=== PATIENT | female | born 1955 | race Hispanic/Latino ===

== ENCOUNTER 2018-03-03 13:31 | Observation (INO) | payer BC, OTHER, SELFPAY ==
--- NOTE | 2018-03-03 14:38 | RAD REPORT ---
EXAM DESCRIPTION: CT - Ct Stroke Brain Wo Cont - 03/03/2018 2:24 pm CLINICAL HISTORY: Right-sided facial droop, right-sided pain and tingling extending into the neck, s troke protocol study CLINICAL HISTORY: None. TECHNIQUE: Axial 5 millimeter thick images of the head were obtained without IV contrast. All CT scans are performed using dose optimization technique as appropriate and may include automated exposure control or mA/KV adjustment according to patient size. FINDINGS: No intracranial hemorrhage, mass, or cerebral edema. No acute infarction identifiable. No extra-axial fluid collections. Florian matter-white matter differentiation is preserved. Visualized portions of the mastoid air cells, paranasal sinuses, and orbits are unremarkable. Findings telephoned to the referring physician 1434 hours IMPRESSION: No CT evidence of acute intracranial process.
--- NOTE | 2018-03-03 14:49 | RAD REPORT ---
EXAM DESCRIPTION: RAD - Chest Single View - 03/03/2018 2:36 pm CLINICAL HISTORY: Right-sided neck and shoulder pain and tingling, stroke protocol examination COMPARISON: None. TECHNIQUE: AP portable chest image was obtained 1424 hours . FINDINGS: Lungs are clear. Heart size is magnified by portable technique, shallow inspiration and jorgito dy habitus. Patient may have a mild baseline cardiomegaly. Upper lobe vasculature within normal limit s. Failure or volume overload are not suspected. No measurable pleural effusion and no pneumothorax. No gross bony abnormality seen. No acute aortic findings suspected. IMPRESSION: No acute cardiopulmonary process. Patient probably has a mild or borderline cardiomegaly. No failure or volume overload.
[2018-03-03] MEDS ORDERED: ASPIRIN 81 MG CHEWABLE TABLET ONE (15:01)
[2018-03-03 15:18] LABS: Absolute Lymphocytes (CBC) 1.9 K/uL (0.7-4.9); Absolute Monocytes 0.5 K/uL (0.1-1.3); Absolute Neutrophil 3.2 K/uL (1.8-8.0); Basophils % 0.4 % (0-1.3); Eosinophils % 1.4 % (0-4.4); Hematocrit 38.9 % (36.0-45.0); Lymphocytes % 32.9 % (15.3-44.8); MCH 33.2 pg (27.0-35.0); MCV 96.8 fL (80-100); MPV 10.2 fL (7.6-11.3); Monocytes % 9.3 % (3.3-12.3); RBC Red Blood Cell Count 4.01 M/uL (3.86-4.86)
[2018-03-03 15:20] LABS: Protime INR 1.14
[2018-03-03 15:36] LABS: Albumin 3.4 g/dL (3.4-5.0); Bilirubin Direct 0.3 mg/dL (0-0.2); Magnesium 1.9 mg/dL (1.8-2.4); Protein, Total 7.5 g/dL (6.4-8.2)
[2018-03-03 15:43] LABS: Potassium 2.9 mmol/L (3.5-5.1)
[2018-03-03 15:43] LABS: Urine Blood NEGATIVE (NEG); Urine Glucose NEGATIVE (NEG); Urine Protein NEGATIVE (NEG); Urine Specific Gravity 1.015 (1.005-1.030)
[2018-03-03 15:45] LABS: Urine Bacteria >50 /HPF (<20); Urine Culture Reflex Order REFLEXED; Urine RBC <5 /HPF (NONE SEEN)
[2018-03-03] MEDS ORDERED: POTASSIUM 25 MEQ EFFERV TAB ONE (16:13)
--- NOTE | 2018-03-03 16:27 | EKG ---
Test Date: 2018-03-03 Test Time: 14:44:38 Hide Selector: CHANTAL MEASUREMENT RESULTS: Intervals: Rate: 67 NC: 160 QRSD: 100 QT: 428 QTc: 452 [place]: P: -4 NC: 160 QRS: -5 T: 5 INTERPRETIVE STATEMENTS: Normal sinus rhythm Moderate voltage criteria for LVH, may be normal variant Borderline ECG No previous ECG available for comparison Electronically Signed On 03-03-18 16:26:59 CDT by Larry Rutherford
--- NOTE | 2018-03-03 16:29 | ER ---
Nurse's Notes [facility] Name: Jojo Alaniz Age: 62 yrs Sex: Female : 1955 Arrival Date: 03/03/2018 Time: 13:32 Bed 25 Private MD: Diagnosis: Right Facial Droop;Right upper Extremity weakness;Hypokalemia Presentation: 03/03 13:33 Presenting complaint: Patient states: woke up at 7 am with right facial droop and iw unable to move right side of face, also has pain and tingling to right side of neck and right shoulder, down right arm, did not feel good today, felt like her BP was high. Transition of care: patient was not received from another setting of care. 13:33 Method Of Arrival: Ambulatory iw 13:39 Risk Assessment: Do you want to hurt yourself or someone else? Patient reports no iw desire to harm self or others. Initial Sepsis Screen: Does the patient meet any 2 criteria? No. Patient's initial sepsis screen is negative. Does the patient have a suspected source of infection? No. Patient's initial sepsis screen is negative. Care prior to arrival: None. 13:39 Acuity: JES 3 iw 18:29 No acute neurological deficit is noted. Pre-hospital glucose is not applicable to this tl3 patient. Onset of symptoms was March 03, 2018 at 07:00. Triage Assessment: 18:29 The onset of the patients symptoms was March 03, 2018 at 07:00. tl3 Stroke Activation: Symptom onset > 6 hours Physician: Stroke Attending; Name: ; Notified At: ; Arrived At: Physician: Chief Stroke Resident; Name: ; Notified At: ; Arrived At: Physician: Stroke Resident; Name: ; Notified At: ; Arrived At: Physician: ED Attending; Name: ; Notified At: ; Arrived At: Physician: ED Resident; Name: ; Notified At: ; Arrived At: Historical: - Allergies: 13:39 NKA; iw - PSHx: 13:39 right shoulder; iw - Immunization history:: Adult Immunizations up to date. - Ebola Screening: : Patient negative for fever greater than or equal to 101.5 degrees Fahrenheit, and additional compatible Ebola Virus Disease symptoms Patient denies exposure to infectious person Patient denies travel to an Ebola-affected area in the 21 days before illness onset No symptoms or risks identified at this time. - Social history:: Smoking status: unknown. - Family history:: not pertinent. - Hospitalizations: : No recent hospitalization is reported. Screenin:58 Abuse screen: Denies threats or abuse. Nutritional screening: No deficits noted. tl3 Tuberculosis screening: No symptoms or risk factors identified. Fall Risk None identified. Assessment: 13:58 General: Appears in no apparent distress. comfortable, well groomed, well developed, tl3 well nourished, Behavior is calm, cooperative, appropriate for age. Pain: Complains of pain in neck bilaterally Pain currently is 9 out of 10 on a pain scale. Neuro: Level of Consciousness is awake, alert, obeys commands, Oriented to person, place, time, situation, Appropriate for age [employer] are equal bilaterally Moves all extremities. Speech is normal, Facial droop on right, Pupils are PERRLA, Intact. Neuro: Reports waking up at 3am with bilateral neck pain, then when she woke up at 7am she had facial drooping on the right side, speech is clear, able to move all extremities, follows directions without difficulty. Cardiovascular: Capillary refill < 3 seconds in bilateral fingers Patient's skin is warm and dry. Rhythm is regular. Respiratory: Airway is patent Respiratory effort is even, unlabored, Respiratory pattern is regular, symmetrical, Breath sounds are clear bilaterally. GI: No signs and/or symptoms were reported involving the gastrointestinal system. : No signs and/or symptoms were reported regarding the genitourinary system. EENT: No signs and/or symptoms were reported regarding the EENT system. Derm: No signs and/or symptoms reported regarding the dermatologic system. Musculoskeletal: No signs and/or symptoms reported regarding the musculoskeletal system. 14:51 Reassessment: Patient appears in no apparent distress at this time. No changes from tl3 previously documented assessment. Patient and/or family updated on plan of care and expected duration. Pain level reassessed. Patient is alert, oriented x 3, equal unlabored respirations, skin warm/dry/pink. pt returned from CT, ambulated to restroom for urine collection. 15:00 The patient has not been NPO before screening. The patient is currently on the tl3 following diet: regular, last at eggs for breakfast The patient is alert, and able to follow commands. The patient does not exhibit slurred or garbled speech. The patient is not exhibiting difficulty speaking. The patient is exhibiting difficulty understanding words. The patient is able to swallow own secretions with no drooling or need for suction. Patient tolerated one teaspoon of water. No drooling, immediate coughing, gurgling, or clearing of the throat was noted. The patient tolerated 90mL of water. No drooling, immediate coughing, gurgling, or clearing of the throat was noted. The patient passed the bedside swallow screening. Oral medications may be given as ordered. Contact Physician for further diet orders. Provider notified of bedside swallow screening results: Robert Soliman MD. T-PA (Activase) Screening: Contraindications: Patient reports onset of signs and symptoms of stroke greater than 6 hours ago: Yes. 16:17 Reassessment: Patient appears in no apparent distress at this time. No changes from tl3 previously documented assessment. Patient and/or family updated on plan of care and expected duration. Pain level reassessed. Patient is alert, oriented x 3, equal unlabored respirations, skin warm/dry/pink. at bedside, no needs at this time. 18:15 Reassessment: Patient appears in no apparent distress at this time. No changes from tl3 previously documented assessment. Patient and/or family updated on plan of care and expected duration. Pain level reassessed. Patient is alert, oriented x 3, equal unlabored respirations, skin warm/dry/pink. Vital Signs: 13:37 BP 148 / 85; Pulse 76; Resp 16; Temp 98.6; Pulse Ox 98% on R/A; Weight 83.91 kg; Height iw 5 ft. 1 in. (154.94 cm); 13:58 BP 139 / 127; Pulse 71; Resp 18; Pulse Ox 99% on R/A; tl3 14:49 BP 141 / 111 (auto/lg); Pulse 72; Resp 18 S; Pulse Ox 98% on R/A; vd2 16:07 BP 137 / 69 RA Sitting (auto/lg); Pulse 66; Resp 18 S; Pulse Ox 98% on R/A; vd2 18:31 BP 135 / 78; Pulse 70; Resp 18; Pulse Ox 98% on R/A; tl3 13:37 Body Mass Index 34.96 (83.91 kg, 154.94 cm) iw NIH Stroke Scale Scores: 15:00 NIHSS Score: 1 tl3 ED Course: 13:32 Patient arrived in ED. rg4 13:39 Triage completed. iw 13:44 Brittney Nevarez, RN is Primary Nurse. tl3 13:52 Robert Soliman MD is Attending Physician. wa 13:58 Patient has correct armband on for positive identification. Bed in low position. Call tl3 light in reach. Side rails up X 1. Adult w/ patient. Pulse ox on. NIBP on. 13:58 No provider procedures requiring assistance completed. tl3 14:23 CT completed. Patient tolerated procedure well. Patient moved to CT via wheelchair. sj Patient moved back from CT. 14:24 CT Stroke Brain w/o Contrast In Process Unspecified. EDMS 14:35 X-ray completed. Patient tolerated procedure well. mh1 14:37 Stroke CXR 1 View In Process Unspecified. EDMS 14:52 EKG done, by document management technician. reviewed by Robert Soliman MD. sm3 15:02 Inserted saline lock: 20 gauge in left antecubital area, using aseptic technique. Blood mg2 collected. by director medical science Madhavi. 16:28 Johnny Barakat DO is Hospitalizing Provider. wa 16:46 Admitting physician to see patient. tl3 18:13 First set of blood cultures drawn by me, Second set of blood cultures drawn by me. tl3 18:28 Patient admitted, IV remains in place. tl3 18:30 Arm band placed on. tl3 Administered Medications: 15:02 Drug: Aspirin Chewable Tablet 324 mg Route: PO; mg2 15:30 Follow up: Response: No adverse reaction tl3 16:13 Drug: Potassium Effervescent Tablet 50 mEq Route: PO; tl3 16:13 Follow up: Response: No adverse reaction tl3 Point of Care Testing: Blood Glucose: 14:49 Blood Glucose: 87 mg/dL; vd2 Ranges: Outcome: 16:28 Decision to Hospitalize by Provider. wa 18:28 Admitted to Med/surg accompanied by tech, via wheelchair, room 202, with chart. tl3 18:28 Condition: stable 18:28 Instructed on the need for admit, Demonstrated understanding of instructions. 18:35 Patient left the ED. tl3 NIH Stroke Scale - NIH Stroke Score Date: 03/03/2018 Time: 15:00 Total Score = 1 1a. Level of Consciousness (LOC) - 0(Alert) 1b. Level of Consciousness (LOC) (Year \T\ Age) - 0(Both) 1c. LOC Commands (Open \T\ Closes Eyes/Cotton Ball Machine Tender) - 0(Both) 2. Best Gaze (Lateral Gaze Paresis) - 0(Normal) 3. Visual Field Loss - 0(No visual loss) 4. Facial Palsy - 1(Minor Paralysis) 5a. Left Arm: Motor (10-second hold) - 0(No drift) 5b. Right Arm: Motor (10-second hold) - 0(No drift) 6a. Left Leg: Motor (5-second hold - always test supine) - 0(No drift) 6b. Right Leg: Motor (5-second hold - always test supine) - 0(No drift) 7. Limb Ataxia (finger/nose \T\ heel/correa - test with eyes open) - 0(Absent) 8. Sensory Loss (pinprick arms/legs/face) - 0(Normal) 9. Best Language: Aphasia (description/naming/reading) - 0(No aphasia) 10. Dysarthria (speech clarity - read or repeat words) - 0(Normal) 11. Extinction and Inattention (visual/tactile/auditory/spatial/personal) - 0(No abnormality) Initials: tl3 Signatures: Dispatcher [employer] Olivia Valdes mh1 Itzel Marrero Irene, RN RN Le Kimbrough 2 Claire Carranza rg4 Robert Soliman MD MD wa Lowrey, Tammy, RN RN tl3 Sonny Espinal RN RN [facility] [place] Tracy Link 3
--- NOTE | 2018-03-03 16:29 | EDPHYS ---
Physician Documentation [facility] Name: Jojo Alaniz Age: 62 yrs Sex: Female : 1955 Arrival Date: 03/03/2018 Time: 13:32 Bed 25 Private MD: ED Physician Robert Soliman HPI: 03/03 16:11 This 62 yrs old Female presents to ER via Ambulatory with complaints of Facial wa Droop, Numbness. 16:11 The patient presents to the emergency department with weakness of the right side of the wa face, that is moderate. Onset: The symptoms/episode began/occurred today, at 7 AM noted R facial droop. denies speech impediment. began with pain in back of the neck on both sides prior to facial droop at 7AM also states numbness and tingling down the R arm. states does not feel good and feels her BP is up. . Context: occurred at home, occurred while the patient was at rest. Associated signs and symptoms: Pertinent positives: paresthesias, weakness, R shoulder and upper extremity , Pertinent negatives: altered mental status, dizziness, headache, neck stiffness. Severity of symptoms: At their worst the symptoms were moderate in the emergency department the symptoms are unchanged. Patient's baseline: Neuro: alert and fully oriented, Motor: no deficits, Ambulation: walks without assistance, Speech: normal, The patient has a previous history of HTN. Current symptoms: unchanged. The patient has not experienced similar symptoms in the past. The patient has not recently seen a physician. Historical: - Allergies: 13:39 NKA; iw - PSHx: 13:39 right shoulder; iw - Immunization history:: Adult Immunizations up to date. - Ebola Screening: : Patient negative for fever greater than or equal to 101.5 degrees Fahrenheit, and additional compatible Ebola Virus Disease symptoms Patient denies exposure to infectious person Patient denies travel to an Ebola-affected area in the 21 days before illness onset No symptoms or risks identified at this time. - Social history:: Smoking status: unknown. - Family history:: not pertinent. - Hospitalizations: : No recent hospitalization is reported. ROS: 16:21 Constitutional: Negative for fever, chills, and weight loss, Eyes: Negative for injury, wa pain, redness, and discharge, ENT: Negative for injury, pain, and discharge, Neck: Negative for injury, pain, and swelling, Cardiovascular: Negative for chest pain, palpitations, and edema, Respiratory: Negative for shortness of breath, cough, wheezing, and pleuritic chest pain, Abdomen/GI: Negative for abdominal pain, nausea, vomiting, diarrhea, and constipation, Back: Negative for injury and pain, : Negative for injury, bleeding, discharge, and swelling, MS/Extremity: Negative for injury and deformity, Skin: Negative for injury, rash, and discoloration, Psych: Negative for depression, anxiety, suicide ideation, homicidal ideation, and hallucinations. 16:21 Neuro: Positive for numbness, tingling, weakness, of the right face. 16:21 All other systems are negative. Exam: 16:22 Constitutional: This is a well developed, well nourished patient who is awake, alert, wa and in no acute distress. Head/Face: Normocephalic, atraumatic. Eyes: Pupils equal round and reactive to light, extra-ocular motions intact. Lids and lashes normal. Conjunctiva and sclera are non-icteric and not injected. Cornea within normal limits. Periorbital areas with no swelling, redness, or edema. ENT: Nares patent. No nasal discharge, no septal abnormalities noted. Tympanic membranes are normal and external auditory canals are clear. Oropharynx with no redness, swelling, or masses, exudates, or evidence of obstruction, uvula midline. Mucous membranes moist. Neck: Trachea midline, no thyromegaly or masses palpated, and no cervical lymphadenopathy. Supple, full range of motion without nuchal rigidity, or vertebral point tenderness. No Meningismus. Chest/axilla: Normal chest wall appearance and motion. Nontender with no deformity. No lesions are appreciated. Cardiovascular: Regular rate and rhythm with a normal S1 and S2. No gallops, murmurs, or rubs. Normal PMI, no JVD. No pulse deficits. Respiratory: Lungs have equal breath sounds bilaterally, clear to auscultation and percussion. No rales, rhonchi or wheezes noted. No increased work of breathing, no retractions or nasal flaring. Abdomen/GI: Soft, non-tender, with normal bowel sounds. No distension or tympany. No guarding or rebound. No evidence of tenderness throughout. Back: No spinal tenderness. No costovertebral tenderness. Full range of motion. Skin: Warm, dry with normal turgor. Normal color with no rashes, no lesions, and no evidence of cellulitis. MS/ Extremity: Pulses equal, no cyanosis. Neurovascular intact. Full, normal range of motion. 16:22 Neuro: Orientation: is normal, Mentation: is normal, Memory: is normal, Cranial nerves: right facial droop. forehead inclusive? noted decreased strength in RUE. LE strength symmetrical. Vital Signs: 13:37 BP 148 / 85; Pulse 76; Resp 16; Temp 98.6; Pulse Ox 98% on R/A; Weight 83.91 kg; Height iw 5 ft. 1 in. (154.94 cm); 13:58 BP 139 / 127; Pulse 71; Resp 18; Pulse Ox 99% on R/A; tl3 14:49 BP 141 / 111 (auto/lg); Pulse 72; Resp 18 S; Pulse Ox 98% on R/A; vd2 16:07 BP 137 / 69 RA Sitting (auto/lg); Pulse 66; Resp 18 S; Pulse Ox 98% on R/A; vd2 18:31 BP 135 / 78; Pulse 70; Resp 18; Pulse Ox 98% on R/A; tl3 13:37 Body Mass Index 34.96 (83.91 kg, 154.94 cm) iw NIH Stroke Scale Scores: 15:00 NIHSS Score: 1 tl3 MDM: 13:52 Patient medically screened. al 16:23 Data reviewed: vital signs, nurses notes, lab test result(s), EKG, radiologic studies. al Test interpretation: by ED physician or midlevel provider: EKG: HR 67. nml sinus. possible LVH. labs noted for mild elevation in troponin. hypokalemia. CT brain no acute process. Response to treatment: There is no appreciated change of the patient's symptoms at this time. Physician consultation: Johnny Barakat DO was called at 16:27. Admission orders: after a detailed discussion of the patient's condition and case, the admit orders are written by me. ED course: possible Person's palsy as it appears forehead is involved in droop. however does not explain R UE weakness. also pt with risk of HTN, age, obesity. will work up to exclude stroke. 16:29 ED course: passed swallow study. see nursing note for stroke scale scores. low score. al 16:30 ED course: ASA given. potassium replaced po. al 03/03 14:13 Order name: Troponin (emerg Dept Use Only); Complete Time: 15:55 al 03/03 14:13 Order name: Magnesium; Complete Time: 15:55 al 03/03 14:13 Order name: Hepatic Function; Complete Time: 15:55 al 03/03 14:13 Order name: Basic Metabolic Panel; Complete Time: 15:55 al 03/03 14:13 Order name: CBC with Diff; Complete Time: 15:33 al 03/03 14:13 Order name: Protime (+inr); Complete Time: 15:33 al 03/03 14:13 Order name: Urine Microscopic Only; Complete Time: 15:55 al 03/03 14:13 Order name: CT Stroke Brain w/o Contrast; Complete Time: 15:33 al 03/03 14:13 Order name: Stroke CXR 1 View; Complete Time: 15:33 al 03/03 14:13 Order name: EKG; Complete Time: 14:14 al 03/03 15:41 Order name: Urine Dipstick--Ancillary (enter results); Complete Time: 15:55 mb4 03/03 15:47 Order name: Urine Culture EDMI 03/03 14:13 Order name: Accucheck; Complete Time: 15:01 al 03/03 14:13 Order name: Cardiac monitoring; Complete Time: 15: al 03/03 14:13 Order name: EKG - Nurse/Tech; Complete Time: 15:09 al 03/03 14:13 Order name: IV Saline Lock; Complete Time: 15: al 03/03 14:13 Order name: Labs collected and sent; Complete Time: 15:02 al 03/03 14:13 Order name: NPO; Complete Time: 15:02 al 03/03 14:13 Order name: O2 Per Protocol; Complete Time: 15: al 03/03 14:13 Order name: O2 Sat Monitoring; Complete Time: 15:02 al 03/03 14:13 Order name: Stroke Swallow Screen; Complete Time: 15:53 al 03/03 14:13 Order name: Urine Dipstick-Ancillary (obtain specimen); Complete Time: 15:09 al Administered Medications: 15:02 Drug: Aspirin Chewable Tablet 324 mg Route: PO; mg2 15:30 Follow up: Response: No adverse reaction tl3 16:13 Drug: Potassium Effervescent Tablet 50 mEq Route: PO; tl3 16:13 Follow up: Response: No adverse reaction tl3 Point of Care Testing: Blood Glucose: 14:49 Blood Glucose: 87 mg/dL; vd2 Ranges: Critical Glucose Levels:Adult <50 mg/dl or >400 mg/dl <40 mg/dl or >180 mg/dl Disposition: 03/03/18 16:28 Hospitalization ordered by Johnny Barakat for Observation. Preliminary diagnosis are Right Facial Droop, Right upper Extremity weakness, Hypokalemia. - Bed requested for Telemetry/MedSurg (observation). - Status is Observation. tl3 - Condition is Stable. - Problem is new. - Symptoms have improved. UTI on Admission? No NIH Stroke Scale - NIH Stroke Score Date: 03/03/2018 Time: 15:00 Total Score = 1 1a. Level of Consciousness (LOC) - 0(Alert) 1b. Level of Consciousness (LOC) (Year \T\ Age) - 0(Both) 1c. LOC Commands (Open \T\ Closes Eyes/Grooving Lathe Tender) - 0(Both) 2. Best Gaze (Lateral Gaze Paresis) - 0(Normal) 3. Visual Field Loss - 0(No visual loss) 4. Facial Palsy - 1(Minor Paralysis) 5a. Left Arm: Motor (10-second hold) - 0(No drift) 5b. Right Arm: Motor (10-second hold) - 0(No drift) 6a. Left Leg: Motor (5-second hold - always test supine) - 0(No drift) 6b. Right Leg: Motor (5-second hold - always test supine) - 0(No drift) 7. Limb Ataxia (finger/nose \T\ heel/correa - test with eyes open) - 0(Absent) 8. Sensory Loss (pinprick arms/legs/face) - 0(Normal) 9. Best Language: Aphasia (description/naming/reading) - 0(No aphasia) 10. Dysarthria (speech clarity - read or repeat words) - 0(Normal) 11. Extinction and Inattention (visual/tactile/auditory/spatial/personal) - 0(No abnormality) Initials: tl3 Signatures: Dispatcher [employer] Ama Reeves RN RN iw Robert Soliman MD MD wa Lowrey, Tammy, RN RN 3 Sonny Espinal, CARMELITA MAE [facility] [place] mb4 Corrections: (The following items were deleted from the chart) 16:29 16:28 Hospitalization Ordered by Johnny Barakat DO for Observation. Preliminary al diagnosis is Right Facial Droop; Right upper Extremity weakness. Bed requested for Telemetry/MedSurg (observation). Status is Observation. Condition is Stable. Problem is new. Symptoms have improved. UTI on Admission? No. al 18:06 16:29 03/03/2018 16:28 Hospitalization Ordered by Johnny Barakat DO for mb4 Observation. Preliminary diagnosis is Right Facial Droop; Right upper Extremity weakness; Hypokalemia. Bed requested for Telemetry/MedSurg (observation). Status is Observation. Condition is Stable. Problem is new. Symptoms have improved. UTI on Admission? No. al 18:34 18:06 03/03/2018 16:28 Hospitalization Ordered by Johnny Barakat DO for tl3 Observation. Preliminary diagnosis is Right Facial Droop; Right upper Extremity weakness; Hypokalemia. Bed requested for Telemetry/MedSurg (observation). Status is Observation. Condition is Stable. Problem is new. Symptoms have improved. UTI on Admission? No. mb4
[2018-03-03] MEDS ORDERED: TRAMADOL HCL 50 MG TAB PO PRN (17:06)
[2018-03-03] MEDS ORDERED: LORAZEPAM 0.5 MG TABLET PO PRN (17:06)
[2018-03-03] MEDS ORDERED: ONDANSETRON 4 MG/2 ML VIAL IV PRN (17:06)
[2018-03-03] MEDS ORDERED: ACETAMINOPHEN 500 MG TAB PO PRN (17:06)
--- NOTE | 2018-03-03 17:40 | P.HP ---
Certification for Inpatient Patient admitted to: Observation With expected LOS: <2 Midnights Patient will require the following post-hospital care: None Practitioner: I am a practitioner with admitting privileges, knowledge of patient current condition, hospital course, and medical plan of care. Services: Services provided to patient in accordance with Admission requirements found in Title 42 Section 412.3 of the Code of Federal Regulations Patient History Date of Service: 03/03/18 Primary Care Provider: None Reason for admission: Right upper extremity weakness, facial droop History of Present Illness: 62-year-old female present emergency room with multiple complaints including right upper extremity weakness, facial droop, dizziness and presyncope. Patient reports that she woke up this morning feeling very tired. She felt her right facial area as being weak. She also reported some pain to the back of the ear bilateral. She rated pain about 9/10. She went back to bed woke up around 7:00 a.m.. She reported further weakness in her right facial area. She also reported some mild weakness to the right upper extremity. Patient has a history of right shoulder surgery x2. Patient felt dizzy with increased fatigue. She reported some blurry vision but mainly near vision. She denied any shortness of breath. Mild chest pain, atypical noted. In the ER patient was evaluated. Initial lab shows sodium 142. Potassium 2.9, initial troponin 0.07. CT of the head unremarkable. Urinalysis showed possible bacteria. Chest x-ray showed cardiomegaly otherwise unremarkable. Due to the nature of her symptoms the patient was admitted for observation. When I saw the patient ER, she appeared dehydrated. Weakness to the extremities appeared normal. Facial droop was noted. Patient denied any history of major medical problems. She does not smoke or drink. Blood pressures were slightly elevated in the emergency room. She denies any nausea, vomiting, diarrhea. No urinary complaints noted. Home medications list reviewed: Yes - Past Medical/Surgical History -: Right shoulder pain, chronic -: Right shoulder surgery x2 Psychosocial/ Personal History: Patient is . She has no children. 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 - Family History Mother -: Cancer (Gallbladder cancer) Father -: Hypertension - Social History Smoking Status: Never smoker Alcohol use: No CD- Drugs: No Caffeine use: Yes Place of Residence: Home Review of Systems General: Weakness, As per HPI Eyes: As per HPI ENT: As per HPI Respiratory: Unremarkable Cardiovascular: Chest Pain, Light Headedness, As per HPI Gastrointestinal: Unremarkable Genitourinary: Unremarkable Musculoskeletal: Shoulder Pain, As per HPI Integumentary: Unremarkable Neurological: As per HPI Lymphatics: Unremarkable Physical Examination - Physical Exam General: Alert, In no apparent distress, Oriented x3, Cooperative HEENT: Atraumatic, Normocephalic, PERRLA, Other (Dry mucous membranes. Right facial droop noted.) Neck: Supple, No Thyromegaly Respiratory: Clear to auscultation bilaterally, Normal air movement Cardiovascular: Normal pulses, Regular rate/rhythm Gastrointestinal: Normal bowel sounds, Soft and benign, Non-distended, No tenderness, No masses, No rebound, No guarding Musculoskeletal: No erythema, No tenderness, No warmth Integumentary: No erythema, No warmth, No cyanosis, Tenderness/swelling (Good range of motion noted to the right shoulder. Some pain with rotation.) Neurological: Normal speech, Normal strength at 5/5 x4 extr, Normal tone, Normal affect, Other (Right facial droop) - Studies Laboratory Data (last 24 hrs) 03/03/18 15:00: PT 13.5 H, INR 1.14 03/03/18 15:00: WBC 5.8, Hgb 13.3, Hct 38.9, Plt Count 111 L 03/03/18 15:00: Sodium 142, Potassium 2.9 L*, BUN 9, Creatinine 0.70, Glucose 93 , Magnesium 1.9, Total Bilirubin 1.0, AST 37, ALT 25, Alkaline Phosphatase 176 H Assessment and Plan - Problems (Diagnosis) (1) Pre-syncope Current Visit: Yes Status: Acute Plan: Patient will be admitted. Will check echocardiogram, carotid Doppler and stroke protocol MRI. Troponin slightly elevated. Will consult cardiology to further assess. Will monitor cardiac enzymes. Patient appears slightly dehydrated. Will start IV fluids. Suspect right facial droop being Person's palsy. Neurology consulted to further assess. Suspect right upper extremity weakness related to chronic shoulder pain. Patient has had multiple procedures in the past. Patient with hypokalemia. Etiology unknown. Will replace and monitor. (2) Facial droop Current Visit: Yes Status: Acute Plan: Suspect Person's palsy. Will continue with above evaluation including MRI brain, echocardiogram and carotid Doppler. (3) Person's palsy Current Visit: Yes Status: Suspected Plan: Continue as above (4) Right arm weakness Current Visit: Yes Status: Chronic Plan: Suspect arm weakness as being chronic related to chronic shoulder pain and previous surgeries. Will evaluate for stroke. (5) Chronic shoulder pain Current Visit: Yes Status: Chronic Plan: Will provide medication as needed. Qualifiers: Laterality: right Qualified Code(s): M25.511 - Pain in right shoulder; G89.29 - Other chronic pain (6) Hypertension Current Visit: Yes Status: Acute Plan: Blood pressure elevated. Patient not taking any medication. Will start lisinopril Qualifiers: Hypertension type: essential hypertension Qualified Code(s): I10 - Essential (primary) hypertension (7) Hypokalemia Current Visit: Yes Status: Acute Plan: Etiology unknown. Will replace. Will monitor closely. (8) Fatigue Current Visit: Yes Status: Acute Plan: Will check tsh. Will monitor lab. Continue as above. Qualifiers: Fatigue type: unspecified Qualified Code(s): R53.83 - Other fatigue (9) UTI (urinary tract infection) Current Visit: Yes Status: Suspected Plan: Patient reports no symptoms of UTI. Will check urine culture. Will consider antibiotic therapy. Qualifiers: Urinary tract infection type: site unspecified Hematuria presence: without hematuria Qualified Code(s): N39.0 - Urinary tract infection, site not specified (10) Troponin level elevated Current Visit: Yes Status: Acute Plan: Slight elevation in troponin. Cardiac enzymes to be monitored closely. Will check echocardiogram. Cardiac consultation has been obtained. Discharge Plan: Home Plan to discharge in: 24 Hours - Advance Directives Does patient have a Living Will: No Does patient have a Durable POA for Healthcare: No - Code Status/Comfort Care Code Status Assessed: Yes (Patient full code) Time Spent Managing Pts Care (In Minutes): 55
[2018-03-03] MEDS ORDERED: CEFTRIAXONE 1 GM/NS 50 ML 1 GM/50 ML BAG IV SCH (18:00)
[2018-03-03] MEDS ORDERED: LORazepam 2 MG/ML VIAL IV ONE (19:33)
[2018-03-03] MEDS: NA CHLORIDE 0.9% 1,000 ML IV SCH (19:51)
[2018-03-03] MEDS: ENOXAPARIN 40 MG/0.4 ML SQ SCH (20:00)
[2018-03-03] MEDS ORDERED: CEFTRIAXONE/SWI 1gm 1 GM/10 ML SYR ONE (20:50)
--- NOTE | 2018-03-03 20:59 | RAD REPORT ---
EXAM DESCRIPTION: - CP - 03/03/2018 8:53 pm CLINICAL HISTORY: Syncope COMPARISON: None. TECHNIQUE: Real-time sonographic evaluation of both carotid systems was performed. Doppler interroga tion was performed with waveform tracing bilaterally. FINDINGS: Normal high resistance waveforms are noted in both external carotid arteries. The common c arotid arteries and internal carotid arteries show normal low resistance waveforms. No significant plaque formation is seen. Peak systolic and end diastolic velocity values and the ICA/ CCA ratios are in the non-hemodynamically significant range. Antegrade flow seen in both vertebral arteries. Velocity values and ratios were recorded and are retained in the patient's imaging records. Exam has significant limitation. Patient was moving throughout the examination and had limited abilit y to cooperate. IMPRESSION: Limited examination due to patient movement and limited ability to cooperate. No significant atherosclerotic change or luminal narrowing identified. Velocity values and ICA/ CCA ratios indicate no significant degree of stenosis.
[2018-03-03] MEDS ORDERED: ATORVASTATIN 40 MG TAB PO SCH (21:00)
[2018-03-04 00:01] LABS: CKMB Creatine Kinase MB < 1.0 ng/mL (0.3-3.6); Creatine Phosphokinase 88 U/L (26-192)
[2018-03-04] MEDS: KCL 20 MEQ/100 mL IVPB 20 MEQ/100 ML BAG IV SCH ×3 (00:53→05:56)
[2018-03-04 05:10] LABS: Absolute Lymphocytes (CBC) 1.5 K/uL (0.7-4.9); Absolute Monocytes 0.5 K/uL (0.1-1.3); Absolute Neutrophil 2.5 K/uL (1.8-8.0); Basophils % 0.3 % (0-1.3); Eosinophils % 1.9 % (0-4.4); Hematocrit 32.6 % (36.0-45.0); Lymphocytes % 33.6 % (15.3-44.8); MCH 34.3 pg (27.0-35.0); MCV 97.2 fL (80-100); MPV 9.8 fL (7.6-11.3); Monocytes % 9.9 % (3.3-12.3); RBC Red Blood Cell Count 3.36 M/uL (3.86-4.86)
[2018-03-04 05:32] LABS: BUN Blood Urea Nitrogen 9 mg/dL (7-18); Bicarbonate 27 mmol/L (21-32); Glucose Level 113 mg/dL (74-106); HDL Cholesterol 48 mg/dL (40-60); LDL Cholesterol, Calculated 80 (<130); Magnesium 1.8 mg/dL (1.8-2.4); Potassium 3.2 mmol/L (3.5-5.1); Sodium Level 145 mmol/L (136-145)
[2018-03-04 05:40] LABS: Blood Morphology Comment NOT SEEN (NOT SEEN); Platelet Estimate DECR; Urine White Blood Cell Casts OK
[2018-03-04] MEDS ORDERED: LORazepam 2 MG/ML VIAL IV ONE (07:16)
[2018-03-04] MEDS: NA CHLORIDE 0.9% 1,000 ML IV SCH (07:20)
[2018-03-04 08:06] LABS: CKMB Creatine Kinase MB 1.3 ng/mL (0.3-3.6)
[2018-03-04] MEDS ORDERED: ASPIRIN EC 81 MG TAB PO SCH (09:00)
[2018-03-04] MEDS: ENOXAPARIN 40 MG/0.4 ML SQ SCH (09:00)
[2018-03-04] MEDS ORDERED: LISINOPRIL 5 MG TAB PO SCH (09:00)
[2018-03-04] MEDS ORDERED: CEFTRIAXONE 1 GM/NS 50 ML 1 GM/50 ML BAG IV SCH (09:00)
--- NOTE | 2018-03-04 09:38 | RAD REPORT ---
EXAM DESCRIPTION: MRI - Brain Wo Cont - 03/04/2018 8:43 am CLINICAL HISTORY: Syncope/right facial droop COMPARISON: March 03, [address] TECHNIQUE: Axial, sagittal, and coronal magnetic resonance images of the brain were obtained. Contra st was not requested FINDINGS: No abnormal signal is present within the brain. Diffusion-weighted/ADC mapping does not reveal evidence of acute infarction. The ventricles are normal caliber. An extra-axial fluid collection is not present The sinuses and mastoids are clear. IMPRESSION: Unremarkable unenhanced brain MRI
--- NOTE | 2018-03-04 10:08 | RAD REPORT ---
EXAM DESCRIPTION: MRI - MRA Head Wo Cont - 03/04/2018 8:43 am CLINICAL HISTORY: Syncope COMPARISON: None. TECHNIQUE: Magnetic resonance angiogram of the head was performed. 3D MIP reconstruction was performed FINDINGS: The visualized anterior cerebral, middle cerebral, posterior cerebral, basilar and distal internal carotid arteries do not demonstrate a significant stenosis. An aneurysm is not seen IMPRESSION: Unremarkable MRA head
[2018-03-04] MEDS ORDERED: METHYLPREDNISOLONE 40 MG INJ IV ONE (11:08)
--- NOTE | 2018-03-04 11:14 | P.DS ---
Admission Date: 03/03/18 Discharge Date: 03/04/18 Primary Care Provider: None Disposition: ROUTINE DISCHARGE Discharge Condition: GOOD Reason for Admission: Right upper extremity weakness, facial droop Consultations: Cardiology-Dr. Tavera Procedures: MRI Brain: COMPARISON: March 03, [address] TECHNIQUE: Axial, sagittal, and coronal magnetic resonance images of the brain were obtained. Contrast was not requested FINDINGS: No abnormal signal is present within the brain. Diffusion-weighted/ADC mapping does not reveal evidence of acute infarction. The ventricles are normal caliber. An extra-axial fluid collection is not present The sinuses and mastoids are clear. IMPRESSION: Unremarkable unenhanced brain MRI MRA Brain: COMPARISON: None. TECHNIQUE: Magnetic resonance angiogram of the head was performed. 3D MIP reconstruction was performed FINDINGS: The visualized anterior cerebral, middle cerebral, posterior cerebral , basilar and distal internal carotid arteries do not demonstrate a significant stenosis. An aneurysm is not seen IMPRESSION: Unremarkable MRA head Carotid Doppler: No acute stenosis noted. ECHO: Performed. Results pending. - Problems (1) Pre-syncope Onset Date: 03/04/18 Current Visit: Yes Status: Acute (2) Facial droop Onset Date: 03/04/18 Current Visit: Yes Status: Acute (3) Person's palsy Onset Date: 03/04/18 Current Visit: Yes Status: Acute (4) Right arm weakness Onset Date: 03/04/18 Current Visit: Yes Status: Chronic (5) Chronic shoulder pain Onset Date: 03/04/18 Current Visit: Yes Status: Chronic Qualifiers: Laterality: right Qualified Code(s): M25.511 - Pain in right shoulder; G89.29 - Other chronic pain (6) Hypertension Onset Date: 03/04/18 Current Visit: Yes Status: Acute Qualifiers: Hypertension type: essential hypertension Qualified Code(s): I10 - Essential (primary) hypertension (7) Hypokalemia Onset Date: 03/04/18 Current Visit: Yes Status: Acute (8) Fatigue Onset Date: 03/04/18 Current Visit: Yes Status: Acute Qualifiers: Fatigue type: unspecified Qualified Code(s): R53.83 - Other fatigue (9) UTI (urinary tract infection) Onset Date: 03/04/18 Current Visit: Yes Status: Suspected Qualifiers: Urinary tract infection type: site unspecified Hematuria presence: without hematuria Qualified Code(s): N39.0 - Urinary tract infection, site not specified (10) Troponin level elevated Onset Date: 03/04/18 Current Visit: Yes Status: Acute Brief History of Present Illness: 62-year-old female present emergency room with multiple complaints including right upper extremity weakness, facial droop, dizziness and presyncope. Patient reports that she woke up this morning feeling very tired. She felt her right facial area as being weak. She also reported some pain to the back of the ear bilateral. She rated pain about 9/10. She went back to bed woke up around 7:00 a.m.. She reported further weakness in her right facial area. She also reported some mild weakness to the right upper extremity. Patient has a history of right shoulder surgery x2. Patient felt dizzy with increased fatigue. She reported some blurry vision but mainly near vision. She denied any shortness of breath. Mild chest pain, atypical noted. In the ER patient was evaluated. Initial lab shows sodium 142. Potassium 2.9, initial troponin 0.07. CT of the head unremarkable. Urinalysis showed possible bacteria. Chest x-ray showed cardiomegaly otherwise unremarkable. Due to the nature of her symptoms the patient was admitted for observation. When I saw the patient ER, she appeared dehydrated. Weakness to the extremities appeared normal. Facial droop was noted. Patient denied any history of major medical problems. She does not smoke or drink. Blood pressures were slightly elevated in the emergency room. She denies any nausea, vomiting, diarrhea. No urinary complaints noted. Hospital Course: Patient presented with right facial droop. Likely Person's palsy. Patient was admitted for further evaluation. MRI/MRA brain showed no acute stroke. No acute abnormality noted. Carotid Doppler unremarkable. Right facial droop likely Person's palsy. Patient given IV Solu-Medrol. At discharge she will continue with prednisone 20 mg 1 pill twice daily for 5 days then 1 pill once daily for 5 days. She will also be started on Acyclovir 400 mg one pill 5 times a day for 10 days. She may follow up with Neurology in one month to further address. There was some concern that the patient had a presyncopal episode. Patient reported only dizziness and right arm weakness and numbness. Patient with history of chronic shoulder pain with previous surgeries. Cardiology evaluated patient. Cardiac enzymes unremarkable. Echocardiogram done. No cardiac intervention was recommended. At discharge she will continue with aspirin 81 mg daily. Patient may follow up with orthopedics is an outpatient to further address her chronic shoulder pain. Patient has underlying hypertension. Patient started on blood pressure medication. At discharge she will continue with lisinopril 5 mg 1 pill daily. Recommendation is to maintain blood pressures less 150/80. Further adjustment can be done by her PCP. Patient was found to have a UTI. Urine culture pending at discharge. This can be followed up as an outpatient. At discharge she will continue with Bactrim DS 1 pill twice daily for 7 days. UTI prevention education will be provided. Patient with mild thrombocytopenia. Peripheral smear unremarkable. Recommendation to recheck lab-CBC in 1 week to monitor resolution. Patient had hypokalemia. This was replaced. Recommendation to recheck lab-BMP in 1 week to monitor resolution. Vital Signs/Physical Exam: Temp Pulse Resp BP Pulse Ox 97.9 F 72 18 135/70 97 03/04/18 08:00 03/04/18 08:00 03/04/18 08:00 03/04/18 08:00 03/04/18 08:00 General: Alert, In no apparent distress, Oriented x3, Cooperative HEENT: Atraumatic, Normocephalic, Mucous membr. moist/pink, Other (Right facial droop) Neck: Supple, No Thyromegaly Respiratory: Clear to auscultation bilaterally, Normal air movement Cardiovascular: Normal pulses, Regular rate/rhythm Gastrointestinal: Normal bowel sounds, Soft and benign, Non-distended, No tenderness, No masses, No rebound, No guarding Musculoskeletal: No erythema, No tenderness, No warmth Integumentary: No tenderness/swelling, No erythema, No warmth, No cyanosis Neurological: Normal speech, Normal strength at 5/5 x4 extr, Normal tone, Normal affect, Other (right facial droop) Lymphatics: No axilla or inguinal lymphadenopathy Laboratory Data at Discharge: WBC 4.6 K/uL (4.3-10.9) D 03/04/18 04:39 Hgb 11.5 g/dL (12.0-15.0) L 03/04/18 04:39 Hct 32.6 % (36.0-45.0) L D 03/04/18 04:39 Plt Count 85 K/uL (152-406) L D 03/04/18 04:39 PT 13.5 SECONDS (9.5-12.5) H 03/03/18 15:00 INR 1.14 03/03/18 15:00 Sodium 145 mmol/L (136-145) 03/04/18 04:39 Potassium 3.2 mmol/L (3.5-5.1) L 03/04/18 10:25 BUN 9 mg/dL (7-18) 03/04/18 04:39 Creatinine 0.60 mg/dL (0.55-1.3) 03/04/18 04:39 Glucose 113 mg/dL (74-106) H 03/04/18 04:39 Magnesium 1.8 mg/dL (1.8-2.4) 03/04/18 04:39 Total Bilirubin 1.0 mg/dL (0.2-1.0) 03/03/18 15:00 AST 37 U/L (15-37) 03/03/18 15:00 ALT 25 U/L (12-78) 03/03/18 15:00 Alkaline Phosphatase 176 U/L (45-117) H 03/03/18 15:00 Troponin I 0.07 ng/mL (0.0-0.045) H 03/04/18 07:17 Triglycerides 101 mg/dL (<150) 03/04/18 04:39 Cholesterol 148 mg/dL (<200) 03/04/18 04:39 HDL Cholesterol 48 mg/dL (40-60) 03/04/18 04:39 Cholesterol/HDL Ratio 3.08 03/04/18 04:39 Home Medications: Acyclovir 400 mg PO SEECOM #50 tablet 03/04/18 Aspirin [Aspirin EC 81 MG] 81 mg PO DAILY #30 tablet. 03/04/18 Lisinopril [Prinivil*] 5 mg PO DAILY #30 tab 03/04/18 Smz./Tmp. [Bactrim Ds 800 MG/160 MG*] 1 tab PO BID #14 tab 03/04/18 Tramadol HCl [Ultram] 50 mg PO Q8H PRN 03/04/18 New Medications: Acyclovir 400 mg PO SEECOM #50 tablet Aspirin [Aspirin EC 81 MG] 81 mg PO DAILY #30 tablet. Lisinopril [Prinivil*] 5 mg PO DAILY #30 tab Smz./Tmp. [Bactrim Ds 800 MG/160 MG*] 1 tab PO BID #14 tab Patient Discharge Instructions: 1. Patient will need a follow up with a PCP in 1 week to follow up this hospitalization. 2. Patient presented with right facial droop. This was related to Person's palsy. MRI/MRA brain showed no acute stroke. No acute abnormality noted. Carotid Doppler unremarkable. Right facial droop confirmed as Person's palsy by Neurology. At discharge she will continue with prednisone 20 mg 1 pill twice daily for 5 days then 1 pill once daily for 5 days. She will also be started on Acyclovir 400 mg one pill 5 times a day for 10 days. She may follow up with Neurology in one month to further address. 3. There was some concern that the patient had a presyncopal episode. Patient reported only dizziness and right arm weakness and numbness. Patient with history of chronic shoulder pain with previous surgeries. Cardiology evaluated patient. Cardiac enzymes unremarkable. Echocardiogram done. No cardiac intervention was recommended. At discharge she will continue with aspirin 81 mg daily. Patient may follow up with orthopedics as an outpatient to further address her chronic shoulder pain. 4. Patient has underlying hypertension. Patient started on blood pressure medication. At discharge she will continue with lisinopril 5 mg 1 pill daily. Recommendation is to maintain blood pressures less 150/80. Further adjustment can be done by her PCP. 5. Patient was found to have a UTI. Urine culture pending at discharge. This can be followed up as an outpatient. At discharge she will continue with Bactrim DS 1 pill twice daily for 7 days. UTI prevention education will be provided. 6. Patient with mild thrombocytopenia. Peripheral smear unremarkable. Recommendation to recheck lab-CBC in 1 week to monitor resolution. 7. Patient had hypokalemia. Patient given replacement. Recommendation to recheck lab-BMP in 1 week to monitor resolution. Diet: AHA Activity: Fall precautions Time spent managing pt's care (in minutes): 55
[2018-03-04] MEDS ORDERED: POTASSIUM CL 40 MEQ in NA CHLORIDE 0.9% 500 ML IV SCH (12:00)
[2018-03-04] MEDS ORDERED: POTASSIUM 25 MEQ EFFERV TAB PO ONE (12:20)
--- NOTE | 2018-03-04 12:29 | ECHO ---
HEIGHT: 5 ft 1 in WEIGHT: 184 lb 6 oz DATE OF STUDY: 03/04/[address]: Johnny Barakat DO 2-DIMENSIONAL: YES M.MODE: YES DOPPLER: YES COLOR FLOW: YES TDS: NO PORTABLE: NO DEFINITY: NO BUBBLE STUDY: NO DIAGNOSIS: PRESYNCOPE, HYPERTENSION CARDIAC HISTORY: CATHERIZATION: NO SURGERY: NO PROSTHETIC VALVE: NO PACEMAKER: NO MEASUREMENTS (cm) DIASTOLIC (NORMALS) SYSTOLIC (NORMALS) IVSd 0.9 (0.6-1.2) LA Diam 3.2 (1.9-4.0) LVEF 62% LVIDd 4.6 (3.5-5.7) LVIDs 3.1 (2.0-3.5) %FS 34% LVPWd 1.0 (0.6-1.2) Ao Diam 2.9 (2.0-3.7) 2 DIMENSIONAL ASSESSMENT: RIGHT ATRIUM: NORMAL LEFT ATRIUM: NORMAL RIGHT VENTRICLE: NORMAL LEFT VENTRICLE: NORMAL TRICUSPID VALVE: NORMAL MITRAL VALVE: NORMAL PULMONIC VALVE: NORMAL AORTIC VALVE: NORMAL PERICARDIAL EFFUSION: NONE AORTIC ROOT: NORMAL LEFT VENTRICULAR WALL MOTION: DOPPLER/COLOR FLOW: MILD MITRAL AND TRICUSPID REGURGITATION. NORMAL RIGHT VENTRICULAR SYSTOLIC PRESSURE. COMMENTS: NORMAL 2D ECHO. MILD MITRAL AND TRICUSPID REGURGITATION. TECHNOLOGIST: ROZINA REYES
[2018-03-04] MEDS ORDERED: ACYCLOVIR 400 MG TABLET PO SCH (14:00)
--- NOTE | 2018-03-04 18:53 | CON ---
History Of Present Illness: Ms. Alaniz is a 62-year-old patient, who comes back to our hospital with some head pain and per the chart right upper extremity weakness; however, the patient has especially left facial drooping and she did state there were some problems with sensation in her face as well. The time of onset of the symptoms is not clear, but the patient apparently woke up around 7 a.m. on the that is yesterday with these symptoms and pain radiated to the ears on both sides around 03/21. 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 At [facility], the head CT scan showed no acute ischemic or hemorrhagic change. A subsequent brain MRI with MRA ruled out the presence of acute ischemic or hemorrhagic stroke. Carotid artery ultrasound showed no evidence of hemodynamically significant stenosis. An echocardiogram showed ejection fraction of 60% and was normal study with mild mitral and tricuspid regurgitation seen. Blood Work: Essentially complete blood count with differential is unremarkable. Coagulation panel showed an INR of 1.14. Chemistries did show low potassium of 2.8, now improved to 3.2. Thyroid-stimulating hormone level was elevated to 5.02. Urinalysis showed greater than 50 bacteria with 5-10 epithelial cells, but negative nitrite and esterase. She does have hepatitis panel pending. The patient is now with some difficulty closing the left eye and some mild slurring of her speech. Past Medical History: The patient denies a history of medical problems, although she did have right shoulder surgery twice after dislocation. Family History: Cancer in mother and hypertension in father. Social History: No alcohol, tobacco, or IV drug use. Allergies: NO KNOWN DRUG ALLERGIES. Medications: She is now started on acyclovir 5 times daily. She has Lipitor 40 mg at bedtime. She received 1 g of Rocephin and is on Lovenox 40 mg sq daily for DVT prophylaxis, also Prinivil 5 mg daily. She was given Zofran and Ativan. Review of Systems: As indicated, she reports pain in her head, around the ears and some weakness. Unclear if it is just on the right side of the upper extremity, but appears to be in the left face. Otherwise, no recent fevers or chills. The right shoulder has been having [id number] pain. Otherwise, no other positives on a 10-point system review. Physical Examination: Vital Signs: Blood pressure 135/70, pulse 72, respiratory rate 16, temperature 97.9, oxygen saturation 98% on room air. Weight 194 pounds, height 5 feet 1 inch, BMI 34.8. General: Ms. Alaniz is resting comfortably in bed. She is in no acute distress. She has no expressive or receptive aphasias. HEENT: She is normocephalic and atraumatic. Sclerae is anicteric. Oropharynx is moist and pink. Neck: Supple. Chest: Clear. Heart: Regular. Extremities: Show no edema or cyanosis. Neurological: In terms of cranial nerves, she has full visual newman to confrontation. Her pupils were equally round and reactive to light and accommodation. Her extraocular movements are intact. Facial sensation intact V1, V2, V3 bilaterally to light touch and temperature. She does have a left nasolabial fold drooping with decreased closure of the left eye. There is decreased excursion of the left nasolabial fold on smiling, decreased elevation of the left upper face. Otherwise, she has intact tongue and palate movement. Shoulder shrug is 5/5. Motor examination in the upper and lower extremities, she has 5/5 strength proximally and distally. Sensory examination intact to light touch and temperature in the arms and legs proximally and distally. Coordination intact in the upper and lower extremities. Reflexes 1+ in upper and lower extremities bilaterally. Her gait, she has good stance and stride. Assessment: Ms. Alaniz is a 62-year-old patient with left Person palsy. She has no stroke by neurological examination and MRI of the brain. She does have an elevated TSH and may be thyroid gland dysfunction may be a contributing factor. She did have previous blood pressure that was elevated to around 181 and earlier blood pressure of 141/111. She is on lisinopril. She is also receiving antibiotics for urinary tract infection. Plan: 1. Continue acyclovir 10 days. 2. She may be discharged home and follow up with Dr. Shore's clinic 1 month later. 3. Continue with Lipitor 40 mg daily. 4. Aspirin 81 mg daily. 5. Thyroid function should be further evaluated. In addition, potassium replacement should be done as she has hypokalemia on admission. LB/MODL Voice ID: [id number] Report ID: [id number] MTDAnel
[2018-03-04] MEDS ORDERED: CEFTRIAXONE/SWI 1gm 1 GM/10 ML SYR IV SCH (21:00)
[2018-03-04] MEDS ORDERED: SMZ./TMP. 800/160 MG TABLET PO SCH (21:00)
[2018-03-07 03:27] LABS: HBsAG Nonreactive (Nonreactive); Hepatitis A IgM Antibody Nonreactive
== END 2018-03-04 18:30 | disposition home or self-care (01) ==
LOC: ER 13:31 → ERHOLD 16:34 → 2ND 18:32
PROVIDERS: ADMIT Family Medicine; ATTEND Family Medicine
DX: G51.0 Bell's palsy (principal); E87.6 Hypokalemia; N39.0 Urinary tract infection, site not specified; M25.511 Pain in right shoulder; D69.6 Thrombocytopenia, unspecified; I10 Essential (primary) hypertension
CPT/HCPCS: 36415; 70450; 70544; 70551; 71045; 80048; 80061; 80074; 80076; 81003; 81015; 82550; 82553; 82962; 83735; 84132; 84439; 84443; 84484; 85025; 85610; 87040; 87086; 87088; 87205; 93005; 93306; 93880; 97163; 99285; G0378; J0696; J1650; J2920; J7030

== ENCOUNTER 2019-09-11 13:58 | Emergency (ER) | payer OTHER, SELFPAY ==
--- OUTSIDE RECORDS SUMMARY | 2019-09-11 14:01 | XMS REPORT ---
:1955 [facility] [address] [place] [address] [address] [address] Care Team Providers Name Role Phone Unavailable Unavailable Unavailable Problems This patient has no known problems. Allergies, Adverse Reactions, Alerts This patient has no known allergies or adverse reactions. Medications This patient has no known medications. Results Test Description Test Time Test Comments Text Results Atomic Results Result Comments BREAST ULTRASOUND CORE 2019-07-27 14:15:04 - BREAST ULTRASOUND CORE BIOPSY BIOPSY LEFT LEFTULTRASOUND GUIDED BIOPSY LEFT BREAST WITH MARKING DEVICE INSERTED: 07/25/2019CLINICAL: Ultrasound biopsy, left breast 1:00/subareolar-unter. Comparison is made to exams dated 07/18/2019 ultrasound and 07/18/2019 mammogram - [facility]-. An ultrasound guided biopsy using real-time ultrasound was performed for the 3 cm mass located in the left breast central to the nipple in the retroareolar region. The skin was prepped in the usual manner. Local anesthetic was administered to the access site. A 14 gauge biopsy needle was placed adjacent to the abnormality under ultrasound guidance. Once the needle was documented to be in the correct location, multiple specimens were obtained using a BARD biopsy device. A clip was inserted into the biopsy cavity. The specimens were sent to the laboratory for pathological analysis. IMPRESSION: ULTRASOUND GUIDED BIOPSY MALIGNANT Ultrasound guided biopsy of the 3 cm mass in the left breast central to the nipple in the retroareolar region was successful with no apparent post procedure complications. PATHOLOGY INDICATES:Malignant invasive mammary carcinoma. Clarita Flores M.D. dm/:07/27/2019 14:15:04 Entry: - 07/27/2019 15:05:22copy to: Ms. Tadeo Marcos, [facility] [address], ATTN: Shwetha Rodríguez, ph: [phone], fax: [phone] Technologist: Aida Wilkins FW, [facility]- DIAG MAMM LEFT CAD 2019-07-25 13:14:19 - DIAG MAMM LEFT CAD DIGITAL DIGITALUNILATERAL LEFT DIGITAL DIAGNOSTIC MAMMOGRAM WITH CAD POST-PROCEDURE IMAGING FOR MARKER PLACEMENT: 07/25/2019CLINICAL: Post Clip Placement. Current mammographic images were evaluated by either a [employer] M-Vu or a [employer] Image[employer]eeshehcker CAD (computer aided detection system). Comparison is made to exam dated 07/18/2019 mammogram - [facility]-. The tissue of the left breast is predominantly fatty. There is a marker clip in the appropriate position in the left breast central to the nipple in the retroareolar region. This marker clip placement is at the biopsy site. IMPRESSION: POST PROCEDURE IMAGING FOR MARKER PLACEMENTThere was a successful marker clip placement in the left breast central to the nipple in the retroareolar region. Clarita Flores M.D. dm/:07/25/2019 13:14:19 copy to: Ms. Shwetha Rodríguez, [facility] [address], ATTN: Shwetha Rodríguez, ph: [phone], fax: [phone] Technologist: Morelia PERALTA, [facility]-Imaging Technologist: Suri PERALTA, [facility]-Mammogram BI-RADS: Post-procedure mammogram for marker placement BREAST ULTRASOUND 2019-07-18 16:44:27 - DIAG MAMM BILATERAL KENNY CAD BILATERAL DIGITALBILATERAL DIGITAL DIAGNOSTIC MAMMOGRAM 3D/2D WITH CAD: 07/18/2019CLINICAL: Palpable mass, left breast. Digital breast tomosynthesis was performed in addition to routine CC and MLO views. Current mammographic images were evaluated by either a [employer] M-Vu or a [employer]hehcker CAD (computer aided detection system). No prior exams were available for comparison. The tissue of both breasts is predominantly fatty. There is a focal asymmetric density in the left breast central to the nipple in the retroareolar region. No other significant masses, calcifications, or other findings are seen in either breast. INCOMPLETE: ADDITIONAL IMAGING EVALUATION NEEDEDBilateral ultrasound pending for additional evaluation. - BREAST ULTRASOUND BILATERALULTRASOUND OF BOTH BREASTS AND BOTH AXILLA: 07/18/2019No prior exams were available for comparison. Real-time ultrasound of both breasts and both axilla was performed. There is a 3 cm irregular mass in the left breast, central to the nipple, in the retroareolar region. Color flow imaging demonstrates that there is increased vascularity. No abnormalities were seen sonographically in the right breast or either axilla. IMPRESSION: HIGHLY SUGGESTIVE OF MALIGNANCY - FOLLOW-UP RECOMMENDEDThe 3 cm irregular mass in the left breast is highly suggestive of malignancy. An ultrasound guided biopsy is recommended. Clarita Flores M.D. dm/:07/18/2019 16:44:27 Entry: - 07/18/2019 16:51:42copy to: Ms. Tadeo Rodríguez, [facility] [address], ATTN: Shwetha Marcos, ph: [phone], fax: [phone] Technologist: Vanesa PREALTA, [facility]-FWletter sent: BIRADS 4/5 Biopsy Mammogram BI-RADS: 0 Incomplete: Additional Imaging Evaluation Needed Ultrasound BI-RADS: 5 Highly suggestive of malignancy DIAG MAMM BILATERAL KENNY 2019-07-18 16:44:27 - DIAG MAMM BILATERAL KENNY CAD CAD DIGITAL DIGITALBILATERAL DIGITAL DIAGNOSTIC MAMMOGRAM 3D/2D WITH CAD: 07/18/2019CLINICAL: Palpable mass, left breast. Digital breast tomosynthesis was performed in addition to routine CC and MLO views. Current mammographic images were evaluated by either a [employer] (formerly known as [employer]) M-Vu or a [employer] Image[employer]er CAD (computer aided detection system). No prior exams were available for comparison. The tissue of both breasts is predominantly fatty. There is a focal asymmetric density in the left breast central to the nipple in the retroareolar region. No other significant masses, calcifications, or other findings are seen in either breast. INCOMPLETE: ADDITIONAL IMAGING EVALUATION NEEDEDBilateral ultrasound pending for additional evaluation. - BREAST ULTRASOUND BILATERALULTRASOUND OF BOTH BREASTS AND BOTH AXILLA: 07/18/2019No prior exams were available for comparison. Real-time ultrasound of both breasts and both axilla was performed. There is a 3 cm irregular mass in the left breast, central to the nipple, in the retroareolar region. Color flow imaging demonstrates that there is increased vascularity. No abnormalities were seen sonographically in the right breast or either axilla. IMPRESSION: HIGHLY SUGGESTIVE OF MALIGNANCY - FOLLOW-UP RECOMMENDEDThe 3 cm irregular mass in the left breast is highly suggestive of malignancy. An ultrasound guided biopsy is recommended. Clarita Flores M.D. dm/:07/18/2019 16:44:27 Entry: - 07/18/2019 16:51:42copy to: Ms. Tadeo Marcos, [facility] [address], ATTN: Shwetha Rodríguez, ph: [phone], fax: [phone] Technologist: Vanesa PERALTA, [facility]-FWletter sent: BIRADS 4/5 Biopsy Mammogram BI-RADS: 0 Incomplete: Additional Imaging Evaluation Needed Ultrasound BI-RADS: 5 Highly suggestive of malignancy
[2019-09-11 16:50] LABS: Absolute Lymphocytes (CBC) 1.8 K/uL (0.7-4.9); Basophils % 0.5 % (0-1.3); Hematocrit 36.9 % (36.0-45.0); Lymphocytes % 39.1 % (15.3-44.8); MPV 10.2 fL (7.6-11.3); RBC Red Blood Cell Count 3.79 M/uL (3.86-4.86)
[2019-09-11 17:03] LABS: Protime INR 1.2
[2019-09-11 17:10] LABS: Albumin 3.1 g/dL (3.4-5.0); Bilirubin Direct 0.3 mg/dL (0-0.2); Magnesium 1.7 mg/dL (1.8-2.4); Potassium 3.2 mmol/L (3.5-5.1); Protein, Total 7.3 g/dL (6.4-8.2); Troponin (Emerg Dept Use Only) 0.03 ng/mL (0.0-0.045)
--- NOTE | 2019-09-11 17:23 | EDPHYS ---
Physician Documentation [facility] Name: Jojo Alaniz Age: 63 yrs Sex: Female : 1955 Arrival Date: 09/11/2019 Time: 14:02 Bed 19 Private MD: RAUDEL Physician Zach Bradley HPI: 09/10 16:04 This 63 yrs old Female presents to ER via Ambulatory with complaints of High jmm Blood Pressure. 16:04 The patient has elevated blood pressure and discovered this at a physician's office. jmm Onset: The symptoms/episode began/occurred today. Modifying factors: The symptoms are aggravated by activity, The symptoms are alleviated by. Associated signs and symptoms: Pertinent negatives: chest pain, dizziness, dyspnea, headache, lightheadedness, nausea, visual changes, vomiting, weakness. The patient has not experienced similar symptoms in the past. Historical: - Allergies: 14:42 NKA; ca1 - PSHx: 14:42 right shoulder; ca1 - Immunization history:: Adult Immunizations not up to date, Flu vaccine is not up to date. - Social history:: Smoking status: Patient denies any tobacco usage or history of. ROS: 16:04 Constitutional: Negative for fever, chills, and weight loss. jmm 16:04 Cardiovascular: Negative for chest pain, palpitations, and edema, Respiratory: Negative for shortness of breath, cough, wheezing, and pleuritic chest pain, Abdomen/GI: Negative for abdominal pain, nausea, vomiting, diarrhea, and constipation, Back: Negative for injury and pain, Neuro: Negative for headache, weakness, numbness, tingling, and seizure. 16:04 Eyes: Positive for tearing. 16:04 All other systems are negative. Exam: 16:04 Constitutional: This is a well developed, well nourished patient who is awake, alert, jmm and in no acute distress. Head/Face: atraumatic. Eyes: EOMI, no conjunctival erythema appreciated ENT: Moist Mucus Membranes Neck: Trachea midline, Supple Chest/axilla: Normal chest wall appearance and motion. Cardiovascular: Regular rate and rhythm. No edema appreciated Respiratory: Normal respirations, no respiratory distress appreciated Abdomen/GI: Non distended, soft Back: Normal ROM Skin: General appearance color normal MS/ Extremity: Moves all extremities, no obvious deformities appreciated, no edema noted to the lower extremities Neuro: Awake and alert, normal gait Psych: Behavior is normal, Mood is normal, Patient is cooperative and pleasant Vital Signs: 14:35 BP 132 / 64; Pulse 66; Resp 17 S; Temp 97.8(O); Pulse Ox 99% ; Weight 79.83 kg (R); ca1 Height 5 ft. 5 in. (165.10 cm) (R); 16:52 BP 138 / 66; Pulse 66; Resp 18; Pulse Ox 98% on R/A; mg2 17:57 BP 125 / 78; Pulse 65; Resp 18; Temp 98; Pulse Ox 100% on R/A; mg2 14:35 Body Mass Index 29.29 (79.83 kg, 165.10 cm) ca1 MDM: 15:57 Patient medically screened. unruly 17:21 Data reviewed: vital signs, nurses notes. Counseling: I had a detailed discussion with anum the patient and/or guardian regarding: the historical points, exam findings, and any diagnostic results supporting the discharge/admit diagnosis, lab results, the need for outpatient follow up, to return to the emergency department if symptoms worsen or persist or if there are any questions or concerns that arise at home. ED course: Patient is alert and non toxic in appearance in the ED. Patient is advised to follow up with pcp. Patient has no chest pain, shortness of breath, headache, no difficulty with urination. I do not suspect an acute process. . 09/10 16:04 Order name: Basic Metabolic Panel; Complete Time: 17:13 [facility] 09/10 16:04 Order name: CBC with Diff; Complete Time: 17:13 [facility] 09/10 16:04 Order name: LFT's; Complete Time: 17:13 [facility] 09/10 16:04 Order name: Magnesium; Complete Time: 17:13 [facility] 09/10 16:04 Order name: NT PRO-BNP; Complete Time: 17:13 [facility] 09/10 16:04 Order name: PT-INR; Complete Time: 17:13 [facility] 09/10 16:04 Order name: Troponin (emerg Dept Use Only); Complete Time: 17:13 [facility] 09/10 16:04 Order name: EKG - Nurse/Tech; Complete Time: 16:17 [facility] 09/10 16:04 Order name: IV Saline Lock; Complete Time: 16:42 anum 09/10 16:04 Order name: Labs collected and sent; Complete Time: 16:42 anum Administered Medications: No medications were administered Disposition: 09/11 07:24 Co-signature as Attending Physician, Zach Bradley MD I agree with the assessment and unruly plan of care. Disposition: 09/11/19 17:22 Discharged to Home. Impression: Elevated Blood Pressure. - Condition is Stable. - Discharge Instructions: Hypertension. - Medication Reconciliation Form, Thank You Letter, Antibiotic Education, Prescription Opioid Use form. - Follow up: Private Physician; When: 2 - 3 days; Reason: Recheck today's complaints, Continuance of care, Re-evaluation by your physician. Signatures: Dispatcher [employer] EDZach Jaimes MD MD cha Mickail, Joel, PA PA jmm Gardose, Michele, RN RN mg2 Fabiola Moreno RN RN ca1 Corrections: (The following items were deleted from the chart) 09/10 17:58 17:22 09/11/2019 17:22 Discharged to Home. Impression: Elevated Blood Pressure. mg2 Condition is Stable. Forms are Medication Reconciliation Form, Thank You Letter, Antibiotic Education, Prescription Opioid Use. Follow up: Private Physician; When: 2 - 3 days; Reason: Recheck today's complaints, Continuance of care, Re-evaluation by your physician. anum
--- NOTE | 2019-09-11 17:23 | ER ---
Nurse's Notes [facility] Name: Jojo Alaniz Age: 63 yrs Sex: Female : 1955 Arrival Date: 09/11/2019 Time: 14:02 Bed 19 Private MD: Diagnosis: Elevated Blood Pressure Presentation: 09/10 14:35 Chief complaint: Patient states: Her BP was high, she has a doctor's appointment next ca1 week and they told me to come to the ER. Teary eye on both eyes and L arm pain when squeezing something on L hand. Coronavirus screen: The patient has NOT traveled to [place] in the past 14 days. The patient has NOT had contact with known and/or suspected case of Coronavirus. Ebola Screen: Patient negative for fever greater than or equal to 101.5 degrees Fahrenheit, and additional compatible Ebola Virus Disease symptoms Patient denies exposure to infectious person. Patient denies travel to an Ebola-affected area in the 21 days before illness onset. No symptoms or risks identified at this time. Initial Sepsis Screen: Does the patient meet any 2 criteria? No. Patient's initial sepsis screen is negative. Does the patient have a suspected source of infection? No. Patient's initial sepsis screen is negative. Risk Assessment: Do you want to hurt yourself or someone else? Patient reports no desire to harm self or others. 14:35 Method Of Arrival: Ambulatory ca1 14:35 Acuity: JES 3 ca1 14:35 Onset of symptoms was September 11, 2019. ca1 Historical: - Allergies: 14:42 NKA; ca1 - PSHx: 14:42 right shoulder; ca1 - Immunization history:: Adult Immunizations not up to date, Flu vaccine is not up to date. - Social history:: Smoking status: Patient denies any tobacco usage or history of. Screenin:52 Abuse screen: Denies threats or abuse. Denies injuries from another. Nutritional mg2 screening: No deficits noted. Tuberculosis screening: No symptoms or risk factors identified. Fall Risk IV access (20 points). Assessment: 16:51 General: Appears in no apparent distress. comfortable, Behavior is calm, cooperative. mg2 Neuro: Level of Consciousness is awake, alert, obeys commands, Oriented to person, place, time, situation. Cardiovascular: Capillary refill < 3 seconds Patient's skin is warm and dry. Respiratory: Airway is patent Respiratory effort is even, unlabored, Respiratory pattern is regular, symmetrical. GI: No signs and/or symptoms were reported involving the gastrointestinal system. : No signs and/or symptoms were reported regarding the genitourinary system. EENT: No signs and/or symptoms were reported regarding the EENT system. Derm: Skin is intact, is healthy with good turgor, Skin is pink, warm \T\ dry. normal. Musculoskeletal: Circulation, motion, and sensation intact. Capillary refill < 3 seconds. 17:56 Reassessment: Patient appears in no apparent distress at this time. Patient is alert, mg2 oriented x 3, equal unlabored respirations, skin warm/dry/pink. Pain: Denies pain. Vital Signs: 14:35 BP 132 / 64; Pulse 66; Resp 17 S; Temp 97.8(O); Pulse Ox 99% ; Weight 79.83 kg (R); ca1 Height 5 ft. 5 in. (165.10 cm) (R); 16:52 BP 138 / 66; Pulse 66; Resp 18; Pulse Ox 98% on R/A; mg2 17:57 BP 125 / 78; Pulse 65; Resp 18; Temp 98; Pulse Ox 100% on R/A; mg2 14:35 Body Mass Index 29.29 (79.83 kg, 165.10 cm) ca1 ED Course: 14:02 Patient arrived in ED. mr 14:40 Triage completed. ca1 14:42 Arm band placed on right wrist. ca1 15:57 Jean Carlos Hercules [facility] 15:57 Zach Bradley MD is Attending Physician. [facility] 16:07 Sonny Espinal, CARMELITA is Primary Nurse. mg2 16:53 No provider procedures requiring assistance completed. Inserted saline lock: 22 gauge mg2 in left hand, using aseptic technique. Blood collected. 16:55 Patient has correct armband on for positive identification. Placed in gown. mg2 17:57 IV discontinued, intact, bleeding controlled, No redness/swelling at site. Pressure mg2 dressing applied. Administered Medications: No medications were administered Outcome: 17:22 Discharge ordered by . [facility] 17:57 Discharged to home ambulatory, with family. mg2 17:57 Condition: stable 17:57 Discharge instructions given to patient, family, Instructed on discharge instructions, follow up and referral plans. Demonstrated understanding of instructions, follow-up care. 17:58 Patient left the ED. mg2 Signatures: Jean Carlos Hercules PA PA jmm Rivera, Mary mr Sonny Espinal RN RN mg2 Fabiola Moreno RN RN ca1 Corrections: (The following items were deleted from the chart) 14:40 14:35 Chief complaint: Patient states: Her BP was high, she has a doctor's appointment ca1 next week and they told me to come to the ER. Teary eyed and L arm pain when squeezing something on L hand. ca1
[2019-09-11 19:44] VITALS: BP 125/78; TEMP 98; O2SAT 100
--- NOTE | 2019-09-13 08:27 | EKG ---
Test Date: 2019-09-11 Test Time: 16:16:23 Prototype Machinist: EMMANUELLE MEASUREMENT RESULTS: Intervals: Rate: 66 LA: QRSD: 112 QT: 446 QTc: 467 Warren: P: LA: QRS: 5 T: 22 INTERPRETIVE STATEMENTS: Sinus rhythm Moderate voltage criteria for LVH, may be normal variant Nonspecific ST abnormality Abnormal ECG Compared to ECG 03/03/2018 14:44:38 sT (T wave) deviation now present Electronically Signed On 09-13-19 08:26:23 [employer]ACEHORSE TRAINER by Christiano Tavera
== END 2019-09-11 17:58 | disposition home or self-care (01) ==
LOC: ER 13:58
DX: I10 Essential (primary) hypertension (principal)
CPT/HCPCS: 36415; 80048; 80076; 83735; 83880; 84484; 85025; 85610; 93005; 99283

== ENCOUNTER 2019-09-27 06:15 | Day surgery (SDC) | payer OTHER ==
--- OUTSIDE RECORDS SUMMARY | 2019-09-26 10:41 | XMS REPORT ---
:1955 [facility] Address [address] [place] [address] Care Team Providers Name Role Phone Unavailable [...] DEVICE INSERTED: 07/25/2019CLINICAL: Ultrasound biopsy, left breast 1:00/subareolar-MHunter. Comparison is made to exams dated 07/18/2019 ultrasound and 07/18/2019 mammogram - [facility]-. An ultrasound guided biopsy using [...] carcinoma. Clarita Flores M.D. dm/:07/27/2019 14:15:04 Entry: lauren - 07/27/2019 15:05:22copy to: Ms. Shwetha Rodríguez, [facility] [address], ATTN: Shwetha Rodríguez, ph: [phone], fax: [phone] Technologist: Aida Wilkins FW, [facility]- DIAG MAMM LEFT CAD 2019-07-25 13:14:19 - DIAG MAMM LEFT CAD DIGITAL DIGITALUNILATERAL LEFT DIGITAL DIAGNOSTIC MAMMOGRAM WITH CAD POST-PROCEDURE IMAGING FOR MARKER PLACEMENT: 07/25/2019CLINICAL: Post Clip Placement. Current mammographic images were evaluated by either a NavagisP M-Vu or a ReachTax ImageBaihecker CAD (computer aided detection system). Comparison is made to exam dated 07/18/2019 mammogram - [facility]-. The tissue of the left [...] Clarita Flores M.D. dm/:07/25/2019 13:14:19 copy to: Ishaan Rodríguez, [facility] [address], ATTN: Shwetha Rodríguez, ph: [phone], fax: [phone] Technologist: Morelia PERALTA, [facility]-Imaging Technologist: Suri PERALTA, [facility]-Mammogram BI-RADS: Post-procedure mammogram for marker placement BREAST ULTRASOUND 2019-07-18 16:44:27 - DIAG MAMM BILATERAL KENNY CAD BILATERAL DIGITALBILATERAL DIGITAL DIAGNOSTIC MAMMOGRAM 3D/2D WITH CAD: 07/18/2019CLINICAL: Palpable mass, left breast. Digital breast tomosynthesis was performed in addition to routine CC and MLO views. Current mammographic images were evaluated by either a NavagisP M-Vu or a Re[employer] ImageBaihecker CAD (computer aided detection system). No prior [...] - 07/18/2019 16:51:42copy to: Ms. Tadeo Marcos, [facility] [address], ATTN: Shwetha Rodríguez, ph: [phone], fax: [phone] Technologist: Vanesa PERALTA, [facility]-FWletter sent: BIRADS 4/5 Biopsy Mammogram [...] mammographic images were evaluated by either a Mofang M-Vu or a Reach[employer] ImageChecker CAD (computer aided detection system). No [...] - 07/18/2019 16:51:42copy to: Ms. Tadeo Marcos, [facility] [address], ATTN: Shwetha Rodríguez, ph: [phone], fax: [phone] Technologist: Vanesa PERALTA, [facility]-FWletter sent: BIRADS 4/5 Biopsy Mammogram BI-RADS: 0 Incomplete: Additional Imaging Evaluation Needed Ultrasound BI-RADS: 5 Highly suggestive of malignancy
[2019-09-27] MEDS ORDERED: Ringers Lactate 1,000 ML IV ONE (06:40)
--- OUTSIDE RECORDS SUMMARY | 2019-09-27 07:04 | XMS REPORT ---
:1955 [facility] [address] [place] [id number] Care Team Providers Name Role Phone Unavailable [...] 07/18/2019 ultrasound and 07/18/2019 mammogram - [facility]-. An ultrasound guided biopsy using [...] Entry: lauren - 07/27/2019 15:05:22copy to: Ms. Tadeo Marcos, [facility] [address], ATTN: Shwetha Marcos, ph: [phone], fax: [phone] Technologist: Aida Wilkins FW, [facility]- DIAG MAMM LEFT CAD 2019-07-25 13:14:19 - DIAG MAMM LEFT CAD DIGITAL DIGITALUNILATERAL LEFT DIGITAL DIAGNOSTIC MAMMOGRAM WITH CAD POST-PROCEDURE IMAGING FOR MARKER PLACEMENT: 07/25/2019CLINICAL: Post Clip Placement. Current mammographic images were evaluated by either a Loc[employer]alt[employer] M-Vu or a Blackberry ImageTwisted Family Creationscker CAD (computer aided detection system). Comparison is made to exam dated 07/18/2019 mammogram - [facility]-. The tissue of the left [...] dm/:07/25/2019 13:14:19 copy to: Ms. Shwetha Rodríguez, [facility] [address], ATTN: Shwetha Rodríguez, ph: [phone], fax: [phone] Technologist: Morelia PERALTA, [facility]-Imaging Technologist: Suri PERALTA, [facility]-Mammogram BI-RADS: Post-procedure mammogram for marker placement BREAST ULTRASOUND 2019-07-18 16:44:27 - DIAG MAMM BILATERAL KENNY CAD BILATERAL DIGITALBILATERAL DIGITAL DIAGNOSTIC MAMMOGRAM 3D/2D WITH CAD: 07/18/2019CLINICAL: Palpable mass, left breast. Digital breast tomosynthesis was performed in addition to routine CC and MLO views. Current mammographic images were evaluated by either a Vital Health Data SolutionsP M-Vu or a Blackberry ImageChecker CAD (computer aided detection system). No [...] 16:44:27 Entry: - 07/18/2019 16:51:42copy to: Ms. Shwetha Rodríguez, [facility] [address], ATTN: Shwetha Marcos, ph: [phone], fax: [phone] Technologist: Vanesa PERALTA, [facility]-FWletter sent: BIRADS 4/5 Biopsy Mammogram [...] mammographic images were evaluated by either a [employer] M-Vu or a Blackberry ImageChecker CAD (computer aided detection system). No [...] - 07/18/2019 16:51:42copy to: Ms. Tadeo Marcos, [facility] [address], ATTN: Shwetha Rodríguez, ph: [phone], fax: [phone] Technologist: Vanesa PERALTA, [facility]-FWletter sent: BIRADS 4/5 Biopsy Mammogram BI-RADS: 0 Incomplete: Additional Imaging Evaluation Needed Ultrasound BI-RADS: 5 Highly suggestive of malignancy
[2019-09-27] MEDS ORDERED: MIDAZOLAM HCL 2 MG/2 ML INJ ONE (07:21)
[2019-09-27] MEDS ORDERED: FENTANYL CITR 100 MCG/2 ML ONE (07:21)
[2019-09-27] MEDS ORDERED: propofoL 200 MG/20 ML VIAL IV ONE (07:21)
[2019-09-27] MEDS ORDERED: NS 0.9% VIAL 20 ML ONE (07:22)
[2019-09-27] MEDS ORDERED: LIDOCAINE 2% MPF 5 ML VIAL ONE (07:22)
[2019-09-27] MEDS ORDERED: HEPARIN 5000 UNIT/ML 1 ML VIAL ONE (07:23)
[2019-09-27] MEDS ORDERED: CEFAZOLIN/SWI 1gm 1 GM/10 ML SYR ONE (07:46)
--- NOTE | 2019-09-27 08:40 | P.BOP ---
Preoperative diagnosis: breast cancer Postoperative diagnosis: same Primary procedure: 1. right subclavian Portacath placement Secondary procedure: 2. Interpretationn of fluoroscopy Estimated blood loss: <10cc Specimen: none Findings: as above Anesthesia: General Complications: None Transferred to: Recovery Room Condition: Good
[2019-09-27] MEDS ORDERED: ONDANSETRON 4 MG/2 ML VIAL ONE ×2 (08:47→09:18)
[2019-09-27] MEDS: HYDROMORPHONE HCL 1 MG/ML INJ ONE ×2 (09:15→09:20)
--- NOTE | 2019-09-27 09:24 | RAD REPORT ---
EXAM DESCRIPTION: RAD - Chest Single View - 09/27/2019 9:11 am CLINICAL HISTORY: POST PORT A CATH INSERTION Chest pain. COMPARISON: Chest Single View dated 03/03/2018 FINDINGS: Portable technique limits examination quality. Right-sided venous catheter its tip in the SVC. No pneumothorax. The heart is normal in size. The sadi gs are grossly clear. IMPRESSION: No postprocedure pneumothorax evident.
[2019-09-27] MEDS ORDERED: CODEINE 30MG/APAP 300MG TAB PO ONE (10:09)
[2019-09-27] MEDS ORDERED: CODEINE 30MG/APAP 300MG TAB ONE (10:12)
[2019-09-27 10:16] VITALS: TEMP 97
[2019-09-27 10:37] VITALS: BP 119/67; O2SAT 94
--- NOTE | 2019-09-27 13:15 | RAD REPORT ---
EXAM DESCRIPTION: RAD - Fluoroscopy <1 Hour - 09/27/2019 1:04 pm FINDINGS: Fluoro time was 1.0 minutes. There were 23 portable C-arm views submitted from fluoroscopic assisted placement of a Port-A-Cath. N o suspicious or unexpected finding.
--- NOTE | 2019-09-27 23:12 | DS ---
Date of Discharge: 09/27/2019 Diagnosis: Breast cancer. Procedure: Right subclavian Port-A-Cath placement with interpretation of fluoroscopy. Disposition: Home after the chest x-rays verified. Discharge Instructions: Follow up in my office in 1 week. Call for appointment [phone]. Keep area dry for 48 hours, then may shower. Keep Steri-Strip intact. Medications: See orders. MONI/MODL Voice ID: [id number] Report ID: [id number]
--- NOTE | 2019-09-27 23:12 | OP ---
Date of Procedure: 09/27/2019 Surgeon: Timmy Zheng MD Diagnosis: Breast cancer. Postoperative Diagnosis: Breast cancer. Procedure: 1.Placement of Port-A-Cath right subclavian vein. 2.Interpretation of fluoroscopy. Anesthesia: General plus local. Indications: This is the case of a 63-year-old patient, comes to us in need for chemotherapy, so Por t-A-Cath placement was requested by the oncologist. Benefits, alternatives, and risks of placing a P ort-A-Cath fully explained to the patient, which include but are not limited to infection, bleeding, damage to adjacent structures, anesthesia complication, pneumothorax, hemothorax, DVTs, breaking of t he catheter, OR even . She does understand this may not relieve any symptoms. She might need m ore than one surgical intervention. She understood, signed a consent. Description Of Procedure: Patient was brought to the operating room, placed in supine position. Ane sthesia was done without complication. A time-out was called. Right chest was prepped and draped in a sterile fashion. The patient was placed in Trendelenburg position. 18-gauge needle was placed in the right subclavian vein on the first attempt. A guidewire was passed through, needle was removed. Fluoroscopy was used to guide a guidewire into the superior vena cava. Small incision was made in the right upper chest and then a pocket was created to lodge the Port-A-Cath. We proceeded then to p lace through the guidewire introducer catheter under direct visualization under fluoroscopy. The hola dewire was removed. The catheter was placed. An introducer kit was peel off. The catheter position was corroborated with fluoroscopy. The catheter was tunneled underneath the skin to meet the new in cision in the right upper chest, cut to proper size, connected to the Port-A-Cath using the manufactu rer's specifications. Excellent backflow and inflow. Fluoroscopy was once again used to localize pl acement looks good and with excellent backflow and inflow. The Port-A-Cath was flushed with heparini zed solution. Subcutaneous tissue, closed with 3-0 chromic. Sponge count and instrument counts were correct. Patient tolerated the procedure well. Patient was sent to recovery in stable condition. HM/MODL Voice ID: [id number] Report ID: [id number]
== END 2019-09-27 10:50 | disposition home or self-care (01) ==
LOC: OR 06:15
PROVIDERS: ATTEND Surgery
PROC: 0JH60WZ Insertion of Totally Implantable Vascular Access Device into Chest Subcutaneous Tissue and Fascia, Open Approach (ICD-10-PCS; principal; 2019-09-27 07:30)
DX: C50.919 Malignant neoplasm of unspecified site of unspecified female breast (principal)
CPT/HCPCS: 36415; 84132; 71045; 76000; 36561; J2704; J1644 ×2; J2250; J3010; J1170; J0690; J7120; J2405 ×2; C1788

== ENCOUNTER 2019-10-30 13:03 | Emergency (ER) | payer OTHER ==
--- OUTSIDE RECORDS SUMMARY | 2019-10-30 13:06 | XMS REPORT ---
:1955 Author Organization [facility] t Address [address] [place] [address] Care Team Providers Name Role Phone Unavailable Unavailable Unavailable Problems This patient has no known problems. Allergies, Adverse Reactions, Alerts This patient has no known allergies or adverse reactions. Medications This patient has no known medications. Results Test Description Test Time Test Comments Text Results Atomic Results Result Comments BREAST ULTRASOUND CORE 2019-07-27 14:15:04 - BREAST UL TRASOUND CORE BIOPSY BIOPSY LEFT LEFTULTRASOUND GUIDED BIOPSY LEFT BREAST WITH MARKING DEVICE I NSERTED: 07/25/2019CLINICAL: Ultrasoun d biopsy, left breast 1:00/subareolar -MHunter. Comparison is made to exams dated 07/18/2019 ultrasound and 2019 mammogram - [facility]. An ultrasound g uided biopsy using real-time ultra sound was performed for the 3 cm mass located in the left breast central t o the nipple in the retroareolar r egion. The skin was prepped in the usual manner. Local anesthetic wa s administered to the access s ite. A 14 gauge biopsy needle was p laced adjacent to the abnormality under ultrasound guidance. Once t he needle was documented to be in the correct location, multiple specimens were obtained using a BARD biopsy device. A clip was inserted into the biopsy cavity. The specimens were sent to the laboratory for pathologi manjinder analysis. IMPRESSION: ULTRA SOUND GUIDED BIOPSY MALIGNANT Ultr asound guided biopsy of the 3 cm ma ss in the left breast central to the n ipple in the retroareolar region was successful with no apparent post procedure complications. PA THOLOGY INDICATES:Malignant invasive mammary carcinoma. Clarita Vargas dm/:07/27/2019 14:15:04 Entry: - 07/27/2019 15:05:22copy to: Ms. Shwetha Rodríguez, [facility] [address], ATTN: Shwetha Gambino s, ph: [phone], fax: [phone] Technolo gist: Aida Wilkins FW, [facility] LEFT CAD 2019-07-25 13:14:19 - DIAG MAMM LE FT CAD DIGITAL DIGITALUNILATERAL LEFT DIGIT AL DIAGNOSTIC MAMMOGRAM WITH CA D POST-PROCEDURE IMAGING FOR Yue RICHARDS PLACEMENT: 07/25/2019CLINICAL : Post Clip Placement. Current nini mographic images were evaluated by eit her a Affinity.is M-Vu or a Sunrise CAD (computer aided detectio n system). Comparison is made to exam dated 07/18/2019 mammogram - [facility]. The tiss ue of the left breast is predominantly fatty. There is a marker clip in th e appropriate position in the left breast central to the nipple in the retroareolar region. This m loretta clip placement is at the [facility] site. IMPRESSION: POST PROCEDURE IMAGING FOR MARKER PLACEMENTThere wa s a successful marker clip place ment in the left breast central to t he nipple in the retroareolar region. Clarita Flores M.D. dm/: 13:14:19 copy to: Ms. Constantine Rodríguez, [facility] [address], ATTN: Shwetha Rodríguez, ph: , fax: [phone] Technologist: Morelia Lloyd, [facility]-FWImagin g Technologist: Suri PERALTA, [facility]-Mammog marlene BI-RADS: Post-procedure mamm ogram for marker placement BREAST ULTRASOUND 2019-07-18 16:44:27 - DIAG MAMM ZAINAB ATERAL KENYN CAD BILATERAL DIGITALBILATERAL DIGITAL REINA GNOSTIC MAMMOGRAM 3D/2D WITH CAD: 07/18/2019CLINICAL: Palpable m ass, left breast. Digital breast kenny synthesis was performed in addition to routine CC and MLO views. Current mammographic images were reid luated by either a CREATIV™ Media GroupP M-Vu or a TopCat ResearchChecker CAD (computer a ided detection system). No prior exams were available for compariso n. The tissue of both breasts is predominantly fatty. There is a focal asymmetric density in the left breast central to the nipple in the retroareolar region. No oth er significant masses, calcific ations, or other findings are seen i n either breast. INCOMPLETE: ADDITIO NAL IMAGING EVALUATION NEEDEDBil ateral ultrasound pending for addit ional evaluation. - BREAST ULTRAS OUND BILATERALULTRASOUND OF BOTH BREASTS AND BOTH AXILLA: 07/18/2019No prior exams were available for com gwen. Real-time ultrasound of both breasts and both axilla was performe d. There is a 3 cm irregular mass in the left breast, central to the nippl e, in the retroareolar region. Color flow imaging demonstrates that th ere is increased vascularity. No abnormalities were seen sonographically in the right breast or either axilla. IMPRESSIO N: HIGHLY SUGGESTIVE OF MALIGNANCY - F OLLOW-UP RECOMMENDEDThe 3 cm irregula r mass in the left breast is highly lambert ggestive of malignancy. An ultrasoun d guided biopsy is recommended. Candis Cortes dm/:07/18/2019 1 6:44:27 Entry: - 07/18/2019 16:5 1:42copy to: Ms. Shwetha Rodríguez U [facility] [address], ATTN: Shwetha mann, ph: [phone], fax: [phone] Technolo gist: Vanesa PERALTA, [facility]-FWletter sent: KRISTIN Lawler 4/5 Biopsy Mammogram BI-RADS: 0 Incomplete: Additional Imagi ng Evaluation Needed Ultrasound BI-RADS: 5 Highly suggestive of malig saadia DIAG MAMM BILATERAL KENNY 2019-07-18 16:44:27 - DIAG M AMM BILATERAL KENNY CAD CAD DIGITAL DIGITALBILATERAL DIGITAL REINA GNOSTIC MAMMOGRAM 3D/2D WITH CAD: 07/18/2019CLINICAL: Palpable m ass, left breast. Digital breast kenny synthesis was performed in addition to routine CC and MLO views. Current mammographic images were reid luated by either a Affinity.is M-Vu or a [employer] ImageChecker CAD (computer a ided detection system). No prior exams were available for compariso n. The tissue of both breasts is predominantly fatty. There is a focal asymmetric density in the left breast central to the nipple in the retroareolar region. No oth er significant masses, calcific ations, or other findings are seen i n either breast. INCOMPLETE: ADDITIO NAL IMAGING EVALUATION NEEDEDBil ateral ultrasound pending for addit ional evaluation. - BREAST ULTRAS OUND BILATERALULTRASOUND OF BOTH BREASTS AND BOTH AXILLA: 07/18/2019No prior exams were available for brittany hidalgo. Real-time ultrasound of both breasts and both axilla was performe d. There is a 3 cm irregular mass in the left breast, central to the nippl e, in the retroareolar region. Color flow imaging demonstrates that th ere is increased vascularity. No abnormalities were seen sonographically in the right breast or either axilla. IMPRESSIO N: HIGHLY SUGGESTIVE OF MALIGNANCY - F OLLOW-UP RECOMMENDEDThe 3 cm irregula r mass in the left breast is highly lambert ggestive of malignancy. An ultrasoun d guided biopsy is recommended. Candis Cortes dm/:07/18/2019 1 6:44:27 Entry: - 07/18/2019 16:5 1:42copy to: Ms. Fitchalexis Rodríguez, [facility] [address], ATTN: Shwetha mann, ph: [phone], fax: [phone] Technolo gist: Vanesa PERALTA, [facility]-FWletter sent: KRISTIN Lawler / Biopsy Mammogram BI-RADS: 0 Incomplete: Additional Imagi ng Evaluation Needed Ultrasound BI-RADS: 5 Highly suggestive of anderson zee
[2019-10-30] MEDS ORDERED: PROMETHAZINE INJ 25 MG/ML AMP ONE (14:17)
[2019-10-30] MEDS ORDERED: NA CHLORIDE 0.9% 1,000 ML ONE (14:17)
[2019-10-30 14:41] LABS: Urine Blood NEGATIVE (NEG); Urine Glucose NEGATIVE (NEG); Urine Protein NEGATIVE (NEG)
--- NOTE | 2019-10-30 14:47 | RAD REPORT ---
EX[facility] DES[facility]28 [facility] CLINICAL HISTORY: Palpitations. Breast cancer COMPARISON: September 2019 FINDINGS: The lungs appear clear of acute infiltrate. The heart is normal size. Central venous line has its tip in the superior vena cava IMPRESSION: No acute abnormalities displayed
[2019-10-30 15:14] LABS: Potassium 4.2 mmol/L (3.5-5.1); Troponin (Emerg Dept Use Only) 0.03 ng/mL (0.0-0.045)
--- NOTE | 2019-10-30 16:22 | EKG ---
Test Date: 2019-10-30 Test Time: 14:27:39 Revenue Analyst: GARETH MEASUREMENT RESULTS: Intervals: Rate: 54 SD: 150 QRSD: 96 QT: 424 QTc: 402 [place]: P: 42 SD: 150 QRS: 9 T: 31 INTERPRETIVE STATEMENTS: Sinus bradycardia Otherwise normal ECG Compared to ECG 09/11/2019 16:16:23 Sinus rhythm no longer present Left ventricular hypertrophy no longer present ST (T wave) deviation no longer present Electronically Signed On 10-30-19 16:21:59 CDT by Larry Rutherford
[2019-10-30 17:01] LABS: Absolute Lymphocytes (CBC) 0.5 K/uL (0.7-4.9); Basophils % 0.3 % (0-1.3); Hematocrit 36.8 % (36.0-45.0); Lymphocytes % 1.3 % (15.3-44.8); MPV 11.2 fL (7.6-11.3); RBC Red Blood Cell Count 3.68 M/uL (3.86-4.86)
[2019-10-30 17:07] LABS: Anisocytosis 1+; Blood Morphology Comment NOTED (NOT SEEN); Platelet Estimate DECR; Poikilocytosis 1+; Urine White Blood Cell Casts OK
--- NOTE | 2019-10-30 17:19 | EDPHYS ---
Physician Documentation [facility] Name: Jojo Alaniz Age: 63 yrs Sex: Female : 1955 Arrival Date: 10/30/2019 Time: 13:12 Bed 19 Private MD: Gracie Phoenix ED Physician Ramon Smiley HPI: 10/29 14:10 This 63 yrs old Female presents to ER via Ambulatory with complaints of rn General Weakness, dehydration, Palpitations. 14:10 The patient presents with a history of heart racing. Onset: The symptoms/episode rn began/occurred 2 day(s) ago. Duration: The patient or guardian reports multiple episodes. Modifying factors: The symptoms are aggravated by nothing. The symptoms are alleviated by nothing. Severity of symptoms: At their worst the symptoms were mild. The patient has experienced similar episodes in the past. Reports has breast cancer, just got 2nd round of chemo 3 days ago, since then has been feeling nausea/vomiting/dehydrated/heart palpitations. Denies chest pain. No sob. No numbness/tingling/focal weakness. Taking oral nausea med at home that allows her to drink fluids but not really able to keep solids down. . Historical: - Allergies: 13:35 NKA; ph - PMHx: 13:35 Cancer, Breast; ph - PSHx: 13:35 right shoulder; ph - Immunization history:: Adult Immunizations unknown. - Social history:: Smoking status: Patient denies any tobacco usage or history of. - Family history:: not pertinent. - Hospitalizations: : No recent hospitalization is reported. ROS: 14:10 Constitutional: Negative for fever, chills, and weight loss, Eyes: Negative for injury, rn pain, redness, and discharge, Neck: Negative for injury, pain, and swelling, Cardiovascular: Negative for chest pain, palpitations, and edema, Respiratory: Negative for shortness of breath, cough, wheezing, and pleuritic chest pain, Abdomen/GI: Negative for abdominal pain/diarrhea/bleeding, + nausea/vomiting MS/Extremity: Negative for injury and deformity, Skin: Negative for injury, rash, and discoloration, Neuro: Negative for headache, numbness, tingling, and seizure, + generalized weakness Exam: 14:10 Constitutional: This is a well developed, well nourished patient who is awake, alert, rn appears fatigued Head/Face: Normocephalic, atraumatic. ENT: dry MM, no oral swelling or stridor Cardiovascular: Regular rate and rhythm. No pulse deficits. Respiratory: No increased work of breathing, no retractions or nasal flaring. Speaking full sentences. Abdomen/GI: soft, non-tender MS/ Extremity: Pulses equal, no cyanosis. Neurovascular intact. Full, normal range of motion. Equal circumference. Neuro: Awake and alert, GCS 15, oriented to person, place, time, and situation. Cranial nerves II-XII grossly intact. Motor strength 4/5 in all extremities. Sensory grossly intact. Cerebellar exam normal. Normal gait. 15:21 ECG was reviewed by the Attending Physician. rn Vital Signs: 13:32 BP 113 / 82; Pulse 63; Resp 18; Temp 98.2; Pulse Ox 100% on R/A; Weight 77.56 kg; ph Height 5 ft. 2 in. (157.48 cm); Pain 0/10; 14:58 BP 152 / 73; Pulse 57; Resp 16; Pulse Ox 99% on R/A; em 16:00 BP 164 / 54; Pulse 60; Resp 16; Pulse Ox 99% on R/A; em 17:00 BP 119 / 71; Pulse 61; Resp 18; Pulse Ox 99% on R/A; em 13:32 Body Mass Index 31.28 (77.56 kg, 157.48 cm) ph MDM: 14:02 Patient medically screened. rn 15:38 ED course: Pt with elevated WBC but asked and states a couple of days ago came back to cancer center and got shot "to protect her", I am assuming given elevated WBC was stimulating factor.. 17:16 Data reviewed: vital signs, nurses notes, lab test result(s), EKG, radiologic studies, rn plain films, and as a result, I will discharge patient. Counseling: I had a detailed discussion with the patient and/or guardian regarding: the historical points, exam findings, and any diagnostic results supporting the discharge/admit diagnosis, lab results, radiology results, the need for outpatient follow up, to return to the emergency department if symptoms worsen or persist or if there are any questions or concerns that arise at home. Response to treatment: the patient's symptoms have markedly improved after treatment, and as a result, I will discharge patient. Special discussion: I discussed with the patient/guardian in detail that at this point there is no indication for admission to the hospital. It is understood, however, that if the symptoms persist or worsen the patient needs to return immediately for re-evaluation. ED course: Pt states feels much better after fluids, instructed to f/u with her cancer doctor and given return precautions. No ischemia or arrhythmia on ECG, neg trop, neg cxr. . 10/29 14:08 Order name: CBC with Diff; Complete Time: 17:09 rn 10/29 14:08 Order name: Basic Metabolic Panel; Complete Time: 15:25 rn 10/29 14:08 Order name: Troponin (emerg Dept Use Only); Complete Time: 15:25 rn 10/29 14:08 Order name: XRAY Chest (1 view); Complete Time: 14:52 rn 10/29 14:28 Order name: Urine Dipstick--Ancillary (enter results); Complete Time: 14:52 bd 10/29 17:03 Order name: CBC Smear Scan; Complete Time: 17:09 EDMS 10/29 14:08 Order name: IV Start; Complete Time: 14:49 rn 10/29 14:08 Order name: EKG; Complete Time: 14:09 rn 10/29 14:08 Order name: EKG - Nurse/Tech; Complete Time: 14:30 rn 10/29 14:08 Order name: Urine Dipstick-Ancillary (obtain specimen); Complete Time: 14:30 rn EC:21 Rate is 54 beats/min. Rhythm is regular. QRS [place] is Normal. IA interval is normal. QRS rn interval is normal. QT interval is normal. No Q waves. T waves are Normal. No ST changes noted. Clinical impression: Sinus bradycardia. Interpreted by me. Reviewed by me. Administered Medications: 14:45 Drug: NS 0.9% 1000 ml Route: IV; Rate: 1000 ml; Site: left antecubital; em 16:16 Follow up: IV Status: Completed infusion; IV Intake: 1000ml em 14:45 Drug: Phenergan 12.5 mg Route: IVP; Site: left antecubital; em 15:30 Follow up: Response: No adverse reaction; Marked relief of symptoms; Nausea is decreasedem Disposition: 10/30/19 17:18 Discharged to Home. Impression: Dehydration, Nausea with vomiting, unspecified, Weakness. - Condition is Stable. - Discharge Instructions: Dehydration, Adult, Nausea and Vomiting, Adult, Weakness. - Prescriptions for promethazine 25 mg Oral Tablet - take 1 tablet by ORAL route every 6 hours As needed; 20 tablet. - Medication Reconciliation Form, Thank You Letter, Antibiotic Education, Prescription Opioid Use form. - Follow up: Gracie Phoenix; When: 2 - 3 days; Reason: Recheck today's complaints, Re-evaluation by your physician. - Problem is new. - Symptoms have improved. Signatures: Dispatcher [employer] EDTommy Pinto RN RN Ramon Dawkins MD MD rn Hall, Patricia, RN RN ph Corrections: (The following items were deleted from the chart) 17:34 17:18 10/30/2019 17:18 Discharged to Home. Impression: Dehydration; Nausea with em vomiting, unspecified; Weakness. Condition is Stable. Forms are Medication Reconciliation Form, Thank You Letter, Antibiotic Education, Prescription Opioid Use. Follow up: Gracie Phoenix; When: 2 - 3 days; Reason: Recheck today's complaints, Re-evaluation by your physician. Problem is new. Symptoms have improved. rn
--- NOTE | 2019-10-30 17:19 | ER ---
Nurse's Notes [facility] Name: Jojo Alaniz Age: 63 yrs Sex: Female : 1955 Arrival Date: 10/30/2019 Time: 13:12 Bed 19 Private MD: Gracie Phoenix Diagnosis: Dehydration;Nausea with vomiting, unspecified;Weakness Presentation: 10/29 13:32 Chief complaint: Patient states: Currently receiving chemo for breast cancer, last tx 4 ph days ago, c/o N/V r/t treatment, has PO Zofran but is not helping, sent by doctor for rehydration and cardiac work up. Coronavirus screen: Patient denies a cough. Patient denies shortness of breath or difficulty breathing. Patient denies measured and/or subjective temperature greater than 100.4F prior to today's visit. Patient denies travel on a cruise ship or to a country the [facility] currently lists as an affected area. Patient denies contact with known and/or suspected case of COVID-19. Ebola Screen: No symptoms or risks identified at this time. Initial Sepsis Screen: Does the patient meet any 2 criteria? No. Patient's initial sepsis screen is negative. Does the patient have a suspected source of infection? No. Patient's initial sepsis screen is negative. Risk Assessment: Do you want to hurt yourself or someone else? Patient reports no desire to harm self or others. Onset of symptoms was October 30, 2019. 13:32 Method Of Arrival: Ambulatory ph 13:32 Acuity: JES 3 ph Historical: - Allergies: 13:35 NKA; ph - PMHx: 13:35 Cancer, Breast; ph - PSHx: 13:35 right shoulder; ph - Immunization history:: Adult Immunizations unknown. - Social history:: Smoking status: Patient denies any tobacco usage or history of. - Family history:: not pertinent. - Hospitalizations: : No recent hospitalization is reported. Screenin:50 Abuse screen: Denies threats or abuse. Nutritional screening: No deficits noted. em Tuberculosis screening: No symptoms or risk factors identified. Fall Risk None identified. Assessment: 13:32 General: Appears in no apparent distress. uncomfortable, Behavior is calm, cooperative, em appropriate for age, Denies fever. Pain: Denies pain. Neuro: Level of Consciousness is awake, alert, obeys commands, Oriented to person, place, time, situation, Appropriate for age. Cardiovascular: Reports nausea, Denies chest pain, Capillary refill < 3 seconds Patient's skin is warm and dry. Respiratory: Airway is patent Respiratory effort is even, unlabored, Respiratory pattern is regular, symmetrical. GI: Abdomen is flat, Reports nausea, vomiting, Patient currently denies abdominal pain. Derm: Skin is intact, is healthy with good turgor, Skin is pink, warm \T\ dry. Musculoskeletal: Capillary refill < 3 seconds, Range of motion: intact in all extremities. 14:40 Reassessment: Patient appears in no apparent distress at this time. Patient and/or em family updated on plan of care and expected duration. Pain level reassessed. Patient is alert, oriented x 3, equal unlabored respirations, skin warm/dry/pink. 15:40 Reassessment: Patient appears in no apparent distress at this time. Patient and/or em family updated on plan of care and expected duration. Pain level reassessed. Patient is alert, oriented x 3, equal unlabored respirations, skin warm/dry/pink. Patient states feeling better. Patient states symptoms have improved. 16:50 Reassessment: Patient appears in no apparent distress at this time. Patient and/or em family updated on plan of care and expected duration. Pain level reassessed. Patient is alert, oriented x 3, equal unlabored respirations, skin warm/dry/pink. Patient states feeling better. Patient states symptoms have improved. Vital Signs: 13:32 BP 113 / 82; Pulse 63; Resp 18; Temp 98.2; Pulse Ox 100% on R/A; Weight 77.56 kg; ph Height 5 ft. 2 in. (157.48 cm); Pain 0/10; 14:58 BP 152 / 73; Pulse 57; Resp 16; Pulse Ox 99% on R/A; em 16:00 BP 164 / 54; Pulse 60; Resp 16; Pulse Ox 99% on R/A; em 17:00 BP 119 / 71; Pulse 61; Resp 18; Pulse Ox 99% on R/A; em 13:32 Body Mass Index 31.28 (77.56 kg, 157.48 cm) ph ED Course: 13:12 Patient arrived in ED. am2 13:15 Gracie Phoenix is Private Physician. am2 13:34 Triage completed. ph 13:35 Arm band placed on Patient placed in an exam room. ph 13:45 Patient has correct armband on for positive identification. Placed in gown. Bed in low em position. Call light in reach. Adult w/ patient. 14:02 Ramon Smiley MD is Attending Physician. rn 14:09 Tommy Collazo, RN is Primary Nurse. em 14:28 X-ray completed. Portable x-ray completed in exam room. Patient tolerated procedure mh1 well. 14:30 XRAY Chest (1 view) In Process Unspecified. EDMS 14:40 Initial lab(s) drawn, by me, sent to lab. Inserted saline lock: 22 gauge in left em antecubital area, using aseptic technique. Blood collected. 15:08 EKG done, by crm technical lead. reviewed by Ramon Smiley MD. tc 15:18 Notified ED physician of a critical lab result(s). WBC 37.7. hb 17:17 Gracie Phoenix is Referral Physician. rn 17:30 No provider procedures requiring assistance completed. IV discontinued, intact, em bleeding controlled, No redness/swelling at site. Pressure dressing applied. Administered Medications: 14:45 Drug: NS 0.9% 1000 ml Route: IV; Rate: 1000 ml; Site: left antecubital; em 16:16 Follow up: IV Status: Completed infusion; IV Intake: 1000ml em 14:45 Drug: Phenergan 12.5 mg Route: IVP; Site: left antecubital; em 15:30 Follow up: Response: No adverse reaction; Marked relief of symptoms; Nausea is decreasedem Intake: 16:16 IV: 1000ml; Total: 1000ml. em Outcome: 17:18 Discharge ordered by . rn 17:30 Discharged to home ambulatory. em 17:30 Condition: good 17:30 Discharge instructions given to patient, Instructed on discharge instructions, follow up and referral plans. medication usage, Demonstrated understanding of instructions, follow-up care, medications, Prescriptions given X 1. 17:34 Patient left the ED. em Signatures: Dispatcher [employer] EDMS Olivia Regalado [facility] Tommy Collazo, RN RN em Ramon Smiley MD MD rn Callis, Tiffany, sketch liner EKG [facility] Bowden, Kalina, Opal Hutson RN, ph, RN RN Debbie Whitley am2
[2019-10-30 17:41] VITALS: TEMP 98.2
[2019-10-30 17:42] VITALS: O2SAT 99
[2019-10-30 17:45] VITALS: BP 119/71
== END 2019-10-30 17:34 | disposition home or self-care (01) ==
LOC: ER 13:03
DX: E86.0 Dehydration (principal); R53.1 Weakness; Z85.3 Personal history of malignant neoplasm of breast
CPT/HCPCS: 93005; 85025; 80048; 36415; 81003; 84484; 71045; J2550; J7030; 96361; 96374; 99284

== ENCOUNTER 2019-11-29 11:59 | Emergency (ER) | payer OTHER ==
--- OUTSIDE RECORDS SUMMARY | 2019-11-29 12:48 | XMS REPORT ---
:1955 Author Organization [facility] t Address [address] [place] [address] Care Team Providers Name Role Phone Alejandra Batista Attending Clinician Koffi Uribe Attending Clinician Doctor Unassigned, Name Attending Clinician Unavailable Problems Condition Condition Condition Status Onset Resolution Last Treating Co mments Source Name Details Category Date Date Treatment Clinician Date Essential Essential Problem Active [facility] hypertensi hypertensi [facility] Malignant Malignant Diagnosis Active [facility] neoplasm [facility]oplasm [facility] - of left of left Memoria female female l breast, breast, Outpati unspecifie unspecifie en t d estrogen d estrogen Cl inics receptor receptor status, status, unspecifie unspecifie d site of d site of breast breast Maintenanc Maintenanc Diagnosis Active [facility] - chemothera chemothera Me moria py py l following following Outp ati disease disease ent Clinics Low HDL Low HDL Problem Active [facility] (under 40) (under 40) [facility] Elevated Elevated Diagnosis Active [facility] AST (SGOT) AST (SGOT) [facility] Thrombocyt Thrombocyt Problem Active [facility] openia openia [facility] Elevated Elevated Diagnosis Active [facility] alkaline alkaline [facility] - phosphatas phosphatas Me moria e level e level l Outpati ent Clinics Allergies, Adverse Reactions, Alerts This patient has no known allergies or adverse reactions. Medications Ordered Filled Start Stop Current Ordering Indication Dosage Frequency Signature Comments Components Source Medication Medication Date Date Medication? Clinician (SIG) Name Name Multivitami Multivitami Yes Bear not [facility] n Adults n Adults Penaloza [facility] [place] Procedures This patient has no known procedures. Encounters Start End Encounter Admission Attending Care Care Encounter Source Date/Time Date/Time Type Type Clinicians Facility Department ID 2019-11-23 2019-11-23 [facility] [id number] [facility] 08:30:00 08:30:00 [employer] [facility] 2019-11-10 2019-11-10 [facility] [id number] [facility] [address] 09:00:00 09:00:00 [facility] 2019-08-15 2019-08-15 Telephone ULISES [place] [id number] 00:00:00 00:00:00 Alejandra Esteves [facility] [id number] REGIONAL [id number] MATERNAL [id number] & CHILD 107 [facility] 2019-08-04 2019-08-04 Telephone ULISES Holm [id number] 00:00:00 00:00:00 Epifanio Rain [facility] [id number] [facility] [id number] MATERNAL [id number] & CHILD 107 [facility] 2019-07-28 2019-07-28 Orders Doctor YANIRA [id number] 00:00:00 00:00:00 Only Unassigned, STACIE [id number] [facility] [id number] 2019-07-28 2019-07-28 Telephone Saúl [facility] [id number] 00:00:00 00:00:00 Alejandra Esteves [employer] [employer] [id number] [facility] [id number] MATERNAL [id number] & CHILD 107 [facility] Results Test Description Test Time Test Comments Results Result [facility] e Comments BREAST ULTRASOUND 2019-07-27 - BREAST ULTRASOUND CORE CORE BIOPSY LEFT 14:15:04 BIOPSY LEFTULTRASOUND GUIDED BIOPSY LEFT BREAST WITH MARKING DEVICE INSERTED: 07/25/2019CLINICAL: Ultrasound biopsy, left breast 1:00/subareolar-MHunter. Comparison is made to exams dated 07/18/2019 ultrasound and 07/18/2019 mammogram - [facility]. An ultrasound guided biopsy using real-time ultrasound [...] location, multiple specimens were obtained using a [employer] biopsy device. A clip was inserted into [...] - 07/27/2019 15:05:22copy to: Ms. Tadeo Marcos, [facility] [address], ATTN: Shwetha Marcos, ph: [phone], fax: [phone] Technologist: Aida Wilkins , [facility] 2019-07-25 - DIAG MAMM LEFT CAD CAD DIGITAL 13:14:19 DIGITALUNILATERAL LEFT DIGITAL DIAGNOSTIC MAMMOGRAM WITH CAD POST-PROCEDURE IMAGING FOR MARKER PLACEMENT: 07/25/2019CLINICAL: Post Clip Placement. Current mammographic images were evaluated by either a [employer] M-Vu or a [employer] ImageChecker CAD (computer aided detection system). Comparison is made to exam dated [facility]/18/2019 [facility]. The tissue of the left breast is [...] dm/:07/25/2019 13:14:19 copy to: Ms. Shwetha Rodríguez, [facility] [address], ATTN: Shwetha Marcos, ph: [phone], fax: [phone] Technologist: Morelia Bradley FW, [facility]-FWImaging Technologist: Suri Lebron FW, [facility]-FWMammogram BI-RADS: Post-procedure mammogram for marker placement BREAST ULTRASOUND 2019-07-18 DIAG MAMM BILATERAL BILATERAL 16:44:27 KENNY CAD DIGITALBILATERAL DIGITAL DIAGNOSTIC MAMMOGRAM 3D/2D WITH CAD: 07/18/2019CLINICAL: Palpable mass, left breast. Digital breast tomosynthesis was performed in addition to routine CC and MLO views. Current mammographic images were evaluated by either a [employer] M-Vu or a [employer] ImageNeurotron Biotechnologyer CAD (computer aided detection system). No prior [...] - 07/18/2019 16:51:42copy to: Ms. Shwetha Rodríguez, [facility] [address], ATTN: Shwetha Rodríguez, ph: [phone], fax: [phone] Technologist: Mohamud Martins [facility]-FWletter sent: BIRADS 4/5 Biopsy Mammogram BI-RADS: 0 Incomplete: Additional Imaging Evaluation Needed Ultrasound BI-RADS: 5 Highly suggestive of malignancy DIAG MAMM 2019-07-18 - DIAG MAMM BILATERAL BILATERAL KENNY 16:44:27 KENNY CAD CAD DIGITAL DIGITALBILATERAL DIGITAL DIAGNOSTIC MAMMOGRAM 3D/2D WITH CAD: 07/18/2019CLINICAL: Palpable mass, left breast. Digital breast tomosynthesis was performed in addition to routine CC and MLO views. Current mammographic images were evaluated by either a [employer] M-Vu or a [employer] CAD (computer aided detection system). No prior [...] - 07/18/2019 16:51:42copy to: Ms. Shwetha Rodríguez, [facility] [address], ATTN: Shwetha Rodríguez, ph: [phone], fax: [phone] Technologist: Mohamud Martins Breast Imaging-FWletter sent: BIRADS 4/5 Biopsy Mammogram BI-RADS: 0 Incomplete: Additional Imaging Evaluation Needed Ultrasound BI-RADS: 5 Highly suggestive of malignancy
--- OUTSIDE RECORDS SUMMARY | 2019-11-29 12:49 | XMS REPORT ---
:1955 Author Organization [employer] Care Team Providers Name Role Phone Bear Penaloza Provider Role Unavailable Allergies, Adverse Reactions, Alerts Substance Reaction Event Type N.K.D.A. Info Not Available Non Drug Allergy Problems Problem Type Condition Code Onset Dates Condition Statu s Assessment Essential hypertension I10 Activ e Problem Malignant neoplasm of left female C50.912 Active breast, unspecified estrogen receptor status, unspecified site of breast Problem Essential hypertension I10 Activ e Assessment Maintenance chemotherapy following Z51.11 Active disease Assessment Encounter for screening for other Z11.59 Active viral diseases Assessment Encounter for wellness examination Z00.00 Active in adult Assessment Malignant neoplasm of left female C50.912 Active breast, unspecified estrogen receptor status, unspecified site of breast Medications Medication Code System Code Instructions Start End Date Status Dos age Date Multivitamin [facility] 25283-168 Active not defin ed Adults 38 Results No Known Results Summary Purpose [employer] Submission
--- OUTSIDE RECORDS SUMMARY | 2019-11-29 12:49 | XMS REPORT ---
:1955 Author Organization [employer] Care Team Providers Name Role Phone Bear Penaloza Provider Role Unavailable Allergies, Adverse Reactions, Alerts Substance Reaction Event Type N.K.D.A. Info Not Available Non Drug Allergy Problems Problem Type Condition Code Onset Dates Condition Statu s Assessment Low HDL (under 40) E78.6 Active Assessment Essential hypertension I10 Activ e Assessment Elevated AST (SGOT) R74.0 Active Assessment Thrombocytopenia D69.6 Active Assessment Elevated alkaline phosphatase level R74.8 Active Problem Low HDL (under 40) E78.6 Active Problem Malignant neoplasm of left female C50.912 Active breast, unspecified estrogen receptor status, unspecified site of breast Problem Thrombocytopenia D69.6 Active Assessment Malignant neoplasm of left female C50.912 Active breast, unspecified estrogen receptor status, unspecified site of breast Assessment Maintenance chemotherapy following Z51.11 Active disease Problem Essential hypertension I10 Activ e Medications Medication Code System Code Instructions Start End Date Status Dos age Date Multivitamin [facility] 35767-037 Active not defin ed Adults 38 Results No Known Results Summary Purpose [employer] Submission
[2019-11-29 13:20] LABS: BUN Blood Urea Nitrogen 4 mg/dL (7-18); Bicarbonate 21 mmol/L (21-32); Glucose Level 152 mg/dL (74-106); Sodium Level 138 mmol/L (136-145)
[2019-11-29 13:29] LABS: Potassium 2.7 mmol/L (3.5-5.1)
[2019-11-29 14:20] LABS: Absolute Lymphocytes (CBC) 0.3 K/uL (0.7-4.9); Basophils % 0.1 % (0-1.3); Lymphocytes % 8.8 % (15.3-44.8); MPV 9.5 fL (7.6-11.3)
[2019-11-29] MEDS ORDERED: POTASSIUM 25 MEQ EFFERV TAB ONE ×2 (14:34→15:30)
[2019-11-29 14:41] LABS: RBC Red Blood Cell Count 2.37 M/uL (3.86-4.86)
[2019-11-29 14:42] LABS: Hematocrit 24.1 % (36.0-45.0)
[2019-11-29 14:44] LABS: Blood Morphology Comment NOT SEEN (NOT SEEN); Hypochromasia 1+; Platelet Estimate DECR; Platelets, Giant PRESENT; Urine White Blood Cell Casts OK
--- NOTE | 2019-11-29 15:14 | ER ---
Nurse's Notes [facility] Name: Jojo Alaniz Age: 63 yrs Sex: Female : 1955 Arrival Date: 11/29/2019 Time: 12:01 Bed 6 Private MD: Diagnosis: Hypokalemia;Anemia, unspecified Presentation: 11/28 12:11 Chief complaint: Patient states: sent by PCP for hypokalemia, low hemoglobin, low iron sv level, dizziness started last week. Pt is Jehovah witness and does not want a blood transfusion. Pt is currently getting chemotherapy for breast cancer. Report SOB with exertion. Coronavirus screen: Proceed with normal triage. Patient denies a cough. Patient denies shortness of breath or difficulty breathing. Patient denies measured and/or subjective temperature greater than 100.4F prior to today's visit. Patient denies travel on a cruise ship or to a country the [facility] currently lists as an affected area. Patient denies contact with known and/or suspected case of COVID-19. Ebola Screen: No symptoms or risks identified at this time. Risk Assessment: Do you want to hurt yourself or someone else? Patient reports no desire to harm self or others. Onset of symptoms was November 2019. 12:11 Method Of Arrival: Ambulatory sv 12:11 Acuity: JES 3 sv 12:18 Initial Sepsis Screen: Does the patient meet any 2 criteria? HR > 90 bpm. No. Patient's sv initial sepsis screen is negative. Does the patient have a suspected source of infection? No. Patient's initial sepsis screen is negative. Triage Assessment: 12:11 General: Appears in no apparent distress. uncomfortable, Behavior is calm, cooperative, sv appropriate for age. Neuro: Level of Consciousness is awake, alert, obeys commands, Gait is steady. Neuro: Reports dizziness. Respiratory: Respiratory effort is even, unlabored. Historical: - Allergies: 12:17 NKA; sv - PMHx: 12:17 Cancer, Breast; sv - PSHx: 12:17 right shoulder; sv - Immunization history:: Flu vaccine status is unknown. - Social history:: Smoking status: Patient denies any tobacco usage or history of. Screenin:51 Abuse screen: Denies threats or abuse. Denies injuries from another. Nutritional ph screening: No deficits noted. Tuberculosis screening: No symptoms or risk factors identified. Fall Risk None identified. Assessment: 12:51 General: Appears in no apparent distress. comfortable, Behavior is calm, cooperative, ph appropriate for age, Denies fever. Pain: Denies pain. Neuro: Level of Consciousness is awake, alert, obeys commands, Oriented to person, place, time, situation, Reports dizziness, weakness. Cardiovascular: Reports fatigue, lightheadedness, shortness of breath, Capillary refill < 3 seconds in bilateral fingers Patient's skin is warm and dry. Respiratory: Reports shortness of breath on exertion Denies cough, pain with respiration. GI: No signs and/or symptoms were reported involving the gastrointestinal system. Derm: Skin is intact, Skin is pink, warm \T\ dry. Musculoskeletal: Circulation, motion, and sensation intact. Range of motion: intact in all extremities. 14:30 Reassessment: Patient appears in no apparent distress at this time. Patient and/or ph family updated on plan of care and expected duration. Pain level reassessed. Patient is alert, oriented x 3, equal unlabored respirations, skin warm/dry/pink. Pt resting comfortably, awaiting lab results. 15:55 Reassessment: Patient appears in no apparent distress at this time. Patient and/or ph family updated on plan of care and expected duration. Pain level reassessed. Patient is alert, oriented x 3, equal unlabored respirations, skin warm/dry/pink. Pt d/c home, provided w/ written prescription for mouthwash to help relieve oral pain, instructed to follow up w/ PCP and/or oncologist. Vital Signs: 12:18 BP 109 / 73; Pulse 96; Resp 16; Temp 97.8; Pulse Ox 100% ; Weight 76.66 kg; Height 5 sv ft. 5 in. (165.10 cm); 12:37 BP 105 / 63 RA Supine; Pulse 91; Resp 16; Pulse Ox 100% on R/A; dh3 12:39 BP 118 / 70 RA Sitting; Pulse 93; Resp 16; Pulse Ox 100% on R/A; dh3 12:41 BP 111 / 70 RA Standing; Pulse 96; Resp 18; Pulse Ox 100% on R/A; dh3 14:00 BP 114 / 72; Pulse 87; Resp 18; Pulse Ox 98% on R/A; ph 15:00 BP 106 / 70; Pulse 91; Resp 16; Pulse Ox 100% on R/A; ph 16:00 BP 113 / 68; Pulse 89; Resp 16; Temp 97.9; Pulse Ox 100% on R/A; ph 12:18 Body Mass Index 28.12 (76.66 kg, 165.10 cm) ED Course: 12:01 Patient arrived in ED. ag5 12:16 Triage completed. sv 12:17 Arm band placed on. sv 12:22 Lin[facility] Bliss [facility]-C [facility]. kb 12:22 Alexander Jiménez MD is Attending Physician. kb 12:23 Kalina Bowden, RN is Primary Nurse. ph 12:50 Initial lab(s) drawn, by me, sent to lab. Missed attempt(s): 24 gauge in right hand. ph Bleeding controlled, band aid applied, catheter tip intact. 12:51 Patient has correct armband on for positive identification. Bed in low position. Call ph light in reach. Side rails up X 1. Pulse ox on. NIBP on. Door closed. Noise minimized. Warm blanket given. 16:00 No provider procedures requiring assistance completed. Patient did not have IV access ph during this emergency room visit. Administered Medications: 14:30 Drug: Potassium Effervescent Tablet 50 mEq Route: PO; ph 15:54 Follow up: Response: No adverse reaction ph 15:31 Drug: Potassium Effervescent Tablet 50 mEq Route: PO; jl7 15:54 Follow up: Response: No adverse reaction ph Outcome: 15:13 Discharge ordered by MD. kb 16:01 Discharged to home ambulatory. ph 16:01 Condition: good 16:01 Discharge instructions given to patient, Instructed on discharge instructions, follow up and referral plans. medication usage, Demonstrated understanding of instructions, follow-up care, medications, Prescriptions given X 1. 16:01 Patient left the ED. ph Signatures: Linette Bliss FNP-C FNP-Naa Weathers RN RN Kalina Bowden RN RN ph Savita De La Garza RN RN jl7 Nahed Salazar 3 Yayo Dias ag5 Corrections: (The following items were deleted from the chart) 12:21 12:18 Pulse 96bpm; Resp 16bpm; Pulse Ox 100%; Temp 97.8F; 76.66 kg; Height 5 ft. 5 in.; sv BMI: 28.1; sv 12:51 12:50 Initial lab(s) drawn, by me, by EMS personnel. ph ph
--- NOTE | 2019-11-29 15:14 | EDPHYS ---
Physician Documentation [facility] Name: Jojo Alaniz Age: 63 yrs Sex: Female : 1955 Arrival Date: 11/29/2019 Time: 12:01 Bed 6 Private MD: ED Physician Alexander Jiménez HPI: 11/28 15:09 This 63 yrs old Female presents to ER via Ambulatory with complaints of kb General Weakness, Dizziness. 15:10 The patient presents with generalized weakness. Onset: The symptoms/episode kb began/occurred this morning. Context: occurred at home. Modifying factors: The symptoms are alleviated by nothing, the symptoms are aggravated by changing position. Associated signs and symptoms: The patient has no apparent associated signs or symptoms. Severity of symptoms: At their worst the symptoms were moderate in the emergency department the symptoms are unchanged. Patient's baseline: Neuro: alert and fully oriented, Motor: no deficits, Ambulation: walks without assistance, Speech: normal. The patient has not experienced similar symptoms in the past. The patient has been recently seen by a physician:. Pt reports she has been on chemo therapy for breast cancer and today the cancer center told her to come to the ER for low blood count and low potassium. . Historical: - Allergies: 12:17 NKA; sv - PMHx: 12:17 Cancer, Breast; sv - PSHx: 12:17 right shoulder; sv - Immunization history:: Flu vaccine status is unknown. - Social history:: Smoking status: Patient denies any tobacco usage or history of. ROS: 15:10 Constitutional: Negative for fever, chills, and weight loss, Cardiovascular: Negative kb for chest pain, palpitations, and edema, Respiratory: Negative for shortness of breath, cough, wheezing, and pleuritic chest pain, Abdomen/GI: Negative for abdominal pain, nausea, vomiting, diarrhea, and constipation, Back: Negative for injury and pain, MS/Extremity: Negative for injury and deformity, Skin: Negative for injury, rash, and discoloration. 15:10 Neuro: Positive for weakness, Negative for altered mental status, dizziness, gait disturbance, headache, hearing loss, loss of consciousness, numbness, seizure activity, speech changes, syncope, near syncope, tingling, tinnitus, tremor, visual changes. 15:14 ENT: Positive for pain/soreness to tongue. Pt reports her dr told her it was from the kb chemo. Exam: 15:10 Constitutional: This is a well developed, well nourished patient who is awake, alert, kb and in no acute distress. Head/Face: Normocephalic, atraumatic. ENT: Nares patent. No nasal discharge, no septal abnormalities noted. Tympanic membranes are normal and external auditory canals are clear. Oropharynx with no redness, swelling, or masses, exudates, or evidence of obstruction, uvula midline. Mucous membranes moist. Chest/axilla: Normal chest wall appearance and motion. Nontender with no deformity. No lesions are appreciated. Cardiovascular: Regular rate and rhythm with a normal S1 and S2. No gallops, murmurs, or rubs. Normal PMI, no JVD. No pulse deficits. Respiratory: Lungs have equal breath sounds bilaterally, clear to auscultation and percussion. No rales, rhonchi or wheezes noted. No increased work of breathing, no retractions or nasal flaring. Abdomen/GI: Soft, non-tender, with normal bowel sounds. No distension or tympany. No guarding or rebound. No evidence of tenderness throughout. Back: No spinal tenderness. No costovertebral tenderness. Full range of motion. Skin: Warm, dry with normal turgor. Normal color with no rashes, no lesions, and no evidence of cellulitis. MS/ Extremity: Pulses equal, no cyanosis. Neurovascular intact. Full, normal range of motion. Neuro: Awake and alert, GCS 15, oriented to person, place, time, and situation. Cranial nerves II-XII grossly intact. Motor strength 5/5 in all extremities. Sensory grossly intact. Cerebellar exam normal. Normal gait. Vital Signs: 12:18 BP 109 / 73; Pulse 96; Resp 16; Temp 97.8; Pulse Ox 100% ; Weight 76.66 kg; Height 5 sv ft. 5 in. (165.10 cm); 12:37 BP 105 / 63 RA Supine; Pulse 91; Resp 16; Pulse Ox 100% on R/A; dh3 12:39 BP 118 / 70 RA Sitting; Pulse 93; Resp 16; Pulse Ox 100% on R/A; dh3 12:41 BP 111 / 70 RA Standing; Pulse 96; Resp 18; Pulse Ox 100% on R/A; dh3 14:00 BP 114 / 72; Pulse 87; Resp 18; Pulse Ox 98% on R/A; ph 15:00 BP 106 / 70; Pulse 91; Resp 16; Pulse Ox 100% on R/A; ph 16:00 BP 113 / 68; Pulse 89; Resp 16; Temp 97.9; Pulse Ox 100% on R/A; ph 12:18 Body Mass Index 28.12 (76.66 kg, 165.10 cm) sv MDM: 12:22 Patient medically screened. kb 15:10 Data reviewed: vital signs, nurses notes. Data interpreted: Pulse oximetry: on room air kb is 100 %. Interpretation: normal. Counseling: I had a detailed discussion with the patient and/or guardian regarding: the historical points, exam findings, and any diagnostic results supporting the discharge/admit diagnosis, lab results, the need for outpatient follow up, a family practitioner, to return to the emergency department if symptoms worsen or persist or if there are any questions or concerns that arise at home. 11/28 12:36 Order name: CBC with Diff; Complete Time: 14:50 kb 11/28 12:36 Order name: Basic Metabolic Panel; Complete Time: 13:30 kb 11/28 12:22 Order name: Orthostatics; Complete Time: 12:45 kb 11/28 14:43 Order name: CBC Smear Scan; Complete Time: 14:50 EDMS Administered Medications: 14:30 Drug: Potassium Effervescent Tablet 50 mEq Route: PO; ph 15:54 Follow up: Response: No adverse reaction ph 15:31 Drug: Potassium Effervescent Tablet 50 mEq Route: PO; jl7 15:54 Follow up: Response: No adverse reaction ph Disposition: 11/29 09:17 Co-signature as Attending Physician, Alexander Jiménez MD I agree with the assessment and kdr plan of care. Disposition: 11/29/19 15:13 Discharged to Home. Impression: Hypokalemia, Anemia, unspecified. - Condition is Stable. - Discharge Instructions: Anemia, Nonspecific, Hypokalemia. - Medication Reconciliation Form, Thank You Letter, Antibiotic Education, Prescription Opioid Use form. - Follow up: Emergency Department; When: As needed; Reason: Worsening of condition. Follow up: Private Physician; When: 2 - 3 days; Reason: Recheck today's complaints, Continuance of care, Re-evaluation by your physician. Signatures: Dispatcher [employer] EDMS Juanjo Blissistin, DISPATCHER CHIE[employer]UR[employer]-C DISPATCHER CHIEF COAL SLURRY-Ckb Naa Alvarado, RN RN Alexander Boogie MD MD kdr Hall, Patricia RN RN Savita Frye RN RN jl7 Corrections: (The following items were deleted from the chart) 11/28 15:13 15:10 Constitutional: This is a well developed, well nourished patient who is awake, kb alert, and in no acute distress. Head/Face: Normocephalic, atraumatic. Chest/axilla: Normal chest wall appearance and motion. Nontender with no deformity. No lesions are appreciated. Cardiovascular: Regular rate and rhythm with a normal S1 and S2. No gallops, murmurs, or rubs. Normal PMI, no JVD. No pulse deficits. Respiratory: Lungs have equal breath sounds bilaterally, clear to auscultation and percussion. No rales, rhonchi or wheezes noted. No increased work of breathing, no retractions or nasal flaring. Abdomen/GI: Soft, non-tender, with normal bowel sounds. No distension or tympany. No guarding or rebound. No evidence of tenderness throughout. Back: No spinal tenderness. No costovertebral tenderness. Full range of motion. Skin: Warm, dry with normal turgor. Normal color with no rashes, no lesions, and no evidence of cellulitis. MS/ Extremity: Pulses equal, no cyanosis. Neurovascular intact. Full, normal range of motion. Neuro: Awake and alert, GCS 15, oriented to person, place, time, and situation. Cranial nerves II-XII grossly intact. Motor strength 5/5 in all extremities. Sensory grossly intact. Cerebellar exam normal. Normal gait. kb 15:14 15:10 Constitutional: This is a well developed, well nourished patient who is awake, kb alert, and in no acute distress. Head/Face: Normocephalic, atraumatic. ENT: Nares patent. No nasal discharge, no septal abnormalities noted. Tympanic membranes are normal and external auditory canals are clear. Oropharynx with no redness, swelling, or masses, exudates, or evidence of obstruction, uvula midline. Mucous membranes moist. Chest/axilla: Normal chest wall appearance and motion. Nontender with no deformity. No lesions are appreciated. Cardiovascular: Regular rate and rhythm with a normal S1 and S2. No gallops, murmurs, or rubs. Normal PMI, no JVD. No pulse deficits. Respiratory: Lungs have equal breath sounds bilaterally, clear to auscultation and percussion. No rales, rhonchi or wheezes noted. No increased work of breathing, no retractions or nasal flaring. Abdomen/GI: Soft, non-tender, with normal bowel sounds. No distension or tympany. No guarding or rebound. No evidence of tenderness throughout. Back: No spinal tenderness. No costovertebral tenderness. Full range of motion. Skin: Warm, dry with normal turgor. Normal color with no rashes, no lesions, and no evidence of cellulitis. MS/ Extremity: Pulses equal, no cyanosis. Neurovascular intact. Full, normal range of motion. Neuro: Awake and alert, GCS 15, oriented to person, place, time, and situation. Cranial nerves II-XII grossly intact. Motor strength 5/5 in all extremities. Sensory grossly intact. Cerebellar exam normal. Normal gait. kb 15:55 12:36 IV Saline Lock ordered. kb ph 16:01 15:13 11/29/2019 15:13 Discharged to Home. Impression: Hypokalemia; Anemia, ph unspecified. Condition is Stable. Forms are Medication Reconciliation Form, Thank You Letter, Antibiotic Education, Prescription Opioid Use. Follow up: Emergency Department; When: As needed; Reason: Worsening of condition. Follow up: Private Physician; When: 2 - 3 days; Reason: Recheck today's complaints, Continuance of care, Re-evaluation by your physician. kb
[2019-11-29 16:19] VITALS: O2SAT 100
[2019-11-29 16:20] VITALS: BP 113/68; TEMP 97.9
== END 2019-11-29 16:01 | disposition home or self-care (01) ==
LOC: ER 11:59
DX: C50.919 Malignant neoplasm of unspecified site of unspecified female breast (principal); D64.9 Anemia, unspecified; E87.6 Hypokalemia
CPT/HCPCS: 36415; 80048; 85025; 99284

== ENCOUNTER 2019-12-11 06:30 | Inpatient (IN) | payer OTHER ==
[2019-12-08 13:20] LABS: Absolute Lymphocytes (CBC) 0.5 K/uL (0.7-4.9); Basophils % 0.8 % (0-1.3); Hematocrit 23.9 % (36.0-45.0); Lymphocytes % 10.7 % (15.3-44.8); MPV 8.8 fL (7.6-11.3); RBC Red Blood Cell Count 2.27 M/uL (3.86-4.86)
[2019-12-08 13:35] LABS: BUN Blood Urea Nitrogen 5 mg/dL (7-18); Bicarbonate 26 mmol/L (21-32); Glucose Level 124 mg/dL (74-106); Potassium 3.2 mmol/L (3.5-5.1); Sodium Level 140 mmol/L (136-145)
[2019-12-08 15:24] LABS: Urine White Blood Cell Casts OK
[2019-12-08 15:25] LABS: Anisocytosis 1+; Blood Morphology Comment NOTED (NOT SEEN); Macrocytosis 1+; Platelet Estimate DECR
--- OUTSIDE RECORDS SUMMARY | 2019-12-11 06:27 | XMS REPORT ---
:1955 Author Organization [facility] t Address [address] [place] [address] Care Team Providers Name Role Phone Alejandra [...] [facility] Adults [facility] Procedures This patient has no known procedures. Encounters Start End Encounter Admission Attending Care Care Encounter Source Date/Time Date/Time Type Type Clinicians Facility Department ID 2019-11-23 2019-11-23 [facility] [id number] [address] 08:30:00 08:30:00 [employer] [facility] 2019-11-10 2019-11-10 [facility] [id number] [address] 09:00:00 09:00:00 [facility] 2019-08-15 2019-08-15 Telephone ULISES [place] [id number] 00:00:00 00:00:00 Alejandra Esteves [employer] [id number] REGIONAL [id number] MATERNAL [id number] & CHILD 107 [facility] 2019-08-04 2019-08-04 Telephone ULISES Holm [id number] 00:00:00 00:00:00 Epifanio Rain [employer] [id number] [facility] [id number] MATERNAL [id number] & CHILD 107 [facility] 2019-07-28 2019-07-28 Orders Doctor YANIRA [id number] 00:00:00 00:00:00 Only Unassigned, STACIE [id number] [place] [facility] [id number] 2019-07-28 2019-07-28 Telephone Saúl [facility] [id number] 00:00:00 00:00:00 Alejandra Esteves FOUN[employer] [id number] [facility] [id number] MATERNAL [id number] & CHILD 107 [facility] Results Test Description Test Time Test Comments Results Result [facility] e Comments BREAST ULTRASOUND 2019-07-27 - BREAST ULTRASOUND CORE CORE BIOPSY LEFT 14:15:04 BIOPSY LEFTULTRASOUND GUIDED BIOPSY LEFT BREAST WITH MARKING DEVICE INSERTED: 07/25/2019CLINICAL: Ultrasound biopsy, left breast 1:00/subareolar-MHunter. Comparison is made to exams dated 07/18/2019 ultrasound and 07/18/2019 mammogram - [facility]. An ultrasound guided biopsy using real-time [...] location, multiple specimens were obtained using a [employer] Precision biopsy device. A clip was inserted into [...] - 07/27/2019 15:05:22copy to: Ms. Tadeo Marcos, [facility] [address], ATTN: Shwetha Marcos, ph: [phone], fax: [phone] Technologist: Aida Wilkins , [facility] 2019-07-25 - DIAG MAMM LEFT CAD CAD DIGITAL 13:14:19 DIGITALUNILATERAL LEFT DIGITAL DIAGNOSTIC MAMMOGRAM WITH CAD POST-PROCEDURE IMAGING FOR MARKER PLACEMENT: 07/25/2019CLINICAL: Post Clip Placement. Current mammographic images were evaluated by either a [employer] M-Vu or a [employer] ImageChecker CAD (computer aided detection system). Comparison is made to exam dated 07/18/2019 [facility]ogram [facility]. The tissue of the left breast is [...] dm/:07/25/2019 13:14:19 copy to: Ms. Shwetha Rodríguez, [facility] [address], ATTN: Shwetha Marcos, ph: [phone], fax: [phone] Technologist: Morelia Bradley FW, [facility]-FWImaging Technologist: Suri Lebron FW, [facility]-FWMammogram BI-RADS: Post-procedure mammogram for marker placement BREAST ULTRASOUND 2019-07-18 DIAG MAMM BILATERAL BILATERAL 16:44:27 KENNY CAD DIGITALBILATERAL DIGITAL DIAGNOSTIC MAMMOGRAM 3D/2D WITH CAD: 07/18/2019CLINICAL: Palpable mass, left breast. Digital breast tomosynthesis was performed in addition to routine CC and MLO views. Current mammographic images were evaluated by either a [employer] M-Vu or a [employer] ImageDanfoss IXA Sensor Technologieser CAD (computer aided detection system). No prior [...] - 07/18/2019 16:51:42copy to: Ms. Shwetha Rodríguez, [facility] [address], ATTN: Shwetha Rodríguez, ph: [phone], fax: [phone] Technologist: Mohamud Martins [facility]-FWletter sent: BIRADS [...] mammographic images were evaluated by either a [employer] M-Vu or a [employer] CAD (computer aided detection system). No prior [...] - 07/18/2019 16:51:42copy to: Ms. Shwetha Rodríguez, [facility] [address], ATTN: Shwetha Rodríguez, ph: [phone], fax: [phone] Technologist: Mohamud Martins [facility]-FWletter sent: BIRADS 4/5 Biopsy Mammogram BI-RADS: 0 Incomplete: Additional Imaging Evaluation Needed Ultrasound BI-RADS: 5 Highly suggestive of malignancy
--- OUTSIDE RECORDS SUMMARY | 2019-12-11 06:28 | XMS REPORT ---
[...] End Date Status Dos age Date Multivitamin [facility] [address] Active not defin ed Adults 38 Results No Known Results Summary Purpose [employer] Submission
--- OUTSIDE RECORDS SUMMARY | 2019-12-11 06:28 | XMS REPORT ---
[...] End Date Status Dos age Date Multivitamin [facility] [address] Active not defin ed Adults 38 Results No Known Results Summary Purpose [employer] Submission
--- OUTSIDE RECORDS SUMMARY | 2019-12-11 06:35 | XMS REPORT ---
:1955 Author Organization [facility] t Address [address] [place] [address] Care Team Providers Name Role Phone Alejandra [...] [facility] Ad[facility] n Adults [facility] Procedures This patient has no known procedures. Encounters Start End Encounter Admission Attending Care Care Encounter Source Date/Time Date/Time Type Type Clinicians Facility Department ID 2019-11-23 2019-11-23 [facility] [id number] [facility] 08:30:00 08:30:00 [facility]ufenqi [facility] 2019-11-10 2019-11-10 [facility] [id number] [address] 09:00:00 09:00:00 Qufenqi [facility] 2019-08-15 2019-08-15 Telephone ULISES [place] [id number] 00:00:00 00:00:00 Alejandra Esteves MACHINE FEEDER [id number] REGIONAL [id number] MATERNAL [id number] & CHILD [address] [facility] 2019-08-04 2019-08-04 Telephone ULISES Holm [id number] 00:00:00 00:00:00 Epifanio Rain MACHINE FEEDER [id number] [facility] [id number] MATERNAL [id number] & CHILD [address] [facility] 2019-07-28 2019-07-28 Orders Doctor YANIRA [id number] 00:00:00 00:00:00 Only Unassigned, STACIE [id number] [employer] [facility] [id number] 2019-07-28 2019-07-28 Telephone Saúl [facility] [id number] 00:00:00 00:00:00 Alejandra Esteves MACHINE FEEDER [id number] [facility] [id number] MATERNAL [id number] & CHILD [address] [facility] Results Test Description Test Time Test Comments Results Result [facility] e Comments BREAST ULTRASOUND 2019-07-27 - BREAST ULTRASOUND CORE CORE BIOPSY LEFT 14:15:04 BIOPSY LEFTULTRASOUND GUIDED BIOPSY LEFT BREAST WITH MARKING DEVICE INSERTED: 07/25/2019CLINICAL: Ultrasound biopsy, left breast 1:00/subareolar-MHunter. Comparison is made to exams dated 07/18/2019 ultrasound and 07/18/2019 mammogram - [facility]. An ultrasound guided biopsy using real-time [...] location, multiple specimens were obtained using a PerfectSearch biopsy device. A clip was inserted into [...] - 07/27/2019 15:05:22copy to: Ms. Tadeo Marcos, [facility] [address], ATTN: Shwetha Marcos, ph: [phone], fax: [phone] Technologist: Aida Wilkins , [facility] MAMM LEFT 2019-07-25 - DIAG MAMM LEFT CAD CAD DIGITAL 13:14:19 DIGITALUNILATERAL LEFT DIGITAL DIAGNOSTIC MAMMOGRAM WITH CAD POST-PROCEDURE IMAGING FOR MARKER PLACEMENT: 07/25/2019CLINICAL: Post Clip Placement. Current mammographic images were evaluated by either a GrandCentral M-Vu or a Moondo ImageChecker CAD (computer aided detection system). Comparison is made to exam dated 07/18/2019 [facility]ogram - [facility]. The tissue of the left breast is [...] dm/:07/25/2019 13:14:19 copy to: Ms. Shwetha Rodríguez, [facility] [address], ATTN: Shwetha Marcos, ph: [phone], fax: [phone] Technologist: Morelia Bradley FW, [facility]-FWImaging Technologist: Suri Lebron FW, [facility]-FWMammogram BI-RADS: Post-procedure mammogram for marker placement BREAST ULTRASOUND 2019-07-18 DIAG MAMM BILATERAL BILATERAL 16:44:27 KENNY CAD DIGITALBILATERAL DIGITAL DIAGNOSTIC MAMMOGRAM 3D/2D WITH CAD: 07/18/2019CLINICAL: Palpable mass, left breast. Digital breast tomosynthesis was performed in addition to routine CC and MLO views. Current mammographic images were evaluated by either a GrandCentral M-Vu or a Moondo ImageThe Donut Huter CAD (computer aided detection system). No prior [...] - 07/18/2019 16:51:42copy to: Ms. Shwetha Rodríguez, [facility] [address], ATTN: Shwetha Rodríguez, ph: [phone], fax: [phone] Technologist: Mohamud [facility]-FWletter sent: BIRADS [...] mammographic images were evaluated by either a GrandCentral M-Vu or a ZAINA PHARMA CAD (computer aided detection system). No prior [...] - 07/18/2019 16:51:42copy to: Ms. Shwetha Rodríguez, [facility] [address], ATTN: Shwetha Rodríguez, ph: [phone], fax: [phone] Technologist: Mohamud [facility]-FWletter sent: BIRADS 4/5 Biopsy Mammogram BI-RADS: 0 Incomplete: Additional Imaging Evaluation Needed Ultrasound BI-RADS: 5 Highly suggestive of malignancy
--- OUTSIDE RECORDS SUMMARY | 2019-12-11 06:35 | XMS REPORT ---
[...] End Date Status Dos age Date Multivitamin [facility] [address] Active not defin ed Adults 38 Results No Known Results Summary Purpose eClinicalWorks Submission
--- OUTSIDE RECORDS SUMMARY | 2019-12-11 06:35 | XMS REPORT ---
[...] End Date Status Dos age Date Multivitamin [facility] [address] Active not defin ed Adults 38 Results No Known Results Summary Purpose [employer] System[employer]iftago Submission
[2019-12-11] MEDS ORDERED: Ringers Lactate 1,000 ML IV ONE ×2 (06:53→11:05)
[2019-12-11] MEDS ORDERED: CEFAZOLIN/SWI 1gm 1 GM/10 ML SYR ONE (06:54)
[2019-12-11] MEDS ORDERED: METHYLENE BLUE 0.5% 10 ML AMP ONE (09:37)
[2019-12-11] MEDS ORDERED: dexAMETHasone 10 MG/ML VIAL ONE (09:42)
[2019-12-11] MEDS ORDERED: ROCURONIUM 50 MG/5 ML VIAL IV ONE (09:43)
[2019-12-11] MEDS ORDERED: Phenylephrine HCl 10 MG/ML 1 ML VIAL ONE (10:24)
[2019-12-11] MEDS ORDERED: FENTANYL CITR 100 MCG/2 ML ONE (11:12)
[2019-12-11] MEDS ORDERED: GLYCOPYRROLATE 0.2 MG/ML SYR ONE (11:49)
[2019-12-11] MEDS ORDERED: KETOROLAC 30 MG/ML INJ ONE (12:15)
--- NOTE | 2019-12-11 12:19 | P.BOP ---
Preoperative diagnosis: Left breast cancer , s/p chemotherapy(lewis-adjuvant) Postoperative diagnosis: same Primary procedure: Left modified radical mastectomy Radiological Metallurgist: Darlyn Claros (Dorothy) Estimated blood loss: <100 cc Specimen: breast and axillary dissection Findings: see dictation Anesthesia: General Complications: None Drain(s): TALYA drain (x2) Transferred to: Recovery Room Condition: Good
[2019-12-11] MEDS ORDERED: HYDROCODONE/APAP 5/325 MG TAB PO PRN (12:58)
[2019-12-11] MEDS ORDERED: MORPHINE 2 MG/ML SYR IV PRN (12:58)
[2019-12-11] MEDS ORDERED: ONDANSETRON 4 MG/2 ML VIAL IV PRN (12:58)
[2019-12-11] MEDS: HYDROMORPHONE HCL 1 MG/ML INJ ONE ×2 (13:06→13:13)
[2019-12-11] MEDS ORDERED: ONDANSETRON 4 MG/2 ML VIAL ONE (13:12)
[2019-12-11] MEDS ORDERED: HYDROMORPHONE HCL 1 MG/ML INJ ONE (13:28)
[2019-12-11] MEDS: NA CHLORIDE 0.9% 1,000 ML IV SCH ×2 (14:19→23:57)
[2019-12-11 15:30] VITALS: BMI 27.8
[2019-12-11] MEDS: CEFOXITIN/SWI 1gm 1 GM/10 ML SYR IV SCH ×2 (17:17→23:58)
[2019-12-11] MEDS ORDERED: CEFOXITIN 1 GM in NA CHLORIDE 0.9% 100 ML IVPB SCH (18:00)
[2019-12-12] MEDS: CEFOXITIN/SWI 1gm 1 GM/10 ML SYR IV SCH (05:10)
[2019-12-12 06:35] LABS: Potassium 4.5 mmol/L (3.5-5.1)
[2019-12-12 07:56] LABS: Absolute Lymphocytes (CBC) 0.5 K/uL (0.7-4.9); Basophils % 0.5 % (0-1.3); Hematocrit 25.1 % (36.0-45.0); Lymphocytes % 4.5 % (15.3-44.8); MPV 9.3 fL (7.6-11.3); RBC Red Blood Cell Count 2.35 M/uL (3.86-4.86)
[2019-12-12] MEDS: NA CHLORIDE 0.9% 1,000 ML IV SCH (08:40)
[2019-12-12 09:15] VITALS: O2SAT 95
[2019-12-12 10:18] LABS: Anisocytosis 1+; Blood Morphology Comment NOTED (NOT SEEN); Macrocytosis 1+; Platelet Estimate DECR; Polychromasia 1+; Urine White Blood Cell Casts OK
[2019-12-12 10:30] VITALS: TEMP 96.9
[2019-12-12 14:19] VITALS: BP 99/54
--- NOTE | 2019-12-18 22:51 | OP ---
Date of Procedure: 12/11/2019 Surgeon: Timmy Zheng MD Construction Driller: Darlyn Meng. Preoperative Diagnosis: Left breast cancer status post neoadjuvant chemotherapy. Postoperative Diagnosis: Left breast cancer status post neoadjuvant chemotherapy. Procedure: Left modified radical mastectomy. Estimated Blood Loss: Less than 100 mL. Specimens: Breast and axillary dissection. Findings: Patient has a sentinel lymph node done this morning, but the material did not travel into the axillary region for us to detect the sentinel lymph node. So, we proceeded with axillary dissect ion making this a left modified radical mastectomy. Anesthesia: General plus local. Drains: TALYA drain x2. Indications For Procedure: This is the case of a female who comes to us with large breast cancer req uiring neoadjuvant treatment. Patient has started chemotherapy, decided she does not want it anymore , the oncologist called me and stated that although she awaits to proceed with the chemotherapy the p atient is not allowing to do so and then they asked me to just check the options of lumpectomy versus mastectomy. The patient proceeded with breast removed. Lumpectomy, she did not want that option. She wanted mastectomy. We offered her sentinel lymph node and proximal axillary dissection once agai n that depends on how that day the material traveling to the axillary region. She understands she ma y end up with a left modified radical mastectomy. So, the benefits, alternatives, and risks were ful ly explained, which include, but are not limited to infection, bleeding, damage to adjacent structure s, anesthesia complication, nonhealing wound, flap failure, NJ, and even . She also understands this may not relieve any symptoms. She may need more than one surgical intervention. She understoo d, signed a consent. Patient was brought to the operating room, after going this morning to a radiology suite, where she h ad localization and injection for sentinel lymph node. Patient was brought to the operating room, wa ited several hours. Patient was fully explained that if still we cannot detect the sentinel lymph no de, she has neoadjuvant chemotherapy this could deal with large breast mass, so in that case we expla ined to her that we might have to do the axillary dissection to be able to detect if there is any mal ignancy of those lymph nodes. The benefits, alternatives, and risks were fully explained once again to the patient which include, but not limited to infection, bleeding, damage to adjacent structures, anesthesia complication, lymphedema, axillary infection, chronic arm swelling, PE, nerve damage, NJ, and even . She understood and signed a consent. Description Of Procedure: Patient was brought to the operating room, placed in supine position, anes thesia was done without complication. Breast, neck, and axillary area were prepped and draped in the usual sterile fashion. Time-out was called. After that, we proceeded to use the gamma probe to loc marium the area of the sentinel lymph node. There is some thickening in that area, so we proceeded to make an incision in that region, but once we had incision there we could go deep inside the cecum, i t was not enough to give an accurate diagnosis of a sentinel lymph node and for that reason based on her history, based on the large mass I believe axillary dissection should be done. So we converted t his to a left modified radical mastectomy incision including the nipple areolar complex. Skin incisi on was made to encompass the nipple areolar complex including the previous scars. It was done in oblique fashion to end up in the area of the axillary area including the axillary incision do ne previously. The flaps were elevated into the vascular plane between the subcutaneous tissue and t he breast tissue, superiorly to the clavicle, medially to the sternum, inferiorly to the anterior rec tus sheath and to the latissimus dorsi laterally. The breast tissue was then removed with a fascia o f pectoralis muscle attached to it. This was done from medial to lateral fashion obtaining hemostasi s at the same time. At the area of the lateral border of the pectoralis major, the breast tissue was moved laterally and then dissection started in the axillary area with opening of the clavipectoral f ascia that was incised previously trying to look for a sentinel lymph node. Long thoracic and thorac odorsal nerve were identified and protected. Patient is not paralyzed. We proceeded to remove the t issue. After the pectorals major, the minors were carefully freed from surrounding fat. pectoralis major and then pectoralis minor were removed after the muscle was retracted medially with a Alanis retractor. The neurovascular bundle was identified at all time and preserved. Level 1 and 2 lymph nodes were removed. Axillary vein and artery were identified and protected at all times. Once again, thoracodorsal nerve and long thoracic nerve were protected too. The remainder of otf tissue was removed with the specimen. This specimen was sent to the pathologist after proper identi fication and marking for orientation. At this moment I proceeded to leave a TALYA drain on the axillary area and another one in the pectoralis area. Then the area was closed with a combination of 3-0 chr omic, 0 chromic, and then miah. Before that, we had profuse irrigation of the area and obtained m eticulous hemostasis. The flap looks intact, good color. Patient tolerated the procedure well. Spo nge count and instrument counts were correct. Patient does not have much help at home. She asked me in advance to stay overnight when she is waking up, also we noticed that she has low tolerance to pa in, so she is going to be kept overnight for observation and pain control. MONI/JESSICA Voice ID: [id number] Report ID: [id number]
== END 2019-12-12 13:28 | disposition home or self-care (01) | DRG 583 ==
LOC: OR 06:30 → 2ND 11:07
PROVIDERS: ADMIT Surgery; ATTEND Surgery
PROC: 0KXG0Z5 Transfer Left Trunk Muscle, Latissimus Dorsi Myocutaneous Flap, Open Approach (ICD-10-PCS; 2019-12-11)
PROC: 0X9500Z Drainage of Left Axilla with Drainage Device, Open Approach (ICD-10-PCS; 2019-12-11)
PROC: 0HTU0ZZ Resection of Left Breast, Open Approach (ICD-10-PCS; principal; 2019-12-11 09:15)
DX: C50.912 Malignant neoplasm of unspecified site of left female breast (principal); Z92.21 Personal history of antineoplastic chemotherapy
CPT/HCPCS: 36415; 80048; 85025; 88309; 97116; 97161; J0690; J1100; J1170; J2370; J2405; J3010; J7030; J7120

== ENCOUNTER 2020-01-30 10:21 | Inpatient (IN) | payer MEDICAID ==
[2020-01-30] MEDS ORDERED: NA CHLORIDE 0.9% 500 ML ONE ×2 (11:39→13:43)
[2020-01-30 12:07] LABS: Urine Blood NEGATIVE (NEG); Urine Glucose NEGATIVE (NEG); Urine Protein NEGATIVE (NEG)
[2020-01-30 12:08] LABS: Urine Amorphous Sediment 2+ /HPF (NONE SEEN); Urine Bacteria <20 /HPF (<20); Urine Culture Reflex Order NOT NEEDED; Urine RBC <5 /HPF (NONE SEEN)
[2020-01-30 12:15] LABS: Absolute Lymphocytes (CBC) 0.9 K/uL (0.7-4.9); Basophils % 0.2 % (0-1.3); Hematocrit 30.5 % (36.0-45.0); Lymphocytes % 17.2 % (15.3-44.8); MPV 8.3 fL (7.6-11.3); RBC Red Blood Cell Count 3.05 M/uL (3.86-4.86)
[2020-01-30 12:28] LABS: ALT/SGPT 32 U/L (12-78); AST/SGOT 57 U/L (15-37); Albumin 2.1 g/dL (3.4-5.0); Alkaline Phosphatase 113 U/L (45-117); BUN Blood Urea Nitrogen 6 mg/dL (7-18); Bicarbonate 26 mmol/L (21-32); Bilirubin Direct 1.1 mg/dL (0-0.2); Glucose Level 96 mg/dL (74-106); Lipase 46 U/L (73-393); NT PRO-BNP 377 pg/mL (<125); Protein, Total 5.8 g/dL (6.4-8.2); Sodium Level 144 mmol/L (136-145)
[2020-01-30 12:29] LABS: Potassium 2.4 mmol/L (3.5-5.1)
--- NOTE | 2020-01-30 12:30 | RAD REPORT ---
EXAM DESCRIPTION: CT - Head Brain Wo Cont - 01/30/2020 12:06 pm CLINICAL HISTORY: vomiting, weakness;Headache, history of breast cancer COMPARISON: Head Brain W/Wo Con dated 12/07/2019; Chest Single View dated 10/30/2019 TECHNIQUE: Axial 5 mm thick images of the head were obtained without IV contrast. All CT scans are performed using dose optimization technique as appropriate and may include automated exposure control or mA/KV adjustment according to patient size. FINDINGS: No intracranial hemorrhage, mass, edema or shift of mid-line structures. No acute cortical based infarction identifiable. No cortical edema or sulcal effacement. Patient has no significant at rophy or chronic ischemic change. There is a subtle area of decreased attenuation in the left-side of the ngozi. This is not clearly different from the earlier study. CT sensitivity in this region is mor e limited in this could be artifact. No abnormal extra-axial fluid collections. Ventricles are normal . Mastoid air cells are clear. A small air-fluid level in the left maxillary sinus. No acute bony findings. IMPRESSION: No hemorrhage, mass or acute intracranial finding confirmed. Subtle low-density in the left side of the ngozi is not clearly different from the November comparison. CT assessment in the posterior fossa is limited. Small air-fluid level in the left maxillary sinus could indicate minimal acute sinusitis. Overall intracranial findings are stable. Any ongoing concerns for a subtle metastatic lesion or subt le nonhemorrhagic infarction can be addressed with contrast-enhanced MR imaging.
--- NOTE | 2020-01-30 12:54 | RAD REPORT ---
EXAM DESCRIPTION: CT - Abdomen Pelvis W Contrast - 01/30/2020 12:07 pm CLINICAL HISTORY: vomiting;Abd pain, breast cancer COMPARISON: Bone Imaging Whole Body dated 01/05/2020; Lymphoscintigraphy dated 12/11/2019; Chest Abdome n Pelvis W Cont dated 09/21/2019 TECHNIQUE: Biphasic, helical CT imaging of the abdomen and pelvis was performed following 100 ml non -ionic IV contrast. No oral contrast administered. All CT scans are performed using dose optimization technique as appropriate and may include automated exposure control or mA/KV adjustment according to patient size. FINDINGS: Examination has motion degradation limitations in the upper abdomen. No suspicious finding in the lung parenchyma at each base. No pleural effusions. No cardiomegaly or pericardial effusion. Postsurgical and post therapy changes are present to the left breast. There is skin thickening and ed july. There is a large 12 centimeter diameter and 2 centimeter thick fluid collection in the fatty tis sues of the left chest. This extends into the left axilla where there are numerous surgical clips. Th is is most likely a large postsurgical/ post therapy seroma. No abnormal axillary lymphadenopathy. Ax illa is not fully assessed on this study. Liver assessment is limited due to the motion. No convincing evidence for liver lesion. No splenomega ly or focal splenic finding. No pancreatic abnormality. Gallbladder is normal size. No biliary dilata tion. Duct stones and gallbladder stones can be occult on CT imaging. Symmetric renal function is seen with no hydronephrosis or suspicious renal mass. No pyelonephritis o r acute parenchymal process. Urinary bladder is fully contracted. No adrenal abnormalities. No uterin e abnormality seen. A 2.7 centimeter left ovarian cyst is present. This is unchanged from the September study. No gastric dilatation. Wall assessment is limited due to the motion. Several prominent small bowel lo ops are present in the upper abdomen. Distal small bowel is normal in size. No acute colon finding id entified. Diverticulosis is minimal. Minimal amount of ascites present in the dependent portion of the pelvis. No free air or pneumatosis. The patient's infraumbilical ventral hernia is similar to the comparison. There is mild congestion o r edema of the herniated fat. Patient also has fluid retention or congestion throughout the subcutane ous fatty tissues of the abdomen and pelvis. No mass or bulky lymphadenopathy identified. No suspicious bony findings. IMPRESSION: No bowel obstruction, free air or other surgically emergent finding. Patient has several prominent bowel loops of the upper abdomen which could indicate a nonspecific sma ll bowel enteritis. Gastric assessment is limited due to motion. Fluid retention in the subcutaneous fatty tissues of the abdomen and pelvis. Minimal amount of ascite s present in the pelvis. Large postoperative or post therapy seroma in the subcutaneous fatty tissues of the left chest/ breas t region. Skin thickening is also present from therapy.
--- OUTSIDE RECORDS SUMMARY | 2020-01-30 12:54 | XMS REPORT ---
[...] End Date Status Dos age Date Multivitamin [facility] [address] Active not defin ed Adults 38 Results No Known Results Summary Purpose eClinicalWorks Submission
--- OUTSIDE RECORDS SUMMARY | 2020-01-30 12:54 | XMS REPORT | Continuity of Care Document ---
:1955 Author Organization [facility] t Address [address] [place] [address] Care Team Providers Name Role Phone Alejandra Batista Attending Clinician Koffi Uribe Attending Clinician Doctor Unassigned, Name Attending Clinician Unavailable Problems Condition Condition Condition Status Onset Resolution Last Treating Co mments Source Name Details Category Date Date Treatment Clinician Date Essential Essential Problem Active [facility] hypertensi hypertensi Maria L k[facility] - on [facility] Malignant Malignant Problem Active [facility] neoplasm neoplasm [facility] of left of left Memoria female female l breast, breast, Outpati unspecifie unspecifie en t d estrogen d estrogen Cl inics receptor receptor status, status, unspecifie unspecifie d site of d site of breast breast Low HDL Low HDL Problem Active [facility] (under 40) (under 40) Maria L kes - [facility] Thrombocyt Thrombocyt Problem Active [facility] openia openia [facility] S/P left S/P left Problem Active [facility] mastectomy [facility]astectomy Maria L k[facility] - [facility] Medicare Medicare Diagnosis Active [facility] annual annual [facility] - wellness wellness Memori a visit, visit, l subsequent subsequent Ou tpati ent Clinics Allergies, Adverse Reactions, Alerts This patient has no known allergies or adverse reactions. Medications Ordered Filled Start Stop Current Ordering Indication Dosage Frequency Signature Comments Components Source Medication Medication Date Date Medication? Clinician (SIG) Name Name Multivitami Multivitami Yes Bear not [facility] Adults n Adults Penaloza defined [facility] Outpati ent Clinics Procedures This patient has no known procedures. Encounters Start End Encounter Admission Attending Care Care Encounter Source Date/Time Date/Time Type Type Clinicians Facility Department ID 2020-01-10 2020-01-10 [facility] [id number] 10:00:00 10:00:00 [employer] [facility] Outpati ent Clinics 2020-01-10 2020-01-10 [facility] [id number] [facility] 10[facility]00:00 10:00:00 [employer] [facility] Out[facility] ent Clinics 2020-01-09 2020-01-09 [facility] [id number] [facility] 13[facility]21:00 13:21:00 [employer] [facility] Outpat[facility] ent Clinics 2019-12-29 2019-12-29 [facility] [id number] 14:26:00 14:26:00 [employer] [facility] Outpati ent Clinics 2019-12-20 2019-12-20 [facility] [id number] 10:45:00 10:45:00 t Roojoom [facility] Outpati ent Clinics 2019-12-18 2019-12-18 [facility] [id number] 17:06:00 17:06:00 [employer] [facility] Outpati ent Clinics 2019-11-23 2019-11-23 [facility] [id number] 08:30:00 08:30:00 [employer] [facility] Outpati ent Clinics 2019-11-10 2019-11-10 [facility] [id number] [facility] 09:00:00 09:00:00 [employer] [facility] Outpati ent Clinics 2019-08-15 2019-08-15 Telephone ULISES [place] [id number] 00:00:00 00:00:00 Alejandra N EXTENSION SERVICE ADVISOR [id number] REGIONAL [id number] MATERNAL [id number] & CHILD 107 [facility] 2019-08-04 2019-08-04 Telephone Mihai [facility] [id number] 00:00:00 00:00:00 Epifanio Rain EXTENSION SERVICE ADVISOR [id number] [facility] [id number] MATERNAL [id number] & CHILD 107 [facility] 2019-07-28 2019-07-28 Orders Doctor YANIRA [id number] 00:00:00 00:00:00 Only Unassigned, STACIE 350.1.13.10 [place] [facility] [id number] [id number] 2019-07-28 2019-07-28 Telephone Saúl [facility] [id number] 00:00:00 00:00:00 Alejandra Linn EXTENSION SERVICE ADVISOR [id number] [facility] [id number] MATERNAL [id number] & CHILD 107 [facility] Results Test Description Test Time Test Comments Results Result [facility] e Comments BREAST ULTRASOUND 2019-07-27 - BREAST ULTRASOUND CORE CORE BIOPSY LEFT 14:15:04 BIOPSY LEFTULTRASOUND GUIDED BIOPSY LEFT BREAST WITH MARKING DEVICE INSERTED: 07/25/2019CLINICAL: Ultrasound biopsy, left breast 1:00/subareolar-MHunter. Comparison is made to exams dated 07/18/2019 ultrasound and 07/18/2019 mammogram - [facility]. An ultrasound guided biopsy using real-time ultrasound [...] location, multiple specimens were obtained using a [employer] biopsy device. A clip was inserted into [...] - 07/27/2019 15:05:22copy to: Ms. Shwetha Rodríguez, [facility] [address], ATTN: Shwetha Rodríguez, ph: [phone], fax: [phone] Technologist: Aida Wilkins FW, [facility]- DIAG MAMM LEFT 2019-07-25 DIAG MAMM LEFT CAD CAD DIGITAL 13:14:19 DIGITALUNILATERAL LEFT DIGITAL DIAGNOSTIC MAMMOGRAM WITH CAD POST-PROCEDURE IMAGING FOR MARKER PLACEMENT: 07/25/2019CLINICAL: Post Clip Placement. Current mammographic images were evaluated by either a TransmitP M-Vu or a Pockiter CAD (computer aided detection system). Comparison is made to exam dated 07/18/2019 mammogram - [facility]-. The tissue of the left [...] dm/:07/25/2019 13:14:19 copy to: Ms. Shwetha Rodríguez, [facility] [address], ATTN: Shwetha Rodríguez, ph: [phone], fax: [phone] Technologist: Morelia PERALTA, [facility]Im[facility] Technologist: Suri PERALTA, [facility]Mammogram BI-RADS: Post-procedure mammogram for marker placement BREAST ULTRASOUND 2019-07-18 - DIAG MAMM BILATERAL BILATERAL 16:44:27 KENNY CAD DIGITALBILATERAL DIGITAL DIAGNOSTIC MAMMOGRAM 3D/2D WITH CAD: 07/18/2019CLINICAL: Palpable mass, left breast. Digital breast tomosynthesis was performed in addition to routine CC and MLO views. Current mammographic images were evaluated by either a TestFreaksCOMP M-Vu or a SixthEye ImageChecker CAD (computer aided detection system). No [...] - 07/18/2019 16:51:42copy to: Ms. Shwetha Rodríguez, [facility] [address], ATTN: Shwetha Rodríguez, ph: [phone], fax: [phone] Technologist: Vanesa PERALTA, [facility]-FWletter sent: BIRADS 4/5 Biopsy Mammogram [...] mammographic images were evaluated by either a FeedVisor M-Vu or a SixthEye ImageChecker CAD (computer aided detection system). No [...] - 07/18/2019 16:51:42copy to: Ms. Shwetha Rodríguez, [facility] [address], ATTN: Shwetha Marcos, ph: [phone], fax: [phone] Technologist: Vanesa PERALTA, [facility]-FWletter sent: BIRADS 4/5 Biopsy Mammogram BI-RADS: 0 Incomplete: Additional Imaging Evaluation Needed Ultrasound BI-RADS: 5 Highly suggestive of malignancy
--- OUTSIDE RECORDS SUMMARY | 2020-01-30 12:54 | XMS REPORT ---
:1955 Author Organization eClinicalWorks Care Team Providers Name Role Phone Bear Penaloza Provider Role Unavailable Allergies No Known Allergies Problems Problem Type Condition Code Onset Dates Condition Statu s Problem Thrombocytopenia D69.6 Active Problem Low HDL (under 40) E78.6 Active Problem S/P left mastectomy Z90.12 Active Problem Malignant neoplasm of left female C50.912 Active breast, unspecified estrogen receptor status, unspecified site of breast Problem Essential hypertension I10 Activ e Medications No Known Medications Results No Known Results Summary Purpose eClinicalWorks Submission
--- OUTSIDE RECORDS SUMMARY | 2020-01-30 12:54 | XMS REPORT ---
[...] End Date Status Dos age Date Multivitamin [facility] [address]43[address] Active not defin ed Adults 38 Results No Known Results Summary Purpose [employer] Submission
--- OUTSIDE RECORDS SUMMARY | 2020-01-30 12:55 | XMS REPORT ---
:1955 Author Organization eClinicalWorks Care Team Providers Name Role Phone Bear Penaloza Provider Role Unavailable Allergies, Adverse Reactions, Alerts Substance Reaction Event Type N.K.D.A. Info Not Available Non Drug Allergy Problems Problem Type Condition Code Onset Dates Condition Statu s Assessment Malignant neoplasm of left female C50.912 Active breast, unspecified estrogen receptor status, unspecified site of breast Assessment Bilateral swelling of feet M79.89 A ctive Assessment S/P left mastectomy Z90.12 Active Problem Thrombocytopenia D69.6 Active Problem Low HDL (under 40) E78.6 Active Problem S/P left mastectomy Z90.12 Active Assessment Localized swelling on hand R22.30 A ctive Problem Malignant neoplasm of left female C50.912 Active breast, unspecified estrogen receptor status, unspecified site of breast Problem Essential hypertension I10 Activ e Assessment Candidal intertrigo B37.2 Active Assessment Intertriginous dermatitis L30.4 Ac tive associated with moisture Assessment Low HDL (under 40) E78.6 Active Assessment Elevated AST (SGOT) R74.0 Active Assessment Thrombocytopenia D69.6 Active Assessment Essential hypertension I10 Activ e Assessment Elevated alkaline phosphatase level R74.8 Active Assessment Maintenance chemotherapy following Z51.11 Active disease Medications Medication Code Code Instructions Start End Status Dosage System Date Date Clotrimazole-Be [facility] 98196206863 1-0.05 % December 19December Active 1 application tamethasone Externally 2019 20, Twice a day 2019 Multivitamin [facility] 38892-[address]2004 Active not def ined Adults Results No Known Results Summary Purpose eClinicalWorks Submission
--- OUTSIDE RECORDS SUMMARY | 2020-01-30 12:55 | XMS REPORT ---
[...] Problem S/P left mastectomy Z90.12 Active Assessment Medicare annual wellness visit, Z00.00 Active subsequent Problem Malignant neoplasm of left female C50.912 Active breast, unspecified estrogen receptor status, unspecified site of breast Problem Essential hypertension I10 Activ e Medications Medication Code System Code Instructions Start End Date Status Dos age Date Multivitamin [facility] [address] Active not defin ed Adults 38 Results No Known Results Summary Purpose eClinicalWorks Submission
--- OUTSIDE RECORDS SUMMARY | 2020-01-30 12:55 | XMS REPORT ---
:1955 Author Organization eClinicalWorks Care Team Providers Name Role Phone Bear Penaloza Provider Role Unavailable Allergies, Adverse Reactions, Alerts Substance Reaction Event Type N.K.D.A. Info Not Available Non Drug Allergy Problems Problem Type Condition Code Onset Dates Condition Statu s Assessment Bilateral swelling of feet M79.89 A ctive Assessment Maintenance chemotherapy following Z51.11 Active disease Assessment Localized swelling on hand R22.30 A ctive Problem Thrombocytopenia D69.6 Active Problem Low HDL (under 40) E78.6 Active Problem S/P left mastectomy Z90.12 Active Assessment Malignant neoplasm of left female C50.912 Active breast, unspecified estrogen receptor status, unspecified site of breast Problem Malignant neoplasm of left female C50.912 [...] Elevated alkaline phosphatase level R74.8 Active Assessment S/P left mastectomy Z90.12 Active Medications Medication Code System Code Instructions Start End Date Status Dos age Date Multivitamin [facility] [place] [facility] [address] Active not defin ed Adults 38 Results No Known Results Summary Purpose eClinicalWorks Submission
[2020-01-30] MEDS ORDERED: KCL 20 MEQ/100 mL IVPB 20 MEQ/100 ML BAG IV ONE ×2 (13:43→13:44)
--- NOTE | 2020-01-30 15:41 | ER ---
Nurse's Notes [facility] Name: Jojo Alaniz Age: 64 yrs Sex: Female : 1955 Arrival Date: 01/30/2020 Time: 10:25 Bed 7 Private MD: Diagnosis: Hepatic encephalopathy;Hypokalemia;Altered mental status, unspecified;Dehydration Presentation: 01/29 11:05 Chief complaint: Chief complaint: Patient states: Pt has breast cancer. Last chemo was ca1 about a month ago. Loss of appetite, nausea, whole body swollen, hasn't slept, general body weakness x 2 days. Coronavirus screen: Patient denies a cough. Patient denies shortness of breath or difficulty breathing. Patient denies measured and/or subjective temperature greater than 100.4F prior to today's visit. Patient denies travel on a cruise ship or to a country the [facility] currently lists as an affected area. Patient denies contact with known and/or suspected case of COVID-19. Proceed with normal triage. Ebola Screen: Patient negative for fever greater than or equal to 101.5 degrees Fahrenheit, and additional compatible Ebola Virus Disease symptoms Patient denies exposure to infectious person. Patient denies travel to an Ebola-affected area in the 21 days before illness onset. No symptoms or risks identified at this time. Initial Sepsis Screen: Does the patient meet any 2 criteria? Yes Does the patient have a suspected source of infection? No. Patient's initial sepsis screen is negative. Risk Assessment: Do you want to hurt yourself or someone else? Patient reports no desire to harm self or others. Onset of symptoms was January 30, 2020. 11:05 Method Of Arrival: Wheelchair ca1 11:05 Acuity: JES 3 ca1 Historical: - Allergies: 11:13 NKA; ca1 - PMHx: 11:13 Cancer, Breast; ca1 - PSHx: 11:13 right shoulder; ca1 - Immunization history:: Adult Immunizations not up to date. - Social history:: Smoking status: Patient denies any tobacco usage or history of. - Family history:: not pertinent. - Hospitalizations: : No recent hospitalization is reported. Screenin:00 Abuse screen: Denies threats or abuse. Denies injuries from another. Nutritional jl7 screening: No deficits noted. Tuberculosis screening: No symptoms or risk factors identified. Fall Risk IV access (20 points). Gait- Weak (10 pts.). Mental Status- Oriented to own ability (0 pts). Total Meraz Fall Scale indicates Low Risk Score (25-44 pts). Fall prevention measures have been instituted. Side Rails Up X 2 Placed close to Nursing Station Frequent Obs/Assesments occuring As available Patient and Family Educated on Fall Prevention Program and strategies. Assessment: 11:30 General: Appears in no apparent distress. uncomfortable, Behavior is cooperative, jl7 appropriate for age, anxious. Pain: Complains of pain in ARANDA Pain currently is 10 out of 10 on a pain scale. Neuro: Level of Consciousness is awake, alert, obeys commands, Oriented to person, place, time, situation. Cardiovascular: Patient's skin is warm and dry. Respiratory: Airway is patent Respiratory effort is even, unlabored, Respiratory pattern is regular, symmetrical. GI: Abdomen is non-distended. : No signs and/or symptoms were reported regarding the genitourinary system. EENT: No signs and/or symptoms were reported regarding the EENT system. Derm: Skin is pink, warm \T\ dry. 12:30 Reassessment: Patient appears in no apparent distress at this time. No changes from jl7 previously documented assessment. Patient and/or family updated on plan of care and expected duration. Pain level reassessed. Patient is alert, oriented x 3, equal unlabored respirations, skin warm/dry/pink. 13:20 Reassessment: Dr. Smiley at bedside discussing results and POC. jl7 13:30 Reassessment: Patient appears in no apparent distress at this time. No changes from jl7 previously documented assessment. Patient and/or family updated on plan of care and expected duration. Pain level reassessed. Patient is alert, oriented x 3, equal unlabored respirations, skin warm/dry/pink. 14:30 Reassessment: Patient appears in no apparent distress at this time. Patient and/or jl7 family updated on plan of care and expected duration. Pain level reassessed. Patient is alert, oriented x 3, equal unlabored respirations, skin warm/dry/pink. Patient states feeling better. Patient states symptoms have improved. 15:30 Reassessment: Patient appears in no apparent distress at this time. No changes from jl7 previously documented assessment. Patient and/or family updated on plan of care and expected duration. Pain level reassessed. Patient is alert, oriented x 3, equal unlabored respirations, skin warm/dry/pink. 15:35 Reassessment: Dr. Smiley at bedside. jl7 15:55 Reassessment: Attempted to discharge pt, pt weak on standing and appeared confused and jl7 unable to grab pen to sign discharge papers. ERD notified. Got pt back in the bed and pt is A\T\Ox4. Pt will be discharged once US and new labs are completed. 18:20 Reassessment: Pt reported nausea, ERD notified, see MAR for orders. jl7 19:53 Reassessment: Report given to Dianna MAE on second floor. ea 20:07 Reassessment: Patient and/or family updated on plan of care and expected duration. Pain ea level reassessed. Pt drowsy, oriented to self. Respirations even and unlabored. Pt admitted to second floor, left ED via wheelchair per biological technical officer. Pt tolerating well. Vital Signs: 11:05 BP 138 / 98; Pulse 90; Resp 19 S; Temp 97(TE); Pulse Ox 100% on R/A; Weight 70.31 kg ca1 (R); Height 5 ft. 3 in. (160.02 cm) (R); 11:45 BP 116 / 89; Pulse 87; Resp 19; Pulse Ox 100% ; jl7 12:45 BP 124 / 63; Pulse 96; Resp 17 S; Pulse Ox 100% on R/A; jl7 14:05 BP 106 / 59; Pulse 79; Resp 19 S; Pulse Ox 100% on R/A; jl7 15:19 BP 127 / 68; Pulse 84; Resp 17; Pulse Ox 100% ; jl7 16:00 BP 91 / 82; Pulse 90; Resp 15; Pulse Ox 100% ; jl7 18:41 BP 125 / 68; Pulse 98; Resp 17; Pulse Ox 100% ; jl7 19:52 BP 125 / 67; Pulse 104; Resp 18; Temp 97.2; Pulse Ox 98% ; ea 11:05 Body Mass Index 27.46 (70.31 kg, 160.02 cm) ca1 ED Course: 10:25 Patient arrived in ED. fj1 11:12 Triage completed. ca1 11:13 Arm band placed on right wrist. ca1 11:16 Ramon Smiley MD is Attending Physician. rn 11:28 Savita De La Garza RN is Primary Nurse. jl7 11:30 Patient has correct armband on for positive identification. Placed in gown. Bed in low jl7 position. Call light in reach. Side rails up X2. bus driver/monitor on. Pulse ox on. NIBP on. Warm blanket given. 11:30 Initial lab(s) drawn, by me, sent to lab. Urine collected: straight cath specimen, jl7 clear. Straight cath inserted, using sterile technique, 14 Fr. Specimen obtained. Returned clear yellow urine. Patient tolerated well. Inserted saline lock: 22 gauge in right wrist, using aseptic technique. Blood collected. 12:06 CT Head Brain wo Cont In Process Unspecified. EDMS 12:08 CT Abd/Pelvis - IV Contrast Only In Process Unspecified. EDMS 17:24 US Abdomen Limited In Process Unspecified. EDMS 17:32 Uli Hong MD is Hospitalizing Provider. rn 18:41 No provider procedures requiring assistance completed. Patient admitted, IV remains in jl7 place. intact, No redness/swelling at site. 19:03 Inserted saline lock: 22 gauge in right forearm, using aseptic technique. Blood jl7 collected. Administered Medications: 11:57 Drug: NS 0.9% 500 ml Route: IV; Rate: bolus; Site: right wrist; jl7 13:00 Follow up: Response: No adverse reaction; IV Status: Completed infusion; IV Intake: jl7 500ml 13:30 Drug: Potassium Chloride 20 mEq Route: IV; Rate: calculated rate; Site: right jl7 antecubital; 14:30 Follow up: Response: No adverse reaction; IV Status: Completed infusion jl7 13:30 Drug: NS 0.9% 500 ml Route: IV; Rate: bolus; Site: right antecubital; jl7 14:30 Follow up: Response: No adverse reaction; IV Status: Completed infusion; IV Intake: jl7 500ml 18:20 Drug: Lactulose 30 grams Volume: 45 ml; Route: PO; jl7 18:41 Follow up: Response: No adverse reaction jl7 18:25 Drug: Zofran (Ondansetron) 4 mg Route: IVP; Site: right wrist; jl7 18:41 Follow up: Response: No adverse reaction; Nausea is decreased jl7 Intake: 13:00 IV: 500ml; Total: 500ml. jl7 14:30 IV: 500ml; Total: 1000ml. jl7 Outcome: 15:41 Discharge ordered by . rn 17:33 Decision to Hospitalize by Provider. rn 19:51 Condition: stable ea 19:51 Instructed on the need for admit, Demonstrated understanding of instructions, updated on need for admit Alan [id number] 19:52 Admitted to Med/surg accompanied by tech, room 208, with chart, Report called to ea Report called Dianna MAE 20:08 Patient left the ED. ea Signatures: Dispatcher [employer] EDMS Ramon Smiley MD MD rn Leal, Jahala RN CARMELITA jl7 Dianna Yo, RN Fabiola Donald ea RN RN [facility] Bk Hedrick fj1 Corrections: (The following items were deleted from the chart) 15:45 12:45 Potassium Chloride 20 mEq IV at calculated rate in right antecubital jl7 jl7 15:45 12:45 NS 0.9% 500 ml IV at bolus in right antecubital jl7 jl7 16:44 11:30 EENT: No signs and/or symptoms were reported regarding the EENT system. 7 jl7
--- NOTE | 2020-01-30 15:41 | EDPHYS ---
Physician Documentation [facility] Name: Jojo Alaniz Age: 64 yrs Sex: Female : 1955 Arrival Date: 01/30/2020 Time: 10:25 Bed 7 Private MD: ED Physician Ramon Smiley HPI: 01/29 11:36 This 64 yrs old Female presents to ER via Wheelchair with complaints of rn Nausea/Vomiting, General Weakness. 11:36 The patient presents to the emergency department with nausea, abdominal pain. Onset: rn The symptoms/episode began/occurred 2 day(s) ago. Possible causes: unknown. The symptoms are aggravated by nothing. The symptoms are alleviated by nothing. Severity of symptoms: At their worst the symptoms were moderate in the emergency department the symptoms are unchanged. The patient has not experienced similar symptoms in the past. Reports 2 days of generalized weakness and malaise, no fever, no cough/sob/chest pain, reports mild headache and abd pain, + nausea but none currently, no vomiting/diarrhea. + decreased appetite. Reports breast surgery for cancer months ago, and last chemo months ago. No known sick contacts. + chills. . Historical: - Allergies: 11:13 NKA; ca1 - PMHx: 11:13 Cancer, Breast; ca1 - PSHx: 11:13 right shoulder; ca1 - Immunization history:: Adult Immunizations not up to date. - Social history:: Smoking status: Patient denies any tobacco usage or history of. - Family history:: not pertinent. - Hospitalizations: : No recent hospitalization is reported. ROS: 11:39 Constitutional: Negative for fever, + chills Eyes: Negative for injury, pain, redness, rn and discharge, Neck: Negative for injury, pain, and swelling, Cardiovascular: Negative for chest pain, palpitations, and edema, Respiratory: Negative for shortness of breath, cough, wheezing, and pleuritic chest pain, Abdomen/GI: + abd pain and nausea, + decreased appetite, no vomiting/diarrhea/blood in stool MS/Extremity: Negative for injury and deformity, Skin: Negative for injury, rash, and discoloration, Neuro: Negative for numbness, tingling, and seizure. Exam: 11:39 Constitutional: This is a well developed, well nourished patient who is awake, alert, rn and in no acute distress. Head/Face: Normocephalic, atraumatic. ENT: dry MM Neck: Trachea midline, no masses palpated, and no cervical lymphadenopathy. Supple, full range of motion without nuchal rigidity, or vertebral point tenderness. No Meningismus. Chest/axilla: + left mastectomy wound, dry and intact, mild black discoloration and scarring, patient denies any tenderness and states has looked like that since surgery. Cardiovascular: Regular rate and rhythm. No pulse deficits. Respiratory: No increased work of breathing, no retractions or nasal flaring. Abdomen/GI: Soft, non-tender, no masses MS/ Extremity: Pulses equal, no cyanosis. Neurovascular intact. Neuro: Awake and alert, GCS 15, oriented to person, place, time, and situation. Cranial nerves II-XII grossly intact. Motor strength 4/5 in all extremities. Sensory grossly intact. Cerebellar exam normal. Requires assistance to get into bed. Vital Signs: 11:05 BP 138 / 98; Pulse 90; Resp 19 S; Temp 97(TE); Pulse Ox 100% on R/A; Weight 70.31 kg ca1 (R); Height 5 ft. 3 in. (160.02 cm) (R); 11:45 BP 116 / 89; Pulse 87; Resp 19; Pulse Ox 100% ; jl7 12:45 BP 124 / 63; Pulse 96; Resp 17 S; Pulse Ox 100% on R/A; jl7 14:05 BP 106 / 59; Pulse 79; Resp 19 S; Pulse Ox 100% on R/A; jl7 15:19 BP 127 / 68; Pulse 84; Resp 17; Pulse Ox 100% ; jl7 16:00 BP 91 / 82; Pulse 90; Resp 15; Pulse Ox 100% ; jl7 18:41 BP 125 / 68; Pulse 98; Resp 17; Pulse Ox 100% ; jl7 19:52 BP 125 / 67; Pulse 104; Resp 18; Temp 97.2; Pulse Ox 98% ; ea 11:05 Body Mass Index 27.46 (70.31 kg, 160.02 cm) ca1 MDM: 11:16 Patient medically screened. rn 15:37 Differential diagnosis: Nonspecific abd pain, gastritis, viral gastroenteritis, rn gastroenteritis. Data reviewed: vital signs, nurses notes, lab test result(s), radiologic studies, CT scan, and as a result, I will discharge patient. Counseling: I had a detailed discussion with the patient and/or guardian regarding: the historical points, exam findings, and any diagnostic results supporting the discharge/admit diagnosis, lab results, radiology results, the need for outpatient follow up, to return to the emergency department if symptoms worsen or persist or if there are any questions or concerns that arise at home. Special discussion: I discussed with the patient/guardian in detail that at this point there is no indication for admission to the hospital. It is understood, however, that if the symptoms persist or worsen the patient needs to return immediately for re-evaluation. 15:38 ED course: Pt improved, states feels better after fluids and potassium, spoke with her rn regarding possible viral infection, patient denies, she states not infection has had this before and attributes this to her low potassium and dehydration. Has not had chemo or procedure recently, no recent medication change. . 17:33 ED course: Pt seen chewing on her finger thinking was part of her sandwich. Elevated rn ammonia, neg CT abd except for ascites, and neg ultrasound. . 01/29 11:24 Order name: Basic Metabolic Panel; Complete Time: 12:37 rn 01/29 11:24 Order name: CBC with Diff; Complete Time: 12:37 rn 01/29 11:24 Order name: Hepatic Function; Complete Time: 12:37 rn 01/29 11:24 Order name: Lipase; Complete Time: 12:37 rn 01/29 11:24 Order name: BNP; Complete Time: 12:37 rn 01/29 11:24 Order name: Urine Microscopic Only; Complete Time: 12:37 rn 01/29 11:24 Order name: CT Head Brain wo Cont; Complete Time: 12:37 rn 01/29 11:24 Order name: CT Abd/Pelvis - IV Contrast Only; Complete Time: 12:56 rn 01/29 11:24 Order name: COVID-19 rn 01/29 11:55 Order name: Urine Dipstick--Ancillary (enter results) bd 01/29 11:56 Order name: Urine Dipstick-Ancillary; Complete Time: 12:37 EDTN 01/29 15:55 Order name: AMMONIA; Complete Time: 17:29 rn 01/29 17:30 Order name: PT-INR; Complete Time: 19:58 rn 01/29 17:58 Order name: CREATININE WHOLE BLOOD; Complete Time: 19:58 EDTN 01/29 11:24 Order name: IV Saline Lock; Complete Time: 12:02 rn 01/29 11:24 Order name: Labs collected and sent; Complete Time: 12:02 rn 01/29 11:24 Order name: EKG; Complete Time: 11:25 rn 01/29 11:24 Order name: EKG - Nurse/Tech; Complete Time: 13:31 rn 01/29 11:24 Order name: Urine Dipstick-Ancillary (obtain specimen); Complete Time: 12:02 rn 01/29 15:55 Order name: US Abdomen Limited; Complete Time: 19:58 rn Administered Medications: 11:57 Drug: NS 0.9% 500 ml Route: IV; Rate: bolus; Site: right wrist; jl7 13:00 Follow up: Response: No adverse reaction; IV Status: Completed infusion; IV Intake: jl7 500ml 13:30 Drug: Potassium Chloride 20 mEq Route: IV; Rate: calculated rate; Site: right jl7 antecubital; 14:30 Follow up: Response: No adverse reaction; IV Status: Completed infusion jl7 13:30 Drug: NS 0.9% 500 ml Route: IV; Rate: bolus; Site: right antecubital; jl7 14:30 Follow up: Response: No adverse reaction; IV Status: Completed infusion; IV Intake: jl7 500ml 18:20 Drug: Lactulose 30 grams Volume: 45 ml; Route: PO; jl7 18:41 Follow up: Response: No adverse reaction jl7 18:25 Drug: Zofran (Ondansetron) 4 mg Route: IVP; Site: right wrist; jl7 18:41 Follow up: Response: No adverse reaction; Nausea is decreased jl7 Disposition: 01/30/20 17:33 Hospitalization ordered by Uli Hong for Inpatient Admission. Preliminary diagnosis are Hepatic encephalopathy, Hypokalemia, Altered mental status, unspecified, Dehydration. - Bed requested for Telemetry/MedSurg (Inpatient). - Status is Inpatient Admission. ea - Condition is Stable. - Problem is new. - Symptoms are unchanged. Signatures: Dispatcher [employer] EDTN Patti Turcios RN RN dw Nieto, Roman, MD MD rn Osman Neal, PATTERN AND CHAIN MAKER-C [employer]TERN [employer]KER-Cla1 Savita De La Garza RN RN jl7 Dianna Yo RN CARMELITA ea AcFabiola ortiz, RN RN ca1 Corrections: (The following items were deleted from the chart) 11:44 11:39 Constitutional: This is a well developed, well nourished patient who is awake, rn alert, and in no acute distress. Head/Face: Normocephalic, atraumatic. ENT: dry MM Neck: Trachea midline, no masses palpated, and no cervical lymphadenopathy. Supple, full range of motion without nuchal rigidity, or vertebral point tenderness. No Meningismus. Chest/axilla: + left mastectomy wound, dry and intact, mild black discoloration and scarring, patient denies any tenderness and states has looked like that since surgery. Cardiovascular: Regular rate and rhythm. No pulse deficits. Respiratory: No increased work of breathing, no retractions or nasal flaring. Abdomen/GI: Soft, non-tender, no masses rn 17:32 15:41 01/30/2020 15:41 Discharged to Home. Impression: Weakness; Hypokalemia. Condition rn is Stable. Forms are Medication Reconciliation Form, Thank You Letter, Antibiotic Education, Prescription Opioid Use. Follow up: Private Physician; When: As needed; Reason: Recheck today's complaints, Re-evaluation by your physician. Problem is new. Symptoms have improved. rn 18:17 17:33 Hospitalization Ordered by Uli Hong MD for Inpatient Admission. Preliminary dw diagnosis is Hepatic encephalopathy; Hypokalemia; Altered mental status, unspecified; Dehydration. Bed requested for Telemetry/MedSurg (Inpatient). Status is Inpatient Admission. Condition is Stable. Problem is new. Symptoms are unchanged. rn 20:08 18:17 01/30/2020 17:33 Hospitalization Ordered by Uli Hong MD for Inpatient ea Admission. Preliminary diagnosis is Hepatic encephalopathy; Hypokalemia; Altered mental status, unspecified; Dehydration. Bed requested for Telemetry/MedSurg (Inpatient). Status is Inpatient Admission. Condition is Stable. Problem is new. Symptoms are unchanged. dw
--- NOTE | 2020-01-30 17:48 | RAD REPORT ---
EXAM DESCRIPTION: US - Abdomen Exam Limited - 01/30/2020 5:23 pm CLINICAL HISTORY: ABD PAIN COMPARISON: No comparisons FINDINGS: The gallbladder demonstrates no gallstones. No pericholecystic fluid or gallbladder wall t hickening. The common bile duct is normal measuring 4 mm. The liver demonstrates no findings of intrahepatic biliary dilatation. IMPRESSION: Unremarkable examination.
--- NOTE | 2020-01-30 18:04 | P.HP ---
Certification for Inpatient Patient admitted to: Inpatient With expected LOS: >2 Midnights Patient will require the following post-hospital care: None Practitioner: I am a practitioner with admitting privileges, knowledge of patient current condition, hospital course, and medical plan of care. Services: Services provided to patient in accordance with Admission requirements found in Title 42 Section 412.3 of the Code of Federal Regulations <Osman Neal - Last Filed: 01/30/20 17:57> Patient History Date of Service: 01/30/20 Primary Care Provider: Sukhi Penaloza History of Present Illness: 64-year-old woman with history of breast cancer presents the emergency department for generalized weakness. During her evaluation patient was found to have hypokalemia. During her stay in the emergency department patient was noted to be confused, tremulous. Patient states that she has been told that she has some liver problems and that she needs to have a more thorough workup but this has not taken place at this time. Patient is a very poor historian. No family available to interview. Patient denies any additional medical problems. Was in the room patient was trying to chew on her finger thinking that her sandwich. ED provider wishes to admit patient for further evaluation and management. - Past Medical/Surgical History Diabetic: No -: Right shoulder pain, chronic -: Breast cancer -: Right shoulder surgery x2 -: Left mastectomy Psychosocial/ Personal History: Patient is . She has no children. 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 - Family History Family History: Reviewed- Non-Contributory - Family History Mother -: Cancer Father -: Hypertension - Social History Smoking Status: Never smoker Alcohol use: No CD- Drugs: No Caffeine use: No Place of Residence: Home <Osman Neal - Last Filed: 01/30/20 17:57> Date of Service: 01/31/20 <Marcell Hong - Last Filed: 01/31/20 12:44> Allergies No Known Allergies Allergy (Verified 09/26/19 11:54) Home Medications: NK [No Home Meds] 12/08/19 Review of Systems is unable to be obtained <Osman Neal - Last Filed: 01/30/20 17:57> Physical Examination - Physical Exam General: Alert, In no apparent distress, Confused HEENT: Atraumatic, Normocephalic, PERRLA, Mucous membr. moist/pink Neck: Supple Respiratory: Clear to auscultation bilaterally, Normal air movement Cardiovascular: Normal pulses, Regular rate/rhythm, Normal S1 S2 Capillary refill: <2 Seconds Gastrointestinal: No tenderness, No rebound, No guarding, Distended, Ascites (Mild) Musculoskeletal: No contractures, No erythema, No tenderness Integumentary: No rashes, No breakdown, No significant lesion, No tenderness/swelling, No erythema, No warmth Neurological: Normal speech, Normal strength at 5/5 x4 extr, Normal tone, Sensation intact - Studies Laboratory Data (last 24 hrs) 01/30/20 11:50: WBC 5.1, Hgb 11.0 L, Hct 30.5 L, Plt Count 103 L 01/30/20 11:50: Sodium 144, Potassium 2.4 L*, BUN 6 L, Creatinine 0.66, Glucose 96, Total Bilirubin 3.0 H, AST 57 H, ALT 32, Alkaline Phosphatase 113, Lipase 46 L <Osman Neal - Last Filed: 01/30/20 17:57> - Studies Microbiology Data (last 24 hrs): 01/30/20 11:24 Nasopharnyx Coronavirus COVID-19 PCR - Final <Marcell Hong - Last Filed: 01/31/20 12:44> Assessment and Plan - Plan Assessment Altered mental status secondary to hepatic encephalopathy Hypokalemia Plan Altered mental status secondary to hepatic encephalopathy: Patient's ammonia level elevated in the emergency department, will begin with lactulose. Patient had CT abdomen and pelvis which was of poor quality due to motion degradation. Patient also had ultrasound of the gallbladder that this did not focus on the liver. On imaging studies there is no evidence of cirrhosis. Patient denies any alcohol use or history of hepatitis although she was on chemotherapy for breast cancer. Will obtain hepatitis panel, liver ultrasound. Will obtain blood cultures, pro calcitonin to rule out infection. Anticipate clinical improvement next 24-48 hr. DVT prophylaxis is Lovenox 40 mg subcutaneous once daily. Will likely need to discuss case with Dr. Gibbons. Hypokalemia: Electrolyte protocol in place. Patient will remain on telemetry during this hospitalization. Discharge Plan: Home Plan to discharge in: 48 Hours - Advance Directives Does patient have a Living Will: No Does patient have a Durable POA for Healthcare: No - Code Status/Comfort Care Code Status Assessed: Yes (Patient is full code) Time Spent Managing Pts Care (In Minutes): 55 <Osman Neal - Last Filed: 01/30/20 17:57> Physician Review Additional Text: The patient was seen and examined and findings were discussed Agree with the assessment and plan as documented by the MARISABEL Patient was seen on 01/30/2020 and is note is for the encounter on that day <Marcell Hong - Last Filed: 01/31/20 12:44>
[2020-01-30] MEDS ORDERED: LACTULOSE 20 GM/30 ML UCUP ONE (18:26)
[2020-01-30] MEDS ORDERED: ONDANSETRON 4 MG/2 ML VIAL ONE (18:35)
[2020-01-30 19:16] LABS: Protime INR 1.26
[2020-01-30] MEDS ORDERED: ONDANSETRON 4 MG/2 ML VIAL IV PRN (20:23)
[2020-01-30] MEDS: LACTULOSE 20 GM/30 ML UCUP PO SCH (21:00)
[2020-01-30 21:11] VITALS: BMI 29.5
[2020-01-30] MEDS: NA CHLORIDE 0.9% 1,000 ML IV SCH (21:21)
--- NOTE | 2020-01-30 21:58 | RAD REPORT ---
EXAM DESCRIPTION: RAD - Chest Single View - 01/30/2020 9:40 pm CLINICAL HISTORY: Rule out infection Chest pain. COMPARISON: Chest Single View dated 10/30/2019; Chest Single View dated 09/27/2019; Chest Single View dated 03/03/2018 FINDINGS: Portable technique limits examination quality. The lungs are grossly clear. The heart is normal in size. Right port catheter tip in the SVC.Mild chr onic elevation the right hemidiaphragm noted. Left axillary otf dissection clips. IMPRESSION: No acute intrathoracic process suspected.
[2020-01-30] MEDS: KCL 20 MEQ/100 mL IVPB 20 MEQ/100 ML BAG IV SCH (22:42)
[2020-01-31] MEDS: KCL 20 MEQ/100 mL IVPB 20 MEQ/100 ML BAG IV SCH ×2 (01:16→05:05)
[2020-01-31 08:24] LABS: Absolute Lymphocytes (CBC) 0.8 K/uL (0.7-4.9); Basophils % 0.2 % (0-1.3); Hematocrit 29.1 % (36.0-45.0); Lymphocytes % 27.1 % (15.3-44.8); RBC Red Blood Cell Count 2.91 M/uL (3.86-4.86)
[2020-01-31 08:36] LABS: Protime INR 1.27
--- NOTE | 2020-01-31 09:05 | RAD REPORT ---
EXAM DESCRIPTION: US - Liver Only - 01/31/2020 8:45 am CLINICAL HISTORY: Hepatic encephalopathy Abdominal pain COMPARISON: Liver Only dated 01/29/2020; Abdomen Pelvis W Contrast dated 01/30/2020 FINDINGS: Examination is extremely limited. The liver appears mildly heterogenous. No gross liver le chan or biliary dilatation detected.
[2020-01-31 09:13] LABS: ALT/SGPT 28 U/L (12-78); AST/SGOT 57 U/L (15-37); Albumin 1.9 g/dL (3.4-5.0); Alkaline Phosphatase 103 U/L (45-117); BUN Blood Urea Nitrogen 6 mg/dL (7-18); Bicarbonate 23 mmol/L (21-32); Bilirubin Total 2.1 mg/dL (0.2-1.0); Glucose Level 67 mg/dL (74-106); Magnesium 1.6 mg/dL (1.8-2.4); Protein, Total 5.3 g/dL (6.4-8.2); Sodium Level 145 mmol/L (136-145)
[2020-01-31 09:19] LABS: Potassium 2.8 mmol/L (3.5-5.1)
[2020-01-31] MEDS: NA CHLORIDE 0.9% 1,000 ML IV SCH ×2 (09:43→23:03)
[2020-01-31] MEDS: LACTULOSE 20 GM/30 ML UCUP PO SCH ×2 (09:48→21:05)
[2020-01-31] MEDS: ENOXAPARIN 40 MG/0.4 ML SQ SCH (09:48)
[2020-01-31 10:03] LABS: Blood Morphology Comment NOT SEEN (NOT SEEN); Platelet Estimate DECR
--- NOTE | 2020-01-31 11:00 | P.PN ---
Subjective Date of Service: 01/31/20 Primary Care Provider: Sukhi Penaloza Chief Complaint: AMS Subjective: No new changes, No C/O voiced Review of Systems 10-point ROS is otherwise unremarkable Physical Examination - Vital Signs Temperature: 97.0 F Blood Pressure: 135/61 Pulse: 82 Respirations: 18 Pulse Ox (%): 100 - Physical Exam General: Alert, In no apparent distress HEENT: Atraumatic, Normocephalic Neck: Supple, 2+ carotid pulse no bruit Respiratory: Clear to auscultation bilaterally, Normal air movement Cardiovascular: Regular rate/rhythm, Normal S1 S2 Capillary refill: <2 Seconds Gastrointestinal: Soft and benign, W/out hepatosplenomegaly Musculoskeletal: No clubbing, No swelling Integumentary: No rashes Neurological: Other (Alert , Awake ) Lymphatics: No axilla or inguinal lymphadenopathy Urinary: Other (No bladder distention) - Studies Laboratory Data (last 24 hrs) 01/30/20 11:50: WBC 5.1, Hgb 11.0 L, Hct 30.5 L, Plt Count 103 L 01/30/20 11:50: Sodium 144, Potassium 2.4 L*, BUN 6 L, Creatinine 0.66, Glucose 96, Total Bilirubin 3.0 H, AST 57 H, ALT 32, Alkaline Phosphatase 113, Lipase 46 L Microbiology Data (last 24 hrs): 01/30/20 11:24 Nasopharnyx Coronavirus COVID-19 PCR - Final Assessment & Plan - Problems (Diagnosis) (1) Hypertension Onset Date: 03/04/18 Current Visit: No Status: Acute Qualifiers: Hypertension type: essential hypertension Qualified Code(s): I10 - Essential (primary) hypertension (2) Hypokalemia Onset Date: 03/04/18 Current Visit: No Status: Acute Physician Review Additional Text: Acute encephalopathy to hepatic encephalopathy Hypokalemia Plan Altered mental status secondary to hepatic encephalopathy: Ammonia level elevated Continue with lactulose. CT abdomen and pelvis which was of poor quality due to motion degradation. Patient also had ultrasound of the gallbladder that this did not focus on the liver. On imaging studies there is no evidence of cirrhosis. Patient denies any alcohol use or history of hepatitis although she was on chemotherapy for breast cancer. hepatitis panel, liver ultrasound. Will obtain blood cultures, pro calcitonin to rule out infection. DVT prophylaxis is Lovenox 40 mg subcutaneous once daily. Hypokalemia: Electrolyte protocol in place. Patient will remain on telemetry during this hospitalization. History of breast cancer Left chest seroma Will get a CT of the chest Monitor closely Will start on antibiotics empirically CT suggestive of small bowel enteritis Start on antibiotics monitor closely Hyperammonemia ? Cause Ultrasound abdomen shows no cirrhosis LFTs monitored Agree with lactulose Will monitor ammonia level Discharge Plan: Home Plan to discharge in: 48 Hours Time Spent Managing Pts Care (In Minutes): 45
--- NOTE | 2020-01-31 12:34 | EKG ---
Test Date: 2020-01-30 Test Time: 12:29:01 Rn Imcu: AMANDA MEASUREMENT RESULTS: Intervals: Rate: 91 MT: 172 QRSD: 90 QT: 342 QTc: 420 [place]: P: 58 MT: 172 QRS: 9 T: 14 INTERPRETIVE STATEMENTS: Normal sinus rhythm Low voltage QRS Borderline ECG Compared to ECG 10/30/2019 14:27:39 Low QRS voltage now present Sinus bradycardia no longer present Electronically Signed On 01-31-20 12:31:40 CDT by Larry Rutherford
[2020-01-31] MEDS ORDERED: VANCOMYCIN/NS 1 gm 1 GM/250 ML BAG IVPB SCH (13:15)
--- NOTE | 2020-01-31 14:03 | RAD REPORT ---
EXAM DESCRIPTION: CT - Thorax Wo Con - 01/31/2020 1:48 pm CLINICAL HISTORY: Breast cancer COMPARISON: none TECHNIQUE: Computed axial tomography of the chest was obtained. Contrast was not requested. All CT scans are performed using dose optimization technique as appropriate and may include automated exposure control or mA/KV adjustment according to patient size. FINDINGS: The evaluation of mediastinum, belinda and vessels is limited secondary to lack of IV contras t administration. Postsurgical changes left chest A 10 x 2 centimeter fluid collection left chest wall. Left axillary lymph node dissection with . Left chest skin wall thickening. No mediastinal or hilar lymphadenopathy is seen. A pleural effusion is not present. No pericardial effusion Elevation right hemidiaphragm IMPRESSION: 10 x 2 centimeter fluid collection the left chest wall probably a postoperative hematoma
[2020-01-31] MEDS: VANCOMYCIN 1.25 GM in NA CHLORIDE 0.9% 250 ML IVPB SCH (14:58)
[2020-01-31] MEDS ORDERED: MAGNESIUM SULFATE 1 gm IVPB 1 GM/100 ML BAG IV ONE (15:00)
[2020-01-31] MEDS ORDERED: POTASSIUM 25 MEQ EFFERV TAB PO ONE ×2 (15:00→23:50)
[2020-01-31] MEDS: PIPER/TAZO/NS 3.375gm 3.375 GM/100 ML BAG IVPB SCH (17:25)
[2020-02-01] MEDS: PIPER/TAZO/NS 3.375gm 3.375 GM/100 ML BAG IVPB SCH ×2 (00:19→08:32)
[2020-02-01 01:09] VITALS: O2SAT 100
[2020-02-01] MEDS: VANCOMYCIN 1.25 GM in NA CHLORIDE 0.9% 250 ML IVPB SCH (02:25)
[2020-02-01] MEDS ORDERED: MAGNESIUM OXIDE 400 MG TAB PO ONE (07:27)
[2020-02-01] MEDS ORDERED: POTASSIUM CL SA 10 MEQ TAB PO ONE (07:27)
[2020-02-01] MEDS: LACTULOSE 20 GM/30 ML UCUP PO SCH (08:31)
[2020-02-01] MEDS: ENOXAPARIN 40 MG/0.4 ML SQ SCH (08:31)
[2020-02-01 08:56] VITALS: BP 102/52; TEMP 97.2
--- NOTE | 2020-02-01 12:04 | P.PN ---
Subjective Date of Service: 02/01/20 Primary Care Provider: Sukhi Penaloza Chief Complaint: AMS Subjective: No new changes Review of Systems 10-point ROS is otherwise unremarkable Physical Examination - Vital Signs Temperature: 97.2 F Blood Pressure: 102/52 Pulse: 76 Respirations: 18 Pulse Ox (%): 99 - Physical Exam General: Alert, In no apparent distress HEENT: Atraumatic, Normocephalic Neck: Supple, 2+ carotid pulse no bruit Respiratory: Clear to auscultation bilaterally, Normal air movement Cardiovascular: No edema, Regular rate/rhythm Capillary refill: <2 Seconds Gastrointestinal: Soft and benign, W/out hepatosplenomegaly Musculoskeletal: No clubbing Neurological: Normal speech, Normal strength at 5/5 x4 extr Lymphatics: No axilla or inguinal lymphadenopathy Assessment & Plan - Problems (Diagnosis) (1) Hypertension Onset Date: 03/04/18 Status: Acute Qualifiers: Hypertension type: essential hypertension Qualified Code(s): I10 - Essential (primary) hypertension (2) Hypokalemia Onset Date: 03/04/18 Status: Acute Physician Review Additional Text: Acute encephalopathy to hepatic encephalopathy Hypokalemia Plan Altered mental status secondary to hepatic encephalopathy: Ammonia level elevated Continue with lactulose. CT abdomen and pelvis which was of poor quality due to motion degradation. Patient also had ultrasound of the gallbladder that this did not focus on the liver. On imaging studies there is no evidence of cirrhosis. Patient denies any alcohol use or history of hepatitis although she was on chemotherapy for breast cancer. hepatitis panel, liver ultrasound. Will obtain blood cultures, pro calcitonin to rule out infection. DVT prophylaxis is Lovenox 40 mg subcutaneous once daily. Hypokalemia: Electrolyte protocol in place. Patient will remain on telemetry during this hospitalization. History of breast cancer Left chest seroma Will get a CT of the chest Monitor closely Will start on antibiotics empirically CT suggestive of small bowel enteritis Start on antibiotics monitor closely Hyperammonemia ? Cause Ultrasound abdomen shows no cirrhosis LFTs monitored Agree with lactulose Will monitor ammonia level Discharge Plan: Home Patient is more awake alert and ambulating with PT No new complaints noted patient wanted go home CT findings noted with possible seroma Discusses Dr. Zheng Recommended conservative management with follow up as an outpatient [facility] home today Time Spent Managing Pts Care (In Minutes): 45
[2020-02-01 12:29] LABS: Absolute Lymphocytes (CBC) 0.8 K/uL (0.7-4.9); Basophils % 1.2 % (0-1.3); Hematocrit 28.7 % (36.0-45.0); Lymphocytes % 29.4 % (15.3-44.8); MPV 7.9 fL (7.6-11.3); RBC Red Blood Cell Count 2.85 M/uL (3.86-4.86)
[2020-02-01 12:31] LABS: Protime INR 1.17
[2020-02-01 12:47] LABS: ALT/SGPT 31 U/L (12-78); AST/SGOT 65 U/L (15-37); Alkaline Phosphatase 113 U/L (45-117); BUN Blood Urea Nitrogen 4 mg/dL (7-18); Bicarbonate 24 mmol/L (21-32); Glucose Level 86 mg/dL (74-106); Magnesium 1.7 mg/dL (1.8-2.4); Potassium 3.2 mmol/L (3.5-5.1); Protein, Total 5.6 g/dL (6.4-8.2); Sodium Level 141 mmol/L (136-145)
--- NOTE | 2020-02-01 12:52 | P.DS ---
Admission Date: 01/30/20 Discharge Date: 02/01/20 Primary Care Provider: Sukhi Penaloza Disposition: ROUTINE DISCHARGE Discharge Condition: GOOD Reason for Admission: AMS - Problems (1) Hypertension Onset Date: 03/04/18 Status: Acute Qualifiers: Hypertension type: essential hypertension Qualified Code(s): I10 - Essential (primary) hypertension (2) Hypokalemia Onset Date: 03/04/18 Status: Acute Brief History of Present Illness: 64-year-old woman with history of breast cancer presents the emergency department for generalized weakness. During her evaluation patient was found to have hypokalemia. During her stay in the emergency department patient was noted to be confused, tremulous. Patient states that she has been told that she has some liver problems and that she needs to have a more thorough workup but this has not taken place at this time. Patient is a very poor historian. No family available to interview. Patient denies any additional medical problems. Was in the room patient was trying to chew on her finger thinking that her sandwich. ED provider wishes to admit patient for further evaluation and management. Hospital Course: Altered mental status secondary to hepatic encephalopathy: Ammonia level elevated Continue with lactulose. CT abdomen and pelvis which was of poor quality due to motion degradation. Patient also had ultrasound of the gallbladder that this did not focus on the liver. On imaging studies there is no evidence of cirrhosis. Patient denies any alcohol use or history of hepatitis although she was on chemotherapy for breast cancer. hepatitis panel, liver ultrasound. Will obtain blood cultures, pro calcitonin to rule out infection. DVT prophylaxis is Lovenox 40 mg subcutaneous once daily. Hypokalemia: Electrolyte protocol in place. Patient will remain on telemetry during this hospitalization. History of breast cancer Left chest seroma Will get a CT of the chest Monitor closely Will start on antibiotics empirically CT suggestive of small bowel enteritis Start on antibiotics monitor closely Hyperammonemia ? Cause Ultrasound abdomen shows no cirrhosis LFTs monitored Agree with lactulose Will monitor ammonia level Discharge Plan: Home Patient is more awake alert and ambulating with PT No new complaints noted patient wanted go home CT findings noted with possible seroma Discusses Dr. Zheng Recommended conservative management with follow up as an outpatient Hi home today Vital Signs/Physical Exam: Temp Pulse Resp BP Pulse Ox 97.2 F 76 18 102/52 L 99 02/01/20 12:04 02/01/20 12:04 02/01/20 12:04 02/01/20 12:04 02/01/20 12:04 General: Alert, In no apparent distress HEENT: Atraumatic, Normocephalic Neck: Supple Respiratory: Clear to auscultation bilaterally Cardiovascular: Regular rate/rhythm, Normal S1 S2 Capillary refill: <2 Seconds Gastrointestinal: Soft and benign, W/out hepatosplenomegaly Musculoskeletal: No clubbing, No swelling Integumentary: No rashes, No breakdown Neurological: Normal speech, Normal strength at 5/5 x4 extr Lymphatics: No axilla or inguinal lymphadenopathy Laboratory Data at Discharge: WBC 2.6 K/uL (4.3-10.9) L 02/01/20 12:14 Hgb 9.8 g/dL (12.0-15.0) L 02/01/20 12:14 Hct 28.7 % (36.0-45.0) L 02/01/20 12:14 Plt Count 90 K/uL (152-406) L 02/01/20 12:14 PT 13.8 SECONDS (9.5-12.5) H 02/01/20 12:14 INR 1.17 02/01/20 12:14 Sodium 141 mmol/L (136-145) 02/01/20 12:14 Potassium 3.2 mmol/L (3.5-5.1) L 02/01/20 12:14 BUN 4 mg/dL (7-18) L 02/01/20 12:14 Creatinine 0.64 mg/dL (0.55-1.3) 02/01/20 12:14 Glucose 86 mg/dL (74-106) 02/01/20 12:14 Magnesium 1.7 mg/dL (1.8-2.4) L 02/01/20 12:14 Total Bilirubin 2.0 mg/dL (0.2-1.0) H 02/01/20 12:14 AST 65 U/L (15-37) H 02/01/20 12:14 ALT 31 U/L (12-78) 02/01/20 12:14 Alkaline Phosphatase 113 U/L (45-117) 02/01/20 12:14 Lipase 46 U/L (73-393) L 01/30/20 11:50 Home Medications: Lactulose [Cephulac*] 20 ml PO BID 30 Days #60 ucup 02/01/20 Pantoprazole [Protonix Tab] 40 mg PO DAILY 30 Days #30 tab 02/01/20 Thiamine HCl 100 mg PO DAILY 30 Days #30 tablet 02/01/20 New Medications: Lactulose [Cephulac*] 20 ml PO BID 30 Days #60 ucup Pantoprazole [Protonix Tab] 40 mg PO DAILY 30 Days #30 tab Thiamine HCl 100 mg PO DAILY 30 Days #30 tablet Diet: Regular Time spent managing pt's care (in minutes): 42
[2020-02-04 21:20] LABS: HBsAG Nonreactive (Nonreactive)
== END 2020-02-01 14:15 | disposition home or self-care (01) | DRG 442 ==
LOC: ER 10:21 → ERHOLD 17:48 → 2ND 20:04 → 4TH 20:21 → 2ND 01-31 02:43
PROVIDERS: ADMIT Family Medicine; ATTEND Family Medicine
DX: K72.90 Hepatic failure, unspecified without coma (principal); E72.20 Disorder of urea cycle metabolism, unspecified; I10 Essential (primary) hypertension; K52.9 Noninfective gastroenteritis and colitis, unspecified; N64.89 Other specified disorders of breast; E87.6 Hypokalemia; Z90.12 Acquired absence of left breast and nipple; Z85.3 Personal history of malignant neoplasm of breast; Z11.59 Encounter for screening for other viral diseases
CPT/HCPCS: 36415; 51702; 70450; 71045; 71250; 74177; 76705; 77080; 80048; 80053; 80074; 80076; 81003; 81015; 82140; 82565; 83690; 83735; 83880; 84132; 84145; 84439; 84443; 85025; 85610; 87040; 93005; 96361; 96365; 96375; 99285; J1650; J2405; J2543; J3370; J3475; J3480; J7030; J7040; J7050; Q9967; U0002

== ENCOUNTER 2020-03-11 09:16 | Inpatient (IN) | payer MEDICAID ==
[2020-03-11 10:34] LABS: Absolute Lymphocytes (CBC) 3.1 K/uL (0.7-4.9); Basophils % 0.1 % (0-1.3); Hematocrit 28.4 % (36.0-45.0); Lymphocytes % 4.3 % (15.3-44.8); MPV 9.5 fL (7.6-11.3); RBC Red Blood Cell Count 2.88 M/uL (3.86-4.86)
[2020-03-11 10:37] LABS: Protime INR 1.37
--- OUTSIDE RECORDS SUMMARY | 2020-03-11 10:46 | XMS REPORT ---
:1955 Author Organization [employer] Care Team Providers Name Role Phone PenalozaBear Provider Role Unavailable Allergies No Known Allergies Problems Problem Type Condition Code Onset Dates Condition Statu s Assessment Thrombocytopenia D69.6 Active Problem Thrombocytopenia D69.6 Active Problem Low [...]
--- OUTSIDE RECORDS SUMMARY | 2020-03-11 10:46 | XMS REPORT ---
[...] End Status Dosage System Date Date Clotrimazole-Be [facility] 97076020820 1-0.05 % December 19December Active 1 application tamethasone Externally 2019 20, Twice a day 2019 Multivitamin [facility] [address] Active not def ined Adults Results No Known Results Summary Purpose [employer] Submission
--- OUTSIDE RECORDS SUMMARY | 2020-03-11 10:46 | XMS REPORT ---
[...] End Date Status Dos age Date Multivitamin [facility] 58289-997 Active not defin ed Adults 38 Results No Known Results Summary Purpose [employer] Submission
--- OUTSIDE RECORDS SUMMARY | 2020-03-11 10:46 | XMS REPORT | Continuity of Care Document ---
:1955 Author Organization [facility] t Address [address] [place] [address] Care Team Providers Name Role Phone Alejandra Batista Attending Clinician Koffi Uribe Attending Clinician Doctor Unassigned, Name Attending Clinician Unavailable Problems Condition Condition Condition Status Onset Resolution Last Treating Co mments Source Name Details Category Date Date Treatment Clinician Date Essential Essential Problem Active [facility] hypert[facility] hypertensi [facility] L [facility] - [facility] Malignant Malignant Problem Active [facility] [...] 40[facility] Thrombocyt Thrombocyt Problem Active [facility] S/P left S/P left Problem [facility]ctomy Maria L k[facility] Allergies, Adverse Reactions, Alerts This patient has no known allergies or adverse reactions. Medications Ordered Filled Start Stop Current Ordering Indication Dosage Frequency Signature Comments Components Source Medication Medication Date Date Medication? Clinician (SIG) Name Name Multivitami Multivitami Yes Bear not [facility] Adults n Adults Penaloza defined [facility] Procedures This patient has no known procedures. Encounters Start End Encounter Admission Attending Care Care Encounter Source Date/Time Date/Time Type Type Clinicians Facility Department ID 2020-02-14 2020-02-14 [facility] [id number] [facility] 13:51:00 13:51:00 [facility] l Medicine Outpati ent Clinics 2020-01-10 2020-01-10 [facility] [id number] [facility] 10:00:00 10:00:00 t zeeWAVES [facility] l Medicine Outpati ent Clinics 2020-01-10 2020-01-10 [facility] [id number] [facility] 10:00:00 10:00:00 [facility] Medicine Outpati ent Clinics 2020-01-09 2020-01-09 [facility] [id number] [facility] 13:21:00 13:21:00 [facility] Medicine Outpati ent Clinics 2019-12-29 2019-12-29 [facility] [id number] [address] 14:26:00 14:26:00 t zeeWAVES [facility] Medicine Outpati ent Clinics 2019-12-20 2019-12-20 [facility] [id number] [address] 10:45:00 10:45:00 [facility] Medicine Outpati ent Clinics 2019-12-18 2019-12-18 [facility] [id number] [address] 17:06:00 17:06:00 [facility] Medicine Outpati ent Clinics 2019-11-23 2019-11-23 [facility] [id number] [address] 08:30:00 08:30:00 [facility] Medicine Outpati ent Clinics 2019-11-10 2019-11-10 [facility] [id number] [address] 09:00:00 09:00:00 [facility] Medicine Outpati ent Clinics 2019-08-15 2019-08-15 Telephone ULISES [place] [id number] 00:00:00 00:00:00 Alejandra Esteves [facility] [id number] REGIONAL [id number] MATERNAL [id number] & CHILD 107 [facility] 2019-08-04 2019-08-[address] [facility] [id number] 00:00:00 00:00:00 Epifanio Rain [facility] [id number] [facility] [id number] MATERNAL [id number] & CHILD 107 [facility] 2019-07-28 2019-07-28 Orders Doctor YANIRA [id number] 00:00:00 00:00:00 Only Unassigned, STACIE [id number] [place] [facility] [id number] 2019-07-28 2019-07-28 [facility] [id number] 00:00:00 00:00:00 Alejandra Esteves [facility] [id number] [facility] [id number] MATERNAL [id number] & CHILD 107 [facility] Results Test Description Test Time Test Comments Results Result [facility] e Comments BREAST ULTRASOUND 2019-07-27 - [...] - 07/27/2019 15:05:22copy to: Ms. Shwetha Rodríguez, [facility] [address], ATTN: Shwetha Marcos, ph: [phone], fax: [phone] Technologist: Aida PERALTA, [facility]- DIAG MAMM LEFT 2019-07-25 DIAG MAMM LEFT CAD CAD DIGITAL 13:14:19 DIGITALUNILATERAL LEFT DIGITAL DIAGNOSTIC MAMMOGRAM WITH CAD POST-PROCEDURE IMAGING FOR MARKER PLACEMENT: 07/25/2019CLINICAL: Post Clip Placement. Current mammographic images were evaluated by either a [employer] M-Vu or a [employer] CAD (computer aided detection system). Comparison is made to exam dated 07/18/2019 mammogram - [facility]-. The tissue of the left [...] dm/:07/25/2019 13:14:19 copy to: Ms. Shwetha Rodríguez, [facility] [address], ATTN: Shwetha Rodríguez, ph: [phone], fax: [phone] Technologist: Morelia PERALTA, [facility]-Imaging Technologist: Suri PERALTA, [facility]-Mammogram BI-RADS: Post-procedure mammogram for marker placement BREAST ULTRASOUND 2019-07-18 - DIAG MAMM BILATERAL BILATERAL 16:44:27 KENNY CAD DIGITALBILATERAL DIGITAL DIAGNOSTIC MAMMOGRAM 3D/2D WITH CAD: 07/18/2019CLINICAL: Palpable mass, left breast. Digital breast tomosynthesis was performed in addition to routine CC and MLO views. Current mammographic images were evaluated by either a [employer] M-Vu or a [employer] ImageChecker CAD (computer aided detection system). No [...] - 07/18/2019 16:51:42copy to: Ms. Shwetha Rodríguez, [facility] [address], ATTN: Shwetha Rodríguez, ph: [phone], fax: [phone] Technologist: Vanesa PERALTA, [facility]-FWletter sent: BIRADS 4/5 Biopsy Mammogram [...] mammographic images were evaluated by either a edulioP M-Vu or a [employer] ImageChecker CAD (computer aided detection system). No [...] recommended. Clarita Flores M.D. dm/:07/18/2019 16:44:27 Entry: lauren - 07/18/2019 16:51:42copy to: Ishaan Shwetha Marcos, [facility] [address], ATTN: Shwetha Rodríguez, ph: [phone], fax: [phone] Technologist: Vanesa PERALTA, [facility]-FWletter sent: BIRADS 4/5 Biopsy Mammogram BI-RADS: 0 Incomplete: Additional Imaging Evaluation Needed Ultrasound BI-RADS: 5 Highly suggestive of malignancy
--- OUTSIDE RECORDS SUMMARY | 2020-03-11 10:46 | XMS REPORT ---
[...] Date Status Dos age Date Multivitamin [facility] [id number] Active not defin ed Adults 38 Results No Known Results Summary Purpose eClinicalWorks Submission
[2020-03-11 11:08] LABS: Albumin 2.4 g/dL (3.4-5.0); Bilirubin Direct 1.1 mg/dL (0-0.2); Bilirubin Total 2.5 mg/dL (0.2-1.0); Magnesium 1.6 mg/dL (1.8-2.4); Protein, Total 6.1 g/dL (6.4-8.2); Troponin (Emerg Dept Use Only) 0.22 ng/mL (0.0-0.045)
[2020-03-11 11:10] LABS: Potassium 2.8 mmol/L (3.5-5.1)
--- NOTE | 2020-03-11 11:23 | ER ---
Nurse's Notes [facility] Name: Jojo Alaniz Age: 64 yrs Sex: Female : 1955 Arrival Date: 03/11/2020 Time: 09:[address] Private MD: Diagnosis: Hypomagnesemia;Hypokalemia;Muscle weakness (generalized);Elevated Ammonia Presentation: 03/11 09:36 Chief complaint: Patient states: had chemo last week, diagnosed with breast cancer, has iw been very weak, no energy, not eating much, denies fever, sees Dr. Gibbons and Dr. Zheng. Coronavirus screen: At this time, the client does not indicate any symptoms associated with coronavirus-19. Ebola Screen: Patient negative for fever greater than or equal to 101.5 degrees Fahrenheit, and additional compatible Ebola Virus Disease symptoms Patient denies exposure to infectious person. Patient denies travel to an Ebola-affected area in the 21 days before illness onset. No symptoms or risks identified at this time. Initial Sepsis Screen: Does the patient meet any 2 criteria? No. Patient's initial sepsis screen is negative. Does the patient have a suspected source of infection? No. Patient's initial sepsis screen is negative. Risk Assessment: Do you want to hurt yourself or someone else? Patient reports no desire to harm self or others. Onset of symptoms was March 04, 2020. 09:36 Method Of Arrival: Wheelchair iw 09:36 Acuity: JES 3 iw Historical: - Allergies: 09:40 NKA; iw - PMHx: 09:40 Cancer, Breast; iw - PSHx: 09:40 right shoulder; iw 09:40 Mastectomy, Left; iw - Immunization history:: Adult Immunizations. - Social history:: Smoking status: . Screenin:16 Abuse screen: Denies threats or abuse. Nutritional screening: No deficits noted. tw2 Tuberculosis screening: No symptoms or risk factors identified. Fall Risk Secondary diagnosis (15 points) impaired mobility. Assessment: 09:50 General: Appears in no apparent distress. well groomed, Behavior is calm, cooperative, tw2 appropriate for age. Pain: Complains of pain in abdomen. Neuro: Level of Consciousness is awake, alert, obeys commands, Oriented to person, place, situation. Neuro: Reports weakness "because i am having chemo for the breast cancer". Cardiovascular: Heart tones S1 S2 Patient's skin is warm and dry. Respiratory: Airway is patent Respiratory effort is even, unlabored, Respiratory pattern is regular, symmetrical, Breath sounds are clear bilaterally. GI: Bowel sounds present X 4 quads. Abd is soft X 4 quads Reports lower abdominal pain, upper abdominal pain, intolerance of fluids, intolerance of food. : No signs and/or symptoms were reported regarding the genitourinary system. EENT: No signs and/or symptoms were reported regarding the EENT system. Derm: No signs and/or symptoms reported regarding the dermatologic system. Musculoskeletal: Range of motion: intact in all extremities. 10:50 Reassessment: No changes from previously documented assessment. Patient and/or family tw2 updated on plan of care and expected duration. Pain level reassessed. Patient is alert, oriented x 3, equal unlabored respirations, skin warm/dry/pink. 12:16 Reassessment: pt vomited small amount of orange tinted liquid approx 100 ml at this tw2 time, Dr. Barakat at bedside at this time., new emesis bag given to pt with wet paper towel. 13:15 Reassessment: Patient appears in no apparent distress at this time. No changes from tw2 previously documented assessment. Patient and/or family updated on plan of care and expected duration. Pain level reassessed. Patient is alert, oriented x 3, equal unlabored respirations, skin warm/dry/pink. 14:27 Reassessment: Patient appears in no apparent distress at this time. No changes from tw2 previously documented assessment. Patient and/or family updated on plan of care and expected duration. Pain level reassessed. Patient is alert, oriented x 3, equal unlabored respirations, skin warm/dry/pink. Vital Signs: 09:36 BP 106 / 49; Pulse 92; Resp 16; Temp 97.8; Pulse Ox 100% on R/A; Weight 65.77 kg; iw Height 5 ft. (152.40 cm); 11:00 BP 108 / 59; Pulse 84; Resp 17; Pulse Ox 100% on R/A; dh3 11:40 BP 94 / 79; Pulse 87; Resp 16; Pulse Ox 100% on R/A; dh3 12:05 BP 99 / 48; Pulse 84; Resp 16; Temp 97.8(A); Pulse Ox 100% on R/A; tw2 13:05 BP 100 / 77; Pulse 81; Resp 17; Pulse Ox 95% on R/A; tw2 14:10 BP 99 / 57; Pulse 83; Resp 17; Pulse Ox 100% on R/A; tw2 09:36 Body Mass Index 28.32 (65.77 kg, 152.40 cm) iw ED Course: 09:19 Patient arrived in ED. ag5 09:39 Triage completed. iw 09:41 Ida Hebert FNP-C is PHCP. snw 09:41 Ramon Smiley MD is Attending Physician. snw 09:43 Floridalma Loyola RN is Primary Nurse. tw2 09:50 Placed in gown. Bed in low position. ditch cleaner on. Pulse ox on. NIBP on. Warm tw2 blanket given. 10:00 Inserted saline lock: 22 gauge in right hand, using aseptic technique. Blood collected. tw2 11:19 Johnny Barakat DO is Hospitalizing Provider. snw 12:03 Arm band placed on. tw2 12:43 CT Head Brain wo Cont In Process Unspecified. EDMS 15:15 No provider procedures requiring assistance completed. Patient admitted, IV remains in tw2 place. Administered Medications: 11:50 Drug: Potassium Effervescent Tablet 50 mEq Route: PO; tw2 13:41 Follow up: Response: No adverse reaction tw2 11:52 Drug: Lactulose 30 grams Volume: 45 ml; Route: PO; tw2 13:41 Follow up: Response: No adverse reaction tw2 12:00 Drug: Potassium Chloride 20 mEq Route: IV; Rate: calculated rate; Site: right hand; tw2 14:30 Follow up: Response: No adverse reaction; IV Status: Completed infusion tw2 12:00 Drug: Magnesium Sulfate 1 grams Route: IVPB; Infused Over: 1 hrs; Site: right hand; tw2 13:00 Follow up: Response: No adverse reaction; IV Status: Completed infusion tw2 12:05 Drug: NS 0.9% 1000 ml Route: IV; Rate: 1 bolus; Site: right hand; tw2 13:41 Follow up: Response: No adverse reaction; IV Status: Completed infusion; IV Intake: tw2 1000ml 18:18 Not Given (Duplicate Order): NS 0.9% 500 ml IV at bolus once ca1 Intake: 13:41 IV: 1000ml; Total: 1000ml. tw2 Outcome: 11:22 Decision to Hospitalize by Provider. snw 15:15 Admitted to ER Hold. Please see [facility] for further documentation. tw2 15:15 Admitted to Report called to CARMELITA Zuniga 15:15 Condition: stable 15:15 Instructed on the need for admit. 20:02 Patient left the ED. Signatures: Dispatcher [employer] EDMS Ida Hebert, LAB SCIENTIST-C LAB SCIENTIST-Csnw Ama Hays, RN RN Yokasta Murillo RN RN Floridalma Loyola RN RN tw2 Nahed Salazar 3 Yayo Dias Fabiola Palma RN ca1 Corrections: (The following items were deleted from the chart) 12:16 12:05 BP 99 / 48; Pulse 84bpm; Resp 16bpm; Pulse Ox 100% RA; 3 tw2 12:24 12:00 NS 0.9% 1000 ml IV at 1 bolus in right hand tw2 tw2
--- NOTE | 2020-03-11 11:23 | EDPHYS ---
Physician Documentation [facility] Name: Jojo Alaniz Age: 64 yrs Sex: Female : 1955 Arrival Date: 03/11/2020 Time: 09:[address] Private MD: ED Physician Ramon mSiley HPI: 03/11 10:17 This 64 yrs old Female presents to ER via Wheelchair with complaints of snw General Weakness, Abdominal Pain. 10:17 Onset: The symptoms/episode began/occurred suddenly, 3 day(s) ago, and became snw persistent. Associated signs and symptoms: Pertinent positives: patient is unable to take anything by mouth Pertinent negatives: abdominal pain, cough, diarrhea, fever, vomiting. Modifying factors: The patient symptoms are alleviated by nothing, the patient symptoms are aggravated by chemo. The patient has experienced similar episodes in the past. [facility]. Historical: - Allergies: 09:40 NKA; iw - PMHx: 09:40 Cancer, Breast; iw - PSHx: 09:40 right shoulder; iw 09:40 Mastectomy, Left; iw - Immunization history:: Adult Immunizations. - Social history:: Smoking status: . ROS: 10:16 Eyes: Negative for injury, pain, redness, and discharge, ENT: Negative for injury, snw pain, and discharge, Neck: Negative for injury, pain, and swelling, Cardiovascular: Negative for chest pain, palpitations, and edema, Respiratory: Negative for shortness of breath, cough, wheezing, and pleuritic chest pain, Abdomen/GI: Negative for abdominal pain, nausea, vomiting, diarrhea, and constipation, Back: Negative for injury and pain, : Negative for injury, bleeding, discharge, and swelling, MS/Extremity: Negative for injury and deformity, Skin: Negative for injury, rash, and discoloration, Neuro: Negative for headache, weakness, numbness, tingling, and seizure, Psych: Negative for depression, anxiety, suicide ideation, homicidal ideation, and hallucinations. 10:16 Constitutional: Positive for fatigue, malaise, poor PO intake, dizziness. Exam: 10:15 Head/Face: Normocephalic, atraumatic. Eyes: Pupils equal round and reactive to light, snw extra-ocular motions intact. Lids and lashes normal. Conjunctiva and sclera are non-icteric and not injected. Cornea within normal limits. Periorbital areas with no swelling, redness, or edema. ENT: Nares patent. No nasal discharge, no septal abnormalities noted. Tympanic membranes are normal and external auditory canals are clear. Oropharynx with no redness, swelling, or masses, exudates, or evidence of obstruction, uvula midline. Mucous membranes moist. Neck: Trachea midline, no thyromegaly or masses palpated, and no cervical lymphadenopathy. Supple, full range of motion without nuchal rigidity, or vertebral point tenderness. No Meningismus. Chest/axilla: Normal chest wall appearance and motion. Nontender with no deformity. No lesions are appreciated. Cardiovascular: Regular rate and rhythm with a normal S1 and S2. No gallops, murmurs, or rubs. Normal PMI, no JVD. No pulse deficits. Respiratory: Lungs have equal breath sounds bilaterally, clear to auscultation and percussion. No rales, rhonchi or wheezes noted. No increased work of breathing, no retractions or nasal flaring. Abdomen/GI: Soft, non-tender, with normal bowel sounds. No distension or tympany. No guarding or rebound. No evidence of tenderness throughout. Back: No spinal tenderness. No costovertebral tenderness. Full range of motion. MS/ Extremity: Pulses equal, no cyanosis. Neurovascular intact. Full, normal range of motion. Neuro: Awake and alert, GCS 15, oriented to person, place, time, and situation. Cranial nerves II-XII grossly intact. Motor strength 5/5 in all extremities. Sensory grossly intact. Cerebellar exam normal. Normal gait. Psych: Awake, alert, with orientation to person, place and time. Behavior, mood, and affect are within normal limits. 10:15 Constitutional: The patient appears alert, awake, frail, jaundiced 10:15 Skin: Appearance: Color: jaundiced, Temperature: warm, Moisture: dry. Vital Signs: 09:36 BP 106 / 49; Pulse 92; Resp 16; Temp 97.8; Pulse Ox 100% on R/A; Weight 65.77 kg; iw Height 5 ft. (152.40 cm); 11:00 BP 108 / 59; Pulse 84; Resp 17; Pulse Ox 100% on R/A; dh3 11:40 BP 94 / 79; Pulse 87; Resp 16; Pulse Ox 100% on R/A; dh3 12:05 BP 99 / 48; Pulse 84; Resp 16; Temp 97.8(A); Pulse Ox 100% on R/A; tw2 13:05 BP 100 / 77; Pulse 81; Resp 17; Pulse Ox 95% on R/A; tw2 14:10 BP 99 / 57; Pulse 83; Resp 17; Pulse Ox 100% on R/A; tw2 09:36 Body Mass Index 28.32 (65.77 kg, 152.40 cm) iw MDM: 09:49 Patient medically screened. snw 11:22 Data reviewed: vital signs, nurses notes. Data interpreted: Pulse oximetry: on room air snw is 100 %. Interpretation: normal. Counseling: I had a detailed discussion with the patient and/or guardian regarding: the historical points, exam findings, and any diagnostic results supporting the discharge/admit diagnosis, lab results, the need for further work-up and treatment in the hospital. Physician consultation: Johnny Barakat DO was called at 11:22, regarding admission, to the telemetry unit. 11:32 Physician consultation: was contacted at 11:32, would like further tests performed, snw procal and lactate. 03/11 09:42 Order name: Basic Metabolic Panel; Complete Time: 11:12 snw 03/11 09:42 Order name: CBC with Diff snw 03/11 09:42 Order name: LFT's; Complete Time: 11:12 snw 03/11 09:42 Order name: Magnesium; Complete Time: 11:12 snw 03/11 09:42 Order name: NT PRO-BNP; Complete Time: 11:12 snw 03/11 09:42 Order name: PT-INR; Complete Time: 10:47 snw 03/11 09:42 Order name: Troponin (emerg Dept Use Only); Complete Time: 11:12 snw 03/11 09:42 Order name: Urine Culture snw 03/11 09:42 Order name: Urine Microscopic Only; Complete Time: 11:58 snw 03/11 10:14 Order name: TS; Complete Time: 12:16 snw 03/11 10:14 Order name: AMMONIA; Complete Time: 11:12 snw 03/11 10:14 Order name: Blood Culture Adult (2) snw 03/11 11:32 Order name: Lactate; Complete Time: 12:54 snw 03/11 11:32 Order name: Procalcitonin; Complete Time: 12:54 snw 03/11 11:52 Order name: CT Head Brain wo Cont; Complete Time: 12:54 snw 03/11 11:59 Order name: ABO/RH no charge; Complete Time: 12:09 EDNJ 03/11 12:18 Order name: Urine Dipstick--Ancillary (enter results); Complete Time: 12:32 bd 03/11 12:35 Order name: Manual Differential EDNJ 03/11 16:18 Order name: Blood Culture EDNJ 03/11 16:37 Order name: RAD EDNJ 03/11 17:40 Order name: Creatine Phosphokinase EDNJ 03/11 17:40 Order name: CKMB Creatine Kinase MB EDNJ 03/11 17:40 Order name: Troponin I EDNJ 03/11 17:46 Order name: Lactate Sepsis 2 HR Follow-up EDNJ 03/11 18:08 Order name: Glucose, Ancillary Testing EDNJ 03/11 09:42 Order name: EKG; Complete Time: 09:43 snw 03/11 09:42 Order name: Cardiac monitoring; Complete Time: 10:44 snw 03/11 09:42 Order name: EKG - Nurse/Tech; Complete Time: 12:11 snw 03/11 09:42 Order name: IV Saline Lock; Complete Time: 10:44 snw 03/11 09:42 Order name: Labs collected and sent; Complete Time: 10:45 snw 03/11 09:42 Order name: O2 Per Protocol; Complete Time: 12:11 snw 03/11 09:42 Order name: O2 Sat Monitoring; Complete Time: 12:12 snw 03/11 09:42 Order name: Urine Dipstick-Ancillary (obtain specimen); Complete Time: 12:12 snw 03/11 10:51 Order name: Diet Soft; Complete Time: 10:52 snw 03/11 10:58 Order name: Labs - recollect needed: recollect type and screen. candice pt.; Complete bd Time: 11:33 Administered Medications: 11:50 Drug: Potassium Effervescent Tablet 50 mEq Route: PO; tw2 13:41 Follow up: Response: No adverse reaction tw2 11:52 Drug: Lactulose 30 grams Volume: 45 ml; Route: PO; tw2 13:41 Follow up: Response: No adverse reaction tw2 12:00 Drug: Potassium Chloride 20 mEq Route: IV; Rate: calculated rate; Site: right hand; tw2 14:30 Follow up: Response: No adverse reaction; IV Status: Completed infusion tw2 12:00 Drug: Magnesium Sulfate 1 grams Route: IVPB; Infused Over: 1 hrs; Site: right hand; tw2 13:00 Follow up: Response: No adverse reaction; IV Status: Completed infusion tw2 12:05 Drug: NS 0.9% 1000 ml Route: IV; Rate: 1 bolus; Site: right hand; tw2 13:41 Follow up: Response: No adverse reaction; IV Status: Completed infusion; IV Intake: tw2 1000ml 18:18 Not Given (Duplicate Order): NS 0.9% 500 ml IV at bolus once ca1 Disposition: 03/12 07:13 Co-signature as Attending Physician, Ramon Smiley MD. rn Disposition: 03/11/20 11:22 Hospitalization ordered by Johnny Barakat for Inpatient Admission. Preliminary diagnosis are Hypomagnesemia, Hypokalemia, Muscle weakness (generalized), Elevated Ammonia. - Bed requested for [facility] ER HOLD. - Status is Inpatient Admission. ss - Condition is Stable. - Problem is an acute exacerbation. - Symptoms have worsened. Signatures: Dispatcher [employer] EDMS Jen Keane Shelly, ADVERTISING MATERIAL DISTRIBUTOR-C ADVERTISING MATERIAL DISTRIBUTOR-Csnw Ama Hays RN RN Ramon Smiley MD MD rn Smirch, Shelby, RN RN Floridalma Loyola RN RN tw2 Fabiola Moreno RN ca1 Corrections: (The following items were deleted from the chart) 03/11 12:33 11:22 Hospitalization Ordered by Johnny Barakat DO for Inpatient Admission. Preliminary snw diagnosis is Hypomagnesemia; Hypokalemia; Muscle weakness (generalized); Elevated Ammonia. Bed requested for Telemetry/MedSurg (Inpatient). Status is Inpatient Admission. Condition is Stable. Problem is an acute exacerbation. Symptoms have worsened. snw 15:09 12:33 03/11/2020 11:22 Hospitalization Ordered by Johnny Barakat DO for Inpatient Admission. Preliminary diagnosis is Hypomagnesemia; Hypokalemia; Muscle weakness (generalized); Elevated Ammonia. Bed requested for Telemetry/MedSurg (observation). Status is Inpatient Admission. Condition is Stable. Problem is an acute exacerbation. Symptoms have worsened. sn 20:02 15:09 03/11/2020 11:22 Hospitalization Ordered by Johnny Barakat DO for Inpatient Admission. Preliminary diagnosis is Hypomagnesemia; Hypokalemia; Muscle weakness (generalized); Elevated Ammonia. Bed requested for [facility] ER HOLD. Status is Inpatient Admission. Condition is Stable. Problem is an acute exacerbation. Symptoms have worsened. iw
[2020-03-11 11:47] LABS: Urine Bacteria <20 /HPF (<20); Urine Culture Reflex Order NOT NEEDED; Urine RBC <5 /HPF (NONE SEEN)
[2020-03-11] MEDS ORDERED: POTASSIUM 25 MEQ EFFERV TAB ONE (11:53)
[2020-03-11] MEDS ORDERED: MAGNESIUM SULFATE 1 gm IVPB 1 GM/100 ML BAG IV ONE (11:53)
[2020-03-11] MEDS ORDERED: KCL 20 MEQ/100 mL IVPB 20 MEQ/100 ML BAG IV ONE (11:54)
[2020-03-11] MEDS ORDERED: LACTULOSE 20 GM/30 ML UCUP ONE (11:54)
[2020-03-11] MEDS ORDERED: NA CHLORIDE 0.9% 1,000 ML ONE ×2 (12:16→18:14)
[2020-03-11 12:23] LABS: Urine Blood TRACE (NEG); Urine Glucose NEGATIVE (NEG); Urine Protein TRACE (NEG); Urine Specific Gravity 1.015 (1.005-1.030)
[2020-03-11 12:35] LABS: Anisocytosis 1+; Blood Morphology Comment NOTED (NOT SEEN); Dohle Bodies PRESENT; Platelet Estimate DECR; Polychromasia 1+; Toxic Granulation 1+
--- NOTE | 2020-03-11 12:41 | P.HP ---
Certification for Inpatient Patient admitted to: Observation Patient will require the following post-hospital care: None Practitioner: I am a practitioner with admitting privileges, knowledge of patient current condition, hospital course, and medical plan of care. Services: Services provided to patient in accordance with Admission requirements found in Title 42 Section 412.3 of the Code of Federal Regulations Patient History Date of Service: 03/11/20 Primary Care Provider: Dr. Penaloza; Oncology-Dr. Gibbons; GI-Dr. Gonzalez Reason for admission: Fatigue, dizziness History of Present Illness: 64-year-old female presented to the emergency room with fatigue, dizziness and poor appetite. Patient with history of breast cancer on chemotherapy and GERD. Patient reported fatigue, dizziness and poor appetite over the last several days. She denies any nausea, vomiting, abdominal pain, chest pain, fever or chills. She reports getting chemotherapy about 2 weeks ago. She apparently got an ejection last week due to low white blood cell count. Patient has not been eating well. Patient came to the ER for further evaluation as she was told by oncology. In the ER patient was evaluated. Blood pressure slightly decreased. Heart rate within normal range. White count 71.7. Hemoglobin 9.5. Platelet count 83. BUN 5, creatinine 0.9. Sodium 135, potassium 2.8. GFR 63. Glucose 71. Magnesium 1.6. AST 82. Ammonia level 121. Troponin 0.22. AST of 82. Total bili repeat 2.5. Patient given fluid bolus in the emergency room. Patient was admitted for observation. When I saw the patient ER, patient appeared stable. Spoke with oncology concerning patient. Oncology reports the patient received Neulasta last week due to leukopenia. Patient also has seen GI recently with recent EGD showing GERD. She is have a colonoscopy as an outpatient. As mentioned above patient denies any prior cardiac issues. Allergies No Known Allergies Allergy (Verified 09/26/19 11:54) Home Medications: Lactulose [Cephulac*] 20 ml PO BID 30 Days #60 ucup 02/01/20 Pantoprazole [Protonix Tab] 40 mg PO DAILY 30 Days #30 tab 02/01/20 Thiamine HCl 100 mg PO DAILY 30 Days #30 tablet 02/01/20 - Past Medical/Surgical History Diabetic: No -: Right shoulder pain, chronic -: Left breast cancer -: Right shoulder surgery x2 -: Left mastectomy Psychosocial/ Personal History: Patient is . She has no children. 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 - Family History Mother -: Cancer Father -: Hypertension - Social History Alcohol use: No CD- Drugs: No Caffeine use: No Place of Residence: Home Review of Systems General: Weakness, Malaise Eyes: Unremarkable ENT: Unremarkable Respiratory: Unremarkable Cardiovascular: Unremarkable Gastrointestinal: Unremarkable Genitourinary: Unremarkable Musculoskeletal: Unremarkable Integumentary: Unremarkable Neurological: Other (Poor appetite) Lymphatics: Unremarkable Physical Examination - Physical Exam General: Alert, In no apparent distress, Oriented x3, Cooperative HEENT: Atraumatic, Scleral icterus Neck: Supple Respiratory: Clear to auscultation bilaterally, Normal air movement Cardiovascular: Normal pulses, Regular rate/rhythm Gastrointestinal: Normal bowel sounds, Soft and benign, Non-distended, No ascites, No tenderness, No masses, No rebound, No guarding Musculoskeletal: No erythema, No tenderness, No warmth Integumentary: No tenderness/swelling, No erythema, No warmth, No cyanosis Neurological: Normal speech, Normal strength at 5/5 x4 extr, Normal tone, Normal affect - Studies Laboratory Data (last 24 hrs) 03/11/20 10:00: PT 16.1 H, INR 1.37 03/11/20 10:00: WBC 71.7 H* D, Hgb 9.5 L, Hct 28.4 L, Plt Count 83 L 03/11/20 10:00: Sodium 135 L, Potassium 2.8 L*, BUN 5 L, Creatinine 0.90, Glucose 71 L, Magnesium 1.6 L, Total Bilirubin 2.5 H, AST 82 H, ALT 29, Alkaline Phosphatase 239 H Assessment and Plan - Plan Impression: Fatigue, dizziness, poor appetite with leukocytosis likely related to recent medication-Neulasta Anemia with thrombocytopenia with history of Breast cancer on chemotherapy Elevated troponin etiology unknown Elevated ammonia level, elevated bili Mosquera with elevation in liver function etiology unknown GERD Plan: Fatigue, dizziness, poor appetite with leukocytosis likely related to recent medication-Neulasta: Patient will be admitted for further evaluation and treatment. Suspect dehydration. Will start IV fluids. Will replace electrolytes. Pro calcitonin and lactic acid obtained. No evidence of sepsis at this time. Will consider antibiotic therapy if chest x-ray or urinalysis unremarkable. Will continue monitor closely. Case discussed at length with oncology. Leukocytosis likely related to Neulasta. Symptoms may be related to above as well. Troponin elevated. This may be cardiac in nature. Cardiology consulted. Spoke with cardiology. Will keep the patient NPO for possible heart catheterization. Will obtain echocardiogram. Continue monitor the patient closely. Will consult dietary to address daily needs. Will consult physical therapy to ambulate. Anticipate improvement over the next 24 hr. Anemia with thrombocytopenia with history of Breast cancer on chemotherapy: Likely related to recent medication. Spoke with oncology at length. Patient recently on chemotherapy. Patient received Neulasta last week. Elevated troponin etiology unknown: Cardiology to evaluate. Patient may require heart catheterization. Order echocardiogram. Monitor cardiac enzymes. Will obtain EKG. Elevated ammonia level with elevation in liver function etiology unknown: Will provide lactulose. Will discuss with her GI specialist to further evaluate. Prior CT scan and liver ultrasound unremarkable. GERD: Provide medication Discharge Plan: Home Plan to discharge in: 24 Hours - Advance Directives Does patient have a Living Will: No Does patient have a Durable POA for Healthcare: No - Code Status/Comfort Care Code Status Assessed: Yes (Patient is full code) Time Spent Managing Pts Care (In Minutes): 55
--- NOTE | 2020-03-11 12:52 | RAD REPORT ---
EXAM DESCRIPTION: CT - Head Brain Wo Cont - 03/11/2020 12:43 pm CLINICAL HISTORY: Dizziness COMPARISON: January 2020 TECHNIQUE: Computed axial tomography of the head was obtained. IV contrast was not requested. All CT scans are performed using dose optimization technique as appropriate and may include automated exposure control or mA/KV adjustment according to patient size. FINDINGS: An intracranial bleed is not seen . The ventricles are normal in caliber. No extra-axial fluid collection is noted. Fluid within the sinuses/ mastoids is not seen. IMPRESSION: No acute intracranial abnormality is seen. If patient's symptoms persist MRI of the bra in would be recommended.
[2020-03-11] MEDS ORDERED: HYDROCODONE/APAP 5/325 MG TAB PO PRN (15:57)
[2020-03-11] MEDS ORDERED: ACETAMINOPHEN 500 MG TAB PO PRN (15:57)
[2020-03-11] MEDS ORDERED: TRAMADOL HCL 50 MG TAB PO PRN (15:57)
[2020-03-11] MEDS ORDERED: ONDANSETRON 4 MG/2 ML VIAL IV PRN (15:57)
[2020-03-11] MEDS: INSULIN -REGULAR HUMAN 50 UNIT/0.5 ML ML SQ SCH ×2 (16:30→21:00)
--- NOTE | 2020-03-11 16:36 | RAD REPORT ---
EXAM DESCRIPTION: RAD - Chest Single View - 03/11/2020 4:24 pm CLINICAL HISTORY: Dizziness, Leukocytosis COMPARISON: Portable January 29 TECHNIQUE: AP portable chest image was obtained 03/11/2020 4:24 pm . FINDINGS: Lung volumes are low. Right hemidiaphragm elevation and eventration noted. Right-sided Por t-A-Cath in place. No peripheral mass or consolidation. Heart and vasculature are normal. No measurab le pleural effusion and no pneumothorax. No acute bony abnormality seen. No acute aortic findings beny pected. IMPRESSION: No acute cardiopulmonary process. No suspicious change from comparison.
[2020-03-11 17:09] VITALS: BMI 31.2
[2020-03-11 17:39] LABS: CKMB Creatine Kinase MB < 1.0 ng/mL (0.3-3.6); Creatine Phosphokinase 36 U/L (26-192); Troponin I 0.24 ng/mL (0.0-0.045)
[2020-03-11] MEDS ORDERED: NA CHLORIDE 0.9% 1,000 ML IV ONE (17:59)
[2020-03-11] MEDS: CEFTRIAXONE/SWI 1gm 1 GM/10 ML SYR IVP SCH (18:00)
[2020-03-11] MEDS: D5 0.9 NS 1,000 ML IV SCH (18:05)
[2020-03-11] MEDS: ENOXAPARIN 40 MG/0.4 ML SQ SCH (18:08)
[2020-03-11] MEDS ORDERED: D5 0.9 NS 1,000 ML IV ONE (18:14)
[2020-03-11] MEDS ORDERED: CEFTRIAXONE/SWI 1gm 1 GM/10 ML SYR ONE (18:14)
[2020-03-11] MEDS ORDERED: ENOXAPARIN 40 MG/0.4 ML SQ ONE (18:18)
--- NOTE | 2020-03-11 20:13 | CON ---
Date of Consultation: 03/11/2020 Reason For Consultation: Borderline elevated troponin. History Of Present Illness: A 64-year-old female with history of breast cancer on chemotherapy, hist ory of acid reflux disease, presented to the emergency room with generalized weakness, fatigue, dizzi ness, poor appetite. There is no chest pain, no shortness of breath, no cough, no lower extremity ed july, no orthopnea, no cardiac symptoms. The patient does not have any cardiac history reported. Past Medical History: As outlined above in HPI. Medication: Refer to reconciliation sheet for detailed list. Allergies: NO KNOWN DRUG ALLERGIES. Past Surgical History: Left mastectomy. Social History: Does not smoke or drink. Does not use any drug. Family History: No premature coronary artery disease. Review of Systems: All systems reviewed and they were negative except as mentioned in the HPI. Physical Examination: Vital Signs: Showed a temperature of 98.4, pulse is 74, breathing is 18, blood pressure is 134/74. General: Pleasant middle-aged female, in no distress. Head and Neck: Pupils are equal, reactive to light. Intact eye movements. No JVD. No cervical lym phadenopathy. Neck is supple. Thyroid is not enlarged. Lungs: Clear to auscultation bilaterally. No rhonchi, rales, crackles. No accessory muscle use. Heart: Regular rate and rhythm. No extra sounds. Abdomen: Soft, nontender. Bowel sounds positive. No organomegaly. No masses or hernia. No rigidi ty or rebound. Extremities: No edema, clubbing, cyanosis. Intact pulses. Skin: No rashes. Neurologic: Alert, awake, oriented x3. No acute focal deficit appreciated. Investigations: EKG is normal sinus rhythm without acute abnormalities. Sodium 135, potassium 2.8, creatinine 0.9, magnesium 1.6. Total bilirubin is 2.5 with alkaline phosphatase 239. Ammonia 121. Troponin 0.22. Procalcitonin 0.93, calcium was 5.4. White blood cell count 97925, hemoglobin 9.5. Assessment And Plan: Borderline elevated troponin with normal EKG and no chest pain. Likely, this i s a troponin leak due to a demand ischemia. At this point, there are too many other metabolic issues going on including severe leukocytosis, significant electrolyte imbalance. Recommend to settle thos e issues first and trend troponin and obtain echocardiogram to evaluate for wall motion abnormalities . If the troponin rises significantly, then we will heparinize and plan for angiogram. Otherwise, a t this point, we will treat conservatively pending the echo results to guide further the need for cor onary angiogram. I appreciate the courtesy of this consultation. /JESSICA Voice ID: [id number] Report ID: [id number]
[2020-03-11] MEDS: LACTULOSE 20 GM/30 ML UCUP PO SCH (21:39)
[2020-03-11 23:26] LABS: Urine Appearance CLEAR; Urine Bilirubin NEGATIVE (NEG); Urine Blood NEGATIVE (NEG); Urine Color YELLOW; Urine Glucose NEGATIVE (NEG); Urine Protein NEGATIVE (NEG); Urine Specific Gravity <=1.005 (1.005-1.030); Urine Urobilinogen 0.2 mg/dL (0.2-1.0); Urine pH 7.5 (5.0-7.0)
[2020-03-11 23:28] LABS: Urine Microscopic Reflex ORDER UMIC
[2020-03-11 23:43] LABS: Urine Culture Reflex Order NOT NEEDED
[2020-03-11 23:44] LABS: Urine Bacteria <20 /HPF (<20); Urine RBC <5 /HPF (NONE SEEN); Urine Urothelial Cells <5 /HPF (NONE SEEN)
[2020-03-12 01:45] LABS: CKMB Creatine Kinase MB < 1.0 ng/mL (0.3-3.6); Creatine Phosphokinase 23 U/L (26-192); Troponin I 0.21 ng/mL (0.0-0.045)
[2020-03-12] MEDS: D5 0.9 NS 1,000 ML IV SCH (03:21)
[2020-03-12 03:54] LABS: Absolute Lymphocytes (CBC) 1.7 K/uL (0.7-4.9); Basophils % 0.3 % (0-1.3); Hematocrit 21.5 % (36.0-45.0); Lymphocytes % 4.7 % (15.3-44.8); MPV 9.7 fL (7.6-11.3); RBC Red Blood Cell Count 2.15 M/uL (3.86-4.86)
[2020-03-12 04:11] LABS: Protime INR 1.52
[2020-03-12 04:13] LABS: Albumin 1.6 g/dL (3.4-5.0); Bilirubin Total 1.2 mg/dL (0.2-1.0); Magnesium 1.7 mg/dL (1.8-2.4); Protein, Total 4.3 g/dL (6.4-8.2)
[2020-03-12 04:18] LABS: Thyroid Stimulating Hormone 5.4 uIU/mL (0.360-3.740)
[2020-03-12] MEDS ORDERED: MAGNESIUM SULFATE 1 gm IVPB 1 GM/100 ML BAG IV ONE (06:00)
[2020-03-12] MEDS: INSULIN -REGULAR HUMAN 50 UNIT/0.5 ML ML SQ SCH ×4 (07:30→19:51)
[2020-03-12] MEDS: PANTOPRAZOLE 40MG TABLET PO SCH ×3 (07:30→17:02)
[2020-03-12 08:15] LABS: Hematocrit 21.8 % (36.0-45.0)
[2020-03-12] MEDS ORDERED: POTASSIUM CL 40 MEQ in NA CHLORIDE 0.9% 500 ML IV SCH (09:00)
[2020-03-12] MEDS: CEFTRIAXONE/SWI 1gm 1 GM/10 ML SYR IVP SCH (09:00)
[2020-03-12] MEDS ORDERED: MIDODRINE HCL 5 MG TABLET PO SCH (09:00)
[2020-03-12] MEDS: LACTULOSE 20 GM/30 ML UCUP PO SCH (09:00)
[2020-03-12] MEDS: ENOXAPARIN 40 MG/0.4 ML SQ SCH (09:07)
--- NOTE | 2020-03-12 10:33 | RAD REPORT ---
EXAM DESCRIPTION: MRI - Cholangiogram - 03/12/2020 10:02 am CLINICAL HISTORY: Elevated liver function, TB COMPARISON: CT study April 01 TECHNIQUE: Axial and coronal heavily T2 weighted sequences were obtained. Coronal T2 HASTE fat satur ation static and coronal multiplane reconstruction imaging generated and reviewed. Horizontal and kush tical axis rotational views obtained using maximum intensity projection (MIP) protocol. FINDINGS: Exam has motion degradation limitations. Gallbladder size is normal. No gallstones confirm ed. No wall edema or pericholecystic fluid seen. No biliary tree dilatation, stricture or mass. The d istal most common bile duct in the head of the pancreas shows tapering that is still within the range of normal. No convincing evidence for a distal common bile duct stone or mass. No pancreatic duct di latation or focal abnormality. IMPRESSION: No pancreatic duct dilatation and no stone, mass or stricture confirmed. The patient has continued, unexplained clinical or laboratory findings for biliary abnormality, ERCP study could be performed. No pancreatic duct abnormality. No gallbladder abnormality seen.
[2020-03-12 12:01] LABS: Ferritin 1940.1 ng/mL (8-388); Transferrin 106 mg/dL (200-360)
[2020-03-12 12:16] LABS: RBC Red Blood Cell Count 2.46 M/uL (3.86-4.86)
[2020-03-12] MEDS ORDERED: POTASSIUM 25 MEQ EFFERV TAB PO ONE (12:40)
--- NOTE | 2020-03-12 13:36 | PN ---
Date of Progress Note: 03/12/2020 Subjective: The patient is a 64-year-old woman who was seen by Dr. Casey yesterday for elevated tro ponin of 0.21. Ms. Alaniz has many other medical problems including cancer. She has hemoglobin of 7.1, potassium is 3.8. Her white count is 37,000. She is presently on Lovenox and antibiotics. It was thought that her troponin was demand ischemia. Echocardiogram that was done today showed normal wall motion without effusion. Plan: We will sign off her case. No need for any further cardiac workup at this point. Continue he r present regimen. MARY/JESSICA Voice ID: [id number] Report ID: [id number]
[2020-03-12] MEDS: MIDODRINE HCL 5 MG TABLET PO SCH ×2 (14:00→19:50)
[2020-03-12] MEDS ORDERED: TRAMADOL HCL 50 MG TAB PO PRN (14:28)
--- NOTE | 2020-03-12 14:28 | P.PN ---
Subjective Date of Service: 03/12/20 Primary Care Provider: Dr. Penaloza; Oncology-Dr. Gibbons; GI-Dr. Gonzalez Chief Complaint: Fatigue, dizziness Subjective: Other (Patient still slightly ortho static. Blood pressure still low. Some dizziness noted.) Physical Examination - Vital Signs Temperature: 97.2 F Blood Pressure: 85/50 Pulse: 68 Respirations: 18 Pulse Ox (%): 99 - Physical Exam General: Alert, In no apparent distress, Oriented x3, Cooperative HEENT: Atraumatic, Scleral icterus Neck: Supple Respiratory: Clear to auscultation bilaterally, Normal air movement Cardiovascular: Normal pulses, Regular rate/rhythm Gastrointestinal: Normal bowel sounds, No tenderness, No masses, No rebound, No guarding Neurological: Normal speech, Normal strength at 5/5 x4 extr, Normal tone, Normal affect - Studies Medications List Reviewed: Yes Assessment & Plan Discharge Plan: Home Plan to discharge in: 24 Hours Physician Review Additional Text: Impression: Fatigue, dizziness, poor appetite with leukocytosis likely related to recent medication-Neulasta Hypotension likely ortho static related to dehydration versus other etiology Anemia with thrombocytopenia with history of Breast cancer on chemotherapy Elevated troponin etiology unknown Elevated ammonia level, elevated bili Mosqu[place] with elevation in liver function etiology unknown GERD Plan: Fatigue, dizziness, poor appetite with leukocytosis likely related to recent medication-Neulasta: Leukocytosis has improved. Continue IV fluids. If taking good oral intake will discontinue fluids. Pro calcitonin and lactic acid were elevated. Patient was given Rocephin. Blood cultures obtained. Doubt infectious process at this time. Will discontinue antibiotic therapy. Blood pressure is still low. Orthostatics were to be obtained but blood pressure was around 80 systolic. Patient had mild symptoms the dizziness. Midodrine initiated. Patient was re-evaluate after lunch. Overall improved. Blood pressure stable. Case discussed at length with hematology. Blood pressures have been low at hematology office. Will continue to monitor blood pressures closely on Midodrine. Hypotension may also be related to anemia. Hemoglobin drops likely. 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 Will check retake count and iron studies as recommended by Hematology. Will discuss further with cardiology. No intervention recommended at this time. Continue to reassess. Monitor orthostatics. If stable tomorrow then will plan for discharge at that time. Anemia with thrombocytopenia with history of Breast cancer on chemotherapy: Likely related to recent medication. Spoke with oncology at length. Patient recently on chemotherapy. Patient received Neulasta last week. Discontinue Lovenox due to thrombocytopenia. This was initiated for DVT prophylaxis. Hypotension likely ortho static related to dehydration versus other etiology: Continue as recommended above. Patient now on Midodrine. Elevated troponin etiology unknown: Cardiology to evaluate. Cardiac enzymes stable. Likely ischemic demand. No need for further evaluation at this time. Elevated ammonia level with elevation in liver function etiology unknown: Prior CT scan and liver ultrasound unremarkable. Case discussed at length with GI. GI recommends MRCP to further evaluate. MRCP unremarkable. Overall levels have improved. No encephalopathy noted. This can be further monitored and evaluated by GI as an outpatient. GERD: Provide medication Time Spent Managing Pts Care (In Minutes): 55
[2020-03-13 04:07] LABS: Absolute Lymphocytes (CBC) 2.2 K/uL (0.7-4.9); Basophils % 0.6 % (0-1.3); Hematocrit 25.8 % (36.0-45.0); Lymphocytes % 5.4 % (15.3-44.8); MPV 9.7 fL (7.6-11.3); RBC Red Blood Cell Count 2.58 M/uL (3.86-4.86)
[2020-03-13 04:48] LABS: BUN Blood Urea Nitrogen 3 mg/dL (7-18); Bicarbonate 25 mmol/L (21-32); Glucose Level 96 mg/dL (74-106); Magnesium 1.6 mg/dL (1.8-2.4); Potassium 3.3 mmol/L (3.5-5.1); Sodium Level 143 mmol/L (136-145)
[2020-03-13] MEDS ORDERED: MAGNESIUM SULFATE 1 gm IVPB 1 GM/100 ML BAG IV ONE (07:19)
[2020-03-13] MEDS ORDERED: POTASSIUM 25 MEQ EFFERV TAB PO ONE (07:21)
[2020-03-13] MEDS: INSULIN -REGULAR HUMAN 50 UNIT/0.5 ML ML SQ SCH ×2 (07:30→11:30)
[2020-03-13 08:54] VITALS: O2SAT 100
[2020-03-13] MEDS ORDERED: THIAMINE HCL 100 MG TABLET PO SCH (09:00)
[2020-03-13] MEDS: PANTOPRAZOLE 40MG TABLET PO SCH (09:20)
[2020-03-13] MEDS: MIDODRINE HCL 5 MG TABLET PO SCH (09:20)
--- NOTE | 2020-03-13 11:38 | P.DS ---
Admission Date: 03/12/20 Discharge Date: 03/13/20 Primary Care Provider: Dr. Penaloza; Oncology-Dr. Gibbons; GI-Dr. Gonzalez Disposition: ROUTINE DISCHARGE Discharge Condition: GOOD Reason for Admission: Fatigue, dizziness Consultations: Medical problem list: Fatigue, dizziness, poor appetite with leukocytosis likely related to recent medication-Neulasta Hypotension likely ortho static related to dehydration versus other etiology Anemia with thrombocytopenia with history of Breast cancer on chemotherapy Elevated troponin etiology unknown Elevated ammonia level, elevated bili [place] with elevation in liver function etiology unknown GERD Procedures: MRCP: FINDINGS: Exam has motion degradation limitations. Gallbladder size is normal. No gallstones confirmed. No wall edema or pericholecystic fluid seen. No biliary tree dilatation, stricture or mass. The distal most common bile duct in the head of the pancreas shows tapering that is still within the range of normal. No convincing evidence for a distal common bile duct stone or mass. No pancreatic duct dilatation or focal abnormality. IMPRESSION: No pancreatic duct dilatation and no stone, mass or stricture confirmed. The patient has continued, unexplained clinical or laboratory findings for biliary abnormality, ERCP study could be performed. No pancreatic duct abnormality. No gallbladder abnormality seen. CXR: FINDINGS: Lung volumes are low. Right hemidiaphragm elevation and eventration noted. Right-sided Port-A-Cath in place. No peripheral mass or consolidation. Heart and vasculature are normal. No measurable pleural effusion and no pneumothorax. No acute bony abnormality seen. No acute aortic findings suspected. IMPRESSION: No acute cardiopulmonary process. No suspicious change from comparison. CT Head: FINDINGS: An intracranial bleed is not seen . The ventricles are normal in caliber. No extra-axial fluid collection is noted. Fluid within the sinuses/ mastoids is not seen. IMPRESSION: No acute intracranial abnormality is seen Medical Problem List: Fatigue, dizziness, poor appetite with leukocytosis likely related to recent medication-Neulasta Anemia with thrombocytopenia with history of breast cancer on chemotherapy Hypotension likely orthostatic with dehydration Elevated troponin likely stress demand Elevated ammonia level, elevated liver function etiology unknown MRCP unremarkable CT scan unremarkable liver ultrasound unremarkable GERD Brief History of Present Illness: 64-year-old female presented to the emergency room with fatigue, dizziness and poor appetite. Patient with history of breast cancer on chemotherapy and GERD. Patient reported fatigue, dizziness and poor appetite over the last several days. She denies any nausea, vomiting, abdominal pain, chest pain, fever or chills. She reports getting chemotherapy about 2 weeks ago. She apparently got an ejection last week due to low white blood cell count. Patient has not been eating well. Patient came to the ER for further evaluation as she was told by oncology. In the ER patient was evaluated. Blood pressure slightly decreased. Heart rate within normal range. White count 71.7. Hemoglobin 9.5. Platelet count 83. BUN 5, creatinine 0.9. Sodium 135, potassium 2.8. GFR 63. Glucose 71. Magnesium 1.6. AST 82. Ammonia level 121. Troponin 0.22. AST of 82. Total bili repeat 2.5. Patient given fluid bolus in the emergency room. Patient was admitted for observation. When I saw the patient ER, patient appeared stable. Spoke with oncology concerning patient. Oncology reports the patient received Neulasta last week due to leukopenia. Patient also has seen GI recently with recent EGD showing GERD. She is have a colonoscopy as an outpatient. As mentioned above patient denies any prior cardiac issues. Hospital Course: Patient presented with fatigue, dizziness, poor appetite. Patient found to have leukocytosis, anemia with thrombocytopenia. Patient was also found to be hypotensive. The patient was admitted for further evaluation. Patient received IV fluids. Case discussed with Oncology who sees the patient regularly. Apparently the patient received chemotherapy for breast cancer recently. She developed leukopenia then given Neulasta. Neulasta likely cause the leukocytosis. Patient improved with IV fluids. Patient has done well. No ev idence of sepsis or infection. Hypotension likely orthostatic and dehydration related. Patient was started on Midodrine with improvement of symptoms. Blood pressure is now stable. At discharge she will continue with Midodrine 10 mg 1 pill 3 times a day. She is to hold Midodrine if blood pressure is consistently above 120 systolic. Recommend to monitor blood pressures daily. Recommend follow up with her PCP or Oncology to further monitor and address. This medication will likely be discontinued over time. As for her leukocytosis this has improved. She can follow up with Oncology to further monitor. Her anemia has remained stable. Patient is Jain and would not on any blood products. Patient had elevated troponin. Patient was seen by Cardiology. This is likely stress demand. No need for further evaluation at this time. Patient may follow up with cardiology as an outpatient to further address. Patient with elevated ammonia level, liver function test. Etiology unknown. Prior CT scan of the abdomen and liver ultrasound unremarkable recently. GI was consulted. GI recommended MRCP. MRCP unremarkable. No further intervention at this time. Recommend to recheck lab-CMP and ammonia level in 1-2 weeks to monitor levels closely. Recommend follow up with GI as an outpatient to further address. Recent hepatitis panel unremarkable. This can be followed up by oncology. Patient with GERD. Patient reports having recent EGD. Patient will continue with Protonix 40 mg 1 pill twice daily. Recommend colonoscopy in the near future to further address her anemia. Patient with low magnesium level. At discharge she will continue with magnesium 200 daily. Recommend to recheck magnesium level in 1 week to monitor her progress. Vital Signs/Physical Exam: Temp Pulse Resp BP Pulse Ox 97.3 F 75 16 116/69 100 03/13/20 08:00 03/13/20 08:00 03/13/20 08:00 03/13/20 04:00 03/13/20 08:00 General: Alert, In no apparent distress, Oriented x3, Cooperative HEENT: Atraumatic Neck: Supple Respiratory: Clear to auscultation bilaterally, Normal air movement Cardiovascular: Normal pulses, Regular rate/rhythm Gastrointestinal: Normal bowel sounds, Soft and benign, Non-distended, No tenderness, No masses, No rebound, No guarding Musculoskeletal: No erythema, No tenderness, No warmth Integumentary: No tenderness/swelling, No erythema, No warmth, No cyanosis Neurological: Normal speech, Normal strength at 5/5 x4 extr, Normal tone, Normal affect Laboratory Data at Discharge: WBC 41.3 K/uL (4.3-10.9) H* 03/13/20 03:42 Hgb 8.5 g/dL (12.0-15.0) L 03/13/20 03:42 Hct 25.8 % (36.0-45.0) L D 03/13/20 03:42 Plt Count 65 K/uL (152-406) L D 03/13/20 03:42 PT 17.8 SECONDS (9.5-12.5) H 03/12/20 03:29 INR 1.52 03/12/20 03:29 APTT 43.2 SECONDS (24.3-36.9) H 03/12/20 03:29 Sodium 143 mmol/L (136-145) 03/13/20 03:42 Potassium 3.3 mmol/L (3.5-5.1) L 03/13/20 03:42 BUN 3 mg/dL (7-18) L 03/13/20 03:42 Creatinine 0.65 mg/dL (0.55-1.3) 03/13/20 03:42 Glucose 96 mg/dL (74-106) 03/13/20 03:42 Magnesium 1.6 mg/dL (1.8-2.4) L 03/13/20 03:42 Total Bilirubin 1.2 mg/dL (0.2-1.0) H 03/12/20 03:29 AST 60 U/L (15-37) H 03/12/20 03:29 ALT 15 U/L (12-78) 03/12/20 03:29 Alkaline Phosphatase 154 U/L (45-117) H 03/12/20 03:29 Troponin I 0.21 ng/mL (0.0-0.045) H 03/12/20 00:50 Triglycerides 84 mg/dL (<150) 03/12/20 03:29 Cholesterol 84 mg/dL (<200) 03/12/20 03:29 HDL Cholesterol 17 mg/dL (40-60) L 03/12/20 03:29 Cholesterol/HDL Ratio 4.94 03/12/20 03:29 Home Medications: Thiamine HCl 100 mg PO DAILY 30 Days #30 tablet 02/01/20 Ondansetron [Ondansetron Odt] 1 tab PO Q4HP PRN 03/11/20 Pantoprazole [Protonix Tab*] 40 mg PO BID 03/11/20 Tramadol HCl [Ultram] 50 mg PO BID 03/11/20 dexAMETHasone [Dexamethasone] 03/11/20 Magnesium Oxide [Mag-Oxide] 200 mg PO DAILY #30 tablet 03/13/20 Midodrine HCl 10 mg PO TID #90 tablet 03/13/20 New Medications: Magnesium Oxide [Mag-Oxide] 200 mg PO DAILY #30 tablet Midodrine HCl 10 mg PO TID #90 tablet Patient Discharge Instructions: 1. Recommend follow up with PCP in 1 week to follow up this hospitalization. 2. Patient presented with fatigue, dizziness, poor appetite. Patient found to have leukocytosis, anemia with thromb ocytopenia. Patient was also found to be hypotensive. The patient was admitted for further evaluation. Patient received IV fluids. Case discussed with Oncology who sees the patient regularly. Apparently the patient received chemotherapy for breast cancer recently. She developed leukopenia then given Neulasta. Neulasta likely cause the leukocytosis. Patient improved with IV fluids. Patient has done well. No evidence of sepsis or infection. Hypotension likely orthostatic and dehydration related. Patient was started on Midodrine with improvement of symptoms. Blood pressure is now stable. At discharge she will continue with Midodrine 10 mg 1 pill 3 times a day. She is to hold Midodrine if blood pressure is consistently above 120 systolic. Recommend to monitor blood pressures daily. Recommend follow up with her PCP or Oncology to further monitor and address. This medication will likely be discontinued over time. As for her leukocytosis this has improved. She can follow up with Oncology to further monitor. Her anemia has remained stable. Patient is Jain and would not on any blood products. 3. Patient had elevated troponin. Patient was seen by Cardiology. This is likely stress demand. No need for further evaluation at this time. Patient may follow up with cardiology as an outpatient to further address. 4. Patient with elevated ammonia level, liver function test. Etiology unknown. Prior CT scan of the abdomen and liver ultrasound unremarkable recently. GI was consulted. GI recommended MRCP. MRCP unremarkable. No further intervention at this time. Recommend to recheck lab-CMP and ammonia level in 1-2 weeks to monitor levels closely. Recommend follow up with GI as an outpatient to further address. Recent hepatitis panel unremarkable. This can be followed up by oncology. 5. Patient with GERD. Patient reports having recent EGD. Patient will continue with Protonix 40 mg 1 pill twice daily. Recommend colonoscopy in the near future to further address her anemia. 6. Patient with low magnesium level. At discharge she will continue with magnesium 200 daily. Recommend to recheck magnesium level in 1 week to monitor her progress. Diet: AHA Activity: Fall precautions Time spent managing pt's care (in minutes): 55
[2020-03-13 11:59] VITALS: BP 119/58; TEMP 96.8
--- NOTE | 2020-03-13 15:04 | ECHO ---
HEIGHT: 4 ft 9.09 in WEIGHT: 145 lb 0 oz DATE OF STUDY: 03/12/[address]: Johnny Barakat DO 2-DIMENSIONAL: YES M.MODE: YES DOPPLER: YES COLOR FLOW: YES TDS: PORTABLE: DEFINITY: BUBBLE STUDY: DIAGNOSIS: ELEVATED TROPONIN CARDIAC HISTORY: CATHERIZATION: NO SURGERY: NO PROSTHETIC VALVE: NO PACEMAKER: NO MEASUREMENTS (cm) DIASTOLIC (NORMALS) SYSTOLIC (NORMALS) IVSd 1.0 (0.6-1.2) LA Diam (1.9-4.0) LVEF 66% LVIDd 4.8 (3.5-5.7) LVIDs 3.0 (2.0-3.5) %FS 36% LVPWd 1.2 (0.6-1.2) Ao Diam 2.8 (2.0-3.7) 2 DIMENSIONAL ASSESSMENT: RIGHT ATRIUM: NORMAL LEFT ATRIUM: NORMAL RIGHT VENTRICLE: NORMAL LEFT VENTRICLE: NORMAL TRICUSPID VALVE: NORMAL MITRAL VALVE: NORMAL PULMONIC VALVE: NORMAL AORTIC VALVE: NORMAL PERICARDIAL EFFUSION: NONE AORTIC ROOT: NORMAL LEFT VENTRICULAR WALL MOTION: NORMAL DOPPLER/COLOR FLOW: MILD TRICUSPID REGURGITATION. NORMAL RIGHT VENTRICULAR SYSTOLIC PRESSURE. COMMENTS: NORMAL LEFT VENTRICULAR SIZE AND FUNCTION. NO WALL MOTION ABNORMALITY. NO EFFUSION. TECHNOLOGIST: LEEANNA LIU
== END 2020-03-13 14:06 | disposition home or self-care (01) | DRG 948 ==
LOC: ER 09:16 → ERHOLD 12:25 → 4TH 20:53 → OBSVTOIN 03-12 14:43
PROVIDERS: ADMIT Family Medicine; ATTEND Family Medicine
DX: R53.83 Other fatigue (principal); T45.8X5A Adverse effect of other primarily systemic and hematological agents, initial encounter; D72.829 Elevated white blood cell count, unspecified; E86.0 Dehydration; R42 Dizziness and giddiness; R79.89 Other specified abnormal findings of blood chemistry; I95.1 Orthostatic hypotension; F43.9 Reaction to severe stress, unspecified; D69.6 Thrombocytopenia, unspecified; K21.9 Gastro-esophageal reflux disease without esophagitis; C50.912 Malignant neoplasm of unspecified site of left female breast; Z79.899 Other long term (current) drug therapy; Z53.1 Procedure and treatment not carried out because of patient's decision for reasons of belief and group pressure; Z90.12 Acquired absence of left breast and nipple
CPT/HCPCS: 36415; 70450; 71045; 74181; 80048; 80053; 80061; 80076; 81003; 81015; 82140; 82550; 82553; 82607; 82728; 82947; 83540; 83605; 83735; 83880; 84132; 84145; 84439; 84443; 84466; 84484; 85014; 85018; 85025; 85044; 85610; 85730; 86850; 86900; 86901; 87040; 87086; 87088; 93005; 93306; 96365; 96366; 96368; 97162; 99285; G0378; J0696; J1650; J3475; J3480; J7030; J7040; J7042; U0002

== ENCOUNTER 2020-04-24 20:48 | Emergency (ER) | payer MEDICAID ==
--- OUTSIDE RECORDS SUMMARY | 2020-04-24 20:51 | XMS REPORT | Clinical Summary ---
:1955 Author Organization [facility] Address [address] [place] [address] Care Team Providers Name Role Phone Pcp, No Primary Care Provider Unavailable Allergies No Known Allergies Medications Medication Sig Dispensed Refills Start Date End Date Status midodrine 1 - 3 times a 0 03/13/2020 Activ e (PROAMATINE) 10 MG day. tablet anastrozole Once a day. 0 04/22/2020 Activ e (ARIMIDEX) 1 mg tablet pantoprazole Take 40 mg by 0 02/19/2020 Ac tive (PROTONIX) 40 MG mouth 2 (two) tablet times daily 1 - 2 times a day. magnesium oxide 250 At night . 0 04/11/2020 Active mg magnesium Tab tablet cholecalciferol, . 0 Act rios vitamin D3, (VITAMIN D3 ORAL) thiamine (vitamin Take 100 mg 0 Active B-1) 100 MG tablet by mouth daily. calcium carb/vit Take by mouth 0 Active D3/minerals 3 times (CALTRATE PLUS weekly . ORAL) tramadol HCl . 0 Active (TRAMADOL ORAL) thiamine 100 MG Take 100 mg 0 02/02/2020 04/24/2020 Discontinued tablet by mouth daily. Active Problems Problem Noted Date Elevated liver enzymes Low HDL (under 40) Hypertension Breast cancer Thrombocytopenia Elevated alkaline phosphatase level Serum total bilirubin elevated Pancytopenia Encounters Date Type Specialty Care Team Description 04/24/2020 Office Visit Hepatology Yolande Shane Elevated al kaline phosphatase level (Primary Dx); MD Sabra MPH Elevated liver enzymes; Low HDL (under 40); Essential hyper tension; Malignant neopl asm of left female breast, unspecified estrogen receptor status, unspecified site of breast (HCC); Thrombocytopeni a (HCC); Serum total paz irubin elevated; Immunity status testing; Gastric ulcer, unspecified chronicity, unspecified whether gastric ulcer hemorrhage or perforation present; Screening for c olon cancer; Pancytopenia (H CC) 04/24/2020 Telephone Hepatology Yolande Shane Hypokalemia MD Sabra MPH 04/23/2020 Telephone Hepatology Marivel Carlos Appointmen t (COVID 19 SCREENED) 04/19/2020 Documentation Hepatology Kaela Zavala MA 04/12/2020 Outside Orders Hepatology Marivel Carlos 01/30/2020 Lab Requisition Lab after 04/24/2019 Family History Medical History Relation Name Comments Liver disease Brother Hypertension Father Cervical cancer Mother Cirrhosis Mother Relation Name Status Comments Brother Father Mother Social History Tobacco Use Types Packs/Day Years Used Date Never Smoker Smokeless Tobacco: Never Used Alcohol Use Drinks/Week oz/Week Comments Not Currently Sex Assigned at Date Recorded Not on file Last Filed Vital Signs Vital Sign Reading Time Taken Comments Blood Pressure 146/82 04/24/2020 11:15 AM CDT Pulse 68 04/24/2020 11:15 AM CDT Temperature 36.6 C (97.9 F) 04/24/2020 11:15 AM CDT Respiratory Rate 16 04/24/2020 11:15 AM CDT Oxygen Saturation 100% 04/24/2020 11:15 AM CDT Inhaled Oxygen Concentration - - Weight 62.1 kg (137 lb) 04/24/2020 11:15 AM CDT Height 149.9 cm (4' 11") 04/24/2020 11:15 AM CDT Body Mass Index 27.67 04/24/2020 11:15 AM CDT Plan of Treatment Date Type Specialty Care Team Description 05/01/2020 Appointment Radiology Yolande Shane MD MPH [address] [address] [phone] Health Maintenance Due Date Last Done Comments BREAST CANCER SCREENING 1955 COLON CANCER SCREENING COLONOSCOPY 1955 CERVICAL CANCER SCREENING PAP ONLY (Age 21-65) 1977 LIPID PANEL 2001 INFLUENZA VACCINE (#1) 2020 Procedures Procedure Name Priority Date/Time Associated Comments Diagnosis CBC W/PLT COUNT & AUTO Routine 04/24/2020 1:20 Malignant neop lasm Results for this DIFFERENTIAL PM CDT of left female procedure are in breast, unspecified the resu lts estrogen receptor section. status, unspecified site of breast (HCC) Elevated alkaline phosphatase leve l Serum total bilirubin elevated GAMMA GLUTAMYL Routine 04/24/2020 1:20 Malignant neoplasm Res ults for this TRANSFERASE (GGT) PM CDT of left female procedur e are in breast, unspecified the resu lts estrogen receptor section. status, unspecified site of breast (HCC) Elevated alkaline phosphatase leve l Serum total bilirubin elevated ALPHA FETOPROTEIN Routine 04/24/2020 1:20 Malignant neoplasm Results for this (AFP), TUMOR MARKER PM CDT of left female proced ure are in breast, unspecified the resu lts estrogen receptor section. status, unspecified site of breast (HCC) Elevated alkaline phosphatase leve l Serum total bilirubin elevated FERRITIN Routine 04/24/2020 1:20 Malignant neoplasm Resul ts for this PM CDT of left female procedure are in breast, unspecified the resu lts estrogen receptor section. status, unspecified site of breast (HCC) Elevated alkaline phosphatase leve l Serum total bilirubin elevated IRON, TIBC, % SAT. Routine 04/24/2020 1:20 Malignant neoplasm Results for this (WITHOUT FERRITIN) PM CDT of left female procedu re are in breast, unspecified the resu lts estrogen receptor section. status, unspecified site of breast (HCC) Elevated alkaline phosphatase leve l Serum total bilirubin elevated HEPATITIS C ANTIBODY Routine 04/24/2020 1:20 Malignant neopla sm Results for this PM CDT of left female procedure are in breast, unspecified the resu lts estrogen receptor section. status, unspecified site of breast (HCC) Elevated alkaline phosphatase leve l Serum total bilirubin elevated HEPATITIS B CORE Routine 04/24/2020 1:20 Malignant neoplasm R esults for this ANTIBODY, TOTAL PM CDT of left female procedure are in breast, unspecified the resu lts estrogen receptor section. status, unspecified site of breast (HCC) Elevated alkaline phosphatase leve l Serum total bilirubin elevat ed Immunity status testing HEPATITIS B SURFACE Routine 04/24/2020 1:20 Malignant neoplas m Results for this ANTIBODY PM CDT of left female procedure are in breast, unspecified the resu lts estrogen receptor section. status, unspecified site of breast (HCC) Elevated alkaline phosphatase leve l Serum total bilirubin elevat ed Immunity status testing HEPATITIS B SURFACE Routine 04/24/2020 1:20 Malignant neoplas m Results for this ANTIGEN PM CDT of left female procedure are in breast, unspecified the resu lts estrogen receptor section. status, unspecified site of breast (HCC) Elevated alkaline phosphatase leve l Serum total bilirubin elevat ed Immunity status testing HEPATITIS A ANTIBODY, Routine 04/24/2020 1:20 Malignant neopl asm Results for this IGM PM CDT of left female procedure are in breast, unspecified the resu lts estrogen receptor section. status, unspecified site of breast (HCC) Elevated alkaline phosphatase leve l Serum total bilirubin elevat ed Immunity status testing HEPATITIS A ANTIBODY, Routine 04/24/2020 1:20 Malignant neopl asm Results for this IGG PM CDT of left female procedure are in breast, unspecified the resu lts estrogen receptor section. status, unspecified site of breast (HCC) Elevated alkaline phosphatase leve l Serum total bilirubin elevat ed Immunity status testing CBC W/PLT COUNT & AUTO Routine 04/24/2020 1:20 Malignant neop lasm Results for this DIFFERENTIAL PM CDT of left female procedure are in breast, unspecified the resu lts estrogen receptor section. status, unspecified site of breast (HCC) Elevated alkaline phosphatase leve l Serum total bilirubin elevated BILIRUBIN, DIRECT Routine 04/24/2020 1:20 Malignant neoplasm Results for this PM CDT of left female procedure are in breast, unspecified the resu lts estrogen receptor section. status, unspecified site of breast (HCC) Elevated alkaline phosphatase leve l Serum total bilirubin elevated COMPREHENSIVE Routine 04/24/2020 1:20 Malignant neoplasm Resu lts for this METABOLIC PANEL PM CDT of left female procedure are in breast, unspecified the resu lts estrogen receptor section. status, unspecified site of breast (HCC) Elevated alkaline phosphatase leve l Serum total bilirubin elevated [id number], Routine 04/24/2020 1:19 Malignant neopl asm Results for this SERUM PM CDT of left female procedure are in breast, unspecified the resu lts estrogen receptor section. status, unspecified site of breast (HCC) Elevated alkaline phosphatase leve l Serum total bilirubin elevated PROTHROMBIN TIME/INR Routine 04/24/2020 1:19 Malignant neopla sm Results for this PM CDT of left female procedure are in breast, unspecified the resu lts estrogen receptor section. status, unspecified site of breast (HCC) Elevated alkaline phosphatase leve l Serum total bilirubin elevated SARS-COV2/RT-PCR ([facility] Routine 01/30/2020 1:45 R esults for this & REF LABS) PM CDT procedure are i n the results section. after 04/24/2019 Results Hepatitis A antibody, IgG (04/24/2020 1:20 PM CDT) Pathologist Sig nature Hep A IgG Reactive (A) Nonreactive [facility] Specimen Blood Narrative Performed At [employer]are Parts Clerk ID - [facility] Performing Organization Address [facility] Hospital[facility] Phone Number [facility] [address] [place] [address] CENTER Iron, TIBC, % sat. (without ferritin) (04/24/2020 1:20 PM CDT) Pathologist Sig nature Iron 128.0 40.0 - 160.0 ug/dL [facility] TIBC 294 250 - 450 ug/dL [facility] Iron % Saturation 44 20 - 55 % [facility] Specimen Blood Narrative Performed At [employer] Clerk ID - [facility] Performing Organization Address City/[facility]/Zipcode Phone Number [facility] [address] [place] [address] CENTER CBC with platelet count + automated diff (04/24/2020 1:20 PM CDT) Pathologist Sig nature WBC 3.3 (L) 3.5 - 10.5 [facility] K/L [facility] RBC 2.91 (L) 3.93 - 5.22 [facility] M/L [facility] Hemoglobin 10.1 (L) 11.2 - 15.7 [facility] GM/DL [facility] Hematocrit 30.7 (L) 34.1 - 44.9 % [facility] MCV 105.5 (H) 79.4 - 94.8 fL [facility] MCH 34.7 (H) 25.6 - 32.2 pg [facility] MCHC 32.9 32.2 - 35.5 [facility] GM/DL [facility] RDW 15.1 (H) 11.7 - 14.4 % [facility] Platelets 70 (L) 150 - 450 K/CU [facility] MPV 10.6 9.4 - 12.3 fL [facility] nRBC 0 0 - 0 /100 WBC [facility] % Neutros 54 % [facility] % Lymphs 32 % [facility] % Monos 12 % [facility] % Eos 2 % [facility] % Baso 0 % [facility] # Neutros 1.80 1.56 - 6.13 [facility] # Lymphs 1.06 (L) 1.18 - 3.74 [facility] # Monos 0.40 (H) 0.24 - 0.36 [facility] # Eos 0.05 0.04 - 0.36 [facility] # Baso 0.01 0.01 - 0.08 [facility] Immature 0 0 - 1 % [facility] Granulocytes-Relativ [facility] CENTER Specimen Blood Performing Organization Address City/State/Zipcode Phone Number [facility] [address] [place] [address] CENTER Hepatitis C antibody (04/24/2020 1:20 PM CDT) Pathologist Sig nature Hepatitis C Ab Nonreactive Nonreactive [facility] Specimen Blood Narrative Performed At [employer] Clerk ID - [facility] Performing Organization Address City/State/Zipcode Phone Number [address] [address] CENTER Hepatitis A antibody, IgM (04/24/2020 1:20 PM CDT) Pathologist Sig nature Hep A IgM Nonreactive Nonreactive [facility] Specimen Blood Narrative Performed At [employer] Clerk ID - [facility] [place] Performing Organization Address City/[facility] Hospitalcode Phone Number [address] [address] [place] Alpha fetoprotein (AFP), tumor marker (04/24/2020 1:20 PM CDT) Pathologist Sig nature Alpha-Fetoprotein 5.0 <10.0 ng/mL [facility] Specimen Blood Narrative Performed At [employer]are Parts Clerk ID [facility] Performing Organization Address [facility] Hospitalcode Phone Number [address] [address] [place] Hepatitis B core antibody, total (04/24/2020 1:20 PM CDT) Pathologist Sig nature Hep B Core Total Ab Nonreactive Nonreactive [facility] Specimen Blood Narrative Performed At [employer] Clerk ID - [facility] Performing Organization Address [facility] Hospitalcode Phone Number [address] [address] CENTER Hepatitis B surface antibody (04/24/2020 1:20 PM CDT) Pathologist Sig nature Hep B S Ab <8.0 <8.0 mIU/mL [facility] Specimen Blood Narrative Performed At [employer] Clerk ID - [facility] Performing Organization Address City/[facility] Hospitalcode Phone Number [address] [address] CENTER Hepatitis B surface antigen (04/24/2020 1:20 PM CDT) Pathologist Sig nature HBsAg Screen Nonreactive Nonreactive [facility] Specimen Blood Narrative Performed At Specimen is considered negative for HBsA g. [facility] Performing Organization Address City/[facility] Hospitalcode Phone Number [address] [address] CENTER Gamma Glutamyl Transferase (GGT) (04/24/2020 1:20 PM CDT) Pathologist Sig nature GGT 50 9 - 64 U/L [facility] Specimen Blood Narrative Performed At [employer] Clerk ID - [facility] Specimen slightly icteric Performing Organization Address [facility] Hospitalcond Phone Number [address] [address] CENTER Ferritin (04/24/2020 1:20 PM CDT) Pathologist Sig nature Ferritin 177.89 5.00 - 275.00 ng/mL [facility] Specimen Blood Narrative Performed At Sp[employer] Clerk ID - BS [facility] Performing Organization Address [facility] Hospitalcond Phone Number [address] [address] [place] Bilirubin, direct (04/24/2020 1:20 PM CDT) Pathologist Sig nature Bilirubin, Direct 0.9 (H) 0.1 - 0.5 mg/dL [facility] Specimen Blood Narrative Performed At [employer] Clerk ID - [facility] Performing Organization Address [facility] Hospitalcode Phone Number [address] [address] CENTER Comprehensive Metabolic Panel (04/24/2020 1:20 PM CDT) Protein, Total 6.4 6.0 - 8.3 [facility] gm/dL [facility] Albumin 3.2 (L) 3.5 - 5.0 [facility] g/dL [facility] Alkaline 181 (H) 40 - 150 U/L [facility] Phosphatase [facility] Total Bilirubin 1.8 (H) 0.2 - 1.2 [facility] mg/dL [facility] Sodium 140 136 - 145 [facility] meq/L [facility] Potassium 3.3 (L) 3.5 - 5.1 [facility] meq/L [facility] Chloride 105 98 - 107 [facility] meq/L [facility] CO2 27 22 - 29 meq/L [facility] BUN 9 7 - 21 mg/dL [facility] Creatinine 0.71 0.57 - 1.25 [facility]/dL [facility] Glucose 84 70 - 105 [facility] mg/dL [facility] Calcium 10.7 (H) 8.4 - 10.2 [facility] mg/dL [facility] AST 46 (H) 5 - 34 U/L [facility] ALT 19 6 - 55 U/L [facility] EGFR 83Comment: mL/min/1.73 [facility] ESTIMATED GFR IS sq [facility] NOT ACCURATE MEDICAL CENTER CREATININE CLEARANCE IN PREDICTING GLOMERULAR FILTRATION RATE. ESTIMATED GFR IS NOT APPLICABLE FOR DIALYSIS PATIENTS. Specimen Blood Narrative Performed At Spare Parts Clerk ID - [facility] Specimen slightly icteric Performing Organization Address City/[facility]/Zipcode Phone Number [facility] [address] [place] [address] CENTER [id number] (04/24/2020 1:19 PM CDT) Pathologist Sig nature A-1 Antitrypsin 149.50 90.00 - 200.00 [facility] Specimen Blood Narrative Performed At [employer] Clerk ID - [facility]NG [facility] Performing Organization Address City/[facility]/Zipcode Phone Number [facility] [address] [address] CENTER Pro-time/INR (04/24/2020 1:19 PM CDT) Pathologist Sig nature Protime 14.3 (H) 11.9 - 14.2 seconds [facility] INR 1.14 <=5.90 [facility] Specimen Blood Narrative Performed At Effective 12/07/2018: PT Reference Range [facility] Change New: 11.9-14.2 Previous: 11.7-14.7 RECOMMENDED COUMADIN/WARFARIN INR THERAPY RANGES STANDARD DOSE: 2.0-3.0 Includes: PROPHYLAXIS for venous thrombosis, systemic embolization; TREATMENT for venous thrombosis and/or pulmonary embolus. HIGH RISK: Target INR is 2.5-3.5 for patients wiht mechanical heart valves. Performing Organization Address City/State/Zipcode Phone Number [address] [address] [place] SARS-CoV2/RT-PCR ([facility] & Ref Labs) (01/30/2020 1:45 PM CDT) SARS-COV2/RT-PCR Not Detected Not Detected, [facility] Negative, See [facility] external [facility] CENTER for linked test SARS-COV-2 [facility] PERFORMING [facility] Specimen Other - Nasopharyngeal wall structure (b ronak structure) Narrative Performed At Negative results do not preclude SARS-CoV-2 [facility] infection and should not be used as the sole basis for patient management decisions. Negative results must be combined with clinical observations, patient history, and epidemiological information. A false negative result may occur if a specimen is improperly collected, transported or handled. The limit of detection for this assay is 250 copies/mL. This SARS CoV-2 test is a rapid, real-time RT-PCR test intended for the qualitative detection of nucleic acid from SARS-CoV-2 in a nasopharyngeal swab specimen collected from individuals suspected of COVID-19 by their healthcare provider. This test has not been Food and Drug Administration (FDA) cleared or approved and has been authorized by FDA under an Emergency Use Authorization (EUA). This EUA will be effective until the declaration that circumstances exist justifying the authorization of the emergency use of in vitro diagnostic tests for detection and/or diagnosis of COVID-19 is terminated under Section 564(b)(2) of the Act or the EUA is revoked under Section 564(g) of the Act. Fact Sheet for Healthcare Providers: https://www.Daily Pic/Documents/Xpert%20Xpre ss%20SARS%20CoV-2/Fact%20Sheets/3023802%20SAR S-COV-2%20HEALTHCARE%20PROVIDERS%20FACT%20SHEE T.pdf Fact Sheet for Healthcare Patients: https://www.Daily Pic/Documents/Xpert%20Xpre ss%20SARS%20CoV-2/Fact%20Sheets/3023801%20SAR S-COV-2%20PATIENT%20FACT%20SHEET.pdf Performing Laboratory: [address] [place] [address] Performing Organization Address City/State/Zipcode Phone Number [address] [phone] CENTER after 04/24/2019
--- OUTSIDE RECORDS SUMMARY | 2020-04-24 20:52 | XMS REPORT | Continuity of Care Document ---
:1955 Author Organization [facility] t Address [address] [place] [address] Care Team Providers Name Role Phone Pcp, No Primary Care Physician Unavailable Acosta HERNANDEZ MPH, Yolande Montaño Attending Clinician [phone] BENJAMIN SHANE Attending Clinician Unavailable Breanna Attending Clinician Unavailable Lucas SCHILLING Attending Clinician Unavailable Saúl PRINCIPAL TECHNICAL WRITER, N Attending Clinician Mihai PRINCIPAL TECHNICAL WRITER, R Attending Clinician Doctor Unassigned, Name Attending Clinician Unavailable Payers Payer Name Policy Type Policy Effective Date Expiration Date Sour ce Number MEDICAIDMEDICAID OF [id number] 2020 [facility] [id number] 00:00:00 - Medical 0-PresentMedicaid Center Problems Condition Condition Condition Status Onset Resolution Last Treating Co mments Source Name Details Category Date Date Treatment Clinician Date Elevated Elevated Disease [facility] liver liver [facility] - enzymes enzymes [facility] Low HDL Low HDL Disease Active [facility] (under 40[facility] (under 40) [facility] Hypertensi Hypertensi Disease Active C [facility] on on [facility] Breast Breast Disease Active [facility] cancer cancer [facility] Thrombocyt Thrombocyt Disease Active C [facility] openia openia [facility] Elevated Elevated Disease Active [facility] alkaline alkaline [facility] - phosphatas phosphatas Me dical e level e level [place] Serum Serum Disease Active [facility] total total [facility] - bilirubin bilirubin Medi manjinder elevated elevated Center Pancytopen Pancytopen Disease Active C [facility] ia ia [facility] Allergies, Adverse Reactions, Alerts This patient has no known allergies or adverse reactions. Family History Family Member Diagnosis Comments Start Date Stop Date Source Natural brother Liver disease [facility] Natural father Hypertension [facility] Natural mother Cervical cancer [facility] Natural mother Cirrhosis [facility] Social History Social Habit Start Date Stop Date Quantity Comments Source Sex Assigned At [facility] Tobacco use and 2020-04-24 2020-04-24 Never used [facility] - exposure 00:00:00 00:00:00 [facility] Alcohol intake 2020-04-24 2020-04-24 Ex-drinker [facility] 00:00:00 00:00:00 (finding) [facility] Smoking Status Start Date Stop Date Source Never smoker [facility] Medications Ordered Filled Start Stop Current Ordering Indication Dosage Frequency Signature Comments Components Source Medication Medication Date Date Medication? Clinician (SIG) Name Name cholecalcif 2019-07 Yes . [facility]3] milvia, 0-14 [facility] - vitamin D3, 13:04: Medica l (VITAMIN D3 35 [place] ORAL) tramadol 2019-07 Yes . [facility] HCl 0-14 [facility] - (TRAMADOL 13:03: Medical ORAL) 46 [place] thiamine 2019-07 Yes 100mg QD Take [address] [facility] [address] (vitamin 0-14 mg by [facility] - B-1) 100 MG 11:23: mouth Medic al tablet 39 daily. [place] calcium 2019-07 Yes Take by [facility] carb/vit 0-14 mouth 3 [facility] - D3/minerals 11:23: times Medic al (CALTRATE 39 weekly . [place] PLUS ORAL) anastrozole 2019-07 Yes [address] a [facility] (ARIMIDEX) 0-12 day. [facility] - 1 mg tablet 00:00: Medica l 00 [place] magnesium 2019-07 Yes At night . I St oxide 250 0-01 [facility] - mg 00:00: Medical magnesium 00 Center Tab tablet Midodrine Midodrine Yes Bear [address] HCl HCl 9-15 Penaloza [facility] - 00:00: Memoria 00 l [facility] ent [facility] midodrine 0 Yes 1 - [address] [facility] (PROAMATINE 9-02 times a [facility] - ) 10 MG 00:00: day. Medical tablet 00 Center pantoprazol Yes 40mg Q.5D Take [address] [facility] e 8-10 by mouth 2 [facility] - (PROTONIX) 00:00: (two) Medica l 40 MG 00 times Center tablet daily 1 - 2 times a day. thiamine 2020- No 100mg QD Take [address] 100 MG 7-24 10-14 mg by [facility] - tablet 00:00: 00:00 mouth Medical 00 :00 daily. [place] Multivitami Multivitami Yes Bear not [facility] n Adults n Adults Penaloza defined [facility] es - [facility] Vital Signs Vital Name Observation Time Observation Value Comments Source Systolic blood 2020-04-24 11:15:00 146 mm[Hg] [facility] Diastolic blood 2020-04-24 11:15:00 82 mm[Hg] [facility] Heart rate 2020-04-24 11:15:00 68 /min [facility] Body temperature 2020-04-24 11:15:00 36.61 Shasha [facility] Respiratory rate 2020-04-24 11:15:00 16 /min [facility] Body height 2020-04-24 11:15:00 149.9 cm [facility] Body weight 2020-04-24 11:15:00 62.143 kg [facility] BMI 2020-04-24 11:15:00 27.67 kg/m2 [facility] Oxygen saturation in 2020-04-24 11:15:00 100 /min [facility] Arterial blood by Medical Ce nter Pulse oximetry Procedures Procedure Date / Time Performed Performing Clinician Sourc e COMPREHENSIVE METABOLIC 2020-04-24 13:20:00 Yolande Shane [facility] - PANEL [facility] BILIRUBIN, DIRECT 2020-04-24 13:20:00 Yolande Shane [facility] HEPATITIS A ANTIBODY, IGG 2020-04-24 13:20:[address] [facility] HEPATITIS A ANTIBODY, IGM 2020-04-24 13:20:[address] [facility] HEPATITIS B SURFACE 2020-04-24 13:20:00 Yolande Shane [facility] - ANTIGEN [facility] HEPATITIS B SURFACE 2020-04-24 13:20:00 Yolande Shane [facility] - ANTIBODY [facility] HEPATITIS B CORE 2020-04-24 13:20:00 Yolande Shane [facility] es - ANTIBODY, TOTAL [facility] HEPATITIS C ANTIBODY 2020-04-24 13:20:00 [facility] IRON, TIBC, % SAT. 2020-04-24 13:20:00 Yolande Shane [facility] - (WITHOUT FERR[facility]IN) [facility] 2020-04-24 13:20:00 Acosta [facility] ALPHA FETOPROTEIN (AFP), 2020-04-24 13:20:00 Yolande Shane I [facility] - TUMOR MARKER [facility] GAMMA GLUTAMYL 2020-04-24 13:20:00 [facility] s - TRANSFERASE (GGT) [facility] CBC W/PLT COUNT & AUTO 2020-04-24 13:20:[address] [facility] DIFFERENTIAL [facility] PROTHROMBIN TIME/INR 2020-04-24 13:19:00 [facility] [id number]\, 2020-04-24 13:19:00 Yolande Shane [facility] - SERUM [facility] SARS-COV2/RT-PCR ([facility] & 2020-01-30 13:45:00 [facility] - REF LABS) [facility] Plan of Care Planned Activity Planned Date Details Comments Source Future Scheduled 2020-03-[address] [facility] Test 00:00:00 (#1) [code = Medical Center INFLUENZA VACCINE (#1)] Future Scheduled [address] [facility] - Test 00:00:00 (procedure) [code = [facility] 23953601] Future Scheduled [address] [facility] - Test 00:00:00 malignant neoplasm Medical C enter of cervix (procedure) [code = 660499082] Future Scheduled [address] [facility] [facility] [facility] - Test 00:00:00 malignant neoplasm Medical C enter of breast (procedure) [code = 570828881] Future Scheduled [address] [facility] [facility] - Test 00:00:00 malignant neoplasm Medical C enter of colon (procedure) [code = 072348939] Encounters Start End Encounter Admission Attending Care Care Encounter Source Date/Time Date/Time Type Type Clinicians Facility Department ID 2020-04-15 2020-04-15 [id number] 2020-04-11 2020-04-11 Out[facility] [id number] [facility] 2020-04-08 2020-04-08 [facility] [id number] [facility] 2020-04-04 2020-04-04 [facility] [id number] 2020-03-26 2020-03-26 [facility] [id number] [facility] 15:20:00 15:20:00 t Want[facility] s - Drive [facility] l Medicine Outpati ent Clinics 2020-03-22 2020-03-22 [facility] [id number] [facility] 13:35:00 13:35:00 t Wantful s - Drive [facility] l Medicine Outpati ent Clinics 2020-02-14 2020-02-14 [facility] [id number] [facility] 13:51:00 13:51:00 t [place] [employer] s RADEUM [facility] Medicine Outpati ent Clinics 2020-01-10 2020-01-10 [facility] [id number] 10:00:00 10:00:00 t [place] [employer] s RADEUM [facility] l Medicine Outpati ent Clinics 2020-01-10 2020-01-10 [facility] [id number] 10:00:00 10:00:00 t Wantful s RADEUM [facility] Medicine Outpati ent Clinics 2020-01-09 2020-01-09 [facility] [id number] [facility] 13:21:00 13:21:00 t Wantful s RADEUM [facility] Medicine Outpati ent Clinics 2019-12-29 2019-12-29 [facility] [id number] 14:26:00 14:26:00 t Wantful s RADEUM [facility] Medicine Outpati ent Clinics 2019-12-20 2019-12-20 [facility] [id number] 10:45:00 10:45:00 t Wantful s RADEUM [facility] Medicine Outpati ent Clinics 2019-12-18 2019-12-18 [facility] [id number] 17:06:00 17:06:00 t 8020 [employer] [facility] Medicine Outpati ent Clinics 2019-11-23 2019-11-23 [facility] [id number] 08:30:00 08:30:00 t Wantful s RADEUM [facility] Medicine Outpati ent Clinics 2019-11-10 2019-11-10 [facility] [id number] 09:00:00 09:00:00 t 8020 Media [facility] Medicine Outpati ent Clinics 2019-08-15 2019-08-15 Telephone Saúl DEPETTY [id number] 00:00:00 00:00:00 Alejandra Esteves ALLEY TENDER [id number] [facility] [id number] MATERNAL [id number] & CHILD 107 [facility] 2019-08-04 2019-08-04 Telephone Mihai [facility] [id number] 00:00:00 00:00:00 Ginamervat Rain ALLEY TENDER [id number] REGIONAL [id number] MATERNAL [id number] & CHILD 107 [facility] 2019-07-28 2019-07-28 Orders Doctor YANIRA [id number] 00:00:00 00:00:00 Only Unassigned, STACIE [id number] Clemons [facility] [id number] [id number] 2019-07-28 2019-07-28 Telephone Saúl [facility] [id number] 00:00:00 00:00:00 Alejandra Esteves ALLEY TENDER [id number] [facility] [id number] MATERNAL [id number] & CHILD 107 [facility] Results Test Description Test Time Test Comments Results Result Comments Source Ferritin 2020-04-24 18:39:00 Test Item Value Reference Range Interpretation Comme nts Ferritin (test code = 2276-4) 177.89 ng/mL 5-275 CHER (test code = CHER) Commercial Roofing Estimator ID - BS Lab Interpretation (test code = 52379-8) Normal [facility]2020-[facility] 18:39:00 Test Item Value Reference Range Interpretation Comments FERRITIN (BEAKER) (test code = 177.89 ng/mL 5.00-275.00 361) Commercial Roofing Estimator ID - BSHepatitis B surface [id number] 15:07:00 Test Item Value Reference Range Interpretation Comments Hep B S Ab (test code = <8.0 <8.0 mIU/mL 87145-7) CHER (test code = CHER) Commercial Roofing Estimator ID - ROSIANG Lab Interpretation (test Normal code = 95232-1) [facility] SURFACE [id number] 15:07:00 Test Item Value Reference Range Interpretation Comments HEPATITIS B SURFACE ANTIBODY < mIU/mL <8.0 (BEAKER) (test code = 647) Commercial Roofing Estimator ID - ROSBRAEDENGHepatitis B surface [id number] 14:58:00 Test Item Value Reference Range Interpretation Comments HBsAg Screen (test code Nonreactive Nonreactive = 5195-3) CHER (test code = CHER) Specimen is considered negative for HBsAg. Lab Interpretation (test Normal code = 15423-2) [facility] Center[facility] [id number] 14:58:00 Test Item Value Reference Range Interpretation Comments Hepatitis C Ab (test Nonreactive Nonreactive code = 44363-7) CHER (test code = CHER) Commercial Roofing Estimator ID - Wing-Whe[employer] [facility] Lab Interpretation (test Normal code = 68462-2) [facility] CenterHepatitis A antibody, [id number] 14:58:00 Test Item Value Reference Range Interpretation Comments Hep A IgG (test code = Reactive Nonreactive A 90985-3) CHER (test code = CHER) Commercial Roofing Estimator ID - [employer] [facility] Lab Interpretation (test Abnormal code = 99772-9) [facility] CenterHEPAT[facility]IS A ANTIBODY, [id number] 14:58:00 Test Item Value Reference Range Interpretation Comments HEPATITIS A IGG ANTIBODY (BEAKER) Reactive Nonreactive A (test code = 2797) Commercial Roofing Estimator ID - ROSIANGHEPATITIS B SURFACE [id number] 14:58:00 Test Item Value Reference Range Interpretation Comments HEPATITIS B SURFACE ANTIGEN (2) Nonreactive Nonreactive (BEAKER) (test code = 2585) Specimen is considered negative for HBsAg.HEPATITIS C [id number] 14:58:00 Test Item Value Reference Range Interpretation Comments HEPATITIS C ANTIBODY (BEAKER) Nonreactive Nonreactive (test code = 367) Commercial Roofing Estimator [facility] - [facility] core antibody, [id number] 14:50:00 Test Item Value Reference Range Interpretation Comments Hep B Core Total Ab Nonreactive Nonreactive (test code = 08790-4) CHER (test code = CHER) Commercial Roofing Estimator ID - [employer] [facility] Lab Interpretation (test Normal code = 56426-3) [facility] CenterAlpha fetoprotein (AFP), tumor [id number] 14:50:00 Test Item Value Reference Range Interpretation Comments Alpha-Fetoprotein (test 5.0 ng/mL <10.0 code = 1834-1) CHER (test code = CHER) Commercial Roofing Estimator ID - [facility] Lab Interpretation (test Normal code = 23092-5) [facility] CenterHepatitis A antibody, [id number] 14:50:00 Test Item Value Reference Range Interpretation Comments Hep A IgM (test code = Nonreactive Nonreactive 75910-1) CHER (test code = CHER) Commercial Roofing Estimator ID - ROSIANG Lab Interpretation (test Normal code = 41080-2) [facility] CenterALPHA FETOPROTEIN (AFP), TUMOR [id number] 14:50:00 Test Item Value Reference Range Interpretation Comments ALPHA-FETOPROTEIN (BEAKER) (test 5.0 ng/mL <10.0 code = 1094) Commercial Roofing Estimator ID - ROSIANGHEPATITIS A ANTIBODY, [id number] 14:50:00 Test Item Value Reference Range Interpretation Comments HEPATITIS A IGM ANTIBODY (BEAKER) Nonreactive Nonreactive (test code = 498) Commercial Roofing Estimator ID - ROSIANGHEPATITIS B CORE ANTIBODY, [id number] 14:50:00 Test Item Value Reference Range Interpretation Comments HEPATITIS B CORE TOTAL ANTIBODY Nonreactive Nonreactive (BEAKER) (test code = 497) Commercial Roofing Estimator ID - [id number] 14:36:00 Test Item Value Reference Range Interpretation Comments A-1 Antitrypsin (test code 149.50 mg/dL 90-200 = 1825-9) CHER (test code = CHER) Commercial Roofing Estimator ID - ROSIANG Lab Interpretation (test Normal code = 81748-2) [facility] CenterIro, TIBC, % sat. (without ferritin)2020-04-24 14:36:00 Test Item Value Reference Range Interpretation Comments Iron (test code = 2498-4) 128.0 ug/dL 40-160 TIBC (test code = 2500-7) 294 ug/dL 250-450 Iron % Saturation (test 44 % 20-55 code = 2502-3) CHER (test code = CHER) Commercial Roofing Estimator ID - ROSIANG Lab Interpretation (test Normal code = 17371-0) [facility] CenterIRO, TIBC, % SAT. (WITHOUT FERRITIN)2020-04-24 14:36:00 Test Item Value Reference Range Interpretation Comments IRON (BEAKER) (test code = 547) 128.0 ug/dL 40.0-160.0 TOTAL IRON BINDING CAPACITY 294 ug/dL 250-450 (BEAKER) (test code = 769) IRON % SATURATION (2) (BEAKER) 44 % 20-55 (test code = 2590) Commercial Roofing Estimator ID - [id number] 14:36:00 Test Item Value Reference Range Interpretation Comments ALPHA-1 ANTITRYPSIN (BEAKER) 149.50 mg/dL 90.00-200.00 (test code = 502) Commercial Roofing Estimator ID - DASHAWNGComprehensive Metabolic [id number] 14:35:00 Test Item Value Reference Interpretation Comments Range Protein, Total (test 6.4 6.0- 8.3 gm/dL code = 2885-2) Albumin (test code = 3.2 g/dL 3.5-5 L 15475-3) Alkaline Phosphatase 181 U/L 40-150 H (test code = 6768-6) Total Bilirubin 1.8 mg/dL 0.2-1.2 H (test code = 1975-2) Sodium (test code = 140 meq/L 929-387 3033-2) Potassium (test code 3.3 meq/L 3.5-5.1 L = 2823-3) Chloride (test code 105 meq/L 98-107 = 2075-0) CO2 (test code = 27 meq/L 22-29 2028-9) BUN (test code = 9 mg/dL 7-21 3094-0) Creatinine (test 0.71 mg/dL 0.57-1.25 code = 2160-0) Glucose (test code = 84 mg/dL 70-105 2345-7) Calcium (test code = 10.7 mg/dL 8.4-10.2 H 00590-1) AST (test code = 46 U/L 5-34 H 1920-8) ALT (test code = 19 U/L 6-55 1742-6) EGFR (test code = 83 mL/min/1.73 sq ESTIMATE D GFR 82268-9) m IS NOT ACCURATE CREATININE CLEARANCE IN PREDICTING GLOMERULAR FILTRATION RATE. ESTIMATED GFR IS NOT APPLICABLE FOR DIALYSIS PATIENTS. CHER (test code = Commercial Roofing Estimator ID - CHER) ROSIANGSpecimen slightly icteric Lab Interpretation Abnormal (test code = 85108-4) [facility] CenterBilirubin, [id number] 14:35:00 Test Item Value Reference Range Interpretation Comments Bilirubin, Direct (test 0.9 mg/dL 0.1-0.5 H code = 1968-7) CHER (test code = CHER) Commercial Roofing Estimator ID - AJ Lab Interpretation (test Abnormal code = 75879-8) [facility] CenterGamma Glutamyl Transferase (GGT)2020-04-24 14:35:00 Test Item Value Reference Range Interpretation Comments GGT (test code = 50 U/L 9- 2324-2) CHER (test code = CHER) Commercial Roofing Estimator ID - KALANIpecimen slightly icteric Lab Interpretation Normal (test code = 96406-0) [facility] CenterCOMPREHENSIVE METABOLIC [id number] 14:35:00 Test Item Value Reference Range Interpretation Comments TOTAL PROTEIN 6.4 gm/dL 6.0-8.3 (BEAKER) (test code = 770) ALBUMIN (BEAKER) 3.2 g/dL 3.5-5.0 L (test code = 1145) ALKALINE PHOSPHATASE 181 U/L 40-150 H (BEAKER) (test code = 346) BILIRUBIN TOTAL 1.8 mg/dL 0.2-1.2 H (BEAKER) (test code = 377) SODIUM (BEAKER) (test 140 meq/L 136-145 code = 381) POTASSIUM (BEAKER) 3.3 meq/L 3.5-5.1 L (test code = 379) CHLORIDE (BEAKER) 105 meq/L 98-107 (test code = 382) CO2 (BEAKER) (test 27 meq/L 22-29 code = 355) BLOOD UREA NITROGEN 9 mg/dL 7-21 (BEAKER) (test code = 354) CREATININE (BEAKER) 0.71 mg/dL 0.57-1.25 (test code = 358) GLUCOSE RANDOM 84 mg/dL 70-105 (BEAKER) (test code = 652) CALCIUM (BEAKER) 10.7 mg/dL 8.4-10.2 H (test code = 697) AST (SGOT) (BEAKER) 46 U/L 5-34 H (test code = 353) ALT (SGPT) (BEAKER) 19 U/L 6-55 (test code = 347) EGFR (BEAKER) (test 83 mL/min/1.73 ESTIMA JASPREET GFR IS code = 1092) sq m NOT ACCURATE CREATININE CLEARANCE IN PREDICTING GLOMERULAR FILTRATION RATE . ESTIMATED GFR I S NOT APPLICABLE FOR DIALYSIS PATIEN TS. Commercial Roofing Estimator ID - Pablo slightly ictericBILIRUBIN, [id number] 14:35:00 Test Item Value Reference Range Interpretation Comments BILIRUBIN DIRECT (BEAKER) (test 0.9 mg/dL 0.1-0.5 H code = 706) Commercial Roofing Estimator ID - CRISTIANAMMA GLUTAMYL TRANSFERASE (GGT)2020-04-24 14:35:00 Test Item Value Reference Range Interpretation Comments GAMMA GLUTAMYL TRANSFERASE (BEAKER) 50 U/L 9-64 (test code = 364) Commercial Roofing Estimator ID - Pablo slightly ictericPro-time/[id number] 14:22:00 Test Item Value Reference Range Interpretation Comments Protime (test code = 14.3 11.9- 14.2 H 5902-2) seconds INR (test code = 1.14 <=5.90 6301-6) CHER (test code = CHER) Effective 12/07/2018: PT Reference Range ChangeNew: 11.9-14.2 Previous: 11.7-14.7 RECOMMENDED COUMADIN/WARFARIN INR THERAPY RANGESSTANDARD DOSE: 2.0-3.0 Includes: PROPHYLAXIS for venous thrombosis, systemic embolization; TREATMENT for venous thrombosis and/or pulmonary embolus.HIGH RISK: Target INR is 2.5-3.5 for patients wiht mechanical heart valves. Lab Interpretation Abnormal (test code = 68387-2) [facility] CenterPROTHROMBIN TIME/[id number] 14:22:00 Test Item Value Reference Range Interpretation Comments PROTIME (BEAKER) (test code = 14.3 seconds 11.9-14.2 H 759) INR (BEAKER) (test code = 370) 1.14 <=5.90 Effective 12/07/2018: PT Reference Range ChangeNew: 11.9-14.2 Previous: 11.7- 14.7RECOMMENDED COUMADIN/WARFARIN INR THERAPY RANGESSTANDARD DOSE: 2.0-3.0 Includes: PROPHYLAXIS for venous thrombosis, systemic embolization; TREATMENT for venous thrombosis and/or pulmonary embolus.HIGH RISK: Target INR is2.5-3.5 for patients wiht mechanical heart valves.CBC with platelet count + automated [id number] 14:14:00 Test Item Value Reference Range Interpretation Comments WBC (test code = 6690-2) 3.3 3.5- 10.5 K/L L RBC (test code = 789-8) 2.91 3.93- 5.22 M/L L MCHC (test code = 786-4) 32.9 32.2- 35.5 GM/DL L Hematocrit (test code = 4544-3) 30.7 % 34.1-44.9 L MCV (test code = 787-2) 105.5 fL 79.4-94.8 H MCH (test code = 785-6) 34.7 pg 25.6-32.2 H RDW (test code = 788-0) 15.1 % 11.7-14.4 H Platelets (test code = 777-3) 70 150- 450 K/CU MM L MPV (test code = 89239-1) 10.6 fL 9.4-12.3 nRBC (test code = 413) 0 0- 0 /100 WBC % Neutros (test code = 429) 54 % % Lymphs (test code = 430) 32 % % Monos (test code = 431) 12 % % Eos (test code = 432) 2 % % Baso (test code = 437) 0 % # Neutros (test code = 670) 1.80 1.56- 6.13 K/L # Lymphs (test code = 414) 1.06 1.18- 3.74 K/L L # Monos (test code = 415) 0.40 0.24- 0.36 K/L H # Eos (test code = 416) 0.05 0.04- 0.36 K/L # Baso (test code = 417) 0.01 0.01- 0.08 K/L Immature Granulocytes-Relative 0 % 0-1 (test code = 2801) Lab Interpretation (test code = Abnormal 30623-7) [facility] W/PLT COUNT & AUTO [id number] 14:14:00 Test Item Value Reference Range Interpretation Comments WHITE BLOOD CELL COUNT (BEAKER) 3.3 K/ L 3.5-10.5 L (test code = 775) RED BLOOD CELL COUNT (BEAKER) 2.91 M/ L 3.93-5.22 L (test code = 761) HEMOGLOBIN (BEAKER) (test code = 10.1 GM/DL 11.2-15.7 L 410) HEMATOCRIT (BEAKER) (test code = 30.7 % 34.1-44.9 L 411) MEAN CORPUSCULAR VOLUME (BEAKER) 105.5 fL 79.4-94.8 H (test code = 753) MEAN CORPUSCULAR HEMOGLOBIN 34.7 pg 25.6-32.2 H (BEAKER) (test code = 751) MEAN CORPUSCULAR HEMOGLOBIN CONC 32.9 GM/DL 32.2-35.5 (BEAKER) (test code = 752) RED CELL DISTRIBUTION WIDTH 15.1 % 11.7-14.4 H (BEAKER) (test code = 412) PLATELET COUNT (BEAKER) (test code 70 K/CU MM 150-450 L = 756) MEAN PLATELET VOLUME (BEAKER) 10.6 fL 9.4-12.3 (test code = 754) NUCLEATED RED BLOOD CELLS (BEAKER) 0 /100 WBC 0-0 (test code = 413) NEUTROPHILS RELATIVE PERCENT 54 % (BEAKER) (test code = 429) LYMPHOCYTES RELATIVE PERCENT 32 % (BEAKER) (test code = 430) MONOCYTES RELATIVE PERCENT 12 % (BEAKER) (test code = 431) EOSINOPHILS RELATIVE PERCENT 2 % (BEAKER) (test code = 432) BASOPHILS RELATIVE PERCENT 0 % (BEAKER) (test code = 437) NEUTROPHILS ABSOLUTE COUNT 1.80 K/ L 1.56-6.13 (BEAKER) (test code = 670) LYMPHOCYTES ABSOLUTE COUNT 1.06 K/ L 1.18-3.74 L (BEAKER) (test code = 414) MONOCYTES ABSOLUTE COUNT (BEAKER) 0.40 K/ L 0.24-0.36 H (test code = 415) EOSINOPHILS ABSOLUTE COUNT 0.05 K/ L 0.04-0.36 (BEAKER) (test code = 416) BASOPHILS ABSOLUTE COUNT (BEAKER) 0.01 K/ L 0.01-0.08 (test code = 417) IMMATURE GRANULOCYTES-RELATIVE 0 % 0-1 PERCENT (BEAKER) (test code = 2801) SARS-CoV2/RT-PCR ([facility])2020-01-31 00:49:00 Test Item Value Reference Range Interpretation Comments SARS-COV2/RT-PCR Not Detected Not Detected, (test code = Negative, See 14392-9) external report for linked test SARS-COV-2 [facility] PERFORMING LAB (test code = 81010-3) CHER (test code = Negative results do not CHER) preclude SARS-CoV-2 infection and should not be used as [...] of the Act. Fact Sheet for Healthcare Providers:https://www.[employer]Documents/Xper t%20Xpress%20SARS%20CoV- 2/Fact%20Sheets/302-6662 %42GYEY-CYM-1%20HEALTHCA RE%20PROVIDERS%20FACT%20 SHEET.pdf Fact Sheet for Healthcare Patients:https://www.Prepair.Airgain/Documents/Xpert %20Xpress%20SARS%20CoV-2 /Fact%20Sheets/3023801% 07GPIC-NAV-1%20PATIENT%2 0FACT%20SHEET.pdf Performing Laboratory:[facility] [place] [address] [facility])2020-01-31 00:49:00 Test Item Value Reference Range Interpretation Comments SARS-COV2/RT-PCR (test Not Detected Not Detected, Negative, code = 6558564) See external report for linked test SARS-COV-2 PERFORMING LAB [facility] (test code = 0717021) Negative results do not preclude SARS-CoV-2 infection and should not be used as the sole basis for patient management decisions. Negative results must be combined with clinical observations, patient history, and epidemiological information. A false negative result may occur if a specimen is improperly collected, transported or handled.The limit of detection for this assay is 250 copies/mL.This SARS CoV-2 test is a rapid, real-time RT-PCR test intended for the qualitative detection of nucleic acid from SARS-CoV-2 in a nasopharyngeal swab specimen collected from individuals suspected of COVID-19 by their healthcare provider.This test has not been Food and Drug [...] is revoked under Section 564(g) of the Act.Fact Sheet for Healthcare Pro viders:https://www.ideasoft/Documents/Xpert%20Xpress%20SARS%20CoV-2/Fact%20Sh eets/3023802%23FSHR-OBT-4%20HEALTHCARE%20PROVIDERS%20FACT%20SHEET.pdfFact Sheet for Healthcare Patients:https://www.grabHalo/Documents/Xpert%20Xpress%20SARS%20CoV-2/Fact%20Sheets/3023801%20SARS-COV -2%20PATIENT%20FACT%20SHEET.pdfPerforming Laboratory:[facility], [place] [address]DCLQFT ULTRASOUND CORE BIOPSY LEFT 2019-07-27 14:15:04- BREAST ULTRASOUND CORE BIOPSY LEFTULTRASOUND GUIDED BIOPSY LEFT BREAST WITH MARKING DEVICE INSERTED: 07/25/2019CLINICAL: Ultrasound biopsy, left breast 1:00/subareolar-MHunter. Comparison is made toexams dated 07/18/2019 ultrasound and 07/18/2019 mammogram - [facility]-. An ultrasoundguided biopsy using real-time ultrasound was performed for [...] dm/:07/27/2019 14:15:04 Entry: - 07/27/2019 15:05:22copy to: Ishaan Rodríguez, [facility] [address], ATTN: Shwetha Rodríguez, ph: [phone], fax: [phone] Technologist: Aida Wilkins , [facility]-DIAG MAMM LEFT CAD [id number] 13:14:19 - DIAG MAMM LEFT CAD DIGITALUNILATERAL LEFT DIGITAL DIAGNOSTIC MAMMOGRAM WITH CAD POST-PROCEDURE IMAGING FOR MARKER PLACEMENT: 07/25/2019CLINICAL: Post Clip Placement. Current mammographic images were evaluated by either a Higgle M-Vu or a Breaker ImageChecker CAD (computer aided detection system). Comparison is made to exam dated 07/18/2019 mammogram - [facility]-. The tissue of theleft breast is predominantly fatty. There is a marker clip in the appropriate position in the left breast central to the nipple in the retroareolar region. This marker clip placement is at the biopsysite. IMPRESSION: POST PROCEDURE IMAGING FOR MARKER PLACEMENTThere was a successful marker clip placement in the left breast central to the nipple in the retroareolar region. Clarita Flores M.D. dm/:07/25/2019 13:14:19 copy to: Ishaan Rodríguez [facility] [address], ATTN: Shwetha Rodríguez, ph: [phone], fax: [phone] Technologist: Morelia PERALTA, [facility]-FWImaging Technologist: Suri PERALTA, [facility]-FWMammogram BI-RADS: Post-procedure mammogram for marker placementBREAST ULTRASOUND [id number] 16:44:27 - DIAG MAMM BILATERAL KENNY CAD DIGITALBILATERAL DIGITAL DIAGNOSTIC MAMMOGRAM 3D/2D WITH CAD: 07/18/2019CLINICAL: Palpable mass, left breast. Digital breast tomosynthesis was performed in addition to routine CC and MLO views. Current mammographic images were evaluated by either a Higgle M-Vu or a Breaker ImageCheConvercenter CAD (computer aided detection system). No prior [...] prior exams were available for comparison. Real-time ultrasoundof both breasts and both axilla was performed. [...] - 07/18/2019 16:51:42copy to: Ms. Shwetha Rodríguez, [facility] [address], ATTN: Shwetha Rodríguez, ph: [phone], fax: [phone] Technologist: Vanesa PERALTA, [facility]- FWletter sent: BIRADS 4/5 Biopsy Mammogram BI-RADS: 0 Incomplete: Additional Imaging Evaluation Needed Ultrasound BI-RADS: 5 Highly suggestive of malignancy DIAG MAMM BILATERAL KENNY CAD [id number] 16:44:27 - DIAG MAMM BILATERAL KENNY CAD DIGITALBILATERAL DIGITAL DIAGNOSTIC MAMMOGRAM 3D/2D WITH CAD: 0CLINICAL: Palpable mass, left breast. Digital breast tomosynthesis was performed in addition to routine CC and MLO views. Current mammographic images were evaluated by either a Higgle M-Vu or a Afoundriacker CAD (computer aided detection system). No prior [...] additional evaluation. - BREAST ULTRASOUND BILATERALULTRASOUND OF BOTHBREASTS AND BOTH AXILLA: 07/18/2019No prior exams were available for comparison. Real-time ultrasoundof both breasts and both axilla was performed. There is a 3 cm irregular mass in the left breast, central to the nipple, in the retroareolar region. Color flow imaging demonstrates that there is increased vascularity. No abnormalities were seen sonographically in the right breast or either axilla.IMPRESSION: HIGHLY SUGGESTIVE OF MALIGNANCY - FOLLOW-UP RECOMMENDEDThe 3 cm irregular mass in the left breast is highly suggestive of malignancy. An ultrasound guided biopsy is recommended. Clarita Flores M.D. dm/:07/18/2019 16:44:27 Entry: - 07/18/2019 16:51:42copy to: Ms. Shwetha Rodríguez, [facility] [address], ATTN: Shwetha Rodríguez, ph: [phone], fax: [phone] Technologist: Vanesa PERALTA, [facility]-FWletter sent: BIRADS 4/5 Biopsy Mammogram BI-RADS: 0 Incomplete: Additional Imaging Evaluation Needed Ultrasound BI-RADS: 5 Highly suggestive of malignancy
--- OUTSIDE RECORDS SUMMARY | 2020-04-24 20:53 | XMS REPORT ---
:1955 Author Organization eClinicalWorks Care Team Providers Name Role Phone Bear Penlaoza Provider Role Unavailable Allergies, Adverse Reactions, Alerts Substance Reaction Event Type N.K.D.A. Info Not Available Non Drug Allergy Problems Problem Type Condition Code Onset Dates Condition Statu s Assessment Maintenance chemotherapy following Z51.11 Active disease Assessment Hypotension, unspecified I95.9 Act rios hypotension type Assessment Malignant neoplasm of left female C50.912 Active breast, unspecified estrogen receptor status, unspecified site of breast Problem S/P left mastectomy Z90.12 Active Assessment Hypomagnesemia E83.42 Active Problem Thrombocytopenia D69.6 Active Problem Hypomagnesemia E83.42 Active Problem Essential hypertension I10 Activ e Problem Low HDL (under 40) E78.6 Active Problem Malignant neoplasm of left female C50.912 Active breast, unspecified estrogen receptor status, unspecified site of breast Assessment Thrombocytopenia D69.6 Active Assessment Elevated alkaline phosphatase level R74.8 Active Assessment Candidal intertrigo B37.2 Active Assessment Intertriginous dermatitis L30.4 Ac tive associated with moisture Assessment Essential hypertension I10 Activ e Assessment S/P left mastectomy Z90.12 Active Assessment Low HDL (under 40) E78.6 Active Assessment Bilateral swelling of feet M79.89 A ctive Assessment Elevated AST (SGOT) R74.0 Active Assessment Localized swelling on hand R22.30 A ctive Medications Medication Code Code Instructions Start End Status Dosage System Date Date Multivitamin [facility] [address] Active not Adults defined Midodrine HCl [facility] 26655143780 10 MG Orally Mar 15, Active 1 tablet Three times a 2019 Results No Known Results Summary Purpose eClinicalWorks Submission
--- OUTSIDE RECORDS SUMMARY | 2020-04-24 20:53 | XMS REPORT ---
:1955 Author Organization [facility] Address [address] [place], [place] [place] [address] Care Team Providers Name Role Phone Bear Penaloza Unavailable [phone] PROBLEMS Type Condition ICD9-CM BFJ15-HA Onset Condition SNOMED Code Notes Code Code Dates Status Problem Essential I10 Active 86879401 hypertension Problem Hypomagnesemia E83.42 Active 455953944 Problem Hyperammonemia E72.20 Active 5007829 Problem Malignant neoplasm C50.912 Active 359483065 of left female breast, unspecified estrogen receptor status, unspecified site of breast Problem Low HDL (under 40) E78.6 Active 620893894 Problem Thrombocytopenia D69.6 Active 445928181 Problem S/P left mastectomy Z90.12 Active 658380549 ALLERGIES No Known Allergies ENCOUNTERS from 1955 to 2020-04-11 Encounter Location Date Provider Diagnosis [facility] [place] [address] [place], Bear Tremaine Hypotensi on, unspecified Drive [address] [place], hypotensio n type I95.9 ; [place] [address] Malignant neop lasm of left female barak ast, unspecified est rogen receptor status , unspecified sit e of breast C50.912 ; Maintenance diana motherapy following disea se Z51.11 ; Localized swe lling on hand R22.30 ; B ilateral swelling of fee t M79.89 ; Hyperammonemi a E72.20 ; S/P left mast ectomy Z90.12 ; Essent ial hypertension I1 0 ; Elevated AST (S GOT) R74.0 ; Low HDL (under 40) E78.6 ; Brissa vated alkaline phosph atase level R74.8 ; Hypomagnesemia E83.42 ; Thrombocytopeni a D69.6 ; Intertriginous dermatitis asso ciated with moisture L 30.4 ; Candidal intert hair B37.2 ; Patient is Chaim Junior ss Z78.9 ; Hypokalemia E 87.6 and Need for influe nza vaccination Z23 IMMUNIZATIONS Vaccine Route Administration Date Status Afluria single dose IM Intramuscular Apr 11, 2020 Administere d SOCIAL HISTORY Tobacco Use: Social History Observation Description Date Details (start date - stop date) Never Smoker Sex Assigned At : Social History Observation Description Sex Assigned At Unknown Alcohol Screen Question Answer Notes Did you have a drink containing alcohol in the past year? No Points 0 Interpretation Negative Tobacco Use/Smoking Question Answer Notes Are you a never smoker REASON FOR REFERRAL No Information VITAL SIGNS Height 65 in Apr, Weight 134.8 lbs Apr, Temperature 98.4 degrees Fahrenheit Apr, BMI 22.43 kg/m2 Apr, Oximetry 100 % Apr, Respiratory Rate 16 /min Apr, Blood pressure systolic 134 mm Hg Apr, Blood pressure diastolic 73 mm Hg Apr, MEDICATIONS Medication SIG (Take, Route, Start Date End Date Status Frequency, Duration) Multivitamin Adults Not-Taki ng Midodrine HCl 10 MG 1 tablet Orally Three Active times a day for 30 day(s) Potassium Chloride 20 MEQ 1 packet with food Apr, Active Orally Every 4 hours x 3 for 1 day then BID Magnesium Oxide 250 MG 2 tablets at bedtime as Apr, Apr, Active needed Orally Once a day for 30 day(s) PROCEDURES No Information RESULTS No Results REASON FOR VISIT 2 week follow up [facility] (GENERAL) HISTORY Type Description Date Surgical History Right shoulder X2 2013 Surgical History Left modified radical mastectomy-breast and axillary 11/[address] Zheng Goals Section No Information Health Concerns No Information MEDICAL EQUIPMENT No Information MENTAL STATUS No Information FUNCTIONAL STATUS No Information ASSESSMENTS Encounter Date Diagnosis Notes Apr, S/P left mastectomy (ICD-10 - Z90.12) Apr, Need for influenza vaccination (ICD-10 - Z23) Apr, Hyperammonemia (ICD-10 - E72.20) Apr, Hypokalemia (ICD-10 - E87.6) Apr, Elevated AST (SGOT) (ICD-10 - R74.0) Apr, Essential hypertension (ICD-10 - I10) Apr, Intertriginous dermatitis associated wit h moisture (ICD-10 - L30.4) Apr, Bilateral swelling of feet (ICD-10 - M79 .89) Apr, Patient is [place] (ICD-10 - Z 78.9) Apr, Localized swelling on hand (ICD-10 - R22 .30) Apr, Candidal intertrigo (ICD-10 - B37.2) Apr, Elevated alkaline phosphatase level (ICD -10 - R74.8) Apr, Low HDL (under 40) (ICD-10 - E78.6) Apr, Thrombocytopenia (ICD-10 - D69.6) Apr, Hypomagnesemia (ICD-10 - E83.42) Apr, Malignant neoplasm of left female breast , unspecified estrogen receptor status, unspecified site of barak ast (ICD-10 - C50.912) Apr, Hypotension, unspecified hypotension typ e (ICD-10 - I95.9) Apr, Maintenance chemotherapy following disea se (ICD-10 - Z51.11) PLAN OF TREATMENT Medication Medication Name Sig Start Date Stop Date Midodrine HCl 10 MG 1 tablet Orally Three times a day for 30 day(s) Potassium Chloride 20 MEQ 1 packet with food Orally Every 4 2019 hours x 3 for 1 day then BID Magnesium Oxide 250 MG 2 tablets at bedtime as needed Apr,Apr, Orally Once a day for 30 day(s) Treatment Notes Assessment Notes Clinical Notes Candidal intertrigo . Discussed differential diagnosis patient. Education given. Cont clotrimazole and betamethason ointment. Discussed side effect panel extensively. Education given. Discussed proper hygiene. If unchanged or worsen refer to dermatology. Hypotension, unspecified hypotension . Discussed differenti al type diagnosis with patient. Hospital course reviewed with patient. Answered all questions the best my knowledge. Encouraged to follow-up with oncology. Continue current regimen maintain blood pressure up to 120 systolic. Patient verbalized understanding monitor and blood pressure daily. May need to titrate off. Increase hydration. Intertriginous dermatitis associated . Discussed supportive measures with moisture for symptomatically. Discussed differential diagnosis. Education given IMPROVING. Malignant neoplasm of left female Managed by oncology. Curr ently breast, unspecified estrogen receptor on chemotherapy--> rad iation. status, unspecified site of breast Localized swelling on hand IMPROVING. Discussed differential diagnosis extensively with patient. Education given. Concern for peripheral edema versus lymphedema due to recent mastectomy. Discussed supportive measures for symptomatic relief at this time. Encouraged patient on conservative treatment options such as, including but not limited to compression stockings/wrapping, reduce salt intake, exercise as tolerated, elevation of legs. Will monitor closely. Hypokalemia . Received call for critical labs from oncologist of 2.8 potassium. Per instructions, will start every 4 hour 3 times then transition to twice daily. Recheck labs in 2 to 3 days. Advised on signs and symptoms to monitor. Sativa panel discussed. Instructed when to go to the ED. Patient vocalized understanding. Bilateral swelling of feet . Discussed differential diagnosis. Education given. Will monitor closely Hyperammonemia Referred to liver specialist. S/P left mastectomy Postoperative report reviewed with patient. Left radical modified mastectomy with breast and axillary resection. Essential hypertension Diet-controlled. DASH Diet discussed. Instructed to measure BP at home and bring in log to f/u appt. Instructions and logs given. Education given. Thrombocytopenia . Likely due to chemotherapy. Will monitor closely Hypomagnesemia . Continue magnesium supplement. Will recheck. Asymptomatic. Elevated AST (SGOT) .Discussed differential diagnosis with patient. Education given. Concern for medication versus diet. Will monitor. Asymptomatic. Low HDL (under 40) . Educational material given. Encouraged to make dietary and lifestyle changes. Will repeat. Elevated alkaline phosphatase level . Asymptomatic. Discus sed differential diagnosis with patient at this time. Education given Treatment Notes Test Name Order Date Phosphorus, Serum 2020-04-11 Hematopath Consultation, Smear 2020-04-11 Magnesium, Serum 2020-04-11 Comp. Metabolic Panel (14) (CMP) 2020-04-11 CBC With Differential/Platelet 2020-04-11 Vitamin D, 25-Hydroxy 2020-04-11 Next Appt Details 1 Week Reason: Provider Name:Bear Penaloza, 2020-04-15 0 8:00:00 AM, [address], [address], [place], [address], Provider Name:Bear Penaloza, 2020-05-16 0 1:00:00 PM, [address], [address], [place], [address], Provider Name:Bear Penaloza, 2020-05-23 0 1:00:00 PM, [address], [address], [place], [address], Insurance Providers Payer Name Payer Payer Insured Patient Coverage Coverage End Address Phone Name Relationship to Start Date Javid e Insured DONAL[place] [phone] Redd Alaniz self [address] [address]
--- OUTSIDE RECORDS SUMMARY | 2020-04-24 20:53 | XMS REPORT ---
:1955 Author Organization [facility] Address [address] [place], [place] [place] [address] Care Team Providers Name Role Phone Bear Penaolza Unavailable [phone] PROBLEMS Type Condition ICD9-CM [id number] Onset Condition SNOMED Code Notes Code Code Dates Status Problem Essential I10 Active 57052421 hypertension Problem Malignant neoplasm C50.912 Active 135669654 of left female breast, unspecified estrogen receptor status, unspecified site of breast Problem Hyperammonemia E72.20 Active 0977910 Problem Hypercalcemia E83.52 Active 70084984 Problem Low HDL (under 40) E78.6 Active 061353473 Problem Thrombocytopenia D69.6 Active 728516871 Problem S/P left mastectomy Z90.12 Active 234079870 Problem Hypomagnesemia E83.42 Active 456898341 ALLERGIES No Known Allergies ENCOUNTERS from 1955 to 2020-04-15 Encounter Location Date Provider Diagnosis [facility] [place] [address] [place] Apr, Bear Tremaine Hypokalem ia E87.6 ; [address] [place], Hypot[place], [place] [address] hypotension ty pe I95.9 ; Malignant neopl asm of left female barak ast, unspecified est [...] Candidal intert hair B37.2 ; Patient is Jehovah's Witne ss Z78.9 and Hypercalcem ia E83.52 IMMUNIZATIONS Vaccine Route Administration Date Status Afluria [...] VITAL SIGNS Height 65 in Apr, Weight 134.1 lbs Apr, Temperature 97.5 degrees Fahrenheit Apr, BMI 22.31 kg/m2 Apr, Oximetry 99 % Apr, Respiratory Rate 16 /min Apr, Blood pressure systolic 132 mm Hg Apr, Blood pressure diastolic 74 mm Hg Apr, MEDICATIONS Medication SIG (Take, Route, Frequency, Start Date End Date Status Duration) Magnesium Oxide 250 MG 2 tablets at bedtime as Active needed Orally Once a day for 30 day(s) Multivitamin Adults Not-Taki ng Potassium Chloride 20 MEQ 1 packet with food BID x 1 Active week then 1 packet QD Orally Midodrine HCl 10 MG 1 tablet Orally Three times Active a day for 30 day(s) PROCEDURES No Information RESULTS No Results REASON FOR VISIT f/u. In office. MEDICAL (GENERAL) HISTORY Type Description Date Surgical History Right shoulder X2 2014 Surgical History Left modified radical mastectomy-breast and axillary 11/[address] Zheng Goals Section No Information Health Concerns No Information MEDICAL EQUIPMENT No Information MENTAL STATUS No Information FUNCTIONAL STATUS No Information ASSESSMENTS Encounter Date Diagnosis Notes Apr, Bilateral swelling of feet (ICD-10 - M79 .89) Apr, Patient is Restorationism (ICD-10 - Z 78.9) Apr, Localized swelling on hand (ICD-10 - R22 .30) Apr, Candidal intertrigo (ICD-10 - B37.2) Apr, S/P left mastectomy (ICD-10 - Z90.12) Apr, Hyperammonemia (ICD-10 - E72.20) Apr, Hypercalcemia (ICD-10 - E83.52) Apr, Hypomagnesemia (ICD-10 - E83.42) Apr, Maintenance chemotherapy following disea se (ICD-10 - Z51.11) Apr, Intertriginous dermatitis associated wit h moisture (ICD-10 - L30.4) Apr, Malignant neoplasm of left female breast , unspecified estrogen receptor status, unspecified site of barak ast (ICD-10 - C50.912) Apr, Thrombocytopenia (ICD-10 - D69.6) Apr, Elevated AST (SGOT) (ICD-10 - R74.0) Apr, Essential hypertension (ICD-10 - I10) Apr, Elevated alkaline phosphatase level (ICD -10 - R74.8) Apr, Low HDL (under 40) (ICD-10 - E78.6) Apr, Hypokalemia (ICD-10 - E87.6) Apr, Hypotension, unspecified hypotension typ e (ICD-10 - I95.9) PLAN OF TREATMENT Medication Medication Name Sig Start Date Stop Date Magnesium Oxide 250 MG 2 tablets at bedtime as needed Orally Once a day for 30 day(s) Potassium Chloride 20 MEQ 1 packet with food BID x 1 week then 1 packet QD Orally Midodrine HCl 10 MG 1 tablet Orally Three times a day for 30 day(s) Treatment Notes Assessment Notes Clinical Notes Intertriginous dermatitis associated . Discussed supportive measures with moisture for symptomatically. Discussed differential diagnosis. Education given IMPROVING. Hypokalemia . Received call for critical labs from oncologist of 2.8 potassium--> 3.1 on repeat. Take BID x 1 week then once a day. Recheck labs in 2 weeks. Advised on signs and symptoms to monitor. Sativa panel discussed. Instructed when to go to the ED. Patient vocalized understanding. Thrombocytopenia . Likely due to chemotherapy. Will monitor closely Hypotension, unspecified hypotension . Discussed differenti al type diagnosis with patient. Hospital course reviewed with patient. Answered all questions the best my knowledge. Encouraged to follow-up with oncology. Continue current regimen maintain blood pressure up to 120 systolic. Patient verbalized understanding monitor and blood pressure daily. May need to titrate off. Increase hydration. Hypercalcemia Discussed differential diagnosis with patient. Patient is taking supplements by oncology. Encouraged to reduce intake. Will fax labs to oncology. Asymptomatic at this time. Malignant neoplasm of left female Managed by oncology. Curr ently breast, unspecified estrogen receptor on chemotherapy--> rad iation. status, unspecified site of breast Candidal intertrigo . Discussed differential diagnosis patient. Education given. Cont clotrimazole and betamethason ointment. Discussed side effect panel extensively. Education given. Discussed proper hygiene. If unchanged or worsen refer to dermatology. Localized swelling on hand IMPROVING. Discussed differential diagnosis extensively with patient. Education given. Concern for peripheral edema versus lymphedema due to recent mastectomy. Discussed supportive measures for symptomatic relief at this time. Encouraged patient on conservative treatment options such as, including but not limited to compression stockings/wrapping, reduce salt intake, exercise as tolerated, elevation of legs. Will monitor closely. Bilateral swelling of feet . Discussed differential diagnosis. Education given. Will monitor closely Hyperammonemia Referred to liver specialist. S/P left mastectomy Postoperative report reviewed with patient. Left radical modified mastectomy with breast and axillary resection. Hypomagnesemia . Continue magnesium supplement. Will recheck. Asymptomatic. Elevated alkaline phosphatase level . Asymptomatic. Discus sed differential diagnosis with patient at this time. Education given Essential hypertension Diet-controlled. DASH Diet discussed. Instructed to measure BP at home and bring in log to f/u appt. Instructions and logs given. Education given. Elevated AST (SGOT) .Discussed differential diagnosis with patient. Education given. Concern for medication versus diet. Will monitor. Asymptomatic. Low HDL (under 40) . Educational material given. Encouraged to make dietary and lifestyle changes. Will repeat. Treatment Notes Test Name Order Date PTH, Intact 2020-04-15 Calcium, Ionized, Serum 2020-04-15 Hematopath Consultation, Smear 2020-04-15 Magnesium, Serum 2020-04-15 Comp. Metabolic Panel (14) (CMP) 2020-04-15 CBC With Differential/Platelet 2020-04-15 Next Appt Details 3 Weeks + labs 1 week before Reason: Provider Name:Bear Penaloza, 2020-04-29 0 9:30:00 AM, [address] [address], [place], [address], Provider Name:Bear Tremaine, 2020-05-06 0 8:20:00 AM, [address], [address], [place], [address], Provider Name:Bear Tremaine 2020-05-16 0 1:00:00 PM, [address], [place], [address], Provider Name:Bear Tremaine, 2020-05-23 0 1:00:00 PM, [address] [place] [address], [place], [address], Insurance Providers Payer Name Payer Payer Insured Patient Coverage Coverage End Address Phone Name Relationship to Start Date Javid e Insured [place] [phone] Redd Alaniz [address] [address]
[2020-04-25 01:04] LABS: Absolute Lymphocytes (CBC) 0.7 K/uL (0.7-4.9); Basophils % 0.4 % (0-1.3); Hematocrit 28.2 % (36.0-45.0); Lymphocytes % 25.9 % (15.3-44.8); MPV 8.5 fL (7.6-11.3); RBC Red Blood Cell Count 2.74 M/uL (3.86-4.86)
[2020-04-25 01:10] LABS: Magnesium 1.6 mg/dL (1.8-2.4); Potassium 3.2 mmol/L (3.5-5.1)
--- NOTE | 2020-04-25 01:48 | ER ---
Nurse's Notes [facility] Name: Jojo Alaniz Age: 64 yrs Sex: Female : 1955 Arrival Date: 04/24/2020 Time: 20:51 Bed 6 Private MD: Diagnosis: Hypokalemia;Hypomagnesemia Presentation: 04/24 21:00 Chief complaint: Patient states: blood works done today at 1100, they said the ca1 Potassium was low at 3.5. Pt has Breast cancer, completed chemotherapy on March 11, 2020. Denies Chest pains. Coronavirus screen: Client denies travel out of the [place] in the last 14 days. At this time, the client does not indicate any symptoms associated with coronavirus-19. Ebola Screen: Patient negative for fever greater than or equal to 101.5 degrees Fahrenheit, and additional compatible Ebola Virus Disease symptoms Patient denies exposure to infectious person. Patient denies travel to an Ebola-affected area in the 21 days before illness onset. No symptoms or risks identified at this time. Initial Sepsis Screen: Does the patient meet any 2 criteria? No. Patient's initial sepsis screen is negative. Does the patient have a suspected source of infection? No. Patient's initial sepsis screen is negative. Risk Assessment: Do you want to hurt yourself or someone else? Patient reports no desire to harm self or others. Onset of symptoms was April 24, 2020. 21:00 Method Of Arrival: Ambulatory ca1 21:00 Acuity: JES 3 ca1 Historical: - Allergies: 21:05 NKA; ca1 - PMHx: 21:05 Cancer, Breast; ca1 - PSHx: 21:05 right shoulder; Mastectomy, Left; ca1 - Immunization history:: Adult Immunizations not up to date. - Social history:: Smoking status: Patient denies any tobacco usage or history of. Screenin/15 01:11 Abuse screen: Denies threats or abuse. Denies injuries from another. Nutritional rv screening: No deficits noted. Tuberculosis screening: No symptoms or risk factors identified. Fall Risk None identified. Assessment: 01:11 General: Appears in no apparent distress. comfortable, Behavior is calm, cooperative. rv Pain: Denies pain. Neuro: Level of Consciousness is awake, alert, obeys commands, Oriented to person, place, time, situation. Cardiovascular: Patient's skin is warm and dry. Respiratory: Airway is patent Respiratory effort is even, unlabored. Derm: Skin is intact. 01:49 Reassessment: Pt with DC order just started on Iv Magnesium. Vital Signs: 04/24 21:00 BP 134 / 71; Pulse 78; Resp 16 S; Temp 98.1(TE); Pulse Ox 100% on R/A; Weight 72.12 kg ca1 (R); Height 5 ft. 1 in. (154.94 cm) (R); 04/25 01:17 BP 138 / 91; Pulse 76; Resp 16; Pulse Ox 100% on R/A; rv 03:00 BP 138 / 98; Pulse 75; Resp 16; Temp 98; Pulse Ox 99% on R/A; rv 04/24 21:00 Body Mass Index 30.04 (72.12 kg, 154.94 cm) ca1 ED Course: 04/24 20:51 Patient arrived in ED. cl3 21:05 Triage completed. ca1 21:05 Arm band placed on right wrist. ca1 23:45 Zach Weber PA is PHCP. cp 23:45 Anthony Carrasco MD is Attending Physician. cp 04/25 00:12 Evelyn Karimi is Primary Nurse. 00:30 Inserted saline lock: 20 gauge in right forearm, using aseptic technique. Blood rv collected. 00:30 Initial lab(s) drawn, by ga, sent to lab. rv 01:11 Primary Nurse role handed off by Evelyn Karimi rv 01:11 Mike Khan, CARMELITA is Primary Nurse. rv 01:11 Patient has correct armband on for positive identification. Pulse ox on. NIBP on. rv 03:46 No provider procedures requiring assistance completed. IV discontinued, intact, rv bleeding controlled, No redness/swelling at site. Pressure dressing applied. Administered Medications: 01:49 Drug: Potassium Effervescent Tablet 50 mEq Route: PO; 03:46 Follow up: Response: No adverse reaction rv 01:49 Drug: Magnesium Sulfate 1 grams Route: IVPB; Infused Over: 30 mins; Site: right antecubital; 03:46 Follow up: IV Status: Completed infusion; IV Intake: 100ml rv Intake: 03:46 IV: 100ml; Total: 100ml. rv Outcome: 01:47 Discharge ordered by . cp 03:19 Patient left the ED. wh 03:46 Discharged to home ambulatory, with family. rv 03:46 Condition: good 03:46 Discharge instructions given to patient, Instructed on discharge instructions, follow up and referral plans. Demonstrated understanding of instructions, follow-up care. Signatures: Zach Weber PA PA cp [place], [place] Mike Khan RN RN rv Fabiola Moreno RN RN [facility] Ashvin Forman cl3
--- NOTE | 2020-04-25 01:48 | EDPHYS ---
Physician Documentation [facility] Name: Jojo Alaniz Age: 64 yrs Sex: Female : 1955 Arrival Date: 04/24/2020 Time: 20:51 Bed 6 Private MD: ED Physician Anthony Carrasco HPI: 04/24 23:55 This 64 yrs old Female presents to ER via Ambulatory with complaints of Low cp Potassium. 23:55 low potassium. cp 23:55 Onset: The symptoms/episode began/occurred today, Patient reports having routine blood cp work drawn. Severity of symptoms: in the emergency department the symptoms none. Historical: - Allergies: 21:05 NKA; ca1 - PMHx: 21:05 Cancer, Breast; ca1 - PSHx: 21:05 right shoulder; Mastectomy, Left; ca1 - Immunization history:: Adult Immunizations not up to date. - Social history:: Smoking status: Patient denies any tobacco usage or history of. ROS: 23:57 Constitutional: Negative for body aches, chills, fever, poor PO intake. cp 23:57 Eyes: Negative for injury, pain, redness, and discharge. cp 23:57 Cardiovascular: Negative for chest pain, edema, palpitations. 23:57 Respiratory: Negative for cough, shortness of breath, wheezing. 23:57 Abdomen/GI: Negative for abdominal pain, nausea, vomiting, and diarrhea. 23:57 Neuro: Negative for altered mental status, headache, weakness. 23:57 All other systems are negative. Exam: 23:59 Constitutional: The patient appears in no acute distress, alert, awake, cp non-diaphoretic, non-toxic, well developed, well nourished. 23:59 Head/Face: Normocephalic, atraumatic. cp 23:59 Chest/axilla: Inspection: normal. 23:59 Cardiovascular: Rate: normal, Edema: is not appreciated. 23:59 Respiratory: the patient does not display signs of respiratory distress, Respirations: normal, no use of accessory muscles, no retractions. 23:59 Neuro: Orientation: to person, place \T\ time. Mentation: is normal. Vital Signs: 21:00 BP 134 / 71; Pulse 78; Resp 16 S; Temp 98.1(TE); Pulse Ox 100% on R/A; Weight 72.12 kg ca1 (R); Height 5 ft. 1 in. (154.94 cm) (R); 04/25 01:17 BP 138 / 91; Pulse 76; Resp 16; Pulse Ox 100% on R/A; rv 03:00 BP 138 / 98; Pulse 75; Resp 16; Temp 98; Pulse Ox 99% on R/A; rv 04/24 21:00 Body Mass Index 30.04 (72.12 kg, 154.94 cm) ca1 MDM: 04/24 23:48 Patient medically screened. cp 04/25 01:46 Data reviewed: vital signs, nurses notes, lab test result(s), and as a result, I will cp discharge patient. 01:46 Differential Diagnosis electrolyte abnormality, renal disease. Counseling: I had a cp detailed discussion with the patient and/or guardian regarding: the historical points, exam findings, and any diagnostic results supporting the discharge/admit diagnosis, lab results, the need for outpatient follow up, a family practitioner, to return to the emergency department if symptoms worsen or persist or if there are any questions or concerns that arise at home. 04/24 23:51 Order name: CBC with Diff cp 04/25 01:37 Interpretation: Normal except: WBC 2.8; RBC 2.74; HGB 9.7; HCT 28.2; MCV 103.0; MCH cp 35.6; PLT 74; RDW 15.8; MN% 13.0; NEUT A 1.6. 04/24 23:51 Order name: BMP; Complete Time: 01:34 cp 04/25 01:34 Interpretation: Normal except: K 3.2; CL 108; GFR 74; CA 11.0. cp 04/24 23:51 Order name: Magnesium; Complete Time: 01:34 cp 04/25 01:41 Interpretation: Abnormal: MG 1.6. cp 04/25 01:07 Order name: CBC Smear Scan EDMS 04/24 23:51 Order name: IV; Complete Time: 00:39 cp Administered Medications: 01:49 Drug: Potassium Effervescent Tablet 50 mEq Route: PO; 03:46 Follow up: Response: No adverse reaction rv 01:49 Drug: Magnesium Sulfate 1 grams Route: IVPB; Infused Over: 30 mins; Site: right wh antecubital; 03:46 Follow up: IV Status: Completed infusion; IV Intake: 100ml rv Disposition: 07:09 Co-signature as Attending Physician, Anthony Carrasco MD. 7 Disposition: 04/25/20 01:47 Discharged to Home. Impression: Hypokalemia, Hypomagnesemia. - Condition is Stable. - Discharge Instructions: Potassium Content of Foods, Hypomagnesemia, Hypokalemia. - Medication Reconciliation Form, Thank You Letter, Antibiotic Education, Prescription Opioid Use form. - Follow up: Private Physician; When: 1 - 2 days; Reason: Recheck today's complaints. - Problem is new. - Symptoms have improved. Signatures: Dispatcher [employer] EDMS Zach Weber PA PA Evelyn Karimi Fabiola Moreno RN RN [facility] Anthony Carrasco MD MD [facility] Mike Khan RN Corrections: (The following items were deleted from the chart) 01:34 01:34 Normal except: K 3.2; CL 108; GFR 74. [facility] 03:19 01:47 04/25/2020 01:47 Discharged to Home. Impression: Hypokalemia; Hypomagnesemia. Condition is Stable. Forms are Medication Reconciliation Form, Thank You Letter, Antibiotic Education, Prescription Opioid Use. Follow up: Private Physician; When: 1 - 2 days; Reason: Recheck today's complaints. Problem is new. Symptoms have improved. cp
[2020-04-25] MEDS ORDERED: MAGNESIUM SULFATE 1 gm IVPB 1 GM/100 ML BAG IV ONE (01:57)
[2020-04-25] MEDS ORDERED: POTASSIUM 25 MEQ EFFERV TAB ONE (01:57)
[2020-04-25 01:59] LABS: Blood Morphology Comment NOT SEEN (NOT SEEN); Platelet Estimate DECR; White Blood Cell Scan OK (OK)
[2020-04-25 03:26] VITALS: TEMP 98.1; O2SAT 100
[2020-04-25 03:27] VITALS: BP 138/91
== END 2020-04-25 03:19 | disposition home or self-care (01) ==
LOC: ER 20:48
DX: E87.6 Hypokalemia (principal); E83.42 Hypomagnesemia; Z85.3 Personal history of malignant neoplasm of breast; Z90.12 Acquired absence of left breast and nipple
CPT/HCPCS: 96365; 85025; 80048; 36415; 83735; 99284; 96366; J3475

== ENCOUNTER 2020-05-08 06:36 | Day surgery (SDC) | payer MEDICAID ==
[2020-05-02 15:59] LABS: Basophils % 0.3 % (0-1.3); Hematocrit 29.3 % (36.0-45.0); Lymphocytes % 28.8 % (15.3-44.8); MPV 9.3 fL (7.6-11.3); RBC Red Blood Cell Count 2.83 M/uL (3.86-4.86)
[2020-05-02 16:22] LABS: Potassium 3.9 mmol/L (3.5-5.1)
[2020-05-02 17:24] LABS: Blood Morphology Comment NOT SEEN (NOT SEEN); Platelet Estimate DECR; White Blood Cell Scan OK (OK)
--- OUTSIDE RECORDS SUMMARY | 2020-05-08 06:40 | XMS REPORT | Clinical Summary ---
:1955 Author Organization [facility] Address [address] [place] [address] Care Team Providers Name Role Phone Pcp, [...] Encounters Date Type Specialty Care Team Description 05/06/2020 Abstract Hepatology Gely Martinez MA 05/06/2020 Abstract Hepatology Gely Martinez MA 05/02/2020 Abstract Hepatology Gely Martinez MA 04/24/2020 Office Visit Hepatology Yolande Shane Elevated [...] Marivel Carlos 01/30/2020 Lab Requisition Lab after 05/08/2019 Family History Medical History Relation Name Comments [...] Treatment Date Type Specialty Care Team Description 05/22/2020 Appointment Radiology Yolande Shane MD MPH [address] [address] 0 [phone] Health Maintenance Due Date Last Done Comments BREAST CANCER SCREENING 1955 COLON CANCER SCREENING COLONOSCOPY 1955 CERVICAL CANCER SCREENING PAP ONLY (Age 21-65) 1977 LIPID PANEL 2001 INFLUENZA VACCINE Completed 04/11/2020 Procedures Procedure Name Priority Date/Time Associated Comments Diagnosis CBC W/PLT COUNT & AUTO Routine 04/24/2020 1:20 Malignant neop lasm Results for this DIFFERENTIAL PM CDT of left female procedure are in breast, unspecified the resu lts estrogen receptor section. status, unspecified site of breast (HCC) Elevated alkaline phosphatase leve l Serum total bilirubin elevated JOSÉ ANTONIO TITER AND PATTERN Routine 04/24/2020 1:20 Malignant neopl asm Results for this PM CDT of left female procedure are in breast, unspecified the resu lts estrogen receptor section. status, unspecified site of breast (HCC) Elevated alkaline phosphatase leve l Serum total bilirubin elevated HEREDITARY Routine 04/24/2020 1:20 Elevated liver Results f or this HEMOCHROMATOSIS PM CDT enzymes procedure are in Low HDL (under 4 0) the results Essential section. hypertension Malignant neoplasm of left female breast, unspecified estrogen receptor status, unspecified site of breast (HCC) Thrombocytopenia (HCC) Elevated alkaline phosphatase leve l Serum total bilirubin elevat ed Immunity status testing GAMMA GLUTAMYL Routine 04/24/2020 1:20 Malignant neoplasm Res ults for this TRANSFERASE (GGT) PM CDT of left female procedur e are in breast, unspecified the resu lts estrogen receptor section. status, unspecified site of breast (HCC) Elevated alkaline phosphatase leve l Serum total bilirubin elevated HEPATITIS C PCR, Routine 04/24/2020 1:20 Malignant neoplasm R esults for this QUANTITATIVE PM CDT of left female procedure are [...] phosphatase leve l Serum total bilirubin elevated ANTI-NUCLEAR ANTIBODY Routine 04/24/2020 1:20 Malignant neopl asm Results for this (JOSÉ ANTONIO) PM CDT of left female procedure are [...] leve l Serum total bilirubin elevated COMPREHENSIVE METABOLIC Routine 04/24/2020 1:20 Malignant lewis plasm Results for this PANEL PM CDT of left female procedure are in breast, unspecified the resu lts estrogen receptor section. status, unspecified site of breast (HCC) Elevated alkaline phosphatase leve l Serum total bilirubin elevated MITOCHONDRIA M2 Routine 04/24/2020 1:19 Malignant neoplasm Re sults for this ANTIBODY (IGG) PM CDT of left female procedure a re in breast, unspecified the resu lts estrogen receptor section. status, unspecified site of breast (HCC) Elevated alkaline phosphatase leve l Serum total bilirubin elevated ACTIN (SMOOTH MUSCLE) Routine 04/24/2020 1:19 Malignant neopl asm Results for this ANTIBODY, IGG PM CDT of left female procedure ar e in breast, unspecified the resu lts estrogen receptor section. status, unspecified site of breast (HCC) Elevated alkaline phosphatase leve l Serum total bilirubin elevated CERULOPLASMIN Routine 04/24/2020 1:19 Malignant neoplasm Resu lts for this PM CDT of left female procedure are in breast, unspecified the resu lts estrogen receptor section. status, unspecified site of breast (HCC) Elevated alkaline phosphatase leve l Serum total bilirubin elevated [id number]\\, Routine 04/24/2020 1:19 Malignant neopl asm Results [...] leve l Serum total bilirubin elevated SARS-COV2/RT-PCR ([facility] Routine 01/30/2020 1:45 R esults for this & REF LABS) PM CDT procedure are i n the results section. 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 This patient is negative for the C282Y patho genic variant. 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 This result reduces the likelihood of hereditary hemochromatosis (HH). However, it does not rule out the presence of other pathogenic variants within the HFE gene or a diagnosis of HH. The risk of this individual to carry an HFE pathogenic john iant other than those tested in this assay depends greatly on family and cli nical history as well as ethnicity. This assay does not test for other prima ry or secondary iron overload disorders. Consider genetic counseling and DN A testing for at-risk family members. Laboratory results and submitted clinical information reviewed by Ronnie Perera, PhD, [facility], [facility]. DETAILED ASSAY INFORMATION: Hereditary hemochromatosis (HH) is an autosomal recessive disorder of iron metabolism that can result in iron overload and potential organ failure. It is one of the most common genetic disorders in individuals of - ancestry, with an es timated carrier frequency of 10%. HH is caused by pathogenic variants in the HFE gene. Most individuals with HH (60-90%) are homozygous for the C282Y pathogenic variant. A smaller percentage of affected individuals are eithe r compound heterozygous for the C282Y and H63D pathogenic variant s (3%-8%), or homozygous for the H63D pathogenic variant (approximat kenton 1%). METHODOLOGY: This assay detects two pathogenic variant s in the HFE gene, C282Y (NM [id number]: c.845G>A, p.[id number]) and H63D (N M 257341.2: c.187C>G, p.[id number]), that are commonly associated with HH. The se variants are detected by multiplex-polymerase chain reaction (PCR) amplification, followed by restriction enzyme digestion and capillary electrop horesis. LIMITATIONS: This assay does not detect other pathogen ic variants in the HFE gene that may be associated with HH. Although rare, fa lse positive or false negative results may occur. All results should be inte rpreted in the context of clinical findings, relevant history, and other labo ratory data. Health care providers, please contact your local [facility] genetic counselor or call [phone] for assistance with the interpretation of these results. This test was developed and its analytical performance characteristics have been determined by [facility]. It has not been cleared or approved by FDA. This assay has been validated pursuant to the CLIA regulations and is used for clini manjinder purposes. For more information, please refer to http://education.Tech urSelf/faq/hemochromato s (This link is being provided for informational/educati onal purposes only.) Specimen Blood Narrative Performed At Performing Lab [facility] [address] [place] [address] Blanco Armas MD, PhD, GORDON Performing Organization Address City/[facility]/Zipcode [place] [address] INCORPORATED [address] [facility] Hepatitis A antibody, IgG (04/24/2020 1:20 PM CDT) Pathologist Sig nature Hep A IgG Reactive (A) Nonreactive [facility] Specimen Blood Narrative Performed At Display Manager ID - ROSBRAEDENG [facility] Performing Organization Address City/[facility]/Zipcode Phone Number [facility] [address] [place] [address] CENTER Iron, TIBC, % sat. (without ferritin) (04/24/2020 1:20 PM CDT) Pathologist Sig nature Iron 128.0 40.0 - 160.0 ug/dL [facility] TIBC 294 250 - 450 ug/dL [facility] Iron % Saturation 44 20 - 55 % [facility] Specimen Blood Narrative Performed At Display Manager [facility] CENTER Performing Organization Address City/State/Zipcode Phone Number [facility] [address] [place] [address] CENTER CBC with platelet count + automated diff (04/24/2020 1:20 PM CDT) Pathologist Sig nature WBC 3.3 (L) 3.5 - 10.5 [facility] K/L [facility] RBC 2.91 (L) 3.93 - 5.22 [facility] M/L [facility] Hemoglobin 10.1 (L) 11.2 - 15.7 [facility] GM/DL [facility] Hematocrit 30.7 (L) 34.1 - 44.9 % [facility] MCV 105.5 (H) 79.4 - 94.8 fL [facility] MCH 34.7 (H) 25.6 - 32.2 pg [facility] MCHC 32.9 32.2 - 35.5 [facility] GM/DL [facility] RDW 15.1 (H) 11.7 - 14.4 % [facility] Platelets 70 (L) 150 - 450 K/CU [facility] MPV 10.6 9.4 - 12.3 fL [facility] nRBC 0 0 - 0 /100 WBC [facility] % Neutros 54 % [facility] % Lymphs 32 % [facility] % Monos 12 % [facility] % Eos 2 % [facility] % Baso 0 % [facility] # Neutros 1.80 1.56 - 6.13 [facility] # Lymphs 1.06 (L) 1.18 - 3.74 [facility] # Monos 0.40 (H) 0.24 - 0.36 [facility] # Eos 0.05 0.04 - 0.36 [facility] # Baso 0.01 0.01 - 0.08 [facility] Immature 0 0 - 1 % [facility] Granul[facility] Specimen Blood Performing Organization Address City/[facility]/Zipcode Phone Number [address] [address] CENTER Hepatitis C antibody (04/24/2020 1:20 PM CDT) Pathologist Sig nature Hepatitis C Ab Nonreactive Nonreactive [facility] Specimen Blood Narrative Performed At Display Manager ID - [facility] Performing Organization Address City/[facility] Phone Number [address] [address] CENTER Hepatitis A antibody, IgM (04/24/2020 1:20 PM CDT) Pathologist Sig nature Hep A IgM Nonreactive Nonreactive [facility] Specimen Blood Narrative Performed At Display Manager ID - [facility] Performing Organization Address City/[facility]/Zipcode Phone Number [address] [address] CENTER JOSÉ ANTONIO Titer & Pattern (04/24/2020 1:20 PM CDT) Pathologist Sig nature JOSÉ ANTONIO Titer 1:160 [facility] ICAL CENTER JOSÉ ANTONIO Pattern Speckled [facility] ICAL [place] Specimen Blood Performing Organization Address City/[facility]/Zipcode Phone Number [address] [address] [place] Alpha fetoprotein (AFP), tumor marker (04/24/2020 1:20 PM CDT) Pathologist Sig nature Alpha-Fetoprotein 5.0 <10.0 ng/mL [facility] Specimen Blood Narrative Performed At Display Manager ID - [facility] Performing Organization Address [facility] Hospital[facility] Phone Number [address] [address] [place] Hepatitis B core antibody, total (04/24/2020 1:20 PM CDT) Pathologist Sig nature Hep B Core Total Ab Nonreactive Nonreactive [facility] Specimen Blood Narrative Performed At Display Manager ID - [facility] Performing Organization Address [facility] Phone Number [address] [address] [place] Hepatitis C RNA, Quantitative (04/24/2020 1:20 PM CDT) HCV PCR, HCV RNA not HCV RNA not [facility] detected [facility] Specimen Blood Narrative Performed At This test uses a Real-Time Polymerase Chain [facility] Reaction (RT-PCR) methodology and was performed using FRANTZ Ampliprep/FRANTZ TaqMan HCV test kit version 2.0 (Bernarda [employer]). Reportable range for this assay is 15 - 100,000,000 IU per mL (1.18 - 8.00 Log IU/mL). Performing Organization Address City/[facility] Phone Number [address] [address] [place] Hepatitis B surface antibody (04/24/2020 1:20 PM CDT) Pathologist Sig nature Hep B S Ab <8.0 <8.0 mIU/mL [facility] Specimen Blood Narrative Performed At Display Manager ID - [facility] Performing Organization Address City/[facility]/Zipcode Phone Number [address] [address] CENTER Hepatitis B surface antigen (04/24/2020 1:20 PM CDT) Pathologist Sig nature HBsAg Screen Nonreactive Nonreactive [facility] Specimen Blood Narrative Performed At Specimen is considered negative for HBsA g. [facility] Performing Organization Address City/[facility] Phone Number [address] [address] [place] Anti-Nuclear Antibody (JOSÉ ANTONIO) (04/24/2020 1:20 PM CDT) Pathologist Sig nature JOSÉ ANTONIO Positive (A) Negative [facility] Specimen Blood Narrative Performed At Test performed by IFA method. [facility] Performing Organization Address [facility] Phone Number [address] [address] [place] Gamma Glutamyl Transferase (GGT) (04/24/2020 1:20 PM CDT) Pathologist Sig nature GGT 50 9 - 64 U/L [facility] Specimen Blood Narrative Performed At Display Manager ID - DASHAWNG [facility] Specimen slightly icteric Performing Organization Address [facility] Hospital[facility] Phone Number [address] [address] CENTER Ferritin (04/24/2020 1:20 PM CDT) Pathologist Sig nature Ferritin 177.89 5.00 - 275.00 ng/mL [facility] Specimen Blood Narrative Performed At Display Manager ID - BS [facility] Performing Organization Address [facility] Phone Number [address] [address] CENTER Bilirubin, direct (04/24/2020 1:20 PM CDT) Pathologist Sig nature Bilirubin, Direct 0.9 (H) 0.1 - 0.5 mg/dL [facility] Specimen Blood Narrative Performed At Display Manager ID - AJ [facility] CENTER Performing Organization Address City/State/Zipcode Phone Number [facility] [address] [place] [address] CENTER Comprehensive Metabolic Panel (04/24/2020 1:20 PM CDT) Protein, Total 6.4 6.0 - 8.3 [facility] gm/dL [facility] Albumin 3.2 (L) 3.5 - 5.0 [facility] g/dL [facility] Alkaline 181 (H) 40 - 150 U/L [facility] Phosphatase [facility] Total Bilirubin 1.8 (H) 0.2 - 1.2 [facility] mg/dL [facility] Sodium 140 136 - 145 [facility] meq/L [facility] Potassium 3.3 (L) 3.5 - 5.1 [facility] meq/L [facility] Chloride 105 98 - 107 [facility] meq/L [facility] CO2 27 22 - 29 meq/L [facility] BUN 9 7 - 21 mg/dL [facility] Creatinine 0.71 0.57 - 1.25 [facility] mg/dL [facility] Glucose 84 70 - 105 [facility] mg/dL [facility] Calcium 10.7 (H) 8.4 - 10.2 [facility] mg/dL [facility] AST 46 (H) 5 - 34 U/L [facility] ALT 19 6 - 55 U/L [facility] EGFR 83Comment: mL/min/1.73 [facility] ESTIMATED GFR IS sq m [facility] NOT ACCURATE MEDICAL CENTER CREATININE CLEARANCE IN PREDICTING GLOMERULAR FILTRATION RATE. ESTIMATED GFR IS NOT APPLICABLE FOR DIALYSIS PATIENTS. Specimen Blood Narrative Performed At Display Manager ID - AJ [facility] Specimen slightly icteric Performing Organization Address [facility]/Zipcode Phone Number [facility] [address] [place] [address] CENTER Mitochondrial Antibodies, M2 (04/24/2020 1:19 PM CDT) Mitochondria M2 Ab <20.0 See Note: U [facility] Comment: INC[facility]PORATED Reference Range: NEGATIVE: < OR = 20.0 EQUIVOCAL: 20.1-24.9 POSITIVE: > OR = 25.0 Specimen Blood Narrative Performed At Performing Lab [facility] [employer] [address] [address] [place] [address] Blanco Armas MD, PhD, GORDON Performing Organization Address [facility] Phone Number [facility] [place] [address] INCORPORATED [address] [facility] Actin (Smooth Muscle) Antibody, IgG (04/24/2020 1:19 PM CDT) Anti-Smooth <20 See Note: U [facility] Muscle Ab Comment: INCORPORATED Reference Range: <20 NEGATIVE > OR = 20 POSITIVE Antibodies recognizing actin are the main component of smooth muscle antibodies associated with autoimmune liver disease. Actin antibodies are found in approximately 75% of patients with autoimmune hepatitis (AIH) type 1, approximately 65% of patients with autoimmune cholangitis, approximately 30% of patients with primary biliary cirrhosis, and approximately 2% of healthy people. High values are closely correlated with AIH type 1. Specimen Blood Narrative Performed At Performing Lab [facility] [address] [place] [address] Blanco Armas MD, PhD, GORDON Performing Organization Address [facility] Phone Number [facility] [place] [address] INCORPORATED [address] [facility] Padle-[id number]-Wvagcuhfhax (04/24/2020 1:19 PM CDT) Pathologist Sig nature A-1 Antitrypsin 149.50 90.00 - 200.00 [facility] mg/dL [facility] Specimen Blood Narrative Performed At Display Manager ID - AJ [facility] Performing Organization Address City/[facility]/Zipcode Phone Number [facility] [address] [place] [address] CENTER Ceruloplasmin (04/24/2020 1:19 PM CDT) Pathologist Sig nature Ceruloplasmin 29 18 - 53 mg/dL [facility] JASPREET Specimen Blood Narrative Performed At Performing Lab [facility] *STONEY [facility], [id number] [place] [id number] Tay Lopez MD Performing Organization Address City/State/Zipcode Phone Number [place] [address] INCORPORATED [address] [employer] [facility] Pro-time/INR (04/24/2020 1:19 PM CDT) Pathologist Sig nature Protime 14.3 (H) 11.9 - 14.2 seconds [facility] INR 1.14 <=5.90 [facility] Specimen Blood Narrative Performed At Effective 12/07/2018: PT Reference Range [facility] Change New: 11.9-14.2 Previous: 11.7-14.7 RECOMMENDED COUMADIN/WARFARIN INR THERAPY RANGES STANDARD DOSE: 2.0-3.0 Includes: PROPHYLAXIS for venous thrombosis, systemic embolization; TREATMENT for venous thrombosis and/or pulmonary embolus. HIGH RISK: Target INR is 2.5-3.5 for patients wiht mechanical heart valves. Performing Organization Address City/[facility]/Zipcode Phone Number [facility] [address] [place] [address] CENTER SARS-CoV2/RT-PCR ([facility]) (01/30/2020 1:45 PM CDT) SARS-COV2/RT-PCR Not Detected Not Detected, [facility] Negative, See [facility] external report MEDICAL CENTER for linked test [facility]OV[facility]2 [facility] PERFORMING LAB [facility] Specimen Other - Nasopharyngeal wall structure (b ronak structure) Narrative Performed At Negative results do not preclude SARS-CoV-2 [facility] infection and should not be used as [...] the Act. Fact Sheet for Healthcare Providers: https://www.Moonfruit/Documents/Xpert%20Xpre ss%20SARS%20CoV-2/Fact%20Sheets/3023802%20SAR S-COV-2%20HEALTHCARE%20PROVIDERS%20FACT%20SHEE T.pdf Fact Sheet for Healthcare Patients: https://www.Moonfruit/Documents/Xpert%20Xpre ss%20SARS%20CoV-2/Fact%20Sheets/3023801%20SAR S-COV-2%20PATIENT%20FACT%20SHEET.pdf Performing Laboratory: [address] [place] [address] Performing Organization Address City/State/Zipcode Phone Number [facility] [address] [place] [id number] CENTER after 05/08/2019 Insurance Payer Benefit Plan / Subscriber ID Effective Dates Phone Addre ss Type Group [place] MED[place]ID [place] [id number] 2020-Present MEDICAID MEDICAID OF [id number] 2020-Deann young
--- OUTSIDE RECORDS SUMMARY | 2020-05-08 06:41 | XMS REPORT ---
[...] End Status Dosage System Date Date Multivitamin [facility] [id number] Active not Adults defined Midodrine HCl [facility] [id number] 10 MG Orally Mar 15, Active 1 tablet Three times a 2019 Results No Known Results Summary Purpose eClinicalWorks Submission
--- OUTSIDE RECORDS SUMMARY | 2020-05-08 06:41 | XMS REPORT | Continuity of Care Document ---
:1955 Author Organization [facility] t Address [address] [place] [address] Care Team Providers Name Role Phone Pcp, No Primary Care Physician Unavailable Gely Martinez MA Attending Clinician Unavailable Acosta HERNANDEZ MPH, Yolande Montaño Attending Clinician [phone] BENJAMIN SHANE Attending Clinician Unavailable Breanna Attending Clinician Unavailable Lucas SCHILLING Attending Clinician Unavailable Saúl MAO, N Attending Clinician Mihai MAO, R Attending Clinician Doctor Unassigned, Name Attending Clinician Unavailable Payers Payer Name Policy Type Policy Effective Date Expiration Date Sour ce Number DONALDSON [id number] 2020 BERTA Jurado MEDICAIDMEDICAID 00:00:00 - Medica l [id number] Ce nter 0-Present MEDICAIDMEDICAID OF [id number] 2020 BERTA Freed [id number] 00:00:00 - Medical 0-PresentMedicaid Center Problems Condition Condition Condition Status Onset Resolution Last Treating Co mments Source Name Details Category Date Date Treatment Clinician Date Elevated Elevated Disease Active BERTA Lawler t liver liver [facility] - enzymes enzymes [facility] Low HDL Low HDL Disease Active [facility] (under 40) (under 40) [facility] Hypertensi Hypertensi Disease Active C HI [facility] on on [facility] Breast Breast Disease Active [facility] cancer cancer [facility] Thrombocyt Thrombocyt Disease Active C HI St openia openia [facility] Elevated Elevated Disease Active [facility] alkaline alkaline [facility] - phosphatas phosphatas Me dical e level e level Center Serum Serum Disease Active [facility] total total [facility] - bilirubin bilirubin Medi manjinder elevated elevated Center Pancytopen Pancytopen Disease Active C HI St ia ia [facility] Allergies, Adverse Reactions, Alerts This patient has no known allergies or adverse reactions. Family History Family Member Diagnosis Comments Start Date Stop Date Source Natural brother Liver disease [facility] Natural father Hypertension [facility] Natural mother Cervical cancer [facility] S t [facility] Natural mother Cirrhosis [facility] Social History Social Habit Start Date Stop Date Quantity Comments Source Sex Assigned At [facility] Tobacco use and 2020-04-24 2020-04-24 Never used [facility] - exposure 00:00:00 00:00:00 [facility] Alcohol intake 2020-04-24 2020-04-24 Ex-drinker [facility] 00:00:00 00:00:00 (finding) [facility] Smoking Status Start Date Stop Date Source Never smoker [facility] edical [place] Medications Ordered Filled Start Stop Current Ordering Indication Dosage Frequency Signature Comments Components Source Medication Medication Date Date Medication? Clinician (SIG) Name Name cholecalcif 2019-07 Yes . [facility] milvia, 0-14 [facility] - vitamin D3, 13:04: Medica l (VITAMIN D3 35 Center ORAL) tramadol 2019-07 Yes . [facility] HCl 0-14 [facility] - (TRAMADOL 13:03: Medical ORAL) 46 Center thiamine 2019-07 Yes 100mg QD Take [address] [facility] [address] (vitamin 0-14 mg by [facility] - B-1) 100 MG 11:23: mouth Medic al tablet 39 daily. [place] calcium 2019-07 Yes Take by [facility] carb/vit 0-14 mouth 3 [facility] - D3/minerals 11:23: times Medic al (CALTRATE 39 weekly . [place] PLUS ORAL) anastrozole 2019-07 Yes Once a [facility] (ARIMIDEX) 0-12 day. [facility] - 1 mg tablet 00:00: Medica l 00 [place] magnesium 2019-07 Yes At night . [facility] oxide 250 0-01 [facility] - mg 00:00: Medical magnesium 00 Center Tab tablet Midodrine Midodrine Yes Bear [address] HCl HCl 9-15 Penaloza kes - 00:00: Memoria 00 [facility] midodrine Yes 1 - [address] [facility] (PROAMATINE 9-02 times a [facility] - ) 10 MG 00:00: day. Medical tablet 00 [place] pantoprazol Yes 40mg Q.5D Take [address] e 8-10 by mouth 2 [facility] - (PROTONIX) 00:00: (two) Medica l 40 MG 00 times Center tablet daily 1 - 2 times a day. thiamine 2020- No 100mg QD Take [address] 100 MG 7-24 10-14 mg by [facility] - tablet 00:00: 00:00 mouth Medical 00 :00 daily. [place] Multivitami Multivitami Yes Bear not [facility] n Adults n Adults Penaloza defined Farida es - [facility] Vital Signs Vital Name Observation Time Observation Value Comments Source Systolic blood 2020-04-24 11:15:00 146 mm[Hg] [facility] pressure [facility] Diastolic blood 2020-04-24 11:15:00 82 mm[Hg] [facility] S t [facility] Heart rate 2020-04-24 11:15:00 68 /min [facility] Body temperature 2020-04-24 11:15:00 36.61 Shasha [facility] Respiratory rate 2020-04-24 11:15:00 16 /min [facility] Body height 2020-04-24 11:15:00 149.9 cm [facility] Body weight 2020-04-24 11:15:00 62.143 kg [facility] BMI 2020-04-24 11:15:00 27.67 kg/m2 [facility] Oxygen saturation in 2020-04-24 11:15:00 100 /min [facility] - Arterial blood by Medical Ce nter Pulse oximetry Procedures Procedure Date / Time Performing Clinician Source Performed COMPREHENSIVE METABOLIC 2020-04-24 13:20:00 [facility] PANEL [facility] BILIRUBIN, DIRECT 2020-04-24 13:20:00 [facility] HEPATITIS A ANTIBODY, IGG 2020-04-24 13:20:[address] [facility] HEPATITIS A ANTIBODY, IGM 2020-04-24 13:20:[address] [facility] HEPATITIS B SURFACE 2020-04-24 13:20:00 [facility] ANTIGEN [facility] HEPATITIS B SURFACE 2020-04-24 13:20:00 [facility] ANTIBODY [facility] HEPATITIS B CORE ANTIBODY, 2020-04-24 13:20:00 [facility] TOTAL [facility] HEPATITIS C ANTIBODY 2020-04-24 13:20:00 [facility] IRON, TIBC, % SAT. 2020-04-24 13:20:00 [facility]olande Shane [facility] 2020-04-24 13:20:00 [facility] ANTI-NUCLEAR ANTIBODY 2020-04-24 13:20:[address] [facility] S t [facility] - (JOSÉ ANTONIO) [facility] ALPHA FETOPROTEIN (AFP), 2020-04-24 13:20:00 [facility] - TUMOR MARKER [facility] HEPATITIS C PCR, 2020-04-24 13:20:00 [facility] es - QUANTITATIVE [facility] GAMMA GLUTAMYL TRANSFERASE 2020-04-24 13:20:00 [facility] (GGT) [facility] HEREDITARY HEMOCHROMATOSIS 2020-04-24 13:20:00 [facility] JOSÉ ANTONIO TITER AND PATTERN 2020-04-24 13:20:00 [facility] Yolande [facility] CBC W/PLT COUNT & AUTO 2020-04-24 13:20:00 [facility] parks [facility] DIFFERENTIAL [facility] PROTHROMBIN TIME/INR 2020-04-24 13:19:[address] [facility] [id number]\, 2020-04-24 13:19:00 [facility] - SERUM [facility] CERULOPLASMIN 2020-04-24 13:19:00 [facility] ACTIN (SMOOTH MUSCLE) 2020-04-24 13:19:00 [facility] Yolande [facility] - ANTIBODY, IGG [facility] MITOCHONDRIA M2 ANTIBODY 2020-04-24 13:19:00 [facility] Yolande I [facility] - (IGG) [facility] SARS-COV2/RT-PCR ([facility] & 2020-01-30 13:45:00 [facility] - REF LABS) [facility] Plan of Care Planned Activity Planned Date Details Comments Source Future Scheduled [address] [facility] - Test 00:00:00 (procedure) [code = [facility] 62201512] Future Scheduled [address] [facility] - Test 00:00:00 malignant neoplasm Medical C enter of cervix (procedure) [code = 217384623] Future Scheduled [address] [facility] [facility] - Test 00:00:00 malignant neoplasm Medical C enter of breast (procedure) [code = 105742839] Future Scheduled [address] [place] [facility] - Test 00:00:00 malignant neoplasm Medical C enter of colon (procedure) [code = 744376175] Encounters Start End Encounter Admission Attending Care Care Encounter Source Date/Time Date/Time Type Type Clinicians Facility Department ID 2020-05-06 2020-05-06 [facility] [id number] 2020-04-15 2020-04-15 [facility] [id number] [facility] 2020-04-11 2020-04-11 [facility] [id number] [facility] 2020-04-08 2020-04-08 [facility] [id number] 2020-04-04 2020-04-04 [facility] [id number] 2020-03-26 2020-03-26 [facility] [id number] 15:20:00 15:20:00 t Haskell SpazioDati s - Drive [facility] Medicine l Medicine Outpati ent Clinics 2020-03-22 2020-03-22 [facility] [id number] 13:35:00 13:35:00 t Haskell SpazioDati s - Drive [facility] Medicine l Medicine Outpati ent Clinics 2020-02-14 2020-02-14 [facility] [id number] 13:51:00 13:51:00 t Haskell SpazioDati s - Drive [facility] l Medicine Outpati ent Clinics 2020-01-10 2020-01-10 [facility] [id number] 10:00:00 10:00:00 t Haskell SpazioDati s - Drive [facility] Medicine l Medicine Outpati ent Clinics 2020-01-10 2020-01-10 [facility] [id number] 10:00:00 10:00:00 t Haskell SpazioDati s - Drive [facility] Medicine l Medicine Outpati ent Clinics 2020-01-09 2020-01-09 [facility] [id number] 13:21:00 13:21:00 t Haskell Haskell NOZA s - Drive [facility] Medicine l Medicine Outpati ent Clinics 2019-12-29 2019-12-29 [facility] [id number] 14:26:00 14:26:[address] Luke s - Drive [facility] Medicine Outpati ent Clinics 2019-12-20 2019-12-20 [facility] [id number] 10:45:00 10:45:[address] Luke s - Drive [facility] Medicine Outpati ent Clinics 2019-12-18 2019-12-18 [facility] [id number] 17:06:00 17:06:[address] Luke s - Drive [facility] Medicine Outpati ent Clinics 2019-11-23 2019-11-23 [facility] [id number] 08:30:00 08:30:[address] LuRuiYi s - Drive [facility] 2019-11-10 2019-11-10 [facility] [id number] 09:00:00 09:00:00 t Haskell [employer] LuRuiYi s - Drive [facility] 2019-08-15 2019-08-15 Telephone [facility] [id number] 00:00:00 00:00:00 Alejandra N HAND MOLDER MEAT [id number] [facility] [id number] MATERNAL [id number] & CHILD 107 [facility] 2019-08-04 2019-08-04 Telephone [facility] [id number] 00:00:00 00:00:00 Epifanio Rain HAND MOLDER MEAT [id number] [facility] [id number] MATERNAL [id number] & CHILD 107 [facility] 2019-07-28 2019-07-28 Orders Doctor [facility] [id number] 00:00:00 00:00:00 Only Unassigned, STACIE [id number] [place] [facility] [id number] 2019-07-28 2019-07-28 Telephone [facility] [id number] 00:00:00 00:00:00 Alejandra N HAND MOLDER MEAT [id number] [facility] [id number] MATERNAL [id number] & CHILD [address] [place] [address] Results Test Description Test Time Test Comments Results Result Comments Source HEREDITARY HEMOCHROMATOSIS 2020-04-30 14:59:00 Test Item Value Reference Range Interpretation Comme nts DNA SEE BELOW RESULT: POSITIV E FOR ONE HFE GENE PATHOGENIC VARIANT: H63D Mutation (HETEROZYGOTE) Interpretation: One copy of the H63D pathogenic Analysis variant in the HFE gene wasdetected. This patient is negative (test for the C282Y p athogenic variant. In theabsence of evidence of code = iron overload, this result most likely indicates thatthis [id number]) individual is a n HFE carrier. This result reduces the likelihood ofhe reditary hemochromatosis (HH). However, it does not rule out th e presenceof other pathogenic variants within the HFE gene or a diagnosis of HH. Therisk of this individual to carry an HFE pathogenic variant other than thosetested in this assay depe nds greatly on family and clinical history as wellas ethnicit y. This assay does not test for other primary or secondary irono verload disorders. Consider genetic counseling and DNA testing for at-riskfamily members. Laboratory results and submitted c linical information reviewed by Alberta Perera, PhD, [facility]. DETAILED ASSAY INFORMATION: Hereditary hemochromatosis (HH) is an autosomalrecessive disorder of iron metabolism that can result in iron overload andpotential organ failure. It is one of the most common genetic disorders inindividuals o f - ancestry, with an estimated carrierfrequenc y of 10%. HH is caused by pathogenic variants in the HFE gene. M ostindividuals with HH (60-90%) are homozygous for the C282Y p athogenic variant.A smaller percentage of affected indivi duals are either compoundheterozygous for the C282Y and H63D pathogenic variants (3%-8%), orhomozygous for the H63D pathog enic variant (approximately 1%). METHODOLOGY: This assay dete cts two pathogenic variants in the HFE gene,C282Y (NM 264787.2: c.845G>A, p.Rbz009Psi) and H63D (NM 361957.2: c.187 C>G,p.Bmm09Grv), that are commonly associated with HH. These variants aredetected by multiplex-polymerase chain reaction (PCR) amplification, followedby restriction enzyme digestio n and capillary electrophoresis. LIMITATIONS: This assay does not detect other pathogenic variants in the HFEgene that ma y be associated with HH. Although rare, false positive or fal senegative results may occur. All results should be interpreted in the contextof clinical findings, relevant history, and ot her laboratory data. Health care providers, please contact your local [employer]' geneticcounselor or call [phone] ( ) for assistance with theinterpretati on of these results. This test was developed and its analytical performance characteristics havebeen determined by [employer] [facility].It has not been cl eared or approved by FDA. This assay has been validatedpursua nt to the CLIA regulations and is used for clinical purpos es. For more information, please refer [email or web address] [email or web address](This link is being p rovided for informational/educational purposes only.) CHER (test Performing code = Lab EZ CHER) [employer] [address] [place] [address] Blanco Armas MD, PhD, GORDON [facility] HospitalMitochondrial Antibodies, [id number] 23:24:00 Test Item Value Reference Range Interpretation Comments Mitochondria M2 Ab <20.0 See Note: U Reference (test code = Range:NEGATIVE: 5656105) < OR = 20.0EQUIVOCAL: 20.1-24.9POSITI V E: > OR = 25.0 CHER (test code = Performing Lab CHER) EZ [employer] [address] [address] [place] [address] Blanco Armas MD, PhD, GORDON [facility] HospitalHepatitis C RNA, [id number] 03:34:00 Test Item Value Reference Range Interpretation Comments HCV PCR, Quantitative HCV RNA not detected HCV RNA not (test code = 76006-6) detected CHER (test code = CHER) This test uses a Real-Time Polymerase Chain Reaction (RT-PCR) methodology and was performed using FRANTZ Ampliprep/FRANTZ TaqMan HCV test kit version 2.0 ([employer]). Reportable range for this assay is 15 - 100,000,000 IU per mL (1.18 - 8.00 Log IU/mL). Lab Interpretation Normal (test code = 38532-9) [facility] HospitalHEPATITIS C PCR, [id number] 03:34:00 Test Item Value Reference Range Interpretation Comments HCV RESULT COMPONENT HCV RNA not detected HCV RNA not detected (BEAKER) (test code = 2699) This test uses a Real-Time Polymerase Chain Reaction (RT-PCR) methodology and was performed using [employer] Ampliprep/FRANTZ TaqMan HCV test kit version 2.0 ([employer]).Reportable range for this assay is 15 - 100,000,000 IU per mL (1.18 - 8.00 Log IU/mL).Actin (Smooth Muscle) Antibody, [id number] 00:31:00 Test Item Value Reference Range Interpretation Comments Anti-Smooth <20 See Note: U Reference Range :<20 Muscle Ab NEGATIVE> O R = 20 (test code = POSITIVE Antibo dies 2106945) recognizing act in are the main compon entof smooth muscle antibodies asso ciated withautoimmune liver disease. Actin antibodies aref ound in approximatel y 75% of patients withautoimmune hepatitis (AIH) type 1, approximatel y65% of patients wit h autoimmune cholangitis,mariam roxima tely 30% of pat ients with primary biliarycirrhosi s, and approximately 2 % of healthy people. High values are clos kenton correlated with AIH type 1. CHER (test code Performing Lab = CHER) [employer] [address] [place] [address] Blanco Armas MD, PhD, GORDON [facility] HospitalCeruloplasmin2020-10-16 14:50:00 Test Item Value Reference Range Interpretation Comments Ceruloplasmin (test code 29 mg/dL 18-53 = 9010624) CHER (test code = CHER) Performing Lab *STONEY [employer] [facility] [address] [place] [address] Tay Lopez MD [facility] HospitalAnti-Nuclear Antibody (JOSÉ ANTONIO)2020-04-26 10:36:00 Test Item Value Reference Range Interpretation Comments JOSÉ ANTONIO (test code = 05075-8) Positive Negative A CHER (test code = CHER) Test performed by IFA method. Lab Interpretation (test Abnormal code = 84185-2) [facility] HospitalANA Titer & [id number] 10:36:00 Test Item Value Reference Range Interpretation Comments JOSÉ ANTONIO Titer (test code = 03126-0) 1:160 JOSÉ ANTONIO Pattern (test code = 1781) Speckled [facility] HospitalANTI-NUCLEAR ANTIBODY (JOSÉ ANTONIO)2020-04-26 10:36:00 Test Item Value Reference Range Interpretation Comments ANTI-NUCLEAR ANTIBODY (JOSÉ ANTONIO) (BEAKER) Positive Negative A (test code = 418) Test performed by IFA method.JOSÉ ANTONIO TITER AND [id number] 10:36:00 Test Item Value Reference Range Interpretation Comments JOSÉ ANTONIO TITER (BEAKER) (test code = :160 1541) JOSÉ ANTONIO PATTERN (BEAKER) (test code = Speckled 1781) [id number] 18:39:00 Test Item Value Reference Range Interpretation Comments Ferritin (test code = 177.89 ng/mL 5-275 2276-4) CHER (test code = CHER) [facility] - BS Lab Interpretation (test Normal code = 02604-1) [facility] HospitalFERRITIN2020-10-14 18:39:00 Test Item Value Reference Range Interpretation Comments FERRITIN (BEAKER) (test code = 177.89 ng/mL 5.00-275.00 361) [facility] ID - BSHepatitis B surface [id number] 15:07:00 Test Item Value Reference Range Interpretation Comments Hep B S Ab (test code = <8.0 <8.0 mIU/mL 66200-5) CHER (test code = CHER) [facility] ID - ROSIANG Lab Interpretation (test Normal code = 80336-9) [facility] HospitalHEPATITIS B SURFACE [id number] 15:07:00 Test Item Value Reference Range Interpretation Comments HEPATITIS B SURFACE ANTIBODY < mIU/mL <8.0 (BEAKER) (test code = 647) [facility] ID - ROSIANGHepatitis B surface [id number] 14:58:00 Test Item Value Reference Range Interpretation Comments HBsAg Screen (test code Nonreactive Nonreactive = 5195-3) CHER (test code = CHER) Specimen is considered negative for HBsAg. Lab Interpretation (test Normal code = 49008-7) [facility] HospitalHepatitis C [id number] 14:58:00 Test Item Value Reference Range Interpretation Comments Hepatitis C Ab (test Nonreactive Nonreactive code = 36675-4) CHER (test code = CHER) [facility] Lab Interpretation (test Normal code = 30506-6) [facility] HospitalHepatitis A antibody, [id number] 14:58:00 Test Item Value Reference Range Interpretation Comments Hep A IgG (test code = Reactive Nonreactive A 15686-6) CHER (test code = CHER) [facility] Lab Interpretation (test Abnormal code = 82195-7) [facility] HospitalHE[facility] A ANTIBODY, [id number] 14:58:00 Test Item Value Reference Range Interpretation Comments HEPATITIS A IGG ANTIBODY (BEAKER) Reactive Nonreactive A (test code = 2797) [facility] ID - ROSIANGHEPATITIS B SURFACE [id number] 14:58:00 Test Item Value Reference Range Interpretation Comments HEPATITIS B SURFACE ANTIGEN (2) Nonreactive Nonreactive (BEAKER) (test code = 2585) Specimen is considered negative for HBsAg.HEPATITIS C [id number] 14:58:00 Test Item Value Reference Range Interpretation Comments HEPATITIS C ANTIBODY (BEAKER) Nonreactive Nonreactive (test code = 367) [facility] core antibody, [id number] 14:50:00 Test Item Value Reference Range Interpretation Comments Hep B Core Total Ab Nonreactive Nonreactive (test code = 07058-1) CHER (test code = CHER) [facility] ID - [facility]rug[facility] Lab Interpretation (test Normal code = 23054-0) [facility] HospitalAlpha fetoprotein (AFP), tumor [id number] 14:50:00 Test Item Value Reference Range Interpretation Comments Alpha-Fetoprotein (test 5.0 ng/mL <10.0 code = 1834-1) CHER (test code = CHER) [facility] Lab Interpretation (test Normal code = 26184-4) [facility], [id number] 14:50:00 Test Item Value Reference Range Interpretation Comments Hep A IgM (test code = Nonreactive Nonreactive 71639-3) CHER (test code = CHER) [facility] ID - GLADISIANG Lab Interpretation (test Normal code = 93385-7) [facility] HospitalALPHA FETOPROTEIN (AFP), TUMOR [id number] 14:50:00 Test Item Value Reference Range Interpretation Comments ALPHA-FETOPROTEIN (BEAKER) (test 5.0 ng/mL <10.0 code = 1094) [facility] ID - ROSIANGHEPATITIS A ANTIBODY, [id number] 14:50:00 Test Item Value Reference Range Interpretation Comments HEPATITIS A IGM ANTIBODY (BEAKER) Nonreactive Nonreactive (test code = 498) [facility] ID - ROSIANGHEPATITIS B CORE ANTIBODY, [id number] 14:50:00 Test Item Value Reference Range Interpretation Comments HEPATITIS B CORE TOTAL ANTIBODY Nonreactive Nonreactive (BEAKER) (test code = 497) [facility] ID - [id number]-[id number] 14:36:00 Test Item Value Reference Range Interpretation Comments A-1 Antitrypsin (test code 149.50 mg/dL 90-200 = 1825-9) CHER (test code = CHER) [facility] ID - ROSIANG Lab Interpretation (test Normal code = 00489-7) [facility], TIBC, % sat. (without ferritin)2020-04-24 14:36:00 Test Item Value Reference Range Interpretation Comments Iron (test code = 2498-4) 128.0 ug/dL 40-160 TIBC (test code = 2500-7) 294 ug/dL 250-450 Iron % Saturation (test 44 % 20-55 code = 2502-3) CHER (test code = CHER) [facility] ID - ROSIANG Lab Interpretation (test Normal code = 95142-4) [facility], TIBC, % SAT. (WITHOUT FERRITIN)2020-04-24 14:36:00 Test Item Value Reference Range Interpretation Comments IRON (BEAKER) (test code = 547) 128.0 ug/dL 40.0-160.0 TOTAL IRON BINDING CAPACITY 294 ug/dL 250-450 (BEAKER) (test code = 769) IRON % SATURATION (2) (BEAKER) 44 % 20-55 (test code = 2590) [facility] ID - [id number] 14:36:00 Test Item Value Reference Range Interpretation Comments ALPHA-1 ANTITRYPSIN (BEAKER) 149.50 mg/dL 90.00-200.00 (test code = 502) [facility] ID - DASHAWNGComprehensive Metabolic [id number] 14:35:00 Test Item Value Reference Interpretation Comments Range Protein, Total (test 6.4 6.0- 8.3 gm/dL code = 2885-2) Albumin (test code = 3.2 g/dL 3.5-5 L 04278-6) Alkaline Phosphatase 181 U/L 40-150 H (test code = 6768-6) Total Bilirubin 1.8 mg/dL 0.2-1.2 H (test code = 1975-2) Sodium (test code = 140 meq/L 549-207 0495-2) Potassium (test code 3.3 meq/L 3.5-5.1 L = 2823-3) Chloride (test code 105 meq/L 98-107 = 2075-0) CO2 (test code = 27 meq/L 22-29 2028-9) BUN (test code = 9 mg/dL 7-21 3094-0) Creatinine (test 0.71 mg/dL 0.57-1.25 code = 2160-0) Glucose (test code = 84 mg/dL 70-105 2345-7) Calcium (test code = 10.7 mg/dL 8.4-10.2 H 64344-4) AST (test code = 46 U/L 5-34 H 1920-8) ALT (test code = 19 U/L 6-55 1742-6) EGFR (test code = 83 mL/min/1.73 sq ESTIMATE D GFR 08338-4) m IS NOT ACCURATE CREATININE CLEARANCE IN PREDICTING GLOMERULAR FILTRATION RATE. ESTIMATED GFR IS NOT APPLICABLE FOR DIALYSIS PATIENTS. CHER (test code = [facility] - CHER) ROSIANGSpecimen slightly icteric Lab Interpretation Abnormal (test code = 34802-8) [facility] HospitalBilirubin, [id number] 14:35:00 Test Item Value Reference Range Interpretation Comments Bilirubin, Direct (test 0.9 mg/dL 0.1-0.5 H code = 1968-7) CHER (test code = CHER) [facility] ID - AJ Lab Interpretation (test Abnormal code = 25000-1) [facility] HospitalGamma Glutamyl Transferase (GGT)2020-04-24 14:35:00 Test Item Value Reference Range Interpretation Comments GGT (test code = 50 U/L 9-64 2324-2) CHER (test code = CHER) [facility] ID - DASHAWNGSpecimen slightly icteric Lab Interpretation Normal (test code = 97236-3) [facility] HospitalCOMPREHENSIVE METABOLIC [id number] 14:35:00 Test Item Value Reference Range Interpretation [...] S NOT APPLICABLE FOR DIALYSIS PATIEN TS. [facility] ID - Lindyimen slightly ictericBILIRUBIN, [id number] 14:35:00 Test Item Value Reference Range Interpretation Comments BILIRUBIN DIRECT (BEAKER) (test 0.9 mg/dL 0.1-0.5 H code = 706) [facility] ID - DASHAWNGGAMMA GLUTAMYL TRANSFERASE (GGT)2020-04-24 14:35:00 Test Item Value Reference Range Interpretation Comments GAMMA GLUTAMYL TRANSFERASE (BEAKER) 50 U/L 9-64 (test code = 364) [facility] ID - KALANIpecimen slightly ictericPro-time/[id number] 14:22:00 Test Item Value Reference Range Interpretation [...] valves. Lab Interpretation Abnormal (test code = 42060-8) [facility] HospitalPROTHROMBIN TIME/[id number] 14:22:00 Test Item Value Reference Range Interpretation [...] heart valves.CBC with platelet count + automated [id number] 14:14:00 Test Item Value Reference Range Interpretation [...] K/CU MM L MPV (test code = 35830-5) 10.6 fL 9.4-12.3 nRBC (test code = [...] 2801) Lab Interpretation (test code = Abnormal 09719-4) [facility] HospitalCB W/PLT COUNT & AUTO [id number] 14:14:00 Test Item Value Reference Range Interpretation [...] % 0-1 PERCENT (BEAKER) (test code = 2806) SARS-CoV2/RT-PCR ([facility])2020-01-31 00:49:00 Test Item Value Reference Range Interpretation Comments SARS-COV2/RT-PCR Not Detected Not Detected, (test code = Negative, See 88182-6) external report for linked test SARS-COV-2 [facility] PERFORMING LAB (test code = 36741-3) CHER (test code = Negative results do [...] of the Act. Fact Sheet for Healthcare Providers:https://www.3D Data/Documents/Xper t%20Xpress%20SARS%20CoV- 2/Fact%20Sheets/3023802 %12RHZX-YMH-7%20HEALTHCA RE%20PROVIDERS%20FACT%20 SHEET.pdf Fact Sheet for Healthcare Patients:https://www.TapHome.Lollipuff/Documents/Xpert %20Xpress%20SARS%20CoV-2 /Fact%20Sheets/3023801% 50SHZD-XIN-7%20PATIENT%2 0FACT%20SHEET.pdf Performing Laboratory:[facility] [place] [address] [facility])2020-01-31 00:49:00 Test Item Value Reference Range Interpretation Comments SARS-COV2/RT-PCR (test Not Detected Not Detected, Negative, code = 0842377) See external report for linked test SARS-COV-2 PERFORMING LAB [facility] (test code = 4502619) Negative results do not preclude SARS-CoV-2 infection [...] of the Act.Fact Sheet for Healthcare Pro viders:https://www.PandaDoc/Documents/Xpert%20Xpress%20SARS%20CoV-2/Fact%20Sh eets/3023802%82PPFX-ZQI-5%20HEALTHCARE%20PROVIDERS%20FACT%20SHEET.pdfFact Sheet for Healthcare Patients:https://www.Vessix/Documents/Xpert%20Xpress%20SARS%20CoV-2/Fact%20Sheets/3023801%20SARS-COV -2%20PATIENT%20FACT%20SHEET.pdfPerforming Laboratory:[facility], [place] [address]GH[facility]HM ULTRASOUND CORE BIOPSY LEFT 2019-07-27 14:15:04- BREAST ULTRASOUND CORE BIOPSY LEFTULTRASOUND GUIDED BIOPSY LEFT BREAST WITH MARKING DEVICE INSERTED: 07/25/2019CLINICAL: Ultrasound biopsy, left breast 1:00/subareolar-MHunter. Comparison is made toexams dated 07/18/2019 ultrasound and 07/18/2019 mammogram - [facility]-. An ultrasoundguided biopsy using real-time [...] 14:15:04 Entry: - 07/27/2019 15:05:22copy to: Ishaan Rodríguez [facility] [address], ATTN: Shwetha Rodríguez, ph: [phone], fax: [phone] Technologist: Aida Wilkins , [facility]-DIAG MAMM LEFT CAD [id number] 13:14:19 - DIAG MAMM LEFT CAD DIGITALUNILATERAL LEFT DIGITAL DIAGNOSTIC MAMMOGRAM WITH CAD POST-PROCEDURE IMAGING FOR MARKER PLACEMENT: 07/25/2019CLINICAL: Post Clip Placement. Current mammographic images were evaluated by either a PassionTag M-Vu or a Next 1 Interactivegic ImageChecker CAD (computer aided detection system). Comparison is made to exam dated 07/18/2019 mammogram - [facility]-. The tissue of theleft breast [...] M.D. dm/:07/25/2019 13:14:19 copy to: Ishaan Rodríguez [facility] [address], ATTN: Shwetha Rodríguez, ph: [phone], fax: [phone] Technologist: Morelia PERALTA, [facility]-FWImaging Technologist: Suri PERALTA, [facility]-FWMammogram BI-RADS: Post-procedure mammogram for marker placementBREAST ULTRASOUND [id number] 16:44:27 - DIAG MAMM BILATERAL KENNY CAD DIGITALBILATERAL DIGITAL DIAGNOSTIC MAMMOGRAM 3D/2D WITH CAD: 07/18/2019CLINICAL: Palpable mass, left breast. Digital breast tomosynthesis was performed in addition to routine CC and MLO views. Current mammographic images were evaluated by either a PassionTag M-Vu or a Authenticlick CAD (computer aided detection system). No prior [...] - 07/18/2019 16:51:42copy to: Ms. Shwetha Rodríguez, [facility] [address], ATTN: Shwetha Rodríguez, ph: [phone], fax: [phone] Technologist: Vanesa PERALTA, [facility]- FWletter sent: BIRADS 4/5 Biopsy Mammogram BI-RADS: 0 Incomplete: Additional Imaging Evaluation Needed Ultrasound BI-RADS: 5 Highly suggestive of malignancy DIAG MAMM BILATERAL KENNY CAD [id number] 16:44:27 - DIAG MAMM BILATERAL KENNY CAD DIGITALBILATERAL DIGITAL DIAGNOSTIC MAMMOGRAM 3D/2D WITH CAD: 0CLINICAL: Palpable mass, left breast. Digital breast tomosynthesis was performed in addition to routine CC and MLO views. Current mammographic images were evaluated by either a PassionTag M-Vu or a Internet MallChecker CAD (computer aided detection system). No prior [...] - 07/18/2019 16:51:42copy to: Ms. Shwetha Rodríguez, [facility] [address], ATTN: Shwetha Marcos, ph: [phone], fax: [phone] Technologist: Vanesa PERALTA, [facility]-FWletter sent: BIRADS 4/5 Biopsy Mammogram BI-RADS: 0 Incomplete: Additional Imaging Evaluation Needed Ultrasound BI-RADS: 5 Highly suggestive of malignancy
--- OUTSIDE RECORDS SUMMARY | 2020-05-08 06:42 | XMS REPORT ---
:1955 Author Organization [facility] Address [address] [place], [place] [place] [address] Care Team Providers Name Role Phone Bear Penaloza Unavailable [phone] PROBLEMS Type Condition ICD9-CM ECF31-FA Onset Condition SNOMED Code Notes Code Code Dates Status Problem Essential I10 Active 53483257 hypertension Problem Malignant neoplasm C50.912 Active 490891112 of left female breast, unspecified estrogen receptor status, unspecified site of breast Problem Hyperammonemia E72.20 Active 1059200 Problem Hypercalcemia E83.52 Active 35020825 Problem Low HDL (under 40) E78.6 Active 393838325 Problem Thrombocytopenia D69.6 Active 392801454 Problem S/P left mastectomy Z90.12 Active 113113969 Problem Hypomagnesemia E83.42 Active 463946146 ALLERGIES No Known Allergies ENCOUNTERS from 1955 to 2020-04-15 Encounter Location Date Provider Diagnosis [facility] [place] [address] [place] Apr, Bear Tremaine Hypokalem ia E87.6 ; [address] [place], [place], [place] [address] hypotension ty pe I95.9 ; Malignant neopl [...] radical mastectomy-breast and axillary 11/[address] 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) Apr, Localized swelling [...] 9:30:00 AM, [address] [address], [place], [address], Provider Name:Bear Tremaine, 2020-05-06 0 8:20:00 AM, [address], [place], [address], Provider Name:Bear Tremaine 2020-05-16 0 1:00:00 PM, [address], [address], [place], [address], Provider Name:Bear Tremaine, 2020-05-23 0 1:00:00 PM, [address], [place], [address], Insurance Providers Payer Name Payer Payer Insured Patient Coverage Coverage End Address Phone Name Relationship to Start Date Javid e Insured [place] [phone] Redd Alaniz [address] [address]
--- OUTSIDE RECORDS SUMMARY | 2020-05-08 06:42 | XMS REPORT ---
:1955 Author Organization [facility] Address [address] [place], [place] [place] [address] Care Team Providers Name Role Phone Bear Penaloza Unavailable [phone] PROBLEMS Type Condition ICD9-CM KJK86-IN Onset Condition SNOMED Code Notes Code Code Dates Status Problem Essential I10 Active 96983285 hypertension Problem Hypomagnesemia E83.42 Active 793486451 Problem Hyperammonemia E72.20 Active 2865564 Problem Malignant neoplasm C50.912 Active 550944092 of left female breast, unspecified estrogen receptor status, unspecified site of breast Problem Low HDL (under 40) E78.6 Active 143061602 Problem Thrombocytopenia D69.6 Active 011522090 Problem S/P left mastectomy Z90.12 Active 800867040 ALLERGIES No Known Allergies ENCOUNTERS from 1955 to 2020-04-11 Encounter Location Date Provider Diagnosis [facility] [place] [address] [place] Apr, Bear Tremaine Hypotensi on, unspecified Drive [address] [place], hypotensio n type I95.9 ; [place] [address] Malignant neop lasm of left female barak [...] (ICD-10 - M79 .89) Apr, Patient is Sikh (ICD-10 - Z 78.9) Apr, Localized swelling on hand (ICD-10 - R22 .30) Apr, Candidal intertrigo (ICD-10 - B37.2) Apr, Elevated alkaline phosphatase level (ICD -10 - R74.8) Apr, Low HDL (under 40) (ICD-10 - E78.6) Apr, Thrombocytopenia (ICD-10 - D69.6) Apr, Hypomagnesemia (ICD-10 - E83.42) Apr, Malignant neoplasm of left female breast , unspecified estrogen receptor status, unspecified site of baark ast (ICD-10 - C50.912) Apr, Hypotension, unspecified [...] Name:Bear Penaloza, 2020-04-15 0 8:00:00 AM, [address], [address], [place], [address], Provider Name:Bear Penaloza, 2020-05-16 0 1:00:00 PM, [address], [place], [address], Provider Name:Bear Penaloza, 2020-05-23 0 1:00:00 PM, [address], [place], [address], Insurance Providers Payer Name Payer Payer Insured Patient Coverage Coverage End Address Phone Name Relationship to Start Date Javid e Insured [place] [phone] Redd Alaniz self [address] [address]
--- OUTSIDE RECORDS SUMMARY | 2020-05-08 06:42 | XMS REPORT ---
:1955 Author Organization [facility] Address [address] [place], [place] [place] [address] Care Team Providers Name Role Phone Bear Penaloza Unavailable [phone] PROBLEMS Type Condition ICD9-CM ODM89-EO Onset Condition SNOMED Code Notes Code Code Dates Status Problem Essential I10 Active 58937089 hypertension Problem Malignant neoplasm C50.912 Active 946274352 of left female breast, unspecified estrogen receptor status, unspecified site of breast Problem Hyperammonemia E72.20 Active 5288919 Problem Hypercalcemia E83.52 Active 94496429 Problem Low HDL (under 40) E78.6 Active 732287317 Problem Thrombocytopenia D69.6 Active 585281113 Problem S/P left mastectomy Z90.12 Active 549141739 Problem Hypomagnesemia E83.42 Active 916206122 ALLERGIES No Known Allergies ENCOUNTERS from 1955 to 2020-05-06 Encounter Location Date Provider Diagnosis [facility] [place] [address] [place] Apr, Bear Tremaine Hypokalem ia E87.6 ; [address] [place], Hypotensio n, [place] [address] hypotension ty pe I95.9 ; Malignant neopl [...] VITAL SIGNS Height 65 in Apr, Weight 142.8 lbs Apr, Temperature 97.7 degrees Fahrenheit Apr, BMI 23.76 kg/m2 Apr, Oximetry 99 % Apr, Respiratory Rate 16 /min Apr, Blood pressure systolic 126 mm Hg Apr, Blood pressure diastolic 59 mm Hg Apr, MEDICATIONS Medication SIG (Take, Route, Frequency, Start Date End Date Status Duration) Midodrine HCl 10 MG 1 tablet Orally Three times Active a day for 30 day(s) Magnesium Oxide 250 MG 2 tablets at bedtime as Active needed Orally Once a day for 30 day(s) Potassium Chloride 20 MEQ 1 packet with food Orally Active BID for 30 day(s) Multivitamin Adults Not-Taki ng PROCEDURES No Information RESULTS No Results REASON FOR VISIT 3 wk lab f/u. In office. MEDICAL (GENERAL) HISTORY Type [...] (ICD-10 - M79 .89) Apr, Patient is Islam (ICD-10 - Z 78.9) Apr, Localized swelling [...] 20 MEQ 1 packet with food Orally BID for 30 day(s) Magnesium Oxide 250 MG 2 tablets at bedtime as needed Orally Once a day for 30 day(s) Treatment Notes Assessment Notes Clinical Notes Intertriginous dermatitis associated . Discussed supportive measures with moisture for symptomatically. Discussed differential diagnosis. Education given IMPROVING. Hypokalemia . Received call for critical labs from oncologist of 2.8 potassium--> 3.1--> 3.8 on repeat. Take BID. Recheck labs in 2 weeks. Advised on [...] Notes Test Name Order Date PTH, Intact 2020-05-06 Calcium, Ionized, Serum 2020-05-06 Hematopath Consultation, Smear 2020-05-06 Magnesium, Serum 2020-05-06 Comp. Metabolic Panel (14) (CMP) 2020-05-06 CBC With Differential/Platelet 2020-05-06 Next Appt Details 3 Months + Labs 1 week before Reason: Provider Name:Baer Penaloza, 2020-07-30 0 8:30:00 AM, [address], [place], [address], Provider Name:Bear Penaloza, 2020-08-06 0 8:20:00 AM, [address], [place], [address], Insurance Providers Payer Name Payer Payer Insured Patient Coverage Coverage End Address Phone Name Relationship to Start Date Javid e Insured [place] [phone] Redd Alaniz self [address] [address]
[2020-05-08] MEDS ORDERED: Ringers Lactate 1,000 ML IV ONE (07:01)
[2020-05-08 07:25] VITALS: O2SAT 100
[2020-05-08] MEDS ORDERED: FENTANYL CITR 100 MCG/2 ML ONE (07:36)
[2020-05-08] MEDS ORDERED: propofoL 200 MG/20 ML VIAL IV ONE (07:37)
[2020-05-08] MEDS ORDERED: LIDOCAINE 2% MPF 5 ML VIAL ONE (07:37)
[2020-05-08] MEDS ORDERED: MIDAZOLAM HCL 2 MG/2 ML INJ ONE (07:37)
[2020-05-08] MEDS ORDERED: CEFAZOLIN/SWI 1gm 1 GM/10 ML SYR ONE (07:55)
[2020-05-08] MEDS ORDERED: ONDANSETRON 4 MG/2 ML VIAL ONE (07:58)
--- NOTE | 2020-05-08 08:10 | P.BOP ---
Preoperative diagnosis: breast cancer Postoperative diagnosis: same Primary procedure: REmoval of portacath Estimated blood loss: <5cc Specimen: intact portacath Findings: as above Anesthesia: MAC Complications: None Transferred to: Recovery Room Condition: Good
[2020-05-08 09:28] VITALS: BP 160/77; TEMP 97.5
--- NOTE | 2020-05-08 09:58 | OP ---
Date of Procedure: 05/08/2020 Surgeon: Timmy Zheng MD Preoperative Diagnosis: Breast cancer. Postoperative Diagnosis: Breast cancer. Procedure: Removal of Port-A-Cath. Anesthesia: MAC plus local. Indications: This is the case of a 64-year-old patient who finished her chemotherapy. Now she wants the Port-A-Cath removed. Benefits, alternatives, and risks of removal fully explained which include d, but not limited to infection, bleeding, damage to adjacent structures, anesthesia complication, PE , DE, and even . She also understands this may not relieve her symptoms. She might need more t jin one surgical intervention. She understood, signed a consent. Procedure In Detail: Patient was brought to the operating room, placed in supine position. Time-out was called. Anesthesia was done without complication. Right chest was prepped and draped in a ster ile fashion. Local anesthesia was applied followed by sharp incision of the skin. Port-A-Cath was f ound, removed from the subcutaneous tissue and then gently pulled out intact. Pressure was applied o kush the insertion site for about 15 minutes. The incision was closed with 3-0 chromic after irrigati on and hemostasis. Patient tolerated the procedure well. Steri-Strips were placed over the area. T he patient is on her way to recovery in stable condition. Diagnosis: Breast cancer. Procedure: Removal of Port-A-Cath. Disposition: Home. Activity: As tolerated. No heavy lifting. Plan: Follow up in my office in 1 week. Call for appointment at [phone]. Keep area dry for 48 kojo rs, then may shower. Keep Steri-Strips intact. Medications: Include Tylenol No. 3 q.4 hours p.r.n. pain. MONI/JESSICA Voice ID: [id number] Report ID: [id number]
== END 2020-05-08 09:15 | disposition home or self-care (01) ==
LOC: OR 06:36
PROVIDERS: ATTEND Surgery
PROC: 0JPT0WZ Removal of Totally Implantable Vascular Access Device from Trunk Subcutaneous Tissue and Fascia, Open Approach (ICD-10-PCS; principal; 2020-05-08 07:30)
DX: Z45.2 Encounter for adjustment and management of vascular access device (principal); C50.912 Malignant neoplasm of unspecified site of left female breast; Z20.828 Contact with and (suspected) exposure to other viral communicable diseases
CPT/HCPCS: 85025; 80048; 36415; 88300; 36590; U0002; J2704; J2250; J0690; J7120; J2405; J3010

== ENCOUNTER 2022-07-29 13:36 | Emergency (ER) | payer OTHER ==
--- OUTSIDE RECORDS SUMMARY | 2022-07-29 13:42 | XMS REPORT | Continuity of Care Document ---
:1955 Author Organization [facility] [place] t Address [address] [place] [address] Care Team Providers Name Role Phone EPIFANIO BEAR Primary Care Physician Unavailable Bear Penaloza Attending Clinician Unavailable MILI EUBANKS Attending Clinician Unavailable Adelaide Wise Attending Clinician ADELAIDE NANCE Attending Clinician Unavailable WADE MORALES Attending Clinician Unavailable Wade Morales MD Attending Clinician Doctor Unassigned, [place] Attending Clinician Unavailable Only, Adc Test Attending Clinician Unavailable Roni Lyosn MD Attending Clinician RONI LYONS Attending Clinician Unavailable Nurse, Adc Pob Immunization Attending Clinician Unavailable Jono Little DO Attending Clinician JONO LITTLE Attending Clinician Unavailable ALEJANDRA SETH Attending Clinician Unavailable Alejandra Batista Attending Clinician Epifanio Uribe Attending Clinician MILI EUBANKS Admitting Clinician Unavailable WADE MORALES Admitting Clinician Unavailable Wade Morales MD Admitting Clinician Payers Payer Name Policy Type Policy Number Effective Date Expiration Date S alena MEDICAID DONALDSON [id number] 2020 2020 00:00:00 00:00:00 [facility] [id number] 2020 PLAN 00:00:00 COVID VACCINE [id number] 2020-09-20 ADMIN / TESTING 00:00:00 [facility] [id number] 2022-01-09 Common ADVANTAGE 00:00:00 [facility]/AARP [id number] 2022-01-09 MEDICARE 00:00:00 ADVANTAGE MEDICARE PART A [id number] 2021-12-10 2022-01-09 \\T\\ B 00:00:00 00:00:00 [place] [id number] 2021-11-[address] [facility] 00:00:00 [facility] MEDICAID OF [id number] 2020-04-11 [place] 00:00:00 Problems Condition Condition Condition Status Onset Resolution Last Treating Co mments Source Name Details Category Date Date Treatment Clinician Date Umbilical Umbilical Disease Active Overview: Univers hernia hernia 6-29 Formattin ity of without without 00:00: g of this [place] obstructio obstructio 00 note Me dical n and n and might be Branch without without different gangrene gangrene from the original. Added automatic ally from request for surgery [id number] BMI BMI Disease Active Univers 27.0-27.9, 27.0-27.9, 3-02 it y of adult adult 00:00: [place] 00 Medical Branch Well woman Well woman Disease Active U nivers exam with exam with 12-13 ity of routine routine 00:00: [place] gynecologi gynecologi 00 Me dical manjinder exam manjinder exam Branch Menopausal Menopausal Disease Active U nivers state state 6 ity of 00:00: [place] [id number] Medical Branch Morbid Morbid Disease Active 2018-0 Univers obesity obesity 12-13 ity of 00:00: [address] BMI BMI Disease Active 2018-0 Univers 38.0-38.9, 38.0-38.9, 6-04 it y of adult adult 00:00: [address] Maintenanc 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 - [facility] py py St following following Lu s disease [facility] [id number] Other Problem Common chronic Spirit pain - [facility] Disorder Disorder Problem Commo n of iron of iron Spirit metabolism metabolism - [facility] , St unspecifie [facility] 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 - CH I of lymph d St nodes of malignant [facility] upper limb neoplasm Medi manjinder of axilla Center and upper limb lymph nodes 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 [facility] lymph axilla [facility] nodes Center [id number] Primary Problem Comm on osteoarthr Spirit itis of - [facility] left knee [facility] Malignant Malignant Problem Com mon neoplasm neoplasm Spirit of female of left - [facility] than 0.1 Medical cm and [place] less than or equal to 0.5 cm in greatest dimension [id number] Thrombocyt [facility] [id number] S/P left Problem Comm on mastectomy [facility] [id number] Essential Problem Comm on hypertensi Spirit [facility] [id number] Hypomagnes Problem Co mmon emia [facility] [id number] Hyperammon Problem Comm on emia [facility] [id number] Hypercalce Problem Com mon patricia [facility] Elevated Elevated Disease Active CHI S t liver liver [facility] enzymes enzymes Medical [place] Low HDL Low HDL Disease Active [facility] St (under 40) (under 40) [facility] Hypertensi Hypertensi Disease Active C HI St on [facility] Breast Breast Disease Active [facility] cancer [facility] Thrombocyt Thrombocyt Disease Active C HI St openia [facility] Elevated Elevated Disease Active CHI S t alkaline alkaline [facility] phosphatas phosphatas Me dical e level e level Center Serum Serum Disease Active [facility] St total total [facility] bilirubin bilirubin Medi manjinder elevated elevated Center Pancytopen Pancytopen Disease Active C HI St ia ia [facility] Abnormal Abnormal Disease Active [facility]I S t findings findings [facility] on on Medical diagnostic diagnostic Ce nter imaging of imaging of abdomen abdomen Elevated Elevated Disease Active CHI S t antinuclea antinuclea Maria L kes r antibody r antibody Me dical (JOSÉ ANTONIO) (JOSÉ ANTONIO) Center level level 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 ALLERGIE Class ity of S [facility] NO KNOWN Allergy Active [facility] Family History Family Member Diagnosis Comments Start Date Stop Date Source Natural brother Liver disease [facility] Natural father Hypertension [facility] Natural mother Cervical cancer [facility] Natural mother Cirrhosis [facility] Social History Social Habit Start Date Stop Date Quantity Comments Source History of Common Spirit - Tobacco Use [facility] Exposure to 2022-01-20 2022-01-30 Not sure University SARS-CoV-2 00:00:00 09:21:[address] [facility] (event) [place] Alcohol intake 2021-03-18 2021-03-18 Ex-drinker [facility] 00:00:00 00:00:00 (finding) [facility] Tobacco use and 2020-04-24 2020-04-24 Never used [facility] exposure 00:00:00 00:00:00 [facility] Sex [birth year] [facility] 00:00:00 00:00:00 [facility] Smoking Status Start Date Stop Date Source Never Smoker Common Spirit - [facility] Medications Ordered Filled Start Stop Current Ordering Indication Dosage Frequency Signature Comments Components Source Medication Medication Date Date Medication? Clinician (SIG) Name Name Mariano Quintana 2021-07 No 40mg Common (Triamcinol (Triamcinol 2-14 S pirit one) one) 00:00: - [facility] 00 [facility] Mariano Quintana 2021-07 No 40mg Common (Triamcinol (Triamcinol 2-14 S pirit one) one) 00:00: - [facility] 00 [facility] Benzonatate Benzonatate 2021-072- No 1{capsu Benzonatat 200 MG 200 MG 2-14 07-08 le_as_n e 200 MG 00:00: 00:00 eeded} 00 :00 Lidocaine Lidocaine 2021-07 No 10mg Com mon 0-06 Spirit 00:00: - CHI 00 [facility] Kenalog Kenalog 2021-07 No 40mg Common (Triamcinol (Triamcinol 0-06 S pirit one) one) 00:00: - [facility]I 00 [facility] Lidocaine Lidocaine 2021-07 No 10mg Com mon 0-06 Spirit 00:00: - [facility]I 00 [facility] Kenalog Kenalog 2021-07 No 40mg Common (Triamcinol (Triamcinol 0-06 S pirit one) one) 00:00: - [facility]I 00 [facility] Lidocaine Lidocaine 2021-07 No 10mg Com mon 0-06 Spirit 00:00: - [facility]I 00 [facility] Kenalog Kenalog 2021-07 No 40mg Common (Triamcinol (Triamcinol 0-06 S pirit one) one) 00:00: - CHI 00 [facility] Lidocaine Lidocaine 2021-07 No 10mg Com mon 0-06 Spirit 00:00: - CHI 00 [facility] Mariano Kenalog 2021-07 No 40mg Common (Triamcinol (Triamcinol 0-06 S pirit one) one) 00:00: - CHI 00 [facility] MELOXICAM Yes 1{tbl} Take 1 Univ ers ORAL 7-22 tablet by ity of 09:36: mouth [place] 11 daily. Medical Patient Branch unsure of dose MELOXICAM 2021-0 Yes 1{tbl} Take 1 Univ ers ORAL 7-22 tablet by ity of 09:36: mouth [place] 11 daily. Medical Patient Branch unsure of dose travoprost Yes 1[drp] Place 1 Un aide[place] 0.004 % 6-05 Drop in ity of ophthalmic 00:00: both eyes [place] solution 00 at Medical bedtime. Branch travoprost Yes 1[drp] Place 1 Un aidee 0.004 % 6-05 Drop in ity of ophthalmic 00:00: [place] eyes [place] solution 00 at Medical bedtime. Branch timolol 0.5 0 Yes 1[drp] Place 1 U nivers % 4-21 Drop in ity of ophthalmic 00:00: both eyes [place] solution 00 2 (two) Medical times Branch daily. timolol 0.5 Yes 1[drp] Place 1 U nivers % 4-21 Drop in ity of ophthalmic 00:00: [place] eyes [place] solution 00 2 (two) Medical times Branch daily. MAGNESIUM Yes Take by CHI S t ORAL -07 mouth. [facility] 14:49: Medical Center CALCIUM Yes Take by [facility] ORAL -07 mouth. [facility]ukes 14:49: [place] [address] Center tramadol Yes . [facility] HCl 03-18 [facility]ukes (TRAMADOL 14:48: Medical ORAL) 25 Center cholecalcif Yes . [facility] milvia, 03-18 [facility]ukes vitamin D3, 14:15: Medica l (VITAMIN D3 23 Center ORAL) rifAXIMin Yes Hepatic 550mg Q.5D Take [address] 550 mg Tab 709 encephalopa tablet Lukes 00:00: thy (550 mg Medical 00 total) by Center mouth 2 (two) times daily. lactulose Yes Hepatic 10g Q.5D Take [address] (CHRONULAC) 7-09 encephalopa mLs (10 g Lukes 10 gram/15 00:00: thy total) by Me dical mL (15 mL) 00 mouth 2 Center solution (two) times daily. potassium Yes TAKE [address] chloride 5-10 PACKET Lukes (KLOR-CON) 00:00: WITH FOOD Me dical 20 mEq 00 ONCE A DAY Center packet anastrozole Yes 1mg Take 1 mg U nivers 1 mg tablet 3-01 by mouth ity of 00:00: daily [address] anastrozole Yes 1mg Take 1 mg U nivers 1 mg tablet 3-01 by mouth ity of 00:00: daily [address] cromolyn 4 Yes 1[drp] Place 1 Un aidee % 2-26 Drop in ity of ophthalmic 00:00: both eyes [place] drops 00 2 (two) Medical times Branch daily. cromolyn 4 Yes 1[drp] Place 1 Un aidee % 2-26 Drop in ity of ophthalmic 00:00: [place] eyes [place] drops 00 2 (two) Medical times Branch daily. potassium Yes MIX AND Unive rs chloride 20 2-04 TAKE BY ity o f mEq packet 00:00: [place] 1 [place] 00 PACKET 2 Medical TIMES A Branch DAY. TAKE WITH FOOD potassium Yes MIX AND Unive rs chloride 20 2-04 TAKE BY ity o f mEq packet 00:00: [place]TH 1 [place] 00 PACKET 2 Medical TIMES A Branch DAY. TAKE WITH FOOD traMADoL 50 Yes TAKE 1 Univ ers mg tablet 1-27 TABLET BY ity o f 00:00: MOUTH [place] 00 EVERY DAY Medical NEEDED Branch FOR PAIN traMADoL 50 Yes TAKE 1 Univ ers mg tablet 1-27 TABLET BY ity o f 00:00: MOUTH [place] 00 EVERY DAY Medical NEEDED Branch FOR PAIN magnesium Yes 1{tbl} Take 1 Univ ers oxide 400 1-26 tablet by ity o f mg 00:00: mouth [place] magnesium 00 daily. Medical capsule Branch magnesium Yes 1{tbl} Take 1 Univ ers oxide 400 1-26 tablet by ity o f mg 00:00: mouth [place] magnesium 00 daily. Medical capsule Branch anastrozole 2019-07 Yes [address] a [facility] (ARIMIDEX) 0-12 day. [facility]ukes 1 mg tablet 00:00: Medica l 00 [place] Midodrine Midodrine 0 Yes Bear 1 tablet Common HCl HCl 9-15 Penaloza Spirit 00:00: - CHI 00 [facility] Multivitami Multivitami Yes Bear not Common n Adults n Adults Penaloza defined Spi rit - CHI [facility] Lactulose Lactulose No Lactulose 10 GM/15ML 10 GM/15ML 10 GM/15ML Potassium Potassium No 1{packe QD Potassium Chloride 20 Chloride 20 t_with_ Chloride MEQ MEQ food} 20 MEQ Multivitami Multivitami No Multivitam n Adults n Adults in Adults Cromolyn Cromolyn No Cromolyn Sodium 4 % Sodium 4 % Sodium 4 % Midodrine Midodrine No 1{table Midodrine HCl 10 MG HCl 10 MG t} HCl 10 MG Anastrozole Anastrozole No Anastrozol 1 MG 1 MG e 1 MG Lactulose Lactulose No Lactulose 10 GM/15ML 10 GM/15ML 10 GM/15ML Potassium Potassium No 1{packe QD Potassium Chloride 20 Chloride 20 t_with_ Chloride MEQ MEQ food} 20 MEQ Multivitami Multivitami No Multivitam n Adults n Adults in Adults Cromolyn Cromolyn No Cromolyn Sodium 4 % Sodium 4 % Sodium 4 % Midodrine Midodrine No 1{table Midodrine HCl 10 MG HCl 10 MG t} HCl 10 MG Anastrozole Anastrozole No Anastrozol 1 MG 1 MG e 1 MG Lactulose Lactulose No Lactulose 10 GM/15ML 10 GM/15ML 10 GM/15ML Potassium Potassium No 1{packe QD Potassium Chloride 20 Chloride 20 t_with_ Chloride MEQ MEQ food} 20 MEQ Multivitami Multivitami No Multivitam n Adults n Adults in Adults Cromolyn Cromolyn No Cromolyn Sodium 4 % Sodium 4 % Sodium 4 % Midodrine Midodrine No 1{table Midodrine HCl 10 MG HCl 10 MG t} HCl 10 MG Anastrozole Anastrozole No Anastrozol 1 MG 1 MG e 1 MG Lactulose Lactulose No Lactulose 10 GM/15ML 10 GM/15ML 10 GM/15ML Multivitami Multivitami No Multivitam n Adults n Adults in Adults Potassium Potassium No 1{packe QD Potassium Chloride 20 Chloride 20 t_with_ Chloride MEQ MEQ food} 20 MEQ Anastrozole Anastrozole No Anastrozol 1 MG 1 MG e 1 MG Midodrine Midodrine No 1{table Midodrine HCl 10 MG HCl 10 MG t} HCl 10 MG Cromolyn Cromolyn No Cromolyn Sodium 4 % Sodium 4 % Sodium 4 % Potassium Potassium No 1{packe QD Potassium Chloride 20 Chloride 20 t_with_ Chloride MEQ MEQ food} 20 MEQ Multivitami Multivitami No Multivitam n Adults n Adults in Adults Anastrozole Anastrozole No Anastrozol 1 MG 1 MG e 1 MG Midodrine Midodrine No 1{table Midodrine HCl 10 MG HCl 10 MG t} HCl 10 MG Lactulose Lactulose No Lactulose 10 GM/15ML 10 GM/15ML 10 GM/15ML Cromolyn Cromolyn No Cromolyn Sodium 4 % Sodium 4 % Sodium 4 % Potassium Potassium No 1{packe QD Potassium Chloride 20 Chloride 20 t_with_ Chloride MEQ MEQ food} 20 MEQ Multivitami Multivitami No Multivitam n Adults n Adults in Adults Anastrozole Anastrozole No Anastrozol 1 MG 1 MG e 1 MG Midodrine Midodrine No 1{table Midodrine HCl 10 MG HCl 10 MG t} HCl 10 MG Lactulose Lactulose No Lactulose 10 GM/15ML 10 GM/15ML 10 GM/15ML Cromolyn Cromolyn No Cromolyn Sodium 4 % Sodium 4 % Sodium 4 % Magnesium Magnesium No 1{table BID Magnesium Oxide 400 Oxide 400 t_with_ Oxide 400 MG MG food} MG Multivitami Multivitami No Multivitam n Adults n Adults in Adults Lactulose Lactulose No Lactulose 10 GM/15ML 10 GM/15ML 10 GM/15ML Potassium Potassium No 1{packe QD Potassium Chloride 20 Chloride 20 t_with_ Chloride MEQ MEQ food} 20 MEQ Midodrine Midodrine No 1{table Midodrine HCl 10 MG HCl 10 MG t} HCl 10 MG Anastrozole Anastrozole No Anastrozol 1 MG 1 MG e 1 MG Cromolyn Cromolyn No Cromolyn Sodium 4 % Sodium 4 % Sodium 4 % Magnesium Magnesium No 1{table BID Magnesium Oxide 400 Oxide 400 t_with_ Oxide 400 MG MG food} MG Multivitami Multivitami No Multivitam n Adults n Adults in Adults Lactulose Lactulose No Lactulose 10 GM/15ML 10 GM/15ML 10 GM/15ML Potassium Potassium No 1{packe QD Potassium Chloride 20 Chloride 20 t_with_ Chloride MEQ MEQ food} 20 MEQ Midodrine Midodrine No 1{table Midodrine HCl 10 MG HCl 10 MG t} HCl 10 MG Anastrozole Anastrozole No Anastrozol 1 MG 1 MG e 1 MG Cromolyn Cromolyn No Cromolyn Sodium 4 % Sodium 4 % Sodium 4 % Magnesium Magnesium No 1{table BID Magnesium Oxide 400 Oxide 400 t_with_ Oxide 400 MG MG food} MG Midodrine Midodrine No 1{table Midodrine HCl 10 MG HCl 10 MG t} HCl 10 MG Cromolyn Cromolyn No Cromolyn Sodium 4 % Sodium 4 % Sodium 4 % Multivitami Multivitami No Multivitam n Adults n Adults in Adults Lactulose Lactulose No Lactulose 10 GM/15ML 10 GM/15ML 10 GM/15ML Potassium Potassium No 1{packe QD Potassium Chloride 20 Chloride 20 t_with_ Chloride MEQ MEQ food} 20 MEQ Anastrozole Anastrozole No Anastrozol 1 MG 1 MG e 1 MG Magnesium Magnesium No 1{table BID Magnesium Oxide 400 Oxide 400 t_with_ Oxide 400 MG MG food} MG Midodrine Midodrine No 1{table Midodrine HCl 10 MG HCl 10 MG t} HCl 10 MG Cromolyn Cromolyn No Cromolyn Sodium 4 % Sodium 4 % Sodium 4 % Multivitami Multivitami No Multivitam n Adults n Adults in Adults Lactulose Lactulose No Lactulose 10 GM/15ML 10 GM/15ML 10 GM/15ML Potassium Potassium No 1{packe QD Potassium Chloride 20 Chloride 20 t_with_ Chloride MEQ MEQ food} 20 MEQ Anastrozole Anastrozole No Anastrozol 1 MG 1 MG e 1 MG Anastrozole Anastrozole No Anastrozol 1 MG 1 MG e 1 MG Potassium Potassium No 1{packe QD Potassium Chloride 20 Chloride 20 t_with_ Chloride MEQ MEQ food} 20 MEQ Cromolyn Cromolyn No Cromolyn Sodium 4 % Sodium 4 % Sodium 4 % Magnesium Magnesium No 1{table BID Magnesium Oxide 400 Oxide 400 t_with_ Oxide 400 MG MG food} MG Lactulose Lactulose No Lactulose 10 GM/15ML 10 GM/15ML 10 GM/15ML Multivitami Multivitami No Multivitam n Adults n Adults in Adults Midodrine Midodrine No 1{table Midodrine HCl 10 MG HCl 10 MG t} HCl 10 MG Anastrozole Anastrozole No Anastrozol 1 MG 1 MG e 1 MG Potassium Potassium No 1{packe QD Potassium Chloride 20 Chloride 20 t_with_ Chloride MEQ MEQ food} 20 MEQ Cromolyn Cromolyn No Cromolyn Sodium 4 % Sodium 4 % Sodium 4 % Magnesium Magnesium No 1{table BID Magnesium Oxide 400 Oxide 400 t_with_ Oxide 400 MG MG food} MG Lactulose Lactulose No Lactulose 10 GM/15ML 10 GM/15ML 10 GM/15ML Multivitami Multivitami No Multivitam n Adults n Adults in Adults Midodrine Midodrine No 1{table Midodrine HCl 10 MG HCl 10 MG t} HCl 10 MG Lactulose Lactulose No Lactulose 10 GM/15ML 10 GM/15ML 10 GM/15ML Cromolyn Cromolyn No Cromolyn Sodium 4 % Sodium 4 % Sodium 4 % Multivitami Multivitami No Multivitam n Adults n Adults in Adults Anastrozole Anastrozole No Anastrozol 1 MG 1 MG e 1 MG Potassium Potassium No 1{packe QD Potassium Chloride 20 Chloride 20 t_with_ Chloride MEQ MEQ food} 20 MEQ Magnesium Magnesium No 1{table BID Magnesium Oxide 400 Oxide 400 t_with_ Oxide 400 MG MG food} MG Midodrine Midodrine No 1{table Midodrine HCl 10 MG HCl 10 MG t} HCl 10 MG Lactulose Lactulose No Lactulose 10 GM/15ML 10 GM/15ML 10 GM/15ML Cromolyn Cromolyn No Cromolyn Sodium 4 % Sodium 4 % Sodium 4 % Multivitami Multivitami No Multivitam n Adults n Adults in Adults Anastrozole Anastrozole No Anastrozol 1 MG 1 MG e 1 MG Potassium Potassium No 1{packe QD Potassium Chloride 20 Chloride 20 t_with_ Chloride MEQ MEQ food} 20 MEQ Magnesium Magnesium No 1{table BID Magnesium Oxide 400 Oxide 400 t_with_ Oxide 400 MG MG food} MG Midodrine Midodrine No 1{table Midodrine HCl 10 MG HCl 10 MG t} HCl 10 MG Lactulose Lactulose No Lactulose 10 GM/15ML 10 GM/15ML 10 GM/15ML Cromolyn Cromolyn No Cromolyn Sodium 4 % Sodium 4 % Sodium 4 % Multivitami Multivitami No Multivitam n Adults n Adults in Adults Anastrozole Anastrozole No Anastrozol 1 MG 1 MG e 1 MG Potassium Potassium No 1{packe QD Potassium Chloride 20 Chloride 20 t_with_ Chloride MEQ MEQ food} 20 MEQ Magnesium Magnesium No 1{table BID Magnesium Oxide 400 Oxide 400 t_with_ Oxide 400 MG MG food} MG Midodrine Midodrine No 1{table Midodrine HCl 10 MG HCl 10 MG t} HCl 10 MG Lactulose Lactulose No Lactulose 10 GM/15ML 10 GM/15ML 10 GM/15ML Cromolyn Cromolyn No Cromolyn Sodium 4 % Sodium 4 % Sodium 4 % Multivitami Multivitami No Multivitam n Adults n Adults in Adults Anastrozole Anastrozole No Anastrozol 1 MG 1 MG e 1 MG Potassium Potassium No 1{packe QD Potassium Chloride 20 Chloride 20 t_with_ Chloride MEQ MEQ food} 20 MEQ Magnesium Magnesium No 1{table BID Magnesium Oxide 400 Oxide 400 t_with_ Oxide 400 MG MG food} MG Midodrine Midodrine No 1{table Midodrine HCl 10 MG HCl 10 MG t} HCl 10 MG Lactulose Lactulose No Lactulose 10 GM/15ML 10 GM/15ML 10 GM/15ML Cromolyn Cromolyn No Cromolyn Sodium 4 % Sodium 4 % Sodium 4 % Multivitami Multivitami No Multivitam n Adults n Adults in Adults Anastrozole Anastrozole No Anastrozol 1 MG 1 MG e 1 MG Potassium Potassium No 1{packe QD Potassium Chloride 20 Chloride 20 t_with_ Chloride MEQ MEQ food} 20 MEQ Magnesium Magnesium No 1{table BID Magnesium Oxide 400 Oxide 400 t_with_ Oxide 400 MG MG food} MG Midodrine Midodrine No 1{table Midodrine HCl 10 MG HCl 10 MG t} HCl 10 MG Lactulose Lactulose No Lactulose 10 GM/15ML 10 GM/15ML 10 GM/15ML Cromolyn Cromolyn No Cromolyn Sodium 4 % Sodium 4 % Sodium 4 % Anastrozole Anastrozole No Anastrozol 1 MG 1 MG e 1 MG Potassium Potassium No 1{packe QD Potassium Chloride 20 Chloride 20 t_with_ Chloride MEQ MEQ food} 20 MEQ Multivitami Multivitami No Multivitam n Adults n Adults in Adults Midodrine Midodrine No 1{table Midodrine HCl 10 MG HCl 10 MG t} HCl 10 MG Magnesium Magnesium No 1{table BID Magnesium Oxide 400 Oxide 400 t_with_ Oxide 400 MG MG food} MG Potassium Potassium No 1{packe QD Potassium Chloride 20 Chloride 20 t_with_ Chloride MEQ MEQ food} 20 MEQ Multivitami Multivitami No Multivitam n Adults n Adults in Adults Cromolyn Cromolyn No Cromolyn Sodium 4 % Sodium 4 % Sodium 4 % Lactulose Lactulose No Lactulose 10 GM/15ML 10 GM/15ML 10 GM/15ML Anastrozole Anastrozole No Anastrozol 1 MG 1 MG e 1 MG Midodrine Midodrine No 1{table Midodrine HCl 10 MG HCl 10 MG t} HCl 10 MG Cromolyn Cromolyn No Cromolyn Sodium 4 % Sodium 4 % Sodium 4 % Potassium Potassium No 1{packe QD Potassium Chloride 20 Chloride 20 t_with_ Chloride MEQ MEQ food} 20 MEQ Multivitami Multivitami No Multivitam n Adults n Adults in Adults Lactulose Lactulose No Lactulose 10 GM/15ML 10 GM/15ML 10 GM/15ML Anastrozole Anastrozole No Anastrozol 1 MG 1 MG e 1 MG Midodrine Midodrine No 1{table Midodrine HCl 10 MG HCl 10 MG t} HCl 10 MG Lactulose Lactulose No Lactulose 10 GM/15ML 10 GM/15ML 10 GM/15ML Potassium Potassium No 1{packe QD Potassium Chloride 20 Chloride 20 t_with_ Chloride MEQ MEQ food} 20 MEQ Multivitami Multivitami No Multivitam n Adults n Adults in Adults Cromolyn Cromolyn No Cromolyn Sodium 4 % Sodium 4 % Sodium 4 % Midodrine Midodrine No 1{table Midodrine HCl 10 MG HCl 10 MG t} HCl 10 MG Anastrozole Anastrozole No Anastrozol 1 MG 1 MG e 1 MG Lactulose Lactulose No Lactulose 10 GM/15ML 10 GM/15ML 10 GM/15ML Potassium Potassium No 1{packe QD Potassium Chloride 20 Chloride 20 t_with_ Chloride MEQ MEQ food} 20 MEQ Multivitami Multivitami No Multivitam n Adults n Adults in Adults Cromolyn Cromolyn No Cromolyn Sodium 4 % Sodium 4 % Sodium 4 % Midodrine Midodrine No 1{table Midodrine HCl 10 MG HCl 10 MG t} HCl 10 MG Anastrozole Anastrozole No Anastrozol 1 MG 1 MG e 1 MG Lactulose Lactulose No Lactulose 10 GM/15ML 10 GM/15ML 10 GM/15ML Potassium Potassium No 1{packe QD Potassium Chloride 20 Chloride 20 t_with_ Chloride MEQ MEQ food} 20 MEQ Multivitami Multivitami No Multivitam n Adults n Adults in Adults Cromolyn Cromolyn No Cromolyn Sodium 4 % Sodium 4 % Sodium 4 % Midodrine Midodrine No 1{table Midodrine HCl 10 MG HCl 10 MG t} HCl 10 MG Anastrozole Anastrozole No Anastrozol 1 MG 1 MG e 1 MG Lactulose Lactulose No Lactulose 10 GM/15ML 10 GM/15ML 10 GM/15ML Cromolyn Cromolyn No Cromolyn Sodium 4 % Sodium 4 % Sodium 4 % Midodrine Midodrine No 1{table Midodrine HCl 10 MG HCl 10 MG t} HCl 10 MG Potassium Potassium No 1{packe QD Potassium Chloride 20 Chloride 20 t_with_ Chloride MEQ MEQ food} 20 MEQ Multivitami Multivitami No Multivitam n Adults n Adults in Adults Anastrozole Anastrozole No Anastrozol 1 MG 1 MG e 1 MG Lactulose Lactulose No Lactulose 10 GM/15ML 10 GM/15ML 10 GM/15ML Cromolyn Cromolyn No Cromolyn Sodium 4 % Sodium 4 % Sodium 4 % Midodrine Midodrine No 1{table Midodrine HCl 10 MG HCl 10 MG t} HCl 10 MG Potassium Potassium No 1{packe QD Potassium Chloride 20 Chloride 20 t_with_ Chloride MEQ MEQ food} 20 MEQ Multivitami Multivitami No Multivitam n Adults n Adults in Adults Anastrozole Anastrozole No Anastrozol 1 MG 1 MG e 1 MG Potassium Potassium No Potassium Chloride 20 Chloride 20 Chloride MEQ MEQ 20 MEQ Anastrozole Anastrozole No Anastrozol 1 MG 1 MG e 1 MG Midodrine Midodrine No 1{table Midodrine HCl 10 MG HCl 10 MG t} HCl 10 MG Cromolyn Cromolyn No Cromolyn Sodium 4 % Sodium 4 % Sodium 4 % Multivitami Multivitami No Multivitam n Adults n Adults in Adults Pseudoeph-B Pseudoeph-B No 5{ml_as QID Pseudoeph- romphen-DM romphen-DM _needed Bromphen-D 30-2-10 30-2-10 } M 30-2-10 MG/5ML MG/5ML MG/5ML Lactulose Lactulose No Lactulose 10 GM/15ML 10 GM/15ML 10 GM/15ML Lactulose Lactulose No Lactulose 10 GM/15ML 10 GM/15ML 10 GM/15ML Anastrozole Anastrozole No Anastrozol 1 MG 1 MG e 1 MG Potassium Potassium No 1{packe QD Potassium Chloride 20 Chloride 20 t_with_ Chloride MEQ MEQ food} 20 MEQ Magnesium Magnesium No 1{table BID Magnesium Oxide 400 Oxide 400 t_with_ Oxide 400 MG MG food} MG Potassium Potassium No Potassium Chloride 20 Chloride 20 Chloride MEQ MEQ 20 MEQ Multivitami Multivitami No Multivitam n Adults n Adults in Adults Pseudoeph-B Pseudoeph-B No 5{ml_as QID Pseudoeph- romphen-DM romphen-DM _needed Bromphen-D 30-2-10 30-210 } M 30-2-10 MG/5ML MG/5ML MG/5ML Cromolyn Cromolyn No Cromolyn Sodium 4 % Sodium 4 % Sodium 4 % Midodrine Midodrine No 1{table Midodrine HCl 10 MG HCl 10 MG t} HCl 10 MG Magnesium Magnesium 2022- No 1{table BID Magnesium Oxide 400 Oxide 400 12-13 t_with_ Oxide 400 MG MG 00:00 food} MG :00 Magnesium Magnesium 2022- No 1{table BID Magnesium Oxide 400 Oxide 400 12-13 t_with_ Oxide 400 MG MG 00:00 food} MG :00 Magnesium Magnesium 2022- No 1{table BID Magnesium Oxide 400 Oxide 400 12-13 t_with_ Oxide 400 MG MG 00:00 food} MG :00 Magnesium Magnesium 2022- No 1{table BID Magnesium Oxide 400 Oxide 400 12-13 t_with_ Oxide 400 MG MG 00:00 food} MG :00 Magnesium Magnesium 2022- No 1{table BID Magnesium Oxide 400 Oxide 400 12-13 t_with_ Oxide 400 MG MG 00:00 food} MG :00 Magnesium Magnesium 2022- No 1{table BID Magnesium Oxide 400 Oxide 400 12-13 t_with_ Oxide 400 MG MG 00:00 food} MG :00 Magnesium Magnesium 2022- No 1{table BID Magnesium Oxide 400 Oxide 400 12-13 t_with_ Oxide 400 MG MG 00:00 food} MG :00 Magnesium Magnesium 2022- No 1{table BID Magnesium Oxide 400 Oxide 400 12-13 t_with_ Oxide 400 MG MG 00:00 food} MG :00 Magnesium Magnesium 2022- No 1{table BID Magnesium Oxide 400 Oxide 400 12-13 t_with_ Oxide 400 MG MG 00:00 food} MG :00 Magnesium Magnesium 2021- No 1{table BID Magnesium Oxide 250 Oxide 250 05-14 t_with_ Oxide 250 MG MG 00:00 food} MG :00 Magnesium Magnesium 2021- No 1{table BID Magnesium Oxide 400 Oxide 400 09-02 t_with_ Oxide 400 MG MG 00:00 food} MG :00 Magnesium Magnesium 2021- No 1{table BID Magnesium Oxide 400 Oxide 400 09-02 t_with_ Oxide 400 MG MG 00:00 food} MG :00 Magnesium Magnesium 2020- No 1{table BID Magnesium Oxide 400 Oxide 400 07-02 t_with_ Oxide 400 MG MG 00:00 food} MG :00 Immunizations Ordered Filled Immunization Date Status Comments Sour e Immunization Name Name FLUZONE HIGH DOSE FLUZONE HIGH DOSE 2022-04-01 [facility] - OVER 65 OVER 65 14:49:00 [facility] FLUZONE HIGH DOSE FLUZONE HIGH DOSE 2022-04-01 Completed [facility] - OVER 65 OVER 65 14:49:00 [facility] FLUZONE HIGH DOSE FLUZONE HIGH DOSE 2022-04-01 Completed [facility] - OVER 65 OVER 65 14:49:00 [facility] FLUZONE HIGH DOSE FLUZONE HIGH DOSE 2022-04-01 Completed [facility] - OVER 65 OVER 65 14:49:00 [facility] FLUZONE HIGH DOSE FLUZONE HIGH DOSE 2022-04-01 Completed [facility] - OVER 65 OVER 65 14:49:00 [facility] FLUZONE HIGH DOSE FLUZONE HIGH DOSE 2022-04-01 Completed [facility] - OVER 65 OVER 65 14:49:00 [facility] FLUZONE HIGH DOSE FLUZONE HIGH DOSE 2022-04-01 Completed [facility] - OVER 65 OVER 65 14:49:00 [facility] FLUZONE HIGH DOSE FLUZONE HIGH DOSE 2022-04-01 Completed [facility] - OVER 65 OVER 65 14:49:00 [facility] FLUZONE HIGH DOSE FLUZONE HIGH DOSE 2022-04-01 Completed [facility] - OVER 65 OVER 65 14:49:00 [facility] FLUZONE HIGH DOSE FLUZONE HIGH DOSE 2022-04-01 Completed [facility] - OVER 65 OVER 65 14:49:00 [facility] Prevnar 20 (PCV20) Prevnar 20 (PCV20) 2022-04-01 Completed [facility] - 14:48:00 [facility] Prevnar 20 (PCV20) Prevnar 20 (PCV20) 2022-04-01 Completed [facility] - 14:48:00 [facility] Prevnar 20 (PCV20) Prevnar 20 (PCV20) 2022-04-01 Completed [facility] - 14:48:00 [facility] Prevnar 20 (PCV20) Prevnar 20 (PCV20) 2022-04-01 Completed [facility] - 14:48:00 [facility] Prevnar 20 (PCV20) Prevnar 20 (PCV20) 2022-04-01 Completed [facility] - 14:48:00 [facility] Prevnar 20 (PCV20) Prevnar 20 (PCV20) 2022-04-01 Completed [facility] - 14:48:00 [facility] Prevnar 20 (PCV20) Prevnar 20 (PCV20) 2022-04-01 Completed [facility] - 14:48:00 [facility] Prevnar 20 (PCV20) Prevnar 20 (PCV20) 2022-04-01 Completed [facility] - 14:48:00 [facility] Prevnar 20 (PCV20) Prevnar 20 (PCV20) 2022-04-01 Completed [facility] - 14:48:00 [facility] Prevnar 20 (PCV20) Prevnar 20 (PCV20) 2022-04-01 Completed [facility] - 14:48:00 [facility] SARS-COV-2 COVID-19 2021-07-30 Completed [facility] PFIZER VACCINE 00:00:[address] [facility] SARS-COV-2 COVID-19 2021-07-30 Completed [facility] of PFIZER VACCINE 00:00:[address] [facility] SARS-COV-2 COVID-19 2020-11-05 Completed [facility] of PFIZER VACCINE 00:00:[address] [facility] SARS-COV-2 COVID-19 2020-11-05 Completed [facility] of PFIZER VACCINE 00:00:[address] [facility] Covid-19 Vaccine 2020-09-[address] [facility] MRNA (PF) 12yr+ 00:00:00 Medical C enter (Pfizer/BioNTech)(I [id number]) Afluria single dose Afluria single dose 2020-04-11 Completed [facility] - 15:24:00 [facility] Afluria single dose Afluria single dose 2020-04-11 Completed [facility] - 15:24:00 [facility] Afluria single dose Afluria single dose 2020-04-11 Completed [facility] - 15:24:00 [facility] Afluria single dose Afluria single dose 2020-04-11 Completed [facility] - 15:24:00 [facility] Afluria single dose Afluria single dose 2020-04-11 Completed [facility] - 15:24:00 [facility] Afluria single dose Afluria single dose 2020-04-11 Completed [facility] - 15:24:00 [facility] Afluria single dose Afluria single dose 2020-04-11 Completed [facility] - 15:24:00 [facility] Afluria single dose Afluria single dose 2020-04-11 Completed [facility] - 15:24:00 [facility] Afluria single dose Afluria single dose 2020-04-11 Completed [facility] - 15:24:00 [facility] Afluria single dose Afluria single dose 2020-04-11 Completed [facility] - 15:24:00 [facility] Afluria single dose Afluria single dose 2020-04-11 Completed [facility] - 15:24:00 [facility] Afluria single dose Afluria single dose 2020-04-11 Completed [facility] - 15:24:00 [facility] Afluria single dose Afluria single dose 2020-04-11 Completed [facility] - 15:24:00 [facility] Afluria single dose Afluria single dose 2020-04-11 Completed [facility] - 15:24:00 [facility] Afluria single dose Afluria single dose 2020-04-11 Completed [facility] - 15:24:00 [facility] Afluria single dose Afluria single dose 2020-04-11 Completed [facility] - 15:24:00 [facility] Afluria single dose Afluria single dose 2020-04-11 Completed [facility] - 15:24:00 [facility] Afluria single dose Afluria single dose 2020-04-11 Completed [facility] - 15:24:00 [facility] Afluria single dose Afluria single dose 2020-04-11 Completed [facility] - 15:24:00 [facility] Afluria single dose Afluria single dose 2020-04-11 Completed [facility] - 15:24:00 [facility] Afluria single dose Afluria single dose 2020-04-11 Completed [facility] - 15:24:00 [facility] Afluria single dose Afluria single dose 2020-04-11 Completed [facility] - 15:24:00 [facility] Afluria single dose Afluria single dose 2020-04-11 Completed [facility] - 15:24:00 [facility] Afluria single dose Afluria single dose 2020-04-11 Completed [facility] - 15:24:00 [facility] Afluria single dose Afluria single dose 2020-04-11 Completed [facility] - 15:24:00 [facility] Afluria single dose Afluria single dose 2020-04-11 Completed [facility] - 15:24:00 [facility] Afluria single dose Afluria single dose 2020-04-11 Completed [facility] - 15:24:00 [facility] Vital Signs Vital Name Observation Time Observation Value Comments Source HEIGHT 2021-03-18 14:49:00 152.4 cm WEIGHT 2021-03-18 14:49:00 68.04 kg height 2022-07-16 09:30:00 65 [in_i] [facility] weight 2022-07-16 09:30:00 150 [lb_av] [facility] temperature 2022-07-16 09:30:00 98.3 [degF] [facility] bmi 2022-07-16 09:30:00 24.96 kg/m2 [facility] blood pressure 2022-07-16 09:30:00 124 mm[Hg] [facility] - systolic [facility] blood pressure 2022-07-16 09:30:00 72 mm[Hg] [facility] - diastolic [facility] height 2022-06-24 09:20:00 65 [in_i] [facility] weight 2022-06-24 09:20:00 153.0 [lb_av] [facility] temperature 2022-06-24 09:20:00 97.7 [degF] [facility] bmi 2022-06-24 09:20:00 25.46 kg/m2 [facility] oximetry 2022-06-24 09:20:00 99 % [facility] respiratory rate 2022-06-24 09:20:00 17 /min [facility] blood pressure 2022-06-24 09:20:00 117 mm[Hg] Common [facility] - systolic [facility] blood pressure 2022-06-24 09:20:00 64 mm[Hg] [facility] - diastolic [facility] height 2022-04-16 10:00:00 65 [in_i] [facility] weight 2022-04-16 10:00:00 152.6 [lb_av] Common [facility] temperature 2022-04-16 10:00:00 97.1 [degF] [facility] bmi 2022-04-16 10:00:00 25.39 kg/m2 [facility] blood pressure 2022-04-16 10:00:00 139 mm[Hg] [facility] - systolic [facility] blood pressure 2022-04-16 10:00:00 72 mm[Hg] [facility] - diastolic [facility] height 2022-04-01 09:00:00 65 [in_i] [facility] weight 2022-04-01 09:00:00 152 [lb_av] [facility] temperature 2022-04-01 09:00:00 97.1 [degF] [facility] bmi 2022-04-01 09:00:00 25.29 kg/m2 [facility] oximetry 2022-04-01 09:00:00 98 % [facility] respiratory rate 2022-04-01 09:00:00 16 /min [facility] blood pressure 2022-04-01 09:00:00 139 mm[Hg] Common [facility] - systolic [facility] blood pressure 2022-04-01 09:00:00 70 mm[Hg] Common [facility] - diastolic [facility] height 2022-04-01 09:00:00 65 [in_i] Common [facility] weight 2022-04-01 09:00:00 152 [lb_av] Common [facility] temperature 2022-04-01 09:00:00 97.1 [degF] [facility] bmi 2022-04-01 09:00:00 25.29 kg/m2 [facility] oximetry 2022-04-01 09:00:00 98 % [facility] respiratory rate 2022-04-01 09:00:00 16 /min [facility] on [facility] blood pressure 2022-04-01 09:00:00 139 mm[Hg] Common [facility] - systolic [facility] blood pressure 2022-04-01 09:00:00 70 mm[Hg] Common [facility] - diastolic [facility] height 2022-02-17 16:40:00 65 [in_i] [facility] weight 2022-02-17 16:40:00 154.6 [lb_av] Common [facility] temperature 2022-02-17 16:40:00 98.2 [degF] [facility] bmi 2022-02-17 16:40:00 25.72 kg/m2 [facility] oximetry 2022-02-17 16:40:00 95 % [facility] respiratory rate 2022-02-17 16:40:00 16 /min [facility] blood pressure 2022-02-17 16:40:00 109 mm[Hg] Common [facility] - systolic [facility] blood pressure 2022-02-17 16:40:00 53 mm[Hg] Common [facility] - diastolic [facility] Systolic blood 2022-01-30 14:24:00 131 mm[Hg] [facility] Diastolic blood 2022-01-30 14:24:00 76 mm[Hg] [facility] Heart rate 2022-01-30 14:24:00 56 /min [facility] Respiratory rate 2022-01-30 14:24:00 18 /[facility]22-01-30 14:24:[address] [facility] Body weight 2022-01-30 14:24:00 68.947 [facility] BMI 2022-01-30 14:24:00 29.69 kg/m2 [facility] height 2021-11-13 09:40:00 65 [in_i] [facility] weight 2021-11-13 09:40:00 151.0 [lb_av] Common [facility] temperature 2021-11-13 09:40:00 97.4 [degF] Common [facility] bmi 2021-11-13 09:40:00 25.12 [facility]m2 [facility] 2021-11-13 09:40:00 100 % [facility] respiratory rate 2021-11-13 09:40:00 17 /min [facility] blood pressure 2021-11-13 09:40:00 137 mm[Hg] Common [facility] - systolic [facility] blood pressure 2021-11-13 09:40:00 65 mm[Hg] Common [facility] - diastolic [facility] height 2021-09-30 08:30:00 65 [in_i] [facility] weight 2021-09-30 08:30:00 153 [lb_av] [facility] temperature 2021-09-30 08:30:00 98 [degF] [facility] bmi 2021-09-30 08:30:00 [facility] blood pressure 2021-09-30 08:30:00 120 mm[Hg] [facility] - systolic [facility] blood pressure 2021-09-30 08:30:00 80 mm[Hg] [facility] - diastolic [facility] WEIGHT 2021-01-17 15:32:00 66.543 kg HEIGHT 2020-09-20 16:04:00 149.9 cm WEIGHT 2020-09-20 16:04:00 64.728 kg HEIGHT 2020-07-31 12:45:00 149.9 cm WEIGHT 2020-07-31 12:45:00 64.411 kg HEIGHT 2020-07-31 12:45:00 149.9 cm WEIGHT 2020-07-31 12:45:00 64.411 kg HEIGHT 2020-07-24 14:39:00 149.9 cm WEIGHT 2020-07-24 14:39:00 63.277 kg HEIGHT 2020-04-24 11:15:00 149.9 cm WEIGHT 2020-04-24 11:15:00 62.143 kg HEIGHT 2020-04-24 11:15:00 149.9 cm WEIGHT 2020-04-24 11:15:00 62.143 kg Procedures This patient has no known procedures. Plan of Care Planned Activity Planned Date Details Comments Source Future Scheduled 2022-11-11 Screening for malignant [facility] 00:00:00 neoplasm of breast Medical C enter (procedure) [code = 719253103] Future Scheduled 2022-07-[address] [facility] 00:00:00 (12+) [code = Medical Center DEPRESSION SCREENING (12+)] Future Scheduled 2022-07-12 FALLS RISK SCREENING [facility] 00:00:00 [code = FALLS RISK Medical C enter SCREENING] Future Scheduled 2022-03-[address] [facility] Test 00:00:00 Counseling and Medical Cente r Screening (12+) [code = Tobacco Cessation Counseling and Screening (12+)] Future Scheduled 2022-03-12 INFLUENZA VACCINE (#1) [facility] 00:00:00 [code = INFLUENZA Medical Ce nter VACCINE (#1)] Future Scheduled 2021 PNEUMOCOCCAL 65+ YRS ([address] [facility] 00:00:00 - PCV) [code = Medical Cente r PNEUMOCOCCAL 65+ YRS (1 - PCV)] Future Scheduled 2021-04-07 COVID-19 VACCINE (3 - [facility]:00 Booster for Pfizer Medical C enter series) [code = COVID-19 VACCINE (3 - Booster for Pfizer series)] Future Scheduled 2006 SHINGLES VACCINES ([address] [facility] 00:00:00 2) [code = SHINGLES [facility] VACCINES (1 of 2)] Future Scheduled 2001 Lipid panel (procedure) [facility] 00:00:00 [code = 09481572] Medical Ce nter Future Scheduled 1977 Screening for malignant [facility] 00:00:00 neoplasm of cervix Medical C enter (procedure) [code = 514267877] Future Scheduled 1975-12-18 DTAP/TDAP/TD VACCINES [facility] 00:00:00 (1 - Tdap) [code = Medical C enter DTAP/TDAP/TD VACCINES (1 - Tdap)] Future Scheduled 1956 CT Colonography (combo) [facility] 00:00:00 [code = CT Colonography [facility] (combo)] Future Scheduled 1956 Screening for malignant [facility] 00:00:00 neoplasm of colon Medical Ce nter (procedure) [code = 706583604] Future Scheduled 1956 Screening for malignant [facility] Test 00:00:00 neoplasm of colon Medical Ce nter (procedure) [code = 177831541] Future Scheduled 1956 DXA SCAN [code = DXA [facility] Test 00:00:00 SCAN] [facility] Future Scheduled 1956 Screening for malignant [facility] Test 00:00:00 neoplasm of colon Medical Ce nter (procedure) [code = 296176061] Future Scheduled 1956 Screening for malignant [facility] 00:00:00 neoplasm of colon Medical Ce nter (procedure) [code = 931195867] Future Scheduled 1956 Sigmoidoscopy [code = [facility] S[facility]oidoscopy] Medical Cente r Encounters Start End Encounter Admission Attending Care Care Encounter Source Date/Time Date/Time Type Type Clinicians Facility Department ID 2022-07-22 Outpatient Penaloza, STLMLC STLMLC [id number] Common 10:02:00 Bear [address] [facility] 2022-07-21 Outpatient Penaloza, STLMLC STLMLC [id number] Common 07:19:00 Bear [facility] 2022-07-16 Outpatient Penaloza, STLMLC STLMLC [id number] Common 15:35:01 Bear [facility] 2022-07-01 Outpatient Penaloza, STLMLC STLMLC [id number] Common 08:01:00 Bear [facility] 2022-06-02 Outpatient Penaloza, STLMLC STLMLC [id number] Common 13:56:00 Bear [facility] 2022-05-12 Outpatient Penaloza, STLMLC STLMLC [id number] Common 13:44:01 Bear [facility] 2022-04-30 Outpatient Penaloza, STLMLC STLMLC [id number] Common 16:27:01 Bear [facility] 2022-04-16 Outpatient Penaloza, STLMLC STLMLC [id number] Common 11:34:02 Bear [facility] 2022-04-02 Outpatient Penaloza, STLMLC STLMLC [id number] Common 08:48:01 Bear [facility] 2022-02-19 Outpatient Penaloza, STLMLC STLMLC [id number] Common 09:49:00 Bear [facility] 2021-12-22 Outpatient Penaloza, STLMLC STLMLC [id number] Common 11:45:01 Bear [facility] 2021-11-14 Outpatient Penaloza, STLMLC STLMLC [id number] Common 10:50:01 Bear [facility] 2021-09-30 Outpatient Penaloza, STLMLC STLMLC [id number] Common 08:18:02 Bear [facility] 2021-09-04 Outpatient Penaloza, STLMLC STLMLC [id number] Common 13:59:01 Bear [facility] 2021-08-06 Outpatient Penaloza, STLMLC STLMLC [id number] Common 14:24:58 Bear [facility] 2021-08-06 Outpatient Penaloza, STLMLC STLMLC [id number] Common 13:55:45 Bear 580[address] [facility] 2021-08-06 Outpatient Penaloza, STLMLC STLMLC [id number] Common 13:36:10 Bear 345[address] [facility] 2021-08-06 Outpatient Penaloza, STLMLC STLMLC [id number] Common 13:03:21 Bear 09698 [facility] 2021-08-06 Outpatient Penaloza, STLMLC STLMLC [id number] Common 12:34:38 Bear 85986 [facility] 2021-08-06 Outpatient Penaloza, STLMLC STLMLC [id number] Common 12:24:42 Bear 40863 [facility] 2021-08-06 Outpatient Penaloza, STLMLC STLMLC [id number] Common 12:03:57 Bear 41559 [facility] 2021-08-06 Outpatient Penaloza, STLMLC STLMLC [id number] Common 11:58:21 Bear 72435 [facility] 2021-08-06 Outpatient Penaloza, STLMLC STLMLC [id number] Common 11:50:41 Bear 55138 [facility] 2021-08-06 Outpatient Penaloza, STLMLC STLMLC [id number] Common 11:45:22 Bear 69181 [facility] 2021-08-06 Outpatient Penaloza, STLMLC STLMLC [id number] Common 11:40:24 Bear 77014 [facility] 2021-08-06 Outpatient Penaloza, STLMLC STLMLC [id number] Common 11:39:41 Bear 64347 [facility] 2021-08-06 Outpatient Penaloza, STLMLC STLMLC [id number] Common 11:30:42 Bear 13592 [facility] 2021-08-06 Outpatient Penaloza, STLMLC STLMLC [id number] Common 11:28:02 Bear 01975 [facility] 2021-08-06 Outpatient Penaloza, STLMLC STLMLC [id number] Common 11:20:13 Bear 27364 [facility] 2021-04-20 Outpatient MINDIKOGLU, [facility] Surgery [id number] [facility] 10:00:19 [facility] 2021-04-19 Outpatient MINDIKOGLU, [facility] Surgery [id number] [facility] 04:58:12 [facility] 2022-07-16 2022-07-16 OFFICE STLMLC STLMLC [id number] Co mmon 00:00:00 00:00:00 [facility] ESTAB PT - [facility] LEVEL 4 [facility] 2022-06-24 2022-06-24 OFFICE STLMLC STLMLC [id number] Co mmon 00:00:00 00:00:00 VISIT EST Spir it PT LEVEL 3 - [facility] 2022-05-12 2022-05-12 (TEL) STLMLC STLMLC [id number] Co mmon 00:00:00 00:00:00 [facility] 2022-04-16 2022-04-16 OFFICE STLMLC STLMLC [id number] Co mmon 00:00:00 00:00:00 VISIT NEW Spir it PT LEVEL 4 - [facility] 2022-04-01 2022-04-01 SUB ANNUAL STLMLC STLMLC [id number] Common 00:00:00 00:00:00 MCR [facility] WELLNESS - [facility] VISIT [facility] 2022-04-01 2022-04-01 (TEL) STLMLC STLMLC [id number] Co mmon 00:00:00 00:00:00 [facility] - [facility] 2022-04-01 2022-04-01 OFFICE STLMLC STLMLC [id number] Co mmon 00:00:00 00:00:00 [facility] ESTAB PT - [facility] LEVEL 4 [facility] 2022-03-25 2022-03-25 (TEL) STLMLC STLMLC [id number] Co mmon 00:00:00 00:00:00 [facility] 2022-02-17 2022-02-17 OFFICE STLMLC STLMLC [id number] Co mmon 00:00:00 00:00:00 [facility] ESTAB PT - [facility] LEVEL 4 [facility] 2022-02-13 2022-02-13 (TEL) STLMLC STLMLC [id number] Co mmon 00:00:00 00:00:00 [facility] 2022-02-12 2022-02-12 (TEL) STLMLC STLMLC [id number] Co mmon 00:00:00 00:00:00 [facility] 2022-01-30 2022-01-30 [facility] [id number] 09:00:00 09:59:37 Visit Adelaide YANES [id number] Angela [id number] Rajwinder JOHNS [phone] [address] 2022-01-30 2022-01-30 Outpatient Koffi NANCE [facility] [id number] [facility] 09:00:00 09:59:37 [place] zelaya [facility] 2022-01-30 2022-01-30 Outpatient Koffi NANCE [facility] [id number] [facility] 09:00:00 09:00:00 [place] zelaya [facility] 2022-01-14 2022-01-14 Outpatient Koffi MORALES [facility] MAREK [id number] Univers 10:40:00 16:05:00 WADE muniz [facility] 2022-01-14 2022-01-14 Hospital [facility] 1.2.840.114 [id number] Univers 10:40:00 16:05:00 Encounter Wade YANES 350.1.13.10 [place] [phone] [facility] [address] 2022-01-14 2022-01-14 [facility] [id number] Univers 10:40:00 16:05:00 WADE muniz [facility] 2022-01-14 2022-01-14 Surgery [facility] 1.2.398.148 [id number] Univers 11:50:00 14:26:00 Wade FENGANAMIKA 350.1.13.10 [place] [phone] [facility] [address] 2022-01-14 2022-01-14 Orders Doctor DOYLE 1.2.840.114 [id number] Univers 00:00:00 00:00:00 Only Unassigned, STACIE 350.1.13.10 [place] [facility] 4.2.7.2.686 [place] as [phone] [facility] [address] 2022-01-13 2022-01-13 Laboratory Only, Adc Test [facility] 1.2.840. 114 [id number] Univers 15:00:00 15:15:00 Only Roni Lyons 350.1.13.10 [place] [id number] [facility] [address] 2022-01-13 2022-01-13 Outpatient Koffi LYONS [facility] [id number] Univers 15:00:00 15:00:00 RONI muniz [facility] 2022-01-13 2022-01-13 Outpatient Koffi LYONS [facility] [id number] Univers 15:00:00 15:00:00 RONI muniz [facility] 2022-01-13 2022-01-13 Orders Doctor DOYLE 1.2.840.114 [id number] Univers 00:00:00 00:00:00 Only Unassigned, SATCIE 350.1.13.10 [place] [facility] 4.2.7.2.686 [place] as [phone] [address] 2022-01-07 2022-01-07 Prep For [facility] 1.2.840.114 [id number] Univers 00:00:00 00:00:00 Surgery Wade YANES 350.1.13.10 [place] [phone] Or dical NAL [address] [place] [address] 2022-01-06 2022-01-06 [facility] [id number] Univers 14:00:00 15:04:26 WADE norman [facility] 2022-01-06 2022-01-06 Office [facility] 1.2.555.721 [id number] Univers 14:00:00 15:04:26 Visit Wade YANES 350.1.13.10 [place] [phone] Or dical NAL [address] [place] [address] 2022-01-06 2022-01-06 [facility] [id number] Univers 14:00:00 15:04:26 WADE norman [facility] 2022-01-06 2022-01-06 Outpatient [facility] [id number] Univers 14:00:00 15:04:26 WADE norman [facility] 2022-01-06 2022-01-06 Orders Doctor DOYLE 1.2.840.114 [id number] Univers 00:00:00 00:00:00 Only Unassigned, STACIE 350.1.13.10 [place] [facility] 4.2.7.2.686 I[place] as [phone] [address] 2021-12-19 2021-12-19 (TEL) STLMLC STLMLC [id number] Co mmon 00:00:00 00:00:00 [facility] 2021-12-09 2021-12-09 Orders Doctor YANIRA 1.2.840.114 [id number] Univers 00:00:00 00:00:00 Only Unassigned, STACIE 350.1.13.10 [place] [facility] 4.2.7.2.686 [place] [phone] [place] [address] [address] 2021-12-02 2021-12-02 (TEL) STLMLC STLMLC [id number] Co mmon 00:00:00 00:00:00 [facility] 2021-12-02 2021-12-02 (TEL) STLMLC STLMLC [id number] Co mmon 00:00:00 00:00:00 [facility] 2021-11-19 2021-11-19 (TEL) STLMLC STLMLC [id number] Co mmon 00:00:00 00:00:00 [facility] 2021-11-17 2021-11-17 (TEL) STLMLC STLMLC [id number] Co mmon 00:00:00 00:00:00 [facility] 2021-11-13 2021-11-13 OFFICE STLMLC STLMLC [id number] Co mmon 00:00:00 00:00:00 VISIT Spirit ESTAB PT - CHI LEVEL 4 [facility] 2021-09-30 2021-09-30 (TEL) STLMLC STLMLC [id number] Co mmon 00:00:00 00:00:00 [facility] 2021-09-30 2021-09-30 OFFICE STLMLC STLMLC [id number] Co mmon 00:00:00 00:00:00 VISIT Spirit ESTAB PT - CHI LEVEL 4 [facility] 2021-09-24 2021-09-24 (TEL) STLMLC STLMLC [id number] Co mmon 00:00:00 00:00:00 [facility] 2021-08-18 2021-08-18 (TEL) STLMLC STLMLC [id number] Co mmon 00:00:00 00:00:00 [facility] 2021-07-30 2021-07-30 Imm/Inj Nurse, Adc Pob Immunization [facility] 1.2.840.114 [id number] Univers 09:00:00 09:03:51 Visit Jono Little 350.1.13 .10 [facility] 4.2.7.2.686 Rajwinder JOHNS [phone] Or dic[address] 2021-07-30 2021-07-30 Outpatient Koffi LITTLE [facility] [id number] Univers 09:00:00 09:00:00 JONO muniz [facility] 2021-06-16 2021-06-16 (TEL) STLMLC STLMLC [id number] Co mmon 00:00:00 00:00:00 [facility] 2021-06-04 2021-06-04 (TEL) STLMLC STLMLC [id number] Co mmon 00:00:00 00:00:00 [facility] 2021-05-12 2021-05-12 Outpatient EL MINDIKOGLU, SLEH SLEH [id number] SLEH 00:00:00 00:00:00 MILI 2021-05-02 2021-05-02 Outpatient EL MINDIKOGLU, SLEH SLEH [id number] SLEH 00:00:00 00:00:00 MILI 2021-04-18 2021-04-18 Outpatient EL MINDIKOGLU, SLEH SLEH [id number] SLEH 00:00:00 00:00:00 MILI 2021-04-18 2021-04-18 Outpatient EL SLEH SLEH [id number] SLEH 00:00:00 00:00:00 2021-04-16 2021-04-16 Outpatient EL MINDIKOGLU, SLEH SLEH [id number] SLEH 00:00:00 00:00:00 MILI 2021-04-16 2021-04-16 Outpatient EL SLEH SLEH [id number] SLEH 00:00:00 00:00:00 2021-04-03 2021-04-03 (TEL) STLMLC STLMLC [id number] Co mmon 00:00:00 00:00:00 [facility] 2021-03-18 2021-03-18 Outpatient EL SLEH SLEH [id number] SLEH 00:00:00 00:00:00 2021-03-11 2021-03-11 Outpatient Koffi [facility] [id number] Univers 00:00:00 00:00:00 ALEJANDRA muniz [facility] 2021-02-18 2021-02-18 Outpatient STLMLC STLMLC [id number] Common 00:00:00 00:00:00 [facility] 2021-02-10 2021-02-10 Outpatient STLMLC STLMLC [id number] Common 00:00:00 00:00:00 [facility] 2021-02-04 2021-02-04 Outpatient STLMLC STLMLC [id number] Common 00:00:00 00:00:00 [facility] 2021-01-20 2021-01-20 Outpatient STLMLC STLMLC [id number] Common 00:00:00 00:00:00 [facility] 2021-01-17 2021-01-17 Outpatient EL HCA, SLEH SLEH [id number] SLEH 15:27:46 15:27:46 MILI 2021-01-14 2021-01-14 Outpatient STLMLC STLMLC [id number] Common 00:00:00 00:00:00 [facility] 2021-01-01 2021-01-01 Outpatient STLMLC STLMLC [id number] Common 00:00:00 00:00:00 [facility] 2020-12-24 2020-12-24 Outpatient Koffi [facility] [id number] Univers 00:00:00 00:00:00 ALEJANDRA muniz [facility] 2020-11-18 2020-11-18 Outpatient STLMLC STLMLC [id number] Common 00:00:00 00:00:00 [facility] 2020-11-12 2020-11-12 Outpatient CHA, SLEH SLEH [id number] SLEH 00:00:00 00:00:00 MILI 2020-11-11 2020-11-11 Outpatient Koffi [facility] [id number] Univers 00:00:00 00:00:00 ALEJANDRA muniz [facility] 2020-11-05 2020-11-05 Outpatient Koffi [facility] [id number] Univers 10:20:00 10:20:00 JONO muniz [facility] 2020-11-01 2020-11-01 Outpatient EL SLE SLE [id number] SLE 00:00:00 00:00:00 2020-10-15 2020-10-15 Outpatient Koffi [facility] [id number] Univers 00:00:00 00:00:00 ALEJANDRA muniz [facility] 2020-09-20 2020-09-20 Outpatient JOVAN EUBANKS, SLE SLEH [id number] SLE 00:00:00 00:00:00 MILI 2020-09-20 2020-09-20 Outpatient EL SLEH SLE [id number] SLEH 00:00:00 00:00:00 2020-09-13 2020-09-13 Outpatient JOVAN EUBANKS, SLE SLE [id number] SLE 00:00:00 00:00:00 MILI 2020-09-10 2020-09-10 Outpatient Koffi [facility] [id number] Univers 14:00:00 14:00:00 ALEJANDRA muniz [facility] 2020-09-09 2020-09-09 Outpatient STLMLC STLMLC [id number] Common 00:00:00 00:00:00 [facility] 2020-09-05 2020-09-05 Outpatient STLMLC STLMLC [id number] Common 00:00:00 00:00:00 [facility] 2020-08-13 2020-08-13 Outpatient STLMLC STLMLC [id number] Common 00:00:00 00:00:00 [facility] 2020-08-06 2020-08-06 Outpatient STLMLC STLMLC [id number] Common 00:00:00 00:00:00 [facility] 2020-08-05 2020-08-05 Outpatient STLMLC STLMLC [id number] Common 00:00:00 00:00:00 [facility] 2020-07-31 2020-07-31 Outpatient JOVAN EUBANKS SLEH SLEH [id number] SLEH 00:00:00 00:00:00 MILI 2020-07-24 2020-07-24 Outpatient JOVAN EUBANKS SLEH SLEH [id number] SLEH 00:00:00 00:00:00 MILI 2020-07-19 2020-07-19 Outpatient STLMLC STLMLC [id number] Common 00:00:00 00:00:00 [facility] 2020-06-17 2020-06-17 Outpatient STLMLC STLMLC [id number] Common 00:00:00 00:00:00 [facility] 2020-06-13 2020-06-13 Outpatient STLMLC STLMLC [id number] Common 00:00:00 00:00:00 [facility] 2020-06-05 2020-06-05 Outpatient STLMLC STLMLC [id number] Common 00:00:00 00:00:00 [facility] 2020-05-22 2020-05-22 Outpatient JOVAN EUBANKS SLEH SLEH [id number] SLEH 00:00:00 00:00:00 MILI 2020-05-21 2020-05-21 Outpatient STLMLC STLMLC [id number] Common 00:00:00 00:00:00 [facility] 2020-05-20 2020-05-20 Outpatient STLMLC STLMLC [id number] Common 00:00:00 00:00:00 [facility] 2020-05-09 2020-05-09 Outpatient STLMLC STLMLC [id number] Common 00:00:00 00:00:00 [facility] 2020-05-06 2020-05-06 Outpatient STLMLC STLMLC [id number] Common 00:00:00 00:00:00 [facility] 2020-05-01 2020-05-01 Outpatient JOVAN EUBANKS SLEH SLEH [id number] SLEH 00:00:00 00:00:00 MIL[facility] 2020-04-25 2020-04-25 Outpatient STLMLC STLMLC [id number] Common 00:00:00 00:00:00 [facility] 2020-04-24 2020-04-24 Outpatient BETHANY ORTIZ SLEHerlinda [id number] SLEHerlinda 00:00:00 00:00:00 MIL[facility] 2020-04-15 2020-04-15 Outpatient STLMLC STLMLC [id number] Common 00:00:00 00:00:00 [facility] 2020-04-11 2020-04-11 Outpatient STLMLC STLMLC [id number] Common 00:00:00 00:00:00 [facility] 2020-04-08 2020-04-08 Outpatient STLMLC STLMLC [id number] Common 00:00:00 00:00:00 [facility] 2020-04-04 2020-04-04 Outpatient STLMLC STLMLC [id number] Common 00:00:00 00:00:00 [facility] 2020-03-26 2020-03-26 [facility] [id number] Common 15:20:00 15:20:[address] [facility] 2020-03-22 2020-03-22 Outpatient [facility] [id number] Common 13:35:00 13:35:[address] [facility] 2020-02-14 2020-02-14 Out[facility] [id number] Common 13:51:00 13:51:[address] [facility] 2020-01-10 2020-01-10 Out[facility] [id number] Common 10:00:00 10:00:[address] [facility] 2020-01-10 2020-01-10 Out[facility] [id number] Common 10:00:00 10:00:[address] [facility] 2020-01-09 2020-01-09 Out[facility] [id number] Common 13:21:00 13:21:[address] [facility] 2019-12-29 2019-12-29 Out[facility] [id number] Common 14:26:00 14:26:[address] [facility] 2019-12-20 2019-12-20 Out[facility] [id number] Common 10:45:00 10:45:[address] [facility] 2019-12-18 2019-12-18 Outpatient [facility] [id number] Common 17:06:00 17:06:[address] [facility] 2019-11-23 2019-11-23 Out[facility] [id number] Common 08:30:00 08:30:[address] [facility] 2019-11-10 2019-11-10 Out[facility] [id number] Common 09:00:00 09:00:[address] [facility] 2019-08-15 2019-08-15 [facility] 1.2.840.114 [id number] 00:00:00 00:00:00 Alejandra Esteves CORPORATE ATTORNEY 350.1.13.10 [facility] 4.2.7.2.686 MATERNAL [id number] & CHILD 107 [facility] 2019-08-04 2019-08-04 Telephone [facility] [id number] [id number] 00:00:00 00:00:00 Epifanio Rain CORPORATE ATTORNEY 350.1.13.10 [facility] 4.2.7.2.686 MATERNAL [id number] & CHILD 107 [facility] 2019-07-28 2019-07-28 Orders Doctor DOYLE 1.2.840.114 [id number] 00:00:00 00:00:00 Only Unassigned, STACIE 350.1.13.10 [place] [address].2.7.2.686 [id number] [id number] 2019-07-28 2019-07-28 Telephone [facility] 1.2.840.114 [id number] 00:00:00 00:00:00 Alejandra Esteves CORPORATE ATTORNEY 350.1.13.10 [facility] 4.2.7.2.686 MATERNAL [id number] & CHILD [address] [place] [address] Results Test Description Test Test Comments Results Result [facility] e Time Comments TISSUE EXAM 2020-07 Surgical Pathology Report -21 Case: [id number] 13:36:0 Authorizing Provider: Mili Barnhart MD Collected: 07/31/2020 02:00 PM MPH Ordering Location: [facility] Radiology Main Received: 07/31/2020 03:41 PM Pathologist: Shabana Uriostegui MD Specimen: Liver, liver biopsy LIVER, TRANSJUGULAR NEEDLE BIOPSIES- CIRRHOSIS- see comment Signing Pathologist Direct Phone Line: [phone] y signed by Shabana Uriostegui MD on 08/01/2020 at 1:36 PMThe etiology of cirrhosis cannot be determined from this biopsy. There are rare hepatocytes with ballooning/feathery degeneration. This could represent a burnt out steatohepatitis or a cholestatic disease. Few glycogenated nuclei are seen. The bile ducts are preserved. No significant ductopenia is seen. No bile duct scars are seen. Jaspal's disease may be excluded clinically. 18942, 76383 X4Rule out cirrhosisLiverReceived in formalin labeled the patient's name, accession number and "liver" are multiple nicole-yellow, threadlike soft tissue cores measuring up to 0.9 cm in greatest length which are filtered and submitted in toto in A1.VENUS Nicole, HT (ASCP)Section shows multiple variably sized cores of liver parenchyma with greater than 10 portal tracts and is adequate for evaluation. Trichrome and reticulin stain shows distortion of architecture with septal fibrosis and nodule formation. Focal pericellular fibrosis is present. The fibrous septa show cholangiolar proliferation and very mild chronic lymphoplasmacytic inflammation. No significant interface hepatitis is noted. The bile ducts appear preserved. No periductal inflammation, granulomas or bile duct scars are seen. Glycogenated nuclei are present. Mild lobular inflammation is present. Rare ballooning/feathery degeneration is seen. This is focally periseptal in distribution. No significant steatosis or cholestasis is present. Iron stain is negative. No hyaline globules are seen on PAS with diastase stain.The interpretation of this case included the use of immunohistochemistry or special stains.Control Slides Examined: In-house known positive controls were evaluated along with the test tissue. These control slides run alongside of the patients sample show appropriate staining. Internal positive and negative controls when available are evaluated Immunohistochemistry technical testing was performed at [facility], Pathology Laboratory where it was developed and its performance characteristics were determined. It has not been cleared or approved by the U.S. Food and Drug Administration. The FDA has determined that such clearance or approval is not necessary. The test is used for clinical purposes. It should not be regarded as investigational or for research. This laboratory is certified under the Clinical Laboratory Improvement Amendments of 1988 (CLIA-88) as qualified to perform high complexity clinical laboratory testing. RAMILA, 2020-07 TRANSCATHETER -20 MINDIKOGLUReferring * BIOPSY 16:32:0 : Bear Penaloza [facility] and measure AZUCENA ROY : hepatic venous 1955 Sex: pressure gradient, F rule out cirrhosisPlease do FINAL REPORT liver biopsy and measure hepatic Transjugular liver venous pressure biopsy, 07/31/2020. gradient, rule out History: Abnormal LFTs. cirrhosisSpecify Modality: Fluoroscopy. Organ:->LIVERLIVER Sedation: Versed 2 mg and Reason for fentanyl 100 mcg was Exam:->Please do given intravenously for liver biopsy and moderate sedation. The measure hepatic patient's vital signs venous pressure were monitored throughout gradient, rule out the procedure and cirrhosisLIVER recorded to the patient's medical record by the nurse. Total intra-service time of sedation was 30 minutes. Packing Room Worker: Catalina. Wide Area Network Engineer: None. Approach: Right internal jugular vein Estimated blood loss: < 5 cc. Specimen: 4 19-gauge core specimens placed within formalin and sent to pathology. Fluoroscopy Time: 3.8 min. Dose (Ka,r): 91.3 mGy. Technique: Informed written consent was obtained. Discussion of risks, benefits, and alternatives were made with the patient. The patient expressed understanding and agreed to proceed. All elements maximal sterile barrier technique was utilized for this procedure, including utilization of sterile scrub solution for skin prep, a large sterile sheet to cover the areas of the patient that were not prepped, and hand hygiene, mask, head covering, and sterile gown for performing radiologist and scrub technologist. Ultrasound evaluation showed a patent and compressible right internal jugular vein, which was punctured under direct real-time ultrasound guidance with a micropuncture needle. An ultrasound image was saved to PACS. A 0.018 inch wire was placed through the needle into the right atrium. A 4 Gibraltarian micropuncture sheath was placed. A 0.035 inch J-wire was placed through the micropuncture sheath and the sheath was exchanged for a 9 Gibraltarian sheath. A 5 Gibraltarian angled tip catheter was used to select the right hepatic vein. Venogram was performed. Pressures were obtained through the catheter with measurements as follows: wedged hepatic - 17 mmHg, free hepatic - 5, and right atrium - 4. A long metal reinforced 7 Gibraltarian sheath was placed through the 9 Gibraltarian sheath into the right hepatic vein. A long 19-gauge core biopsy needle was then placed through sheath with 4 core samples obtained within the liver. The needle and sheath were removed. Hemostasis was obtained with manual compression. The patient tolerated the procedure well and left the department in the same condition. Findings: Venogram demonstrates patent right hepatic vein and intrahepatic IVC. Impression: Successful, uncomplicated transjugular liver biopsy, using fluoroscopic guidance and conscious sedation. Signed: Anthony Arnold Verified Date/Time: 07/31/2020 16:32:46 Reading Location: [place] [address] Angio Body Reading Room REHENSIVE METABOLIC PANEL 2020-07-31 10:42:00 Test Item Value Reference Range Interpretation Comme nts TOTAL PROTEIN (BEAKER) 6.1 gm/dL 6.0-8.3 (test code = 770) ALBUMIN (BEAKER) (test code 3.2 g/dL 3.5-5.0 L = 1145) ALKALINE PHOSPHATASE 172 U/L 40-150 H (BEAKER) (test code = 346) BILIRUBIN TOTAL (BEAKER) 1.8 mg/dL 0.2-1.2 H (test code = 377) SODIUM (BEAKER) (test code 140 meq/L 136-145 = 381) POTASSIUM (BEAKER) (test 3.8 meq/L 3.5-5.1 code = 379) CHLORIDE (BEAKER) (test 108 meq/L 98-107 H code = 382) CO2 (BEAKER) (test code = 28 meq/L 22-29 355) BLOOD UREA NITROGEN 12 mg/dL 7-21 (BEAKER) (test code = 354) CREATININE (BEAKER) (test 0.74 mg/dL 0.57-1.25 code = 358) GLUCOSE RANDOM (BEAKER) 82 mg/dL 70-105 (test code = 652) CALCIUM (BEAKER) (test code 10.6 mg/dL 8.4-10.2 H = 697) AST (SGOT) (BEAKER) (test 38 U/L 5-34 H code = 353) ALT (SGPT) (BEAKER) (test 16 U/L 6-55 code = 347) EGFR (BEAKER) (test code = 79 mL/min/1.73 sq m ESTIMATED GFR IS NOT 1092) ACCURATE CRE ATININE CLEARANCE IN [place] EDICTING GLOMERULAR FILT RATION RATE. ESTIMATED GFR IS NOT APPLICABLE FOR DIALYSIS PATIENTS. Scientific Informatics Leader SARA - CALI FSpecimen slightly [id number] 10:31:00 Test Item Value Reference Range Interpretation Comments PARTIAL THROMBOPLASTIN TIME 38.2 seconds 22.5-36.0 H (BEAKER) (test code = 760) PROTHROMBIN TIME/[id number] 10:30:00 Test Item Value Reference Range Interpretation Comments PROTIME (BEAKER) (test code = 15.2 seconds 11.9-14.2 H 759) INR (BEAKER) (test code = 370) 1.25 <=5.90 Effective 12/07/2018: PT Reference Range ChangeNew: 11.9-14.2 Previous: 11.7- 14.7RECOMMENDED COUMADIN/WARFARIN INR THERAPY RANGESSTANDARD DOSE: 2.0-3.0 Includes: PROPHYLAXIS for venous thrombosis, systemic embolization; TREATMENT for venous thrombosis and/or pulmonary embolus.HIGH RISK: Target INR is 2.5-3.5 for patients wiht mechanical heart valves.CBC W/PLT COUNT & AUTO [id number] 10:16:00 Test Item Value Reference Range Interpretation Comments WHITE BLOOD CELL COUNT (BEAKER) 2.5 K/ L 3.5-10.5 L (test code = 775) RED BLOOD CELL COUNT (BEAKER) 2.72 M/ L 3.93-5.22 L (test code = 761) HEMOGLOBIN (BEAKER) (test code = 9.7 GM/DL 11.2-15.7 L 410) HEMATOCRIT (BEAKER) (test code = 28.4 % 34.1-44.9 L 411) MEAN CORPUSCULAR VOLUME (BEAKER) 104.4 fL 79.4-94.8 H (test code = 753) MEAN CORPUSCULAR HEMOGLOBIN 35.7 pg 25.6-32.2 H (BEAKER) (test code = 751) MEAN CORPUSCULAR HEMOGLOBIN CONC 34.2 GM/DL 32.2-35.5 (BEAKER) (test code = 752) RED CELL DISTRIBUTION WIDTH 15.3 % 11.7-14.4 H (BEAKER) (test code = 412) PLATELET COUNT (BEAKER) (test code 53 K/CU MM 150-450 L = 756) MEAN PLATELET VOLUME (BEAKER) 10.1 fL 9.4-12.3 (test code = 754) NUCLEATED RED BLOOD CELLS (BEAKER) 0 /100 WBC 0-0 (test code = 413) NEUTROPHILS RELATIVE PERCENT 56 % (BEAKER) (test code = 429) LYMPHOCYTES RELATIVE PERCENT 28 % (BEAKER) (test code = 430) MONOCYTES RELATIVE PERCENT 14 % (BEAKER) (test code = 431) EOSINOPHILS RELATIVE PERCENT 1 % (BEAKER) (test code = 432) BASOPHILS RELATIVE PERCENT 0 % (BEAKER) (test code = 437) NEUTROPHILS ABSOLUTE COUNT 1.43 K/ L 1.56-6.13 L (BEAKER) (test code = 670) LYMPHOCYTES ABSOLUTE COUNT 0.72 K/ L 1.18-3.74 L (BEAKER) (test code = 414) MONOCYTES ABSOLUTE COUNT (BEAKER) 0.35 K/ L 0.24-0.36 (test code = 415) EOSINOPHILS ABSOLUTE COUNT 0.03 K/ L 0.04-0.36 L (BEAKER) (test code = 416) BASOPHILS ABSOLUTE COUNT (BEAKER) 0.00 K/ L 0.01-0.08 L (test code = 417) IMMATURE GRANULOCYTES-RELATIVE 0 % 0-1 PERCENT (BEAKER) (test code = 2801) MR, ABDOMEN, [id number] 15:12:00Referring: [facility] DOplease do with elastography and MRCPplease do with elastography and MRCPUnlisted Reason for Exam - Click Yes and Enter Reason Below->YesUnlisted Reason for Exam- >Breast cancer, elevated alkaline phosphatase and bilirubin, thrombocytopenia, please evaluate the liver, rule out mets, please do with elastography and MRCPplease do with elastography and MRCP [facility] : 1955 Sex: FFINALREPORT MRI of the abdomen with and without contrast Clinical History: Unlisted Reason for ExamBreast cancer, elevated alkaline phosphatase and bilirubin, thrombocytopenia, please evaluate the liver, rule out mets, please do with elastography and MRCP Technique: Multiplanar and multisequence MR images of the abdomen are obtained before and after intravenous contrast administration. Contrast is administered to evaluate neoplasm and vasculature. Comparison: MRI dated March 12, 2020, performed at an outside institution Discussion: Liver has a somewhat nodular contour, suggestiveof cirrhosis. No liver mass is identified. Hepatic vasculature is patent. Main portal vein measures 8 mm in diameter. The periumbilical veins are recanalized. No biliary ductal dilatation. Gallbladder appears normal. No stone is identified. Liver elastography demonstrates average stiffness of 2.35 kPa, which is within normal limits Spleen is borderline enlarged and measures 12.7 cm sagittally. Pancreas, adrenal glands are unremarkable. Kidneys demonstrate no hydronephrosis, or mass. Visualized bowelis unremarkable. No ascites or lymphadenopathy. No suspicious bony lesion is identified. Impression:While liver elastography is within normal limits, nodular contour of the liver is suggestive of cirrhosis. In addition, there is recanalization of the periumbilical vein, and borderline splenomegaly. No liver mass, or metastatic disease is identified in the abdomen. No biliary ductal dilatation. Signed: Cinda Valdez MDReport Verified Date/Time: 05/22/2020 15:12:38 Reading Location: [facility] C0X [facility] Consult Reading Room HEPATITIS C PCR, QUANTITATIVE 2020-04-27 03:34:00 Test Item Value Reference Range Interpretation Comments HCV RESULT COMPONENT HCV RNA not detected HCV RNA not detected (BEAKER) (test code = 2699) This test uses a Real-Time Polymerase Chain Reaction (RT-PCR) methodology and was performed using FRANTZ Ampliprep/FRANTZ TaqMan HCV test kit version 2.0 ([employer]).Reportable range for this assay is 15 - 100,000,000 IU per mL (1.18 - 8.00 Log IU/mL).ANTI-NUCLEAR ANTIBODY (JOSÉ ANTONIO)2020-04-26 10:36:00 Test Item Value Reference Range Interpretation Comments ANTI-NUCLEAR ANTIBODY (JOSÉ ANTONIO) (BEAKER) Positive Negative A (test code = 418) Test performed by IFA method.JOSÉ ANTONIO TITER AND [id number] 10:36:00 Test Item Value Reference Range Interpretation Comments JOSÉ ANTONIO TITER (BEAKER) (test code = :160 1541) JOSÉ ANTONIO PATTERN (BEAKER) (test code = Speckled 1781) [id number] 18:39:00 Test Item Value Reference Range Interpretation Comments FERRITIN (BEAKER) (test code = 177.89 ng/mL 5.00-275.00 361) Scientific Informatics Leader ID - BSHEPATITIS B SURFACE [id number] 15:07:00 Test Item Value Reference Range Interpretation Comments HEPATITIS B SURFACE ANTIBODY < mIU/mL <8.0 (BEAKER) (test code = 647) Scientific Informatics Leader ID - ROSIANGHEPATITIS A ANTIBODY, [id number] 14:58:00 Test Item Value Reference Range Interpretation Comments HEPATITIS A IGG ANTIBODY (BEAKER) Reactive Nonreactive A (test code = 2797) Scientific Informatics Leader ID - ROSIANGHEPATITIS B SURFACE [id number] 14:58:00 Test Item Value Reference Range Interpretation Comments HEPATITIS B SURFACE ANTIGEN (2) Nonreactive Nonreactive (BEAKER) (test code = 2585) Specimen is considered negative for HBsAg.HEPATITIS C [id number] 14:58:00 Test Item Value Reference Range Interpretation Comments HEPATITIS C ANTIBODY (BEAKER) Nonreactive Nonreactive (test code = 367) Scientific Informatics Leader ID - ROSIANGALPHA FETOPROTEIN (AFP), TUMOR [id number] 14:50:00 Test Item Value Reference Range Interpretation Comments ALPHA-FETOPROTEIN (BEAKER) (test 5.0 ng/mL <10.0 code = 1094) Scientific Informatics Leader ID - ROSIANGHEPATITIS A ANTIBODY, [id number] 14:50:00 Test Item Value Reference Range Interpretation Comments HEPATITIS A IGM ANTIBODY (BEAKER) Nonreactive Nonreactive (test code = 498) Scientific Informatics Leader ID - ROSIANGHEPATITIS B CORE ANTIBODY, [id number] 14:50:00 Test Item Value Reference Range Interpretation Comments HEPATITIS B CORE TOTAL ANTIBODY Nonreactive Nonreactive (BEAKER) (test code = 497) Scientific Informatics Leader ID - ROSIANGIRON, TIBC, % SAT. (WITHOUT FERRITIN)2020-04-24 14:36:00 Test Item Value Reference Range Interpretation Comments IRON (BEAKER) (test code = 547) 128.0 ug/dL 40.0-160.0 TOTAL IRON BINDING CAPACITY 294 ug/dL 250-450 (BEAKER) (test code = 769) IRON % SATURATION (2) (BEAKER) 44 % 20-55 (test code = 2590) Scientific Informatics Leader ID - [id number] 14:36:00 Test Item Value Reference Range Interpretation Comments ALPHA-1 ANTITRYPSIN (BEAKER) 149.50 mg/dL 90.00-200.00 (test code = 502) Scientific Informatics Leader ID - ROSIANGCOMPREHENSIVE METABOLIC [id number] 14:35:00 Test Item Value Reference Range Interpretation [...] S NOT APPLICABLE FOR DIALYSIS PATIEN TS. Scientific Informatics Leader ID - ROSIANGSpecimen slightly ictericBILIRUBIN, [id number] 14:35:00 Test Item Value Reference Range Interpretation Comments BILIRUBIN DIRECT (BEAKER) (test 0.9 mg/dL 0.1-0.5 H code = 706) Scientific Informatics Leader ID - ROSIANGGAMMA GLUTAMYL TRANSFERASE (GGT)2020-04-24 14:35:00 Test Item Value Reference Range Interpretation Comments GAMMA GLUTAMYL TRANSFERASE (BEAKER) 50 U/L 9-64 (test code = 364) Scientific Informatics Leader ID - ROSIANGSpecimen slightly ictericPROTHROMBIN [id number] 14:22:00 Test Item Value Reference Range Interpretation [...] is 2.5-3.5 for patients wiht mechanical heart valves.CBC W/PLT COUNT & AUTO [id number] 14:14:00 Test Item Value Reference Range Interpretation [...] 0-1 PERCENT (BEAKER) (test code = 2801) SARS-COV2/RT-PCR ([facility])2020-01-31 00:49:00 Test Item Value Reference Range Interpretation Comments SARS-COV2/RT-PCR (test Not Detected Not Detected, Negative, code = 1602072) See external report for linked test SARS-COV-2 PERFORMING LAB [facility] (test code = 3522848) Negative results do not preclude SARS-CoV-2 infection [...] of the Act.Fact Sheet for Healthcare Pro viders:https://www.[employer]/Documents/Xpert%20Xpress%20SARS%20CoV-2/Fact%20Sh eets/302-3802%96NOUL-QZZ-4%20HEALTHCARE%20PROVIDERS%20FACT%20SHEET.pdfFact Sheet for Healthcare Patients:https://www.[employer]/Documents/Xpert%20Xpress%20SARS%20CoV-2/Fact%20Sheets/302-3801%20SARS-COV -2%20PATIENT%20FACT%20SHEET.pdfPerforming Laboratory:[facility], [place] [address]BKOYME ULTRASOUND CORE BIOPSY LEFT 2019-07-27 14:15:04- BREAST [...] documented to be in the correct location, multiplespecimens were obtained using a BARD biopsy device. A clip was inserted into the biopsy cavity. The specimens were sent to the laboratory for pathological analysis. IMPRESSION: ULTRASOUND GUIDED BIOPSYMALIGNANT Ultrasound guided biopsy of the 3 cm mass in the left breast central to the nipple in the r etroareolar region was successful with no apparent post procedure complications. PATHOLOGY INDICATES:Malignant invasive mammary carcinoma. Clarita Flores M.D. dm/:07/27/2019 14:15:04 Entry: - 07/27/2019 15:05:22copy to: Shwetha Rodríguez, [facility] [address], ATTN: Shwetha Rodríguez, ph: [phone], fax: [phone] Technologist: Aida Wilkins FW, [facility]- DIAG MAMM LEFT CAD [id number] 13:14:19 - DIAG MAMM LEFT CAD DIGITALUNILATERAL LEFT DIGITAL DIAGNOSTIC MAMMOGRAM WITH CAD POST-PROCEDURE ILEANA GING FOR MARKER PLACEMENT: 07/25/2019CLINICAL: Post Clip Placement. Current mammographic images were evaluated by either a Recorded FutureP M-Vu or a [employer] Lib[employer] ImageElectric Mushroom LLCcker CAD (computer aided detection system). Comparison is made to exam dated 07/18/2019 mammogram - [facility]-. The tissue of the left breast is predominantly fatty. There is a marker clip in the appropriate position in the left breast central to the nipple in the retroareolar region. This marker clip placement is at the biopsy site.IMPRESSION: POST PROCEDURE IMAGING FOR MARKER PLACEMENTThere was a successful marker clip placement in the left breast central to the nipple in the retroareolar region. Clarita Flores M.D. dm/:07/25/201913:14:19 copy to: Ms. Shwetha Rodríguez, [facility] [address], ATTN: Shwetha Rodríguez, ph: [phone], fax: [phone] Technologist: Morelia Bradley , [facility]-Imaging Technologist: Suri Lebron FW, [facility]-Mammogram BI-RADS: Post-procedure mammogram for marker placementBREAST ULTRASOUND [id number] 16:44:27 - DIAG MAMM BILATERAL KENNY CAD DIGITALBILATERAL DIGITAL DIAGNOSTIC MAMMOGRAM 3D/2D WITH CAD: 07/18/2019CLINICAL: Palpable mass, left breast. Digital breast tomosynthesis was performed in addition to routine CC and MLO views. Current mammographic images were evaluated by either a Recorded FutureP M-Vu or a [employer] Image[employer]lectric Mush[employer]cker CAD (computer aided detection system). No prior exams were available for comparison. The tissue of both breasts is predominantly fatty. There is a focal asymmetric density in the left breast central to the nipple in the retroareolar region. No other significant masses, calcifications, orother findings are seen in either breast. INCOMPLETE: ADDITIONAL IMAGING EVALUATION NEEDEDBilateral ultrasound pending for additional evaluation. - BREAST ULTRASOUND BILATERALULTRASOUND OF BOTH BREASTSAND BOTH AXILLA: 07/18/2019No prior exams were available [...] - 07/18/2019 16:51:42copy to: Ms. Tadeo Marcos, [facility] [address], ATTN: Shwetha Rodríguez, ph: [phone], fax: [phone] Technologist: Vanesa PERALTA, [facility]-FWletter sent: BIRADS 4/5 Biopsy Mammogram BI-RADS: 0 Incomplete: Additional Imaging Evaluation Needed Ultrasound BI-RADS: 5 Highly suggestive of malignancyDIAG MAMM BILATERAL KENNY CAD [id number] 16:44:27 - DIAG MAMM BILATERAL KENNY CAD DIGITALBILATERAL DIGITAL DIAGNOSTIC MAMMOGRAM 3D/2D WITH CAD: 07/18/2019CLINICAL: Palpable mass, left breast. Digital breast tomosynthesis was performed in addition to routine CC and MLO views. Current mammographic images were evaluated by either a besomebody. M-Vu or a [employer] ImageChecker CAD (computer aided detection system). No prior exams were available for comparison. The tissue of both breasts is predominantly fatty. There is a focal asymmetric density in the left breast central to the nipple in the retroareolar region. No other significant masses, calcifications, orother findings are seen in either breast. INCOMPLETE: ADDITIONAL IMAGING EVALUATION NEEDEDBilateral ultrasound pending for additional evaluation. - BREAST ULTRASOUND BILATERALULTRASOUND OF BOTH BREASTSAND BOTH AXILLA: 07/18/2019No prior exams were available [...] - 07/18/2019 16:51:42copy to: Ms. Tadeo Marcos, [facility] [address], ATTN: Shwetha Rodríguez, ph: [phone], fax: [phone] Technologist: Vanesa PERALTA, [facility]-FWletter sent: BIRADS 4/5 Biopsy Mammogram BI-RADS: 0 Incomplete: Additional Imaging Evaluation Needed Ultrasound BI-RADS: 5 Highly suggestive of malignancy
--- NOTE | 2022-07-29 14:31 | RAD REPORT ---
EXAM DESCRIPTION: Samaria Red And Lat (2 Views)07/29/2022 2:20 pm CLINICAL HISTORY: Cough COMPARISON: 2019 FINDINGS: Large left pleural effusion with atelectasis Right lung appears clear. Heart size is difficult to determine secondary to adjacent pleural effusion IMPRESSION: Large left pleural effusion
[2022-07-29 14:43] LABS: SARS-CoV-2 Antigen Rapid Res Negative (Negative)
[2022-07-29 15:05] LABS: Absolute Lymphocytes (CBC) 1.4 K/uL (0.7-4.9); Hematocrit 37.3 % (36.0-45.0); Lymphocytes % 26.6 % (15.3-44.8); MCV 105.4 fL (80-100); MPV 7.6 fL (7.6-11.3); Protime INR 1.28; RBC Red Blood Cell Count 3.54 M/uL (3.86-4.86)
[2022-07-29] MEDS ORDERED: ASPIRIN 81 MG CHEWABLE TABLET ONE (15:11)
[2022-07-29] MEDS ORDERED: HYDROCODONE/CHLORPHEN 5 ML/OSYR ONE (15:13)
[2022-07-29 15:23] LABS: Albumin 3.1 g/dL (3.4-5.0); Bilirubin Direct 0.7 mg/dL (0-0.2); Bilirubin Total 2.3 mg/dL (0.2-1.0); Magnesium 1.9 mg/dL (1.6-2.4); Protein, Total 6.8 g/dL (6.4-8.2); Troponin High Sensitivity 24.2 pg/mL (<58.9)
[2022-07-29 15:25] LABS: Potassium 2.8 mmol/L (3.5-5.1)
[2022-07-29] MEDS ORDERED: FLUCONAZOLE 400 MG IVPB 400 MG/200 ML BAG IV ONE (15:30)
[2022-07-29 15:35] LABS: White Blood Cell Scan OK (OK)
[2022-07-29 15:36] LABS: Blood Morphology Comment NOTED (NOT SEEN); Macrocytosis 1+; Platelet Estimate DECR
[2022-07-29] MEDS ORDERED: POTASSIUM 25 MEQ EFFERV TAB ONE (15:57)
[2022-07-29] MEDS ORDERED: KCL 20 MEQ/100 mL IVPB 100 ML IV ONE (15:57)
[2022-07-29] MEDS ORDERED: NA CHLORIDE 0.9% 500 ML ONE (15:57)
[2022-07-29] MEDS ORDERED: CYANOCOBALAMIN 1000MCG/ML INJ IM ONE (16:00)
--- NOTE | 2022-07-29 17:25 | RAD REPORT ---
EXAM DESCRIPTION: CT - Chest For Pe Angio - 07/29/2022 5:14 pm CLINICAL HISTORY: Cough/malignant pleural effusion COMPARISON: September 2021 TECHNIQUE: Dynamically enhanced axial 3 mm thick images of the chest were obtained during administra tion of <100> mL Isovue 370 IV contrast. Coronal and oblique reconstruction images were generated and reviewed. Exam utilizes a protocol for optimal evaluation of pulmonary arterial tree. Maximum intensity projections 3D imaging was utilized All CT scans are performed using dose optimization technique as appropriate and may include automated exposure control or mA/KV adjustment according to patient size. FINDINGS: A pulmonary embolus is not seen. Large left pleural effusion with left basilar atelectasis. No pericardial effusion. Right lung is clear Left dissecting IMPRESSION: Negative for a pulmonary embolism. Large left pleural effusion
--- NOTE | 2022-07-29 18:05 | ER ---
Nurse's Notes [facility] Name: Jojo Alaniz Age: 66 yrs Sex: Female : 1955 Arrival Date: 07/29/2022 Time: 13:39 Bed 16 Private MD: Bear Penaloza Diagnosis: Pleural effusion, not elsewhere classified;Cough;Hypokalemia Presentation: 07/29 13:53 Chief complaint: Patient states: she has been having trouble coughing and hearing a ap3 noise when she coughs for approx 2 weeks. patient has seen her PCP, but the medications she received from him it has not helped. patient denies pain. Coronavirus screen: Client presents with at least one sign or symptom that may indicate coronavirus-19. Ebola Screen: No symptoms or risks identified at this time. Initial Sepsis Screen: Does the patient meet any 2 criteria? No. Patient's initial sepsis screen is negative. Does the patient have a suspected source of infection? No. Patient's initial sepsis screen is negative. Risk Assessment: Do you want to hurt yourself or someone else? Patient reports no desire to harm self or others. Onset of symptoms was July 15, 2022. 13:53 Method Of Arrival: Ambulatory ap3 13:53 Acuity: JES 3 ap3 Triage Assessment: 13:58 General: Appears comfortable, Behavior is calm. Pain: Denies pain. Neuro: Level of ap3 Consciousness is awake, alert, Oriented to person, place. Cardiovascular: Patient's skin is warm and dry. Respiratory: Reports cough that is shortness of breath, a "sound with a cough" Airway is patent Respiratory effort is even, unlabored. Historical: - Allergies: 13:56 No Known Allergies; ap3 - Home Meds: 13:56 chemo medication [Active]; Potassium Chloride Oral [Active]; Magnesium Oxide Oral ap3 [Active]; - PMHx: 13:56 Cancer, Breast; ap3 - Immunization history:: Client reports receiving the 2nd dose of the Covid vaccine. - Social history:: Smoking status: Patient denies any tobacco usage or history of. Screenin:59 Abuse screen: Denies threats or abuse. Nutritional screening: No deficits noted. ap3 Tuberculosis screening: No symptoms or risk factors identified. 14:06 [facility] ED Fall Risk Assessment (Adult) History of falling in the last 3 months, ko1 including since admission No falls in past 3 months (0 pts) Confusion or Disorientation No (0 pts) Intoxicated or Sedated No (0 pts) Impaired Gait No (0 pts) Mobility Assist Device Used No (0 pt) Altered Elimination No (0 pt) Score/Fall Risk Level 0 - 2 = Low Risk Oriented to surroundings, Maintained a safe environment, Educated pt \\T\\ family on fall prevention, incl call for assistance when getting out of bed, Assessed \\T\\ reinforced patient's understanding of fall precautions, Provided non-skid footwear, Hourly rounding (assess needs \\T\\ fall precautionary measures) done, Used ambulatory aids as needed (educated on \\T\\ assisted with), Used gait belt as appropriate. Assessment: 14:00 General: Appears in no apparent distress. uncomfortable, Behavior is calm, cooperative, ko1 appropriate for age. Pain: Pain does not radiate. Pain began gradually. Neuro: No deficits noted. Cardiovascular: No deficits noted. Cardiovascular: Reports chest pain. Respiratory: No deficits noted. GI: No deficits noted. : No deficits noted. EENT: Reports sore throat. Derm: No deficits noted. Musculoskeletal: No deficits noted. Vital Signs: 13:53 BP 127 / 74; Pulse 87; Resp 19; Temp 98.7; Pulse Ox 99% ; Weight 68.04 kg; Height 5 ft. ap3 (152.40 cm); 16:00 BP 131 / 76; Pulse 82; Resp 18; Pulse Ox 99% ; ko1 13:53 Body Mass Index 29.29 (68.04 kg, 152.40 cm) ap3 ED Course: 13:39 Patient arrived in ED. mr 13:40 Bear Penaloza, is Private Physician. mr 13:56 [facility] Hebert [facility]C [facility]. snw 13:56 Alexander Jiménez MD is Attending Physician. snw 13:56 Triage completed. ap3 13:59 Arm band placed on right wrist. ap3 14:04 Lola Caro, CARMELITA is Primary Nurse. ko1 14:06 Patient moved to radiology via wheelchair. ko1 14:06 Patient has correct armband on for positive identification. Placed in gown. Bed in low ko1 position. Call light in reach. Side rails up X 1. Client placed on continuous cardiac and pulse oximetry monitoring. NIBP monitoring applied. assistant to the president on. Door closed. Noise minimized. Lights dimmed. Warm blanket given. 14:06 Patient maintains SpO2 saturation greater than 95% on room air. ko1 14:17 Patient moved back from radiology. ko1 14:22 Chest Pa And Lat (2 Views) XRAY In Process Unspecified. EDMS 14:24 SARS RAPID Sent. ko1 15:00 EKG done, by ED staff. bc6 15:00 Inserted saline lock: 20 gauge in right antecubital area, using aseptic technique. jh5 15:02 Basic Metabolic Panel Sent. ko1 15:02 LFT's Sent. ko1 15:02 CBC with Diff Sent. ko1 15:02 Magnesium Sent. ko1 15:02 PT-INR Sent. ko1 15:02 NT PRO-BNP Sent. ko1 15:02 Troponin HS Sent. ko1 17:15 CT Chest For PE Angio In Process Unspecified. EDMS 18:04 Bear Penaloza DO is Referral Physician. snw 18:21 No provider procedures requiring assistance completed. IV discontinued, intact, ko1 bleeding controlled, No redness/swelling at site. Pressure dressing applied. 18:59 INCENTIVE SPIROMETRY Sent. ko1 Administered Medications: 15:11 Drug: Aspirin Chewable Tablet 324 mg Route: PO; ko1 17:00 Follow up: Response: No adverse reaction ko1 15:11 Drug: Tussionex Pennkinetic ER (chlorpheniramine-hydrocodone) Suspension 5 ml Route: PO;ko1 17:00 Follow up: Response: No adverse reaction ko1 16:02 Drug: Potassium Chloride 20 mEq Route: IV; Rate: calculated rate; Site: right ko1 antecubital; 17:01 Follow up: Response: No adverse reaction ko1 16:06 Drug: DiFLUcan (fluconazole) 400 mg Volume: 100 ml; Route: IVPB; Infused Over: 60 mins; ko1 Site: right antecubital; 17:00 Follow up: Response: No adverse reaction; IV Intake: 100ml ko1 16:06 Drug: Cyanocobalamin 1000 mcg Route: IM; Site: left deltoid; ko1 17:00 Follow up: Response: No adverse reaction ko1 16:06 Drug: Potassium Effervescent Tablet 50 mEq Route: PO; ko1 17:00 Follow up: Response: No adverse reaction ko1 Medication: 13:59 VIS not applicable for this client. ap3 Intake: 17:00 IV: 100ml; Total: 100ml. ko1 Outcome: 18:05 Discharge ordered by . saniya 18:21 Discharged to home ambulatory, with family. ko1 18:21 Condition: improved 18:21 Discharge instructions given to patient, family, Instructed on discharge instructions, follow up and referral plans. medication usage, Demonstrated understanding of instructions, follow-up care, medications, Prescriptions given X 1. 18:34 Patient left the ED. ko1 Signatures: Dispatcher [employer] EDMS Ida Hebert, MANAGER COLLECTION-C MANAGER COLLECTION-Csnw Sasha Russ mr Debbie Cole, RN RN ap3 Ashlyn Leal RN RN 5 Lola Caro RN RN ko1 Jeniffer Blake 6 Corrections: (The following items were deleted from the chart) 13:58 13:56 Allergies: NKA; ap3 ap3
--- NOTE | 2022-07-29 18:05 | EDPHYS ---
Physician Documentation [facility] Name: Jojo Alaniz Age: 66 yrs Sex: Female : 1955 Arrival Date: 07/29/2022 Time: 13:39 Bed 16 Private MD: [place] On License Of [facility] ED Physician Alexander Jiménez HPI: 07/29 14:57 This 66 yrs old Female presents to ER via Ambulatory with complaints of Chest snw Pain, Sore Throat. 14:57 The patient or guardian reports airway noise, cough, described as moderate. Onset: The snw symptoms/episode began/occurred 2 week(s) ago. Associated signs and symptoms: The patient has no apparent associated signs or symptoms. Severity of symptoms: At their worst the symptoms were moderate. It is unknown whether or not the patient has had similar symptoms in the past. sees Dr. Penaloza[facility]. On oral chemo. Historical: - Allergies: 13:56 No Known Allergies; ap3 - Home Meds: 13:56 chemo medication [Active]; Potassium Chloride Oral [Active]; Magnesium Oxide Oral ap3 [Active]; - PMHx: 13:56 Cancer, Breast; ap3 - Immunization history:: Client reports receiving the 2nd dose of the Covid vaccine. - Social history:: Smoking status: Patient denies any tobacco usage or history of. ROS: 14:56 Constitutional: Negative for fever, chills, and weight loss, Eyes: Negative for injury, snw pain, redness, and discharge, ENT: Negative for injury, pain, and discharge, Neck: Negative for injury, pain, and swelling, Cardiovascular: Negative for chest pain, palpitations, and edema, Abdomen/GI: Negative for abdominal pain, nausea, vomiting, diarrhea, and constipation, Back: Negative for injury and pain, : Negative for injury, bleeding, discharge, and swelling, MS/Extremity: Negative for injury and deformity, Skin: Negative for injury, rash, and discoloration, Neuro: Negative for headache, weakness, numbness, tingling, and seizure. 14:56 Respiratory: Positive for cough, with no reported sputum. Exam: 14:56 Abdomen/GI: Soft, non-tender, with normal bowel sounds. No distension or tympany. No snw guarding or rebound. No evidence of tenderness throughout. Back: No spinal tenderness. No costovertebral tenderness. Full range of motion. Skin: Warm, dry with normal turgor. Normal color with no rashes, no lesions, and no evidence of cellulitis. MS/ Extremity: Pulses equal, no cyanosis. Neurovascular intact. Full, normal range of motion. Neuro: Awake and alert, GCS 15, oriented to person, place, time, and situation. Cranial nerves II-XII grossly intact. Motor strength 5/5 in all extremities. Sensory grossly intact. Cerebellar exam normal. Normal gait. Psych: Awake, alert, with orientation to person, place and time. Behavior, mood, and affect are within normal limits. 14:56 Constitutional: This is a well developed, well nourished patient who is awake, alert, and in no acute distress. Head/Face: Normocephalic, atraumatic. Eyes: Pupils equal round and reactive to light, extra-ocular motions intact. Lids and lashes normal. Conjunctiva and sclera are non-icteric and not injected. Cornea within normal limits. Periorbital areas with no swelling, redness, or edema. ENT: Nares patent. No nasal discharge, no septal abnormalities noted. Tympanic membranes are normal and external auditory canals are clear. Oropharynx with redness, no swelling, or masses, exudates, or evidence of obstruction, uvula midline. Mucous membranes dry. Oral candidiasis Neck: Trachea midline, no thyromegaly or masses palpated, and no cervical lymphadenopathy. Supple, full range of motion without nuchal rigidity, or vertebral point tenderness. No Meningismus. Chest/axilla: Normal chest wall appearance and motion. Nontender with no deformity. No lesions are appreciated. Cardiovascular: Regular rate and rhythm with a normal S1 and S2. No gallops, murmurs, or rubs. Normal PMI, no JVD. No pulse deficits. 14:56 Respiratory: the patient does not display signs of respiratory distress, Respirations: normal, Breath sounds: decreased breath sounds. Vital Signs: 13:53 BP 127 / 74; Pulse 87; Resp 19; Temp 98.7; Pulse Ox 99% ; Weight 68.04 kg; Height 5 ft. ap3 (152.40 cm); 16:00 BP 131 / 76; Pulse 82; Resp 18; Pulse Ox 99% ; ko1 13:53 Body Mass Index 29.29 (68.04 kg, 152.40 cm) ap3 MDM: 14:01 Patient medically screened. snw 14:57 Differential diagnosis: viral Infection, bacterial infection, malignant effusion/PE. snw Data reviewed: vital signs, nurses notes, radiologic studies, plain films. Consideration of Admission/Observation Escalation of care including admission/observation considered. 07/29 14:01 Order name: SARS RAPID; Complete Time: 14:46 snw 07/29 14:29 Order name: Basic Metabolic Panel; Complete Time: 15:25 snw 07/29 14:29 Order name: CBC with Diff; Complete Time: 15:37 snw 07/29 14:29 Order name: LFT's; Complete Time: 15:25 snw 07/29 14:29 Order name: Magnesium; Complete Time: 15:25 snw 07/29 14:29 Order name: NT PRO-BNP; Complete Time: 15:25 snw 07/29 14:01 Order name: Chest Pa And Lat (2 Views) XRAY; Complete Time: 14:34 snw 07/29 14:29 Order name: PT-INR; Complete Time: 15:17 snw 07/29 14:29 Order name: Troponin HS; Complete Time: 15:25 snw 07/29 14:41 Order name: CT Chest For PE Angio; Complete Time: 17:45 snw 07/29 15:08 Order name: CBC Smear Scan; Complete Time: 15:37 EDMS 07/29 17:45 Order name: INCENTIVE SPIROMETRY snw 07/29 14:29 Order name: EKG; Complete Time: 14:30 snw 07/29 14:29 Order name: Cardiac monitoring; Complete Time: 14:32 snw 07/29 14:29 Order name: EKG - Nurse/Tech; Complete Time: 14:59 snw 07/29 14:29 Order name: IV Saline Lock; Complete Time: 15:00 snw 07/29 14:29 Order name: Labs collected and sent; Complete Time: 15:00 snw 07/29 14:29 Order name: O2 Per Protocol; Complete Time: 14:32 snw 07/29 14:29 Order name: O2 Sat Monitoring; Complete Time: 14:32 snw EC:00 Rate is 84 beats/min. Rhythm is regular. QRS [place] is Normal. [place] interval is normal. snw Clinical impression: NSR w/ Non-specific ST/T Changes. Administered Medications: 15:11 Drug: Aspirin Chewable Tablet 324 mg Route: PO; ko1 17:00 Follow up: Response: No adverse reaction ko1 15:11 Drug: Tussionex Pennkinetic ER (chlorpheniramine-hydrocodone) Suspension 5 ml Route: PO;ko1 17:00 Follow up: Response: No adverse reaction ko1 16:02 Drug: Potassium Chloride 20 mEq Route: IV; Rate: calculated rate; Site: right ko1 antecubital; 17:01 Follow up: Response: No adverse reaction ko1 16:06 Drug: DiFLUcan (fluconazole) 400 mg Volume: 100 ml; Route: IVPB; Infused Over: 60 mins; ko1 Site: right antecubital; 17:00 Follow up: Response: No adverse reaction; IV Intake: 100ml ko1 16:06 Drug: Cyanocobalamin 1000 mcg Route: IM; Site: left deltoid; ko1 17:00 Follow up: Response: No adverse reaction ko1 16:06 Drug: Potassium Effervescent Tablet 50 mEq Route: PO; ko1 17:00 Follow up: Response: No adverse reaction ko1 Disposition: 07/30 12:33 Co-signature as Attending Physician, Alexander Jiménez MD I agree with the assessment and kdr plan of care. Disposition Summary: 07/29/22 18:05 Discharge Ordered Location: Home snw Condition: Stable snw Diagnosis - Pleural effusion, not elsewhere classified snw - Cough snw - Hypokalemia snw Followup: snw - With: Emergency Department - When: As needed - Reason: Worsening of condition Followup: snw - With: Bear Penaloza, DO - When: 5 - 6 days - Reason: Recheck today's complaints, Continuance of care, Re-evaluation by your physician Discharge Instructions: - Discharge Summary Sheet snw - Potassium Content of Foods snw - Pleural Effusion snw - Cool Mist Vaporizer snw - How to Use an Incentive Spirometer snw - Cough, Adult snw - Form - Incentive Spirometer Record snw - Hypokalemia snw Forms: - Medication Reconciliation Form snw - Thank You Letter snw - Antibiotic Education snw - Prescription Opioid Use snw Prescriptions: - Tramadol 50 mg Oral Tablet - take 1 tablet by ORAL route every 8 hours as needed; 12 tablet; Refills: 0, snw Product Selection Permitted Signatures: Dispatcher [employer] EDMS Alexander Jiménez MD MD kdr Waters, Shelly, FNP-C YIELD CLERK-Debbie Austin RN RN ap3 Lola Caro, CARMELITA RN ko1 Corrections: (The following items were deleted from the chart) 07/29 13:58 13:56 Allergies: NKA; ap3 ap3 15:00 14:56 Constitutional: This is a well developed, well nourished patient who is awake, snw alert, and in no acute distress. Head/Face: Normocephalic, atraumatic. Eyes: Pupils equal round and reactive to light, extra-ocular motions intact. Lids and lashes normal. Conjunctiva and sclera are non-icteric and not injected. Cornea within normal limits. Periorbital areas with no swelling, redness, or edema. ENT: Nares patent. No nasal discharge, no septal abnormalities noted. Tympanic membranes are normal and external auditory canals are clear. Oropharynx with no redness, swelling, or masses, exudates, or evidence of obstruction, uvula midline. Mucous membranes moist. Neck: Trachea midline, no thyromegaly or masses palpated, and no cervical lymphadenopathy. Supple, full range of motion without nuchal rigidity, or vertebral point tenderness. No Meningismus. Chest/axilla: Normal chest wall appearance and motion. Nontender with no deformity. No lesions are appreciated. Cardiovascular: Regular rate and rhythm with a normal S1 and S2. No gallops, murmurs, or rubs. Normal PMI, no JVD. No pulse deficits. snw
[2022-07-29 18:39] VITALS: TEMP 98.7; O2SAT 99
[2022-07-29 18:40] VITALS: BP 131/76
--- NOTE | 2022-07-30 15:33 | EKG ---
Test Date: 2022-07-29 Test Time: 14:57:16 [place] Selector: JACLYN MEASUREMENT RESULTS: Intervals: Rate: 84 ID: [id number] QRSD: 94 QT: 388 QTc: 458 [place]: P: 6 ID: [id number] QRS: 23 T: 30 INTERPRETIVE STATEMENTS: Normal sinus rhythm Normal ECG Compared to ECG 03/11/2020 10:58:45 No significant changes Electronically Signed On 07-30-22 15:31:11 SYSTEM SAFETY ENGINEER by Brandan Casey
== END 2022-07-29 18:34 | disposition home or self-care (01) ==
LOC: ER 13:36
DX: J90 Pleural effusion, not elsewhere classified (principal); E87.6 Hypokalemia; Z20.822 Contact with and (suspected) exposure to COVID-19; Z85.3 Personal history of malignant neoplasm of breast
CPT/HCPCS: 85025; 80048; 36415; 83735; 85610; 80076; 84484; 83880; 71275; 71046; 87811; Q9967; J3420; J3480; J1450; J7040; 93005; 96372; 96374; 96375; 99285

== ENCOUNTER 2022-08-02 16:28 | Emergency (ER) | payer OTHER ==
--- OUTSIDE RECORDS SUMMARY | 2022-08-02 16:33 | XMS REPORT | Continuity of Care Document ---
:1955 Author Organization [facility] t Address [address] [place] [address] Care Team Providers Name Role Phone EPIFANIO BEAR Primary Care Physician Unavailable Bear Penaloza Attending Clinician Unavailable YOLANDE EUBANKS Attending Clinician Unavailable Adelaide Wise Attending Clinician ADELAIDE DIALLO Attending Clinician Unavailable VERONA MORALES Attending Clinician Unavailable Verona Morales MD Attending Clinician Doctor Unassigned, [place] Attending Clinician Unavailable Only, Adc Test Attending Clinician Unavailable Roni Lyons MD Attending Clinician RONI LYONS Attending Clinician Unavailable Nurse, Adc Pob Immunization Attending Clinician Unavailable Jono Little DO Attending Clinician JONO LITTLE Attending Clinician Unavailable JOSH SETH Attending Clinician Unavailable Josh Batista Attending Clinician Epifanio Uribe Attending Clinician YOLANDE EUBANKS Admitting Clinician Unavailable VERONA MORALES Admitting Clinician Unavailable Verona Morales MD Admitting Clinician Payers Payer Name Policy Type Policy Number Effective Date Expiration Date S alena MEDICAID [place] [id number] 2020 2020 00:00:00 00:00:00 [facility] COMM STAR [id number] 2020 PLAN 00:00:00 COVID VACCINE [id number] 2020-09-20 ADMIN / TESTING 00:00:00 [id number] 2022-01-09 Common ADVANTAGE 00:00:00 [facility] WELLMED/AARP [id number] 2022-01-09 MEDICARE 00:00:00 ADVANTAGE MEDICARE PART A [id number] 2021-12-10 2022-01-09 \\T\\ B 00:00:00 00:00:00 [place] [id number] 2021-11-12 Common [facility] 00:00:00 [facility] MEDICAID OF [id number] 2020-04-11 [place] 00:00:00 Problems Condition Condition Condition Status Onset Resolution Last Treating Co mments Source Name Details Category Date Date Treatment Clinician Date Umbilical Umbilical Disease Active Overview: Univers hernia hernia 01-07 Formattin ity of without without 00:00: g of this [place] obstructio obstructio 00 note Me dical n and n and might be Branch without without different gangrene gangrene from the original. Added automatic ally from request for surgery [id number] BMI BMI Disease Active Univers 27.0-27.9, 27.0-27.9, 3-02 it y of adult adult 00:00: [place] [facility] Well woman Well woman Disease Active U nivers exam with exam with 12-13 ity of routine routine 00:00: [place] gynecologi gynecologi 00 Me dical manjinder exam manjinder exam Branch Menopausal Menopausal Disease [facility] state state 12-13 ity of 00:00: [place] [facility] Morbid Morbid Disease Active Univers obesity obesity 12-13 ity of 00:00: [address] BMI BMI Disease Active Univers 38.0-38.9, 38.0-38.9, 6-04 it y of adult adult 00:00: [address] Maintenanc 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 - [facility] py py St following following Luke s disease disease Medical [place] [id number] Other Problem Common chronic Spirit pain - [facility] Disorder Disorder Problem Commo n of iron of iron Spirit metabolism metabolism - [facility] , St unspecifie [facility] Center 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 - CH I of lymph d St nodes of malignant [facility] upper limb neoplasm Medi manjinder of axilla Center and upper limb lymph nodes 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 [id number] Essential Problem Comm on hypertensi Spirit [facility] [id number] Hypomagnes Problem Co mmon emia [facility] [id number] Hyperammon Problem Comm on emia [facility] [id number] Hypercalce Problem Com mon patricia [facility] Elevated Elevated Disease Active CHI S t liver liver [facility] enzymes enzymes Medical [place] Low HDL Low HDL Disease Active [facility] St (under 40) (under 40) [facility] Hypertensi Hypertensi Disease Active C HI St on [facility] Breast Breast Disease Active [facility] cancer cancer [facility] Thrombocyt Thrombocyt Disease Active C HI St openia [facility] Elevated Elevated Disease Active CHI S t alkaline alkaline [facility] phosphatas phosphatas Me dical e level e level Center Serum Serum Disease Active CHI St total total [facility] bilirubin bilirubin Medi manjinder elevated elevated Center Pancytopen Pancytopen Disease Active C HI St ia ia [facility] Abnormal Abnormal Disease Active CHI S t [...] gene gene Center Cirrhosis Cirrhosis Disease Active [facility] Gastric Gastric Disease Active [facility] ulcer ulcer [facility] Duodenal Duodenal Disease Active [facility] S t ulcer ulcer [facility] Allergies, Adverse Reactions, Alerts Allergy Allergy Status Severity Reaction(s) Onset Inactive Treating Comm ents Source Name Type Date Date Clinician NO KNOWN Drug Active [facility] ALLERGIE Class ity of S [facility] NO KNOWN Allergy Active [facility] Family History Family Member Diagnosis Comments Start Date Stop Date Source Natural brother Liver disease [facility] Natural father Hypertension [facility] Natural mother Cervical cancer [facility] Natural mother Cirrhosis [facility] Social History Social Habit Start Date Stop Date Quantity Comments Source History of [facility] - Tobacco Use [facility] Exposure to 2022-01-20 2022-01-30 Not sure University SARS-CoV-2 00:00:00 09:21:00 [facility] (event) [place] Alcohol intake 2021-03-18 2021-03-18 Ex-drinker [facility] 00:00:00 00:00:00 (finding) [facility] Tobacco use and 2020-04-24 2020-04-24 Never used [facility] exposure 00:00:00 00:00:00 [facility] [birth year] [facility] 00:00:00 00:00:00 [facility] Smoking Status Start Date Stop Date Source Never Smoker [facility] - [facility] Medications Ordered Filled Start Stop Current Ordering Indication Dosage Frequency Signature Comments Components Source Medication Medication Date Date Medication? Clinician (SIG) Name Name Albuterol Albuterol No 2{puff_ 6xD Albuterol Sulfate HFA Sulfate HFA 1-12 as_need Sulfate 108 (90 108 (90 00:00: ed} HFA 108 Base) Base) 00 (90 Base) MCG/ACT MCG/ACT MCG/ACT Albuterol Albuterol 0 No 2{puff_ 6xD Albuterol Sulfate HFA Sulfate HFA 1-12 as_need Sulfate 108 (90 108 (90 00:00: ed} HFA 108 Base) Base) 00 (90 Base) MCG/ACT MCG/ACT MCG/ACT Jimalog Jimalog 2021-07 No 40mg Common (Triamcinol (Triamcinol 2-14 S pirit one) one) 00:00: - CHI 00 [facility] Jimalog Kenalog 2021-07 No 40mg Common (Triamcinol (Triamcinol 2-14 S pirit one) one) 00:00: - CHI 00 [facility] Jimalog Kenalog 2021-07 No 40mg Common (Triamcinol (Triamcinol 2-14 S pirit one) one) 00:00: - CHI 00 [facility] Kenalog Kenalog 2021-07 No 40mg Common (Triamcinol (Triamcinol 2-14 S pirit one) one) 00:00: - CHI 00 [facility] Benzonatate Benzonatate 2021-072- No 1{capsu Benzonatat 200 MG 200 MG 08-25 le_as_n e 200 MG 00:00: 00:00 eeded} 00 :00 Lidocaine Lidocaine 2021-07 No 10mg Com mon 0-06 Spirit 00:00: - CHI 00 [facility] Kenalog Kenalog 2021-07 No 40mg Common (Triamcinol (Triamcinol 0-06 S pirit one) one) 00:00: - CHI 00 [facility] Lidocaine Lidocaine 2021-07 No 10mg Com mon 0-06 Spirit 00:00: - CHI 00 [facility] Kenalog Kenalog 2021-07 No 40mg Common (Triamcinol (Triamcinol 0-06 S pirit one) one) 00:00: - CHI 00 [facility] Lidocaine Lidocaine 2021-07 No 10mg Com mon 0-06 Spirit 00:00: - CHI 00 [facility] Kenalog Kenalog 2021-07 No 40mg Common (Triamcinol (Triamcinol 0-06 S pirit one) one) 00:00: - CHI [facility] Lidocaine Lidocaine 2021-07 No 10mg Com mon 0-06 Spirit 00:00: - CHI [facility] Kenalog Kenalog 2021-07 No 40mg Common (Triamcinol (Triamcinol 0-06 S pirit one) one) 00:00: - CHI [facility] Lidocaine Lidocaine 2021-07 No 10mg Com mon 0-06 Spirit 00:00: - CHI [facility] Kenalog Kenalog 2021-07 No 40mg Common (Triamcinol (Triamcinol 0-06 S pirit one) one) 00:00: - CHI [facility] Lidocaine Lidocaine 2021-07 No 10mg Com mon 0-06 Spirit 00:00: - CHI [facility] Kenalog Kenalog 2021-07 No 40mg Common (Triamcinol (Triamcinol 0-06 S pirit one) one) 00:00: - CHI [facility] MELOXICAM Yes 1{tbl} Take 1 Univ ers ORAL 7-22 tablet by ity of 09:36: mouth [place] 11 daily. Medical Patient Branch unsure of dose MELOXICAM Yes 1{tbl} Take 1 Univ ers [...] (two) Medical times Branch daily. timolol 0.5 0 Yes 1[drp] Place 1 U nivers % 4-21 Drop in ity of ophthalmic 00:00: [place] eyes [place] solution 00 2 (two) Medical times Branch daily. MAGNESIUM 0 Yes Take by CHI S t ORAL 9-07 mouth. [facility] 14:49: Medical Center CALCIUM 2020-0 Yes Take by [facility] ORAL 9-07 mouth. Lukes 14:49: [place] [id number] Center MAGNESIUM 2020-0 Yes Take by CHI S t ORAL 9-07 mouth. [facility]ukes 14:49: [place] [id number] Center CALCIUM 2020-0 Yes Take by [facility] ORAL 9-07 mouth. [facility]ukes 14:49: Medical Center tramadol 2020-[address] HCl 9-07 Lukes (TRAMADOL 14:48: Medical ORAL) 25 Center tramadol 2020-[address] HCl 9-07 [facility]ukes (TRAMADOL 14:48: Medical ORAL) 25 Center cholecalcif 2020-[address] [place]via, 03-18 [facility]ukes vitamin D3, 14:15: Medica l (VITAMIN D3 23 Center ORAL) cholecalcif 2020-[address] [place], 03-18 [facility]ukes vitamin D3, 14:15: Medica l (VITAMIN D3 23 Center ORAL) rifAXIMin 0 Yes Hepatic 550mg Q.5D Take [address] 550 mg Tab 7-09 encephalopa tablet Lukes 00:00: thy (550 mg Medical 00 total) by Center mouth 2 (two) times daily. lactulose 0 Yes Hepatic 10g Q.5D Take [address] (CHRONULAC) 7-09 encephalopa mLs (10 g Lukes 10 gram/15 00:00: thy total) by Sd dical mL (15 mL) 00 mouth 2 Center solution (two) times daily. rifAXIMin 0 Yes Hepatic 550mg Q.5D Take [address] 550 mg Tab 7-09 encephalopa tablet Lukes 00:00: thy (550 mg Medical 00 total) by Center mouth 2 (two) times daily. lactulose 2020-0 Yes Hepatic 10g Q.5D Take [address] (CHRONULAC) 7-09 encephalopa mLs (10 g Lukes 10 gram/15 00:00: thy total) by Me dical mL (15 mL) 00 mouth 2 Center solution (two) times daily. potassium 2021-0 Yes TAKE [address] chloride 5-10 PACKET Lukes (KLOR-CON) 00:00: WITH FOOD Me dical 20 mEq 00 ONCE A DAY Center packet potassium Yes TAKE [address] chloride 5-10 PACKET Lukes (KLOR-CON) 00:00: WITH FOOD Me dical 20 mEq 00 ONCE A DAY Center packet anastrozole Yes 1mg Take 1 mg U nivers 1 mg tablet 3-01 by mouth ity of 00:00: daily Medical Branch anastrozole Yes 1mg Take 1 mg U nivers 1 mg tablet 3-01 by mouth ity of 00:00: daily Medical Branch cromolyn 4 Yes 1[drp] Place 1 Un [...] magnesium 00 daily. Medical capsule Branch anastrozole 2020-1 Yes Once a [facility] (ARIMIDEX) 0-12 day. [facility]ukes 1 mg tablet 00:00: Medica l 00 [place] anastrozole 2020-1 Yes Once a [facility] (ARIMIDEX) 0-12 day. [facility]ukes 1 mg tablet 00:00: Medica l 00 [place] Midodrine Midodrine 2019-0 Yes Bear 1 tablet Common HCl HCl 9-15 Penaloza Spirit 00:00: - CHI 00 [facility] Multivitami Multivitami Yes Bear not Common n Adults n Adults Penaloza defined Spi rit - CHI [facility] Lactulose Lactulose No Lactulose 10 GM/15ML 10 [...] 5{ml_as QID Pseudoeph- romphen-DM romphen-DM _needed Bromphen-D 302-10 30-2-10 } M 30-2-10 MG/5ML MG/5ML MG/5ML [...] 5{ml_as QID Pseudoeph- romphen-DM romphen-DM _needed Bromphen-D 302-10 30-2-10 } M 30-2-10 MG/5ML MG/5ML MG/5ML Cromolyn Cromolyn No Cromolyn Sodium 4 % Sodium 4 % Sodium 4 % Midodrine Midodrine No 1{table Midodrine HCl 10 MG HCl 10 MG t} HCl 10 MG Potassium Potassium No Potassium Chloride 20 Chloride 20 Chloride MEQ MEQ 20 MEQ Multivitami Multivitami No Multivitam n Adults n Adults in Adults Pseudoeph-B Pseudoeph-B No 5{ml_as QID Pseudoeph- romphen-DM romphen-DM _needed Bromphen-D 302-10 30-2-10 } M 30-2-10 MG/5ML MG/5ML MG/5ML [...] 5{ml_as QID Pseudoeph- romphen-DM romphen-DM _needed Bromphen-D 2 302 } M 302-10 MG/5ML MG/5ML MG/5ML Lactulose Lactulose No Lactulose [...] t_with_ Oxide 400 MG MG food} MG Magnesium Magnesium 2021- No 1{table BID Magnesium [...] 1{table BID Magnesium Oxide 400 Oxide 400 -13 t_with_ Oxide 400 MG MG 00:00 food} MG :00 Magnesium Magnesium 2- No 1{table BID Magnesium Oxide 400 Oxide 400 -13 t_with_ Oxide 400 MG MG 00:00 food} MG :00 Magnesium Magnesium 2- No 1{table BID Magnesium Oxide 400 Oxide 400 -13 t_with_ Oxide 400 MG MG 00:00 food} MG :00 Magnesium Magnesium 2022- No 1{table BID Magnesium Oxide 400 Oxide 400 - t_with_ Oxide 400 MG MG 00:00 food} MG :00 Magnesium Magnesium 2022- No 1{table BID Magnesium Oxide 250 Oxide 250 - t_with_ Oxide 250 MG MG 00:00 food} [...] Immunizations Ordered Filled Immunization Date Status Comments Sourc e Immunization Name Name FLUZONE HIGH DOSE FLUZONE HIGH DOSE 2022-04-01 Completed [facility] - OVER 65 OVER 65 14:49:00 [facility] FLUZONE HIGH DOSE FLUZONE HIGH DOSE 2022-04-01 Completed [facility] - OVER 65 OVER 65 14:49:00 [facility] FLUZONE HIGH DOSE FLUZONE HIGH DOSE 2022-04-01 Completed [facility] - OVER 65 OVER 65 14:49:00 [facility] FLUZONE HIGH DOSE FLUZONE HIGH DOSE 2022-04-01 Completed [facility] - OVER 65 OVER 65 14:49:00 [facility] FLUZONE HIGH DOSE FLUZONE HIGH DOSE 2022-04-01 Completed [facility] - OVER 65 OVER 65 14:49:00 [facility] FLUZONE HIGH DOSE FLUZONE HIGH DOSE 2022-04-01 Completed [facility] - OVER 65 OVER 65 14:49:00 [facility] FLUZONE HIGH DOSE FLUZONE HIGH DOSE 2022-04-01 Completed [facility] - OVER 65 OVER 65 14:49:00 [facility] FLUZONE HIGH DOSE FLUZONE HIGH DOSE 2022-04-01 Completed [facility] - OVER 65 OVER 65 14:49:00 [facility] FLUZONE HIGH DOSE FLUZONE HIGH DOSE 2022-04-01 Completed [facility] - OVER 65 OVER 65 14:49:00 [facility] FLUZONE HIGH DOSE FLUZONE HIGH DOSE 2022-04-01 Completed [facility] - OVER 65 OVER 65 14:49:00 [facility] FLUZONE HIGH DOSE FLUZONE HIGH DOSE 2022-04-01 Completed [facility] - OVER 65 OVER 65 14:49:00 [facility] FLUZONE HIGH DOSE FLUZONE HIGH DOSE 2022-04-01 Completed [facility] - OVER 65 OVER 65 14:49:00 [facility] Prevnar 20 (PCV20) Prevnar 20 (PCV20) 2022-04-01 Completed [facility] - 14:48:00 [facility] Prevnar 20 (PCV20) Prevnar 20 (PCV20) 2022-04-01 Completed [facility] - 14:48:00 [facility] Prevnar 20 (PCV20) Prevnar 20 (PCV20) 2022-04-01 Completed [facility] - 14:48:00 [facility] Prevnar 20 (PCV20) Prevnar 20 (PCV20) 2022-04-01 Completed [facility] - 14:48:00 [facility] Prevnar 20 (PCV20) Prevnar 20 (PCV20) 2022-04-01 Completed [facility] - 14:48:00 [facility] Prevnar 20 (PCV20) Prevnar 20 (PCV20) 2022-04-01 Completed [facility] - 14:48:00 [facility] Prevnar 20 (PCV20) Prevnar 20 (PCV20) 2022-04-01 Completed [facility] - 14:48:00 [facility] Prevnar 20 (PCV20) Prevnar 20 (PCV20) 2022-04-01 Completed [facility] - 14:48:00 [facility] Prevnar 20 (PCV20) Prevnar 20 (PCV20) 2022-04-01 Completed [facility] - 14:48:00 [facility] Prevnar 20 (PCV20) Prevnar 20 (PCV20) 2022-04-01 Completed [facility] - 14:48:00 [facility] Prevnar 20 (PCV20) Prevnar 20 (PCV20) 2022-04-01 Completed [facility] - 14:48:00 [facility] Prevnar 20 (PCV20) Prevnar 20 (PCV20) 2022-04-01 Completed [facility] - 14:48:00 [facility] SARS-COV-2 COVID-19 2021-07-30 Completed Unive rsity of PFIZER VACCINE 00:00:00 [facility] SARS-COV-2 COVID-19 2021-07-30 Completed Unive rsity of PFIZER VACCINE 00:00:00 [facility] SARS-COV-2 COVID-19 2020-11-05 Completed Unive rsity of PFIZER VACCINE 00:00:00 [facility] SARS-COV-2 COVID-19 2020-11-05 Completed Unive rsity of PFIZER VACCINE 00:00:00 [facility] Covid-19 Vaccine 2020-09-[address] [facility] MRNA (PF) 12yr+ 00:00:00 Medical C enter (Pfizer/BioNTech)(I MM601) Covid-19 Vaccine 2020-09-[address] [facility] MRNA (PF) 12yr+ 00:00:00 Medical C enter (Pfizer/BioNTech)(I MM601) Afluria single dose Afluria single dose 2020-04-11 Completed [facility] - 15:24:00 [facility] Afluria single dose Afluria single dose 2020-04-11 Completed [facility] - 15:24:00 [facility] Afluria single dose Afluria single dose 2020-04-11 Completed [facility] - 15:24:00 [facility] Afluria single dose Afluria single dose 2020-04-11 Completed [facility] - 15:24:00 [facility] Afluria single dose Afluria single dose 2020-04-11 Completed [facility] - 15:24:00 [facility] Afluria single dose Afluria single dose 2020-04-11 Completed [facility] - 15:24:00 [facility] Afluria single dose Afluria single dose 2020-04-11 Completed [facility] - 15:24:00 [facility] Afluria single dose Afluria single dose 2020-04-11 Completed [facility] - 15:24:00 [facility] Afluria single dose Afluria single dose 2020-04-11 Completed [facility] - 15:24:00 [facility] Afluria single dose Afluria single dose 2020-04-11 Completed [facility] - 15:24:00 [facility] Afluria single dose Afluria single dose 2020-04-11 Completed [facility] - 15:24:00 [facility] Afluria single dose Afluria single dose 2020-04-11 Completed [facility] - 15:24:00 [facility] Afluria single dose Afluria single dose 2020-04-11 Completed [facility] - 15:24:00 [facility] Afluria single dose Afluria single dose 2020-04-11 Completed [facility] - 15:24:00 [facility] Afluria single dose Afluria single dose 2020-04-11 Completed [facility] - 15:24:00 [facility] Afluria single dose Afluria single dose 2020-04-11 Completed [facility] - 15:24:00 [facility] Afluria single dose Afluria single dose 2020-04-11 Completed [facility] - 15:24:00 [facility] Afluria single dose Afluria single dose 2020-04-11 Completed [facility] - 15:24:00 [facility] Afluria single dose Afluria single dose 2020-04-11 Completed [facility] - 15:24:00 [facility] Afluria single dose Afluria single dose 2020-04-11 Completed [facility] - 15:24:00 [facility] Afluria single dose Afluria single dose 2020-04-11 Completed [facility] - 15:24:00 [facility] Afluria single dose Afluria single dose 2020-04-11 Completed [facility] - 15:24:00 [facility] Afluria single dose Afluria single dose 2020-04-11 Completed [facility] - 15:24:00 [facility] Afluria single dose Afluria single dose 2020-04-11 Completed [facility] - 15:24:00 [facility] Afluria single dose Afluria single dose 2020-04-11 Completed [facility] - 15:24:00 [facility] Afluria single dose Afluria single dose 2020-04-11 Completed [facility] - 15:24:00 [facility] Afluria single dose Afluria single dose 2020-04-11 Completed [facility] - 15:24:00 [facility] Afluria single dose Afluria single dose 2020-04-11 Completed [facility] - 15:24:00 [facility] Afluria single dose Afluria single dose 2020-04-11 Completed [facility] - 15:24:00 [facility] Vital Signs Vital Name Observation Time Observation Value Comments Source HEIGHT 2021-03-18 14:49:00 152.4 cm WEIGHT 2021-03-18 14:49:00 68.04 kg height 2022-07-16 09:30:00 65 [in_i] [facility] weight 2022-07-16 09:30:00 150 [lb_av] [facility] temperature 2022-07-16 09:30:00 98.3 [degF] [facility] bmi 2022-07-16 09:30:00 24.96 kg/m2 [facility] blood pressure 2022-07-16 09:30:00 124 mm[Hg] Common [facility] - systolic [facility] blood pressure 2022-07-16 09:30:00 72 mm[Hg] [facility] - diastolic [facility] height 2022-06-24 09:20:00 65 [in_i] [facility] weight 2022-06-24 09:20:00 153.0 [lb_av] [facility] temperature 2022-06-24 09:20:00 97.7 [degF] [facility] bmi 2022-06-24 09:20:00 25.46 kg/m2 [facility] oximetry 2022-06-24 09:20:00 99 % [facility] respiratory rate 2022-06-24 09:20:00 17 /min Comm on [facility] blood pressure 2022-06-24 09:20:00 117 mm[Hg] Common [facility] - systolic [facility] blood pressure 2022-06-24 09:20:00 64 mm[Hg] Common [facility] - diastolic [facility] height 2022-04-16 10:00:00 65 [in_i] Common S pirit [facility] weight 2022-04-16 10:00:00 152.6 [lb_av] Common [facility] temperature 2022-04-16 10:00:00 97.1 [degF] [facility] bmi 2022-04-16 10:00:00 25.39 kg/m2 Common [facility] blood pressure 2022-04-16 10:00:00 139 mm[Hg] Common [facility] - systolic [facility] blood pressure 2022-04-16 10:00:00 72 mm[Hg] [facility] - diastolic [facility] height 2022-04-01 09:00:00 65 [in_i] Common [facility] weight 2022-04-01 09:00:00 152 [lb_av] Common S pirit [facility] temperature 2022-04-01 09:00:00 97.1 [degF] [facility] bmi 2022-04-01 09:00:00 25.29 kg/m2 Common S [facility] oximetry 2022-04-01 09:00:00 98 % Common S [facility] respiratory rate 2022-04-01 09:00:00 16 /min Comm on [facility] blood pressure 2022-04-01 09:00:00 139 mm[Hg] Common [facility] - systolic [facility] blood pressure 2022-04-01 09:00:00 70 mm[Hg] [facility] - diastolic [facility] height 2022-04-01 09:00:00 65 [in_i] Common [facility] weight 2022-04-01 09:00:00 152 [lb_av] Common [facility] temperature 2022-04-01 09:00:00 97.1 [degF] Common [facility] bmi 2022-04-01 09:00:00 25.29 kg/m2 Common [facility] oximetry 2022-04-01 09:00:00 98 % Common [facility] respiratory rate 2022-04-01 09:00:00 16 /min Comm on [facility] blood pressure 2022-04-01 09:00:00 139 mm[Hg] Common [facility] - systolic [facility] blood pressure 2022-04-01 09:00:00 70 mm[Hg] Common [facility] - diastolic [facility] height 2022-02-17 16:40:00 65 [in_i] Common [facility] weight 2022-02-17 16:40:00 154.6 [lb_av] Common [facility] temperature 2022-02-17 16:40:00 98.2 [degF] Common [facility] bmi 2022-02-17 16:40:00 25.72 kg/m2 [facility] oximetry 2022-02-17 16:40:00 95 % Common [facility] respiratory rate 2022-02-17 16:40:00 16 /min Comm on [facility] blood pressure 2022-02-17 16:40:00 109 mm[Hg] Common [facility] - systolic [facility] blood pressure 2022-02-17 16:40:00 53 mm[Hg] Common [facility] - diastolic [facility] Systolic blood 2022-01-30 14:24:00 131 mm[Hg] [facility] Diastolic blood 2022-01-30 14:24:00 76 mm[Hg] Unive rs[facility] Heart rate 2022-01-30 14:24:00 56 /min [facility] Respiratory rate 2022-01-30 14:24:00 18 /min [facility] Body height 2022-01-30 14:24:00 152.4 cm [facility] Body weight 2022-01-30 14:24:00 68.947 kg [facility] BMI 2022-01-30 14:24:00 29.69 kg/m2 [facility] height 2021-11-13 09:40:00 65 [in_i] Common [facility] weight 2021-11-13 09:40:00 151.0 [lb_av] [facility] temperature 2021-11-13 09:40:00 97.4 [degF] [facility] bmi 2021-11-13 09:40:00 25.12 kg/m2 [facility] oximetry 2021-11-13 09:40:00 100 % [facility] respiratory rate 2021-11-13 09:40:00 17 /min Comm on [facility] blood pressure 2021-11-13 09:40:00 137 mm[Hg] Common [facility] - systolic [facility] blood pressure 2021-11-13 09:40:00 65 mm[Hg] Common [facility] - diastolic [facility] height 2021-09-30 08:30:00 65 [in_i] Common [facility] weight 2021-09-30 08:30:00 153 [lb_av] [facility] temperature 2021-09-30 08:30:00 98 [degF] [facility] bmi 2021-09-30 08:30:00 25.46 kg/m2 [facility] blood pressure 2021-09-30 08:30:00 120 mm[Hg] [facility] blood pressure 2021-09-30 08:30:00 80 mm[Hg] [facility] - [facility] WEIGHT 2021-01-17 15:32:00 66.543 kg HEIGHT 2020-09-20 [...] breast Medical C enter (procedure) [code = 278922740] Future Scheduled 2022-11-11 Screening for malignant [facility] Test 00:00:00 neoplasm of breast Medical C enter (procedure) [code = 862955583] Future Scheduled 2022-07-[address] [facility] Test 00:00:00 (12+) [code = [facility] DEPRESSION SCREENING (12+)] Future Scheduled 2022-07-12 FALLS RISK SCREENING [facility] Test 00:00:00 [code = FALLS RISK Medical C enter SCREENING] Future Scheduled 2022-07-[address] [facility] Test 00:00:00 (12+) [code = [facility] DEPRESSION SCREENING (12+)] Future Scheduled 2022-07-12 FALLS RISK SCREENING [facility] Test 00:00:00 [code = FALLS RISK Medical C enter SCREENING] Future Scheduled 2022-03-[address] [facility] Test 00:00:00 Counseling and Medical Cente r Screening (12+) [code = Tobacco Cessation Counseling and Screening (12+)] Future Scheduled 2022-03-[address] [facility] Test 00:00:00 Counseling and Medical Cente r Screening (12+) [code = Tobacco Cessation Counseling and Screening (12+)] Future Scheduled 2022-03-12 INFLUENZA VACCINE (#1) [facility] 00:00:00 [code = INFLUENZA Medical Ce nter VACCINE (#1)] Future Scheduled 2022-03-12 INFLUENZA VACCINE (#1) [facility] 00:00:00 [code = INFLUENZA Medical Ce nter VACCINE (#1)] Future Scheduled 2021 PNEUMOCOCCAL 65+ YRS ([address] [facility] Test 00:00:00 - PCV) [code = Medical Cente r PNEUMOCOCCAL 65+ YRS (1 - PCV)] Future Scheduled 2021 PNEUMOCOCCAL 65+ YRS ([address] [facility] Test 00:00:00 - PCV) [code = Medical Cente r PNEUMOCOCCAL 65+ YRS (1 - PCV)] Future Scheduled 2021-04-07 COVID-19 VACCINE (3 - [facility] 00:[facility]:00 Booster for Pfizer Medical C enter series) [code = COVID-19 VACCINE (3 - Booster for Pfizer series)] Future Scheduled 2021-04-07 COVID-19 VACCINE (3 - [facility] 00:00:00 Booster for Pfizer Medical C enter series) [code = COVID-19 VACCINE (3 - Booster for Pfizer series)] Future Scheduled 2006 SHINGLES VACCINES ([address] [facility] 00:00:00 2) [facility] Future Scheduled 2006 SHINGLES VACCINES ([address] [facility] 00:00:00 2) [facility] Future Scheduled 2001 Lipid panel (procedure) [facility] 00:00:00 [code = 14510552] Medical Ce nter Future Scheduled 2001 Lipid panel (procedure) [facility] Test 00:00:00 [code = 74548522] Medical Ce nter Future Scheduled 1977 Screening for malignant [facility] Test 00:00:00 neoplasm of cervix Medical C enter (procedure) [code = 580917600] Future Scheduled 1977 Screening for malignant [facility] 00:00:00 neoplasm of cervix Medical C enter (procedure) [code = 632548170] Future Scheduled 1975-12-18 DTAP/TDAP/TD VACCINES [facility] 00:00:00 (1 - Tdap) [code = Medical C enter DTAP/TDAP/TD VACCINES (1 - Tdap)] Future Scheduled 1975-12-18 DTAP/TDAP/TD VACCINES [facility] 00:00:00 (1 - Tdap) [code = Medical C enter DTAP/TDAP/TD VACCINES (1 - Tdap)] Future Scheduled 1956 CT Colonography (combo) [facility] 00:00:00 [code = CT Colonography [facility] (combo)] Future Scheduled 1956 Screening for malignant [facility] 00:00:00 neoplasm of colon Medical Ce nter (procedure) [code = 799967813] Future Scheduled 1956 Screening for malignant [facility] Test 00:00:00 neoplasm of colon Medical Ce nter (procedure) [code = 162523638] Future Scheduled 1956 DXA SCAN [code = DXA [facility] 00:00:00 SCAN] [facility] Future Scheduled 1956 Screening for malignant [facility] Test 00:00:00 neoplasm of colon Medical Ce nter (procedure) [code = 116058583] Future Scheduled 1956 Screening for malignant [facility] Test 00:00:00 neoplasm of colon Medical Ce nter (procedure) [code = 945511747] Future Scheduled 1956 Sigmoidoscopy [code = [facility] Sigmoidoscopy] [facility] Future Scheduled 1956 CT Colonography (combo) [facility] 00:00:00 [code = CT Colonography [facility] (combo)] Future Scheduled 1956 Screening for malignant [facility] Test 00:00:00 neoplasm of colon Medical Ce nter (procedure) [code = 838922163] Future Scheduled 1956 Screening for malignant [facility] Test 00:00:00 neoplasm of colon Medical Ce nter (procedure) [code = 620890683] Future Scheduled 1956 DXA SCAN [code = DXA [facility] 00:00:00 SCAN] Medical Center Future Scheduled 1956 Screening for malignant [facility] Test 00:00:00 neoplasm of colon Medical Ce nter (procedure) [code = 491689465] Future Scheduled 1956 Screening for malignant [facility] Test 00:00:00 neoplasm of colon Medical Ce nter (procedure) [code = 886535361] Future Scheduled 1956 Sigmoidoscopy [code = [facility] Sigmoidoscopy] Medical [facility] r Encounters Start End Encounter Admission Attending Care Care Encounter Source Date/Time Date/Time Type Type Clinicians Facility Department ID 2022-07-22 Outpatient Penaloza, STLMLC STLMLC [id number] Common 10:02:[id number] [facility] 2022-07-21 Outpatient Penaloza, STLMLC STLMLC [id number] Common 07:19:[address] [facility] 2022-07-16 Outpatient Penaloaz, STLMLC STLMLC [id number] Common 15:35:[address] [facility] 2022-07-01 Outpatient Penaloza, STLMLC STLMLC [id number] Common 08:01:[address] [facility] 2022-06-02 Outpatient Penaloza, STLMLC STLMLC [id number] Common 13:56:[address] [facility] 2022-05-12 Outpatient Penaloza, STLMLC STLMLC [id number] Common 13:44:[address] [facility] 2022-04-30 Outpatient Penaloza, STLMLC STLMLC [id number] Common 16:27:[address] [facility] 2022-04-16 Outpatient Penaloza, STLMLC STLMLC [id number] Common 11:34:[address] [facility] 2022-04-02 Outpatient Penaloza, STLMLC STLMLC [id number] Common 08:48:[address] [facility] 2022-02-19 Outpatient Penaloza, STLMLC STLMLC [id number] Common 09:49:[address] [facility] 2021-12-22 Outpatient Penaloza, STLMLC STLMLC [id number] Common 11:45:[address] [facility] 2021-11-14 Outpatient Penaloza, STLMLC STLMLC [id number] Common 10:50:[address] [facility] 2021-09-30 Outpatient Penaloza, STLMLC STLMLC [id number] Common 08:18:[address] [facility] 2021-09-04 Outpatient Penaloza, STLMLC STLMLC [id number] Common 13:59:[address] [facility] 2021-08-06 Outpatient Epnaloza, STLMLC STLMLC [id number] Common 14:24:[address] [facility] 2021-08-06 Outpatient Penaloza, STLMLC STLMLC [id number] Common 13:55:[address] [facility] 2021-08-06 Outpatient Penaloza, STLMLC STLMLC [id number] Common 13:36:[address] [facility] 2021-08-06 Outpatient Penaloza, STLMLC STLMLC [id number] Common 13:03:[address] [facility] 2021-08-06 Outpatient Penaloza, STLMLC STLMLC [id number] Common 12:34:[address] [facility] 2021-08-06 Outpatient Penaloza, STLMLC STLMLC [id number] Common 12:24:[address] [facility] 2021-08-06 Outpatient Penaloza, STLMLC STLMLC [id number] Common 12:03:[address] [facility] 2021-08-06 Outpatient Penaloza, STLMLC STLMLC [id number] Common 11:58:[address] [facility] 2021-08-06 Outpatient Penaloza, STLMLC STLMLC [id number] Common 11:50:[address] [facility] 2021-08-06 Outpatient Epnaloza, STLMLC STLMLC [id number] Common 11:45:[address] [facility] 2021-08-06 Outpatient Penaloza, STLMLC STLMLC [id number] Common 11:40:[address] [facility] 2021-08-06 Outpatient Penaloza, STLMLC STLMLC [id number] Common 11:39:[address] [facility] 2021-08-06 Outpatient Penaloza, STLMLC STLMLC [id number] Common 11:30:[address] [facility] 2021-08-06 Outpatient Penaloza, STLMLC STLMLC [id number] Common 11:28:[address] [facility] 2021-08-06 Outpatient Penaloza, STLMLC STLMLC [id number] Common 11:20:[address] [facility] 2021-04-20 Outpatient MINDIKOGLU, [facility] Surgery [id number] [facility] 10:00:19 YOLANDE 2021-04-19 Outpatient MINDIKOGLU, [facility] Surgery [id number] [facility] 04:58:12 YOLANDE 2022-07-31 2022-07-31 (TEL) STLMLC STLMLC [id number] Co mmon 00:00:00 00:00:00 [facility] 2022-07-28 2022-07-28 (TEL) STLMLC STLMLC [id number] Co mmon 00:00:00 00:00:00 [facility] 2022-07-16 2022-07-16 OFFICE STLMLC STLMLC [id number] Co mmon 00:00:00 00:00:00 VISIT [facility] LEVEL 4 [facility] 2022-06-24 2022-06-24 OFFICE STLMLC STLMLC [id number] Co mmon 00:00:00 00:00:00 VISIT EST Spir it PT LEVEL 3 - [facility] 2022-05-12 2022-05-12 (TEL) STLMLC STLMLC [id number] Co mmon 00:00:00 00:00:00 Spirit - [facility] 2022-04-16 2022-04-16 OFFICE STLMLC STLMLC [id number] Co mmon 00:00:00 00:00:00 VISIT NEW Spir it PT LEVEL 4 - [facility] 2022-04-01 2022-04-01 SUB ANNUAL STLMLC STLMLC [id number] Common 00:00:00 00:00:00 MCR [facility] WELLNESS - CHI VISIT [facility] 2022-04-01 2022-04-01 (TEL) STLMLC STLMLC [id number] Co mmon 00:00:00 00:00:00 Spirit - [facility] 2022-04-01 2022-04-01 OFFICE STLMLC STLMLC [id number] Co mmon 00:00:00 00:00:00 VISIT Spirit ESTAB PT - CHI LEVEL 4 [facility] 2022-03-25 2022-03-25 (TEL) STLMLC STLMLC [id number] Co mmon 00:00:00 00:00:00 Spirit - [facility] 2022-02-17 2022-02-17 OFFICE STLMLC STLMLC [id number] Co mmon 00:00:00 00:00:00 VISIT Spirit ESTAB PT - CHI LEVEL 4 [facility] 2022-02-13 2022-02-13 (TEL) STLMLC STLMLC [id number] Co mmon 00:00:00 00:00:00 Spirit - [facility] 2022-02-12 2022-02-12 (TEL) STLMLC STLMLC [id number] Co mmon 00:00:00 00:00:00 Spirit [facility] 2022-01-30 2022-01-30 Office ULISES Diallo 1.2.840.114 [id number] Univers 09:00:00 09:59:37 Visit [place] YANES 350.1.13.10 [place] [phone] S[place] dical NAL [address] [facility] 2022-01-30 2022-01-30 [facility] [id number] Univers 09:00:00 09:59:37 ADELAIDE muniz o f [facility] 2022-01-30 2022-01-30 [facility] [id number] Univers 09:00:00 09:00:00 ADELAIDE muniz o nathalie [facility] 2022-01-14 2022-01-14 Outpatient R [facility] MAREK [id number] Univers 10:40:00 16:05:00 VERONA muniz [facility] 2022-01-14 2022-01-14 [facility] 1.2.840.114 [id number] Univers 10:40:00 16:05:00 Encounter Verona YANES 350.1.13.10 ity [facility] [place] [id number] [facility] 071 [address] 2022-01-14 2022-01-14 Outpatient R [facility] MAREK [id number] Univers 10:40:00 16:05:00 VERONA muniz [facility] 2022-01-14 2022-01-14 [facility] 1.2.057.045 [id number] Univers 11:50:00 14:26:00 Verona YANES 350.1.13.10 i ty [facility] [place] [id number] [facility] [address] 2022-01-14 2022-01-14 Orders Doctor YANIRA 1.2.840.114 [id number] Univers 00:00:00 00:00:00 Only Unassigned, STACIE 350.1.13.10 ity [place] [facility] 4.2.7.2.686 [place]ker as [phone] [facility] [address] 2022-01-13 2022-01-13 Laboratory Only, Adc Test [facility] 1.2.840. 114 [id number] Univers 15:00:00 15:15:00 Only Roni Lyons 350.1.13.10 [place] [id number] [facility] [address] 2022-01-13 2022-01-13 [facility] [id number] Univers 15:00:00 15:00:00 RONI [facility] 2022-01-13 2022-01-13 [facility] [id number] Univers 15:00:00 15:00:00 RONI [facility] 2022-01-13 2022-01-13 Orders Doctor YANIRA 1.2.840.114 [id number] Univers 00:00:00 00:00:00 Only Unassigned, STACIE 350.1.13.10 ity of [facility] 4.2.7.2.686 [place] as [phone] [address] 2022-01-07 2022-01-07 [facility] 1.2.840.114 [id number] Univers 00:00:00 00:00:00 Surgery Verona YANES 350.1.13.10 i [place] [id number] Sd dical NAL 188 [facility] 2022-01-06 2022-01-06 [facility] [id number] Univers 14:00:00 15:04:26 VERONA lucinorman [facility] 2022-01-06 2022-01-06 Office [facility] 1.2.367.329 [id number] Univers 14:00:00 15:04:26 Visit Verona YANES 350.1.13.10 i [place] [id number] Sd dical NAL 188 [facility] 2022-01-06 2022-01-06 [facility] [id number] Univers 14:00:00 15:04:26 VERONA lucinorman [facility] 2022-01-06 2022-01-06 [facility] [id number] Univers 14:00:00 15:04:26 VERONA ity [facility] 2022-01-06 2022-01-06 Orders Doctor YANIRA 1.2.840.114 [id number] Univers 00:00:00 00:00:00 Only Unassigned, STACIE 350.1.13.10 [place] [facility] 4.2.7.2.686 [place] as [phone] [address] 2021-12-19 2021-12-19 (TEL) STLMLC STLMLC [id number] Co mmon 00:00:00 00:00:00 [facility] 2021-12-09 2021-12-09 Orders Doctor YANIRA 1.2.840.114 [id number] Univers 00:00:00 00:00:00 Only Unassigned, STACIE 350.1.13.10 [facility] [address] [facility] 4.2.7.2.686 [place] [phone] [address] 2021-12-02 2021-12-02 (TEL) STLMLC STLMLC [id number] Co mmon 00:00:00 00:00:00 [facility] 2021-12-02 2021-12-02 (TEL) STLMLC STLMLC [id number] Co mmon 00:00:00 00:00:00 [facility] 2021-11-19 2021-11-19 (TEL) STLMLC STLMLC [id number] Co mmon 00:00:00 00:00:00 [facility] 2021-11-17 2021-11-17 (TEL) STLMLC STLMLC [id number] Co mmon 00:00:00 00:00:00 [facility] 2021-11-13 2021-11-13 OFFICE STLMLC STLMLC [id number] Co mmon 00:00:00 00:00:00 VISIT [facility] LEVEL 4 [facility] 2021-09-30 2021-09-30 (TEL) STLMLC STLMLC [id number] Co mmon 00:00:00 00:00:00 [facility] 2021-09-30 2021-09-30 OFFICE STLMLC STLMLC [id number] Co mmon 00:00:00 00:00:00 VISIT [facility] LEVEL 4 [facility] 2021-09-24 2021-09-24 (TEL) STLMLC STLMLC [id number] Co mmon 00:00:00 00:00:00 [facility] 2021-08-18 2021-08-18 (TEL) STLMLC STLMLC [id number] Co mmon 00:00:00 00:00:00 [facility] 2021-07-30 2021-07-30 Imm/Inj Nurse, Adc Pob Immunization [facility] 1.2.840.114 [id number] Univers 09:00:00 09:03:51 Visit Jono Little 350.1.13 .10 [facility] 4.2.7.2.686 Rajwinder JOHNS [phone] [address] 2021-07-30 2021-07-30 Outpatient Koffi L[facility]LE [facility] [id number] Univers 09:00:00 09:00:00 JONO muniz [facility] 2021-06-16 2021-06-16 (TEL) STLC STLC [id number] Co mmon 00:00:00 00:00:00 [facility] 2021-06-04 2021-06-04 (TEL) STLMLC STLMLC [id number] Co mmon 00:00:00 00:00:00 [facility] 2021-05-12 2021-05-12 Outpatient EL MINDPAULOOGLRissa, [facility] SLE [id number] SLE 00:00:00 00:00:00 YOLANDE 2021-05-02 2021-05-02 Outpatient EL MINDPAULOOGLU, SLE SLE [id number] SLE 00:00:00 00:00:00 YOLANDE 2021-04-18 2021-04-18 Outpatient EL MINDPAULOOGLRissa, SLE SLE [id number] SLE 00:00:00 00:00:00 YOLANDE 2021-04-18 2021-04-18 Outpatient EL SLEH SLEH [id number] SLEH 00:00:00 00:00:00 2021-04-16 2021-04-16 Outpatient JOVAN EUBANKS SLEHerlinda [facility]H [id number] SLEH 00:00:00 00:00:00 YOLANDE 2021-04-16 2021-04-16 Outpatient EL SLEH SLEH [id number] [facility]H 00:00:00 00:00:00 2021-04-03 2021-04-03 (TEL) STLMLC STLMLC [id number] Co mmon 00:00:00 00:00:00 [facility] 2021-03-18 2021-03-18 Outpatient EL SLEH SLEH [id number] SLEH 00:00:00 00:00:00 2021-03-11 2021-03-11 Outpatient Koffi SETH, [facility] [id number] Univers 00:00:00 00:00:00 JOSH muniz [facility] 2021-02-18 2021-02-18 Outpatient STLMLC STLMLC [id number] Common 00:00:00 00:00:00 [facility] 2021-02-10 2021-02-10 Outpatient STLMLC STLMLC [id number] Common 00:00:00 00:00:00 [facility] 2021-02-04 2021-02-04 Outpatient STLMLC STLMLC [id number] Common 00:00:00 00:00:00 [facility] 2021-01-20 2021-01-20 Outpatient STLMLC STLMLC [id number] Common 00:00:00 00:00:00 [facility] 2021-01-17 2021-01-17 Outpatient JOVAN EUBANKS SLEH SLEH [id number] SLEH 15:27:46 15:27:46 YOLANDE 2021-01-14 2021-01-14 Outpatient STLMLC STLMLC [id number] Common 00:00:00 00:00:00 [facility] 2021-01-01 2021-01-01 Outpatient STLMLC STLMLC [id number] Common 00:00:00 00:00:00 [facility] 2020-12-24 2020-12-24 [facility] [id number] Univers 00:00:00 00:00:00 JOSH norman [facility] 2020-11-18 2020-11-18 Outpatient STLMLC STLMLC [id number] Common 00:00:00 00:00:00 [facility] 2020-11-12 2020-11-12 Outpatient CHA, SLE SLE [id number] SLE 00:00:00 00:00:00 YOLANDE 2020-11-11 2020-11-11 [facility] [id number] Univers 00:00:00 00:00:00 JOSH [facility] 2020-11-05 2020-11-05 Outpatient [facility] [id number] Univers 10:20:00 10:20:00 JONO [facility] 2020-11-01 2020-11-01 Outpatient EL SLE SLE [id number] SLEH 00:00:00 00:00:00 2020-10-15 2020-10-15 [facility] [id number] Univers 00:00:00 00:00:00 JOSH [facility] 2020-09-20 2020-09-20 Outpatient JOVAN EUBANKS, SLE SLE [id number] SLEH 00:00:00 00:00:00 YOLANDE 2020-09-20 2020-09-20 Outpatient EL SLEH SLE [id number] SLEH 00:00:00 00:00:00 2020-09-13 2020-09-13 Outpatient JOVAN EUBANKS, SLE SLE [id number] SLEH 00:00:00 00:00:00 YOLANDE 2020-09-10 2020-09-10 [facility] [id number] Univers 14:00:00 14:00:00 JOSH [facility] 2020-09-09 2020-09-09 Outpatient STLMLC STLC [id number] Common 00:00:00 00:00:00 [facility] 2020-09-05 2020-09-05 Outpatient STLMLC STLMLC [id number] Common 00:00:00 00:00:00 [facility] 2020-08-13 2020-08-13 Outpatient STLMLC STLMLC [id number] Common 00:00:00 00:00:00 [facility] 2020-08-06 2020-08-06 Outpatient STLMLC STLMLC [id number] Common 00:00:00 00:00:00 [facility] 2020-08-05 2020-08-05 Outpatient STLMLC STLMLC [id number] Common 00:00:00 00:00:00 [facility] 2020-07-31 2020-07-31 Outpatient JOVAN EUBANKS [facility] SLE [id number] SLE 00:00:00 00:00:00 YOLANDE 2020-07-24 2020-07-24 Outpatient JOVAN EUBANKS [facility] [id number] SLE 00:00:00 00:00:00 YOLANDE 2020-07-19 2020-07-19 Outpatient STLMLC STLMLC [id number] Common 00:00:00 00:00:00 [facility] 2020-06-17 2020-06-17 Outpatient STLMLC STLMLC [id number] Common 00:00:00 00:00:00 [facility] 2020-06-13 2020-06-13 Outpatient STLMLC STLMLC [id number] Common 00:00:00 00:00:00 [facility] 2020-06-05 2020-06-05 Outpatient STLMLC STLMLC [id number] Common 00:00:00 00:00:00 [facility] 2020-05-22 2020-05-22 Outpatient JOVAN EUBANKS [facility] [id number] SLE 00:00:00 00:00:00 YOLANDE 2020-05-21 2020-05-21 Outpatient STLMLC STLMLC [id number] Common 00:00:00 00:00:00 [facility] 2020-05-20 2020-05-20 Outpatient STLMLC STLMLC [id number] Common 00:00:00 00:00:00 [facility] 2020-05-09 2020-05-09 Outpatient STLMLC STLMLC [id number] Common 00:00:00 00:00:00 [facility] 2020-05-06 2020-05-06 Outpatient STLMLC STLMLC [id number] Common 00:00:00 00:00:00 [facility] 2020-05-01 2020-05-01 Outpatient [facility] [id number] SLE 00:00:00 00:00:00 [facility] 2020-04-25 2020-04-25 Outpatient [facility]LML[facility] STLMLC [id number] Common 00:00:00 00:00:00 [facility] 2020-04-24 2020-04-24 Outpatient [facility] [id number] SLE 00:00:00 00:00:00 [facility] 2020-04-15 2020-04-15 Outpatient [facility] ST[facility]C [id number] Common 00:00:00 00:00:00 [facility] 2020-04-11 2020-04-11 Outpatient [facility] STLMLC [id number] Common 00:00:00 00:00:00 [facility] 2020-04-08 2020-04-08 Outpatient [facility] STL[facility]C [id number] Common 00:00:00 00:00:00 [facility] 2020-04-04 2020-04-04 Outpatient [facility]LML[facility] STLMLC [id number] Common 00:00:00 00:00:00 [facility] 2020-03-26 2020-03-26 [facility] [id number] Common 15:20:00 15:20:[address] [facility] 2020-03-22 2020-03-22 [facility] [id number] Common 13:35:00 13:35:[address] [facility] 2020-02-14 2020-02-14 [facility] [id number] Common 13:51:00 13:51:[address] Family [facility] 2020-01-10 2020-01-10 [facility] [id number] Common 10:00:00 10:00:[address] Sp[address] it [address] [facility] 2020-01-10 2020-01-10 [id number] Common 10:00:00 10:00:[address] [facility] 2020-01-09 2020-01-09 [id number] Common 13:21:00 13:21:[address] [facility] 2019-12-29 2019-12-29 [id number] Common 14:26:00 14:26:[address] [facility] 2019-12-20 2019-12-20 [facility] [id number] Common 10:45:00 10:45:[address] [facility] 2019-12-18 2019-12-18 [id number] Common 17:06:00 17:06:[address] [facility] 2019-11-23 2019-11-23 [id number] Common 08:30:00 08:30:[address] [facility] 2019-11-10 2019-11-10 [id number] Common 09:00:00 09:00:[address] [facility] 2019-08-15 2019-08-15 Telephone JEF Seth [id number] 00:00:00 00:00:00 Josh Esteves INSECTICIDE SUPERVISOR [id number] [facility] [id number] MATERNAL [id number] & CHILD [address] [place] [address] 2019-08-04 2019-08-04 Telephone ULISES Bear [id number] 00:00:00 00:00:00 Epifanio Rain INSECTICIDE SUPERVISOR [id number] [facility] [id number] MATERNAL [id number] & CHILD [address] [facility] 2019-07-28 2019-07-28 Orders Doctor YANIRA [id number] 00:00:00 00:00:00 Only Unassigned, STACIE [id number] [place] [facility] [id number] [id number] 2019-07-28 2019-07-28 Telephone [facility] [id number] 00:00:00 00:00:00 Josh N INSECTICIDE SUPERVISOR [id number] [facility] [id number] MATERNAL [id number] & CHILD 107 [facility] Results Test Description Test Test Comments Results Result [facility] e Time Comments TISSUE EXAM 2020-07 Surgical Pathology Report -21 Case: [id number] 13:36:0 Authorizing Provider: Yolande Barnhart MD Collected: 07/31/2020 02:00 PM MPH Ordering Location: [facility] Radiology Main Received: 07/31/2020 03:41 PM Pathologist: Shabana Uriostegui MD Specimen: Liver, liver biopsy LIVER, TRANSJUGULAR NEEDLE BIOPSIES- CIRRHOSIS- see comment Signing Pathologist Direct Phone Line: [phone] y signed by Shabana Uriostegui MD on [...] seen. Jaspal's disease may be excluded clinically. 12683, 80494 X4Rule out cirrhosisLiverReceived in formalin labeled the [...] evaluated Immunohistochemistry technical testing was performed at [facility], Pathology Laboratory where it was developed [...] to perform high complexity clinical laboratory testing. [facility], 2020-07 TRANSCATHETER -20 MINDIKOGLUReferring * BIOPSY 16:32:0 : Bear Penaloza [facility] and measure JOJO ROY : hepatic venous 1955 Sex: pressure [...] intra-service time of sedation was 30 minutes. Director Of Curriculum And Instruction: Catalina. Cv Tech: None. Approach: Right internal jugular vein Estimated [...] needle into the right atrium. A 4 Indonesian micropuncture sheath was placed. A 0.035 inch J-wire was placed through the micropuncture sheath and the sheath was exchanged for a 9 Indonesian sheath. A 5 Indonesian angled tip catheter was used to select the right hepatic vein. Venogram was performed. Pressures were obtained through the catheter with measurements as follows: wedged hepatic - 17 mmHg, free hepatic - 5, and right atrium - 4. A long metal reinforced 7 Indonesian sheath was placed through the 9 Indonesian sheath into the right hepatic vein. A [...] guidance and conscious sedation. Signed: Anthony Arnold MDReport Verified Date/Time: 07/31/2020 16:32:46 Reading Location: [facility] P048 Angio Body Reading Room REHENSIVE METABOLIC PANEL [...] NOT 1092) ACCURATE CRE ATININE CLEARANCE IN NM EDICTING GLOMERULAR FILT RATION RATE. ESTIMATED GFR IS NOT APPLICABLE FOR DIALYSIS PATIENTS. Operational Trainer SARA - CALI FSpecimen slightly [id number] 10:31:00 Test Item Value Reference Range Interpretation Comments PARTIAL THROMBOPLASTIN TIME 38.2 seconds 22.5-36.0 H (BEAKER) (test code = 760) PROTHROMBIN [id number] 10:30:00 Test Item Value Reference Range Interpretation [...] mechanical heart valves.CBC W/PLT COUNT & AUTO [id number] 10:16:00 Test Item Value Reference Range Interpretation [...] (BEAKER) (test code = 2801) MR, ABDOMEN, [id number] 15:12:00Referring: [facility] Penaloza DOplease do with elastography and MRCPplease do with elastography and MRCPUnlisted Reason for Exam - Click Yes and Enter Reason Below->YesUnlisted Reason for Exam- >Breast cancer, elevated alkaline phosphatase and bilirubin, thrombocytopenia, please evaluate the liver, rule out mets, please do with elastography and MRCPplease do with elastography and MRCP [facility] ROYKALPESH PERDOMOINA : 1955 Sex: FFINALREPORT MRI of the [...] No biliary ductal dilatation. Signed: Cinda Valdez Verified Date/Time: 05/22/2020 15:12:38 Reading Location: [address] Consult Reading Room HEPATITIS C PCR, QUANTITATIVE 2020-04-27 03:34:00 Test Item Value Reference Range Interpretation Comments HCV RESULT COMPONENT HCV RNA not detected HCV RNA not detected (JESSIKA) (test code = 2699) This test uses a Real-Time Polymerase Chain Reaction (RT-PCR) methodology and was performed using FRANTZ Ampliprep/FRANTZ TaqMan HCV test kit version 2.0 ([employer]).Reportable range for this assay is 15 - 100,000,000 IU per mL (1.18 - 8.00 Log IU/mL).ANTI-NUCLEAR ANTIBODY (JOSÉ ANTONIO)2020-04-26 10:36:00 Test Item Value Reference Range Interpretation Comments ANTI-NUCLEAR ANTIBODY (JOSÉ ANTONIO) (JESSIKA) Positive Negative A (test code = 418) Test performed by IFA method.JOSÉ ANTONIO TITER AND [id number] 10:36:00 Test Item Value Reference Range Interpretation Comments JOSÉ ANTONIO TITER (BEAKER) (test code = :160 1541) JOSÉ ANTONIO PATTERN (BEAKER) (test code = Speckled 1781) [id number] 18:39:00 Test Item Value Reference Range Interpretation Comments FERRITIN (BEAKER) (test code = 177.89 ng/mL 5.00-275.00 361) Operational Trainer ID - BSHEPATITIS B SURFACE [id number] 15:07:00 Test Item Value Reference Range Interpretation Comments HEPATITIS B SURFACE ANTIBODY < mIU/mL <8.0 (BEAKER) (test code = 647) Operational Trainer ID - ROSIANGHEPATITIS A ANTIBODY, [id number] 14:58:00 Test Item Value Reference Range Interpretation Comments HEPATITIS A IGG ANTIBODY (BEAKER) Reactive Nonreactive A (test code = 2797) Operational Trainer ID - ROSIANGHEPATITIS B SURFACE [id number] 14:58:00 Test Item Value Reference Range Interpretation Comments HEPATITIS B SURFACE ANTIGEN (2) Nonreactive Nonreactive (BEAKER) (test code = 2585) Specimen is considered negative for HBsAg.HEPATITIS C [id number] 14:58:00 Test Item Value Reference Range Interpretation Comments HEPATITIS C ANTIBODY (BEAKER) Nonreactive Nonreactive (test code = 367) Operational Trainer ID - ROSIANGALPHA FETOPROTEIN (AFP), TUMOR [id number] 14:50:00 Test Item Value Reference Range Interpretation Comments ALPHA-FETOPROTEIN (BEAKER) (test 5.0 ng/mL <10.0 code = 1094) Operational Trainer ID - ROSIANGHEPATITIS A ANTIBODY, [id number] 14:50:00 Test Item Value Reference Range Interpretation Comments HEPATITIS A IGM ANTIBODY (BEAKER) Nonreactive Nonreactive (test code = 498) Operational Trainer ID - ROSIANGHEPATITIS B CORE ANTIBODY, [id number] 14:50:00 Test Item Value Reference Range Interpretation Comments HEPATITIS B CORE TOTAL ANTIBODY Nonreactive Nonreactive (BEAKER) (test code = 497) Operational Trainer ID - ROSIANGIRON, TIBC, % SAT. (WITHOUT FERRITIN)2020-04-24 14:36:00 Test Item Value Reference Range Interpretation Comments IRON (BEAKER) (test code = 547) 128.0 ug/dL 40.0-160.0 TOTAL IRON BINDING CAPACITY 294 ug/dL 250-450 (BEAKER) (test code = 769) IRON % SATURATION (2) (BEAKER) 44 % 20-55 (test code = 2590) Operational Trainer ID - [id number] 14:36:00 Test Item Value Reference Range Interpretation Comments ALPHA-1 ANTITRYPSIN (BEAKER) 149.50 mg/dL 90.00-200.00 (test code = 502) Operational Trainer ID - DASHAWNGCOMPREHENSIVE METABOLIC [id number] 14:35:00 Test Item Value Reference Range Interpretation [...] S NOT APPLICABLE FOR DIALYSIS PATIEN TS. Operational Trainer ID - Lindyimen slightly ictericBILIRUBIN, [id number] 14:35:00 Test Item Value Reference Range Interpretation Comments BILIRUBIN DIRECT (BEAKER) (test 0.9 mg/dL 0.1-0.5 H code = 706) Operational Trainer ID - DASHAWNGGAMMA GLUTAMYL TRANSFERASE (GGT)2020-04-24 14:35:00 Test Item Value Reference Range Interpretation Comments GAMMA GLUTAMYL TRANSFERASE (BEAKER) 50 U/L 9-64 (test code = 364) Operational Trainer ID - KALANIpecimen slightly ictericPROTHROMBIN TIME/[id number] 14:22:00 Test Item Value Reference Range Interpretation [...] mechanical heart valves.CBC W/PLT COUNT & AUTO [id number] 14:14:00 Test Item Value Reference Range Interpretation [...] PERCENT (BEAKER) (test code = 2801) SARS-COV2/RT-PCR ([facility])2020-01-31 00:49:00 Test Item Value Reference Range Interpretation Comments SARS-COV2/RT-PCR (test Not Detected Not Detected, Negative, code = 0321840) See external report for linked test SARS-COV-2 PERFORMING LAB [facility] (test code = 5189458) Negative results do not preclude SARS-CoV-2 infection [...] of the Act.Fact Sheet for Healthcare Pro viders:https://www.Quitt.ch/Documents/Xpert%20Xpress%20SARS%20CoV-2/Fact%20Sh eets/3023802%92JNKB-QES-9%20HEALTHCARE%20PROVIDERS%20FACT%20SHEET.pdfFact Sheet for Healthcare Patients:https://www.Blurr/Documents/Xpert%20Xpress%20SARS%20CoV-2/Fact%20Sheets/3023801%20SARS-COV -2%20PATIENT%20FACT%20SHEET.pdfPerforming Laboratory:[facility], [place] [address]ACFSMP ULTRASOUND CORE BIOPSY LEFT 2019-07-27 14:15:04- BREAST [...] correct location, multiplespecimens were obtained using a [employer] biopsy device. A clip was inserted into [...] - 07/27/2019 15:05:22copy to: Ms. Shwetha Rodríguez, [facility] [address], ATTN: Shwetha Rodríguez, ph: [phone], fax: [phone] Technologist: Aida PERALTA, [facility]- DIAG MAMM LEFT CAD [id number] 13:14:19 - DIAG MAMM LEFT CAD DIGITALUNILATERAL LEFT DIGITAL DIAGNOSTIC MAMMOGRAM WITH CAD POST-PROCEDURE ILEANA GING FOR MARKER PLACEMENT: 07/25/2019CLINICAL: Post Clip Placement. Current mammographic images were evaluated by either a Mum[employer]e M-Vu or a [employer] ImageChecker CAD (computer aided detection system). Comparison is made to exam dated 07/18/2019 mammogram - [facility]-. The tissue of the left [...] M.D. dm/:07/25/201913:14:19 copy to: Ms. Shwetha Rodríguez, [facility] [address], ATTN: Shwetha Rodríguez, ph: [phone], fax: [phone] Technologist: Morelia PERALTA, [facility]-Imaging Technologist: Suri PERALTA, [facility]-Mammogram BI-RADS: Post-procedure mammogram for marker placementBREAST ULTRASOUND [id number] 16:44:27 - DIAG MAMM BILATERAL KENNY CAD DIGITALBILATERAL DIGITAL DIAGNOSTIC MAMMOGRAM 3D/2D WITH CAD: 07/18/2019CLINICAL: Palpable mass, left breast. Digital breast tomosynthesis was performed in addition to routine CC and MLO views. Current mammographic images were evaluated by either a Mumboe M-Vu or a [employer] CAD (computer aided detection system). No prior [...] - 07/18/2019 16:51:42copy to: Ms. Shwetha Rodríguez, [facility] [address], ATTN: Shwetha Rodríguez, ph: [phone], fax: [phone] Technologist: Vanesa PERALTA, [facility]-FWletter sent: BIRADS 4/5 Biopsy Mammogram BI-RADS: 0 Incomplete: Additional Imaging Evaluation Needed Ultrasound BI-RADS: 5 Highly suggestive of malignancyDIAG MAMM BILATERAL KENNY CAD [id number] 16:44:27 - DIAG MAMM BILATERAL KENNY CAD DIGITALBILATERAL DIGITAL DIAGNOSTIC MAMMOGRAM 3D/2D WITH CAD: 07/18/2019CLINICAL: Palpable mass, left breast. Digital breast tomosynthesis was performed in addition to routine CC and MLO views. Current mammographic images were evaluated by either a [employer]Ping[employer]comP M-Vu or a [employer] ImageChecker CAD (computer aided detection system). No [...] - 07/18/2019 16:51:42copy to: Ms. Shwetha Rodríguez, [facility] [address], ATTN: Shwetha Rodríguez, ph: [phone], fax: [phone] Technologist: Vanesa PERALTA, [facility]-FWletter sent: BIRADS 4/5 Biopsy Mammogram BI-RADS: 0 Incomplete: Additional Imaging Evaluation Needed Ultrasound BI-RADS: 5 Highly suggestive of malignancy
--- NOTE | 2022-08-02 18:00 | EDPHYS ---
Physician Documentation [facility] Name: Jojo Alaniz Age: 66 yrs Sex: Female : 1955 Arrival Date: 08/02/2022 Time: 16:29 Bed IW4 Private MD: ED Physician Ramon Smiley HPI: 08/02 17:45 This 66 yrs old Female presents to ER via Ambulatory with complaints of cp Shortness Of Breath. 17:45 The patient presents to the emergency department with anxiety, recent diagnosis of cp pleural effusion. 17:45 Associated signs and symptoms: Pertinent positives: non-productive cough, Pertinent cp negatives: chest pain, fever, hemoptysis, nausea, vomiting. Historical: - Allergies: 17:31 No Known Allergies; vg1 - Home Meds: 17:31 chemo medication [Active]; Potassium Chloride Oral [Active]; Magnesium Oxide Oral vg1 [Active]; - PMHx: 17:31 Cancer, Breast; vg1 - PSHx: 17:31 mastectomy-left; hernia repair; vg1 - Immunization history:: Client reports receiving the 2nd dose of the Covid vaccine. - Social history:: Smoking status: Patient denies any tobacco usage or history of. ROS: 17:50 Eyes: Negative for injury, pain, redness, and discharge. cp 17:50 Constitutional: Negative for body aches, chills, fever. 17:50 Cardiovascular: Negative for chest pain. 17:50 Respiratory: Positive for cough, with no reported sputum, shortness of breath, at rest. Negative for wheezing. 17:50 Neuro: Negative for altered mental status, dizziness, headache, weakness. 17:50 Psych: Positive for anxiety. 17:50 Abdomen/GI: Negative for abdominal pain, vomiting, diarrhea, constipation. cp Exam: 17:52 Head/Face: Normocephalic, atraumatic. cp 17:52 Constitutional: The patient appears in no acute distress, alert, awake, non-diaphoretic, non-toxic, well developed, well nourished, anxious. 17:52 Eyes: Periorbital structures: appear normal, Conjunctiva: normal, no exudate, no injection, Sclera: no appreciated abnormality, Lids and lashes: appear normal, bilaterally. 17:52 ENT: External ear(s): are unremarkable, Nose: is normal, Mouth: Lips: moist, Oral mucosa: moist, Posterior pharynx: Airway: no evidence of obstruction, patent. 17:52 Chest/axilla: Inspection: normal. 17:52 Cardiovascular: Rate: normal, Rhythm: regular. 17:52 Respiratory: the patient does not display signs of respiratory distress, Respirations: labored breathing, is not present, tachypnea, that is mild, Breath sounds: decreased breath sounds, that are moderate, are heard in the left posterior lower lobe, stridor, is not appreciated, wheezing: is not appreciated. 17:52 Abdomen/GI: Exam negative for discomfort, distension, guarding, Inspection: abdomen appears normal. 17:52 Back: pain, is absent, ROM is normal. Vital Signs: 16:42 Pulse Ox 95% on R/A; vg1 17:27 BP 133 / 79; Pulse 88; Resp 17; Temp 98.6(O); Pulse Ox 98% on R/A; Weight 68.04 kg; vg1 MDM: 17:35 Patient medically screened. cp 18:00 Data reviewed: vital signs, nurses notes, old medical records, notes from previous ED cp visits. 18:00 Differential diagnosis: Anxiety Reaction pneumonia, Pneumothorax pulmonary edema, cp Pulmonary Embolism Sepsis Unstable Angina. Consideration of Admission/Observation Escalation of care including admission/observation considered. I considered the following discharge prescriptions or medication management in the emergency department Medications were administered in the Emergency Department. See MAR. Test considered but Not performed: Other Details patient refuses any labs, ekg, xrays. Care significantly affected by the following chronic conditions: Cancer. Counseling: I had a detailed discussion with the patient and/or guardian regarding: the historical points, exam findings, and any diagnostic results supporting the discharge/admit diagnosis, the need for outpatient follow up, a family practitioner, a mounting machine operator, to return to the emergency department if symptoms worsen or persist or if there are any questions or concerns that arise at home. Response to treatment: the patient's symptoms have mildly improved after treatment, and as a result, I will discharge patient. Administered Medications: 18:43 Drug: Ativan (LORazepam) 0.5 mg Route: PO; jl7 18:43 Follow up: Response: Medication administered at discharge. jl7 Disposition Summary: 08/02/22 18:00 Discharge Ordered Location: Home cp Problem: an ongoing problem cp Symptoms: have improved cp Condition: Stable cp Diagnosis - Anxiety disorder, unspecified cp Followup: cp - With: Private Physician - When: Tomorrow - Reason: Recheck today's complaints Discharge Instructions: - Discharge Summary Sheet cp - Managing Anxiety, Adult cp Forms: - Medication Reconciliation Form cp - Thank You Letter cp - Antibiotic Education cp - Prescription Opioid Use cp Prescriptions: - Ativan 0.5 mg Oral Tablet - take 1 tablet by ORAL route every 12 hours As needed; 10 tablet; Refills: 0, cp Product Selection Permitted Addendum: 08/04/2022 01:05 Co-signature as Attending Physician, Ramon Smiley MD I reviewed the patient's care r n provided by the Advanced Practice Provider and agree with the diagnosis and treatment plan. Signatures: Ramon Smiley MD MD rn Zach Weber PA PA cp Leal, Jahala, RN RN jl7 Terri Carranza RN RN vg1
--- NOTE | 2022-08-02 18:00 | ER ---
Nurse's Notes [facility] Name: Jojo Alaniz Age: 66 yrs Sex: Female : 1955 Arrival Date: 08/02/2022 Time: 16:29 Bed IW4 Private MD: Diagnosis: Anxiety disorder, unspecified Presentation: 08/02 17:27 Chief complaint: Patient states: was seen on Wednesday07/29/22 and dx with Pleural vg1 Effusion, states SOB when she's laying down and is unable to take a deep breath. Coronavirus screen: Vaccine status: Patient reports receiving the 2nd dose of the covid vaccine. Client denies travel out of the [place] in the last 14 days. Ebola Screen: Patient negative for fever greater than or equal to 101.5 degrees Fahrenheit, and additional compatible Ebola Virus Disease symptoms Patient denies exposure to infectious person. Initial Sepsis Screen: Does the patient meet any 2 criteria? No. Patient's initial sepsis screen is negative. Does the patient have a suspected source of infection? No. Patient's initial sepsis screen is negative. Risk Assessment: Do you want to hurt yourself or someone else? Patient reports no desire to harm self or others. Onset of symptoms was July 29, 2022. 17:27 Method Of Arrival: Ambulatory vg1 17:27 Acuity: JES 3 vg1 Triage Assessment: 17:31 General: Appears uncomfortable, Behavior is cooperative, anxious. Pain: Denies pain. vg1 Respiratory: Reports shortness of breath at rest pain with respiration Onset: The symptoms/episode began/occurred 07/29/22, the patient has mild shortness of breath. Historical: - Allergies: 17:31 No Known Allergies; vg1 - Home Meds: 17:31 chemo medication [Active]; Potassium Chloride Oral [Active]; Magnesium Oxide Oral vg1 [Active]; - PMHx: 17:31 Cancer, Breast; vg1 - PSHx: 17:31 mastectomy-left; hernia repair; vg1 - Immunization history:: Client reports receiving the 2nd dose of the Covid vaccine. - Social history:: Smoking status: Patient denies any tobacco usage or history of. Vital Signs: 16:42 Pulse Ox 95% on R/A; vg1 17:27 BP 133 / 79; Pulse 88; Resp 17; Temp 98.6(O); Pulse Ox 98% on R/A; Weight 68.04 kg; vg1 ED Course: 16:29 Patient arrived in ED. as 17:31 Triage completed. vg1 17:31 Arm band placed on. vg1 17:35 Zach Weber PA is PHCP. cp 17:35 Ramon Smiley MD is Attending Physician. cp 18:44 Patient has correct armband on for positive identification. jl7 18:44 No provider procedures requiring assistance completed. Patient did not have IV access jl7 during this emergency room visit. Administered Medications: 18:43 Drug: Ativan (LORazepam) 0.5 mg Route: PO; jl7 18:43 Follow up: Response: Medication administered at discharge. jl7 Outcome: 18:00 Discharge ordered by . cp 18:44 Discharged to home ambulatory, with significant other. jl7 18:44 Condition: stable 18:44 Discharge instructions given to patient, significant other, Instructed on discharge instructions, follow up and referral plans. medication usage, Demonstrated understanding of instructions, follow-up care, medications, Prescriptions given X 1. 18:44 Patient left the ED. jl7 Signatures: Randi Zheng Corey, PA PA cp Savita De La Garza, RN RN jl7 Terri Carranza, RN RN vg1
[2022-08-02] MEDS ORDERED: LORAZEPAM 0.5 MG TABLET ONE (18:43)
[2022-08-02 19:20] VITALS: BP 133/79; TEMP 98.6; O2SAT 98
== END 2022-08-02 18:44 | disposition home or self-care (01) ==
LOC: ER 16:28
DX: F41.9 Anxiety disorder, unspecified (principal); Z85.3 Personal history of malignant neoplasm of breast; Z90.12 Acquired absence of left breast and nipple
CPT/HCPCS: 99283

== ENCOUNTER 2022-08-14 09:46 | Day surgery (SDC) | payer OTHER ==
[2022-08-14 10:58] VITALS: O2SAT 98; BMI 29.9
--- NOTE | 2022-08-14 13:10 | RAD REPORT ---
EXAM DESCRIPTION: US - Chest - 08/14/2022 11:39 am CLINICAL HISTORY: PLEURAL EFF COMPARISON: Chest For Pe Angio dated 07/29/2022 FINDINGS: The patient was referred for ultrasound-guided thoracentesis of left pleural effusion. Utilizing sonographic guidance, multiple attempts were made to access the left pleural space. Technic ally, the thoracentesis needle could not be safely advanced into the thoracic cage. IMPRESSION: Technically unsuccessful ultrasound-guided thoracentesis. Findings were discussed with Dr. Gutierrez.
[2022-08-14 14:40] VITALS: BP 117/54; TEMP 98.1
== END 2022-08-14 12:30 | disposition home or self-care (01) ==
LOC: DS 09:46
PROVIDERS: ATTEND Internal Medicine Sleep Medicine
PROC: 0W9B3ZX Drainage of Left Pleural Cavity, Percutaneous Approach, Diagnostic (ICD-10-PCS; principal; 2022-08-14)
DX: J94.9 Pleural condition, unspecified (principal); Z53.8 Procedure and treatment not carried out for other reasons
CPT/HCPCS: 36415; 76604; 85730

== ENCOUNTER 2022-08-18 17:08 | Inpatient (IN) | payer OTHER ==
--- OUTSIDE RECORDS SUMMARY | 2022-08-18 17:15 | XMS REPORT | Continuity of Care Document ---
:1955 Author Organization [facility] t Address [address] [place] [address] Care Team Providers Name Role Phone EPIFANIO BEAR Primary Care Physician Unavailable Bear Penaloza Attending Clinician Unavailable YOLANDE EUBANKS Attending Clinician Unavailable Adelaide Wise Attending Clinician ADELAIDE DIALLO Attending Clinician Unavailable VERONA MORALES Attending Clinician Unavailable Verona Morales MD Attending Clinician Doctor Unassigned, [place] Attending Clinician Unavailable Only, Adc Test Attending [...] Policy Number Effective Date Expiration Date S aelna MEDICAID [place] [id number] 2020 2020 00:00:00 00:00:00 [facility] COMM STAR [id number] 2020 PLAN 00:00:00 COVID VACCINE [id number] 2020-09-20 ADMIN / TESTING 00:00:00 AARP [facility] [id number] 2022-07-12 Common ADVANTAGE 00:00:00 [facility] WELLMED/AARP [id number] 2022-01-09 MEDICARE 00:00:00 ADVANTAGE MEDICARE PART A [id number] 2021-12-10 2022-01-09 \\T\\ B 00:00:00 00:00:00 [place] [id number] 2021-11-12 Common [place] 00:00:00 [facility] MEDICAID OF [id number] 2020-04-11 [place] 00:00:00 Problems Condition Condition Condition Status Onset Resolution Last Treating Co mments Source Name Details Category Date Date Treatment Clinician Date Umbilical Umbilical Disease Active Overview: Univers hernia hernia 01-07 Formattin ity of without without 00:00: g of this [place] obstructio obstructio 00 note Me dical n and n and might be Branch without without different gangrene gangrene from the original. Added automatic ally from request for surgery [id number] BMI BMI Disease Active Univers 27.0-27.9, 27.0-27.9, 3-02 it y of adult adult 00:00: [place] 00 [facility] Branch Well woman Well woman Disease Active U nivers exam with exam with 12-13 ity of routine routine 00:00: [place] gynecologi gynecologi 00 Me dical manjinder exam manjinder exam Branch Menopausal Menopausal Disease Active U nivers state state 6 ity of 00:00: [place] 00 Medical Branch Morbid Morbid Disease Active Univers obesity obesity 6-04 ity of 00:00: [address] BMI BMI Disease Active 2018-0 Univers 38.0-38.9, 38.0-38.9, 6-04 it y of adult adult 00:00: [address] Elevated Elevated Disease Active [facility] t liver liver [facility] enzymes enzymes [facility] Low HDL Low HDL Disease Active [facility] (under 40) (under 40) [facility] Hypertensi Hypertensi Disease Active C HI St on on [facility] Breast Breast Disease Active [facility] cancer cancer [facility] Thrombocyt Thrombocyt Disease Active C HI St openia openia [facility] Elevated Elevated Disease Active [facility] t alkaline alkaline [facility] phosphatas phosphatas Me dical e level e level Center Serum Serum Disease Active [facility] total total [facility] bilirubin bilirubin Medi manjinder elevated elevated Center Pancytopen Pancytopen Disease Active C HI St ia ia [facility] Abnormal Abnormal Disease Active [facility] t findings findings [facility] on on Medical diagnostic diagnostic Ce nter imaging of imaging of abdomen abdomen Elevated Elevated Disease Active [facility] S t antinuclea antinuclea 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 Duodenal Duodenal Disease Active [facility] t ulcer ulcer 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 py py [facility] following following Luke s disease [facility] [id number] Other Problem Common chronic Spirit pain - [facility] Disorder Disorder Problem Commo n of iron of iron Spirit metabolism metabolism - 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 lymph axilla Medical nodes Center [id number] Primary Problem Comm on osteoarthr Spirit itis of - CHI left knee [facility] Malignant Malignant Problem Com mon neoplasm neoplasm Spirit of female of left - CHI breast breast [facility] than 0.1 Medical cm and [place] less than or equal to 0.5 cm in greatest dimension [id number] Thrombocyt Problem Co mmon openia [facility] [id number] S/P left Problem Comm on mastectomy [facility] [id number] Essential Problem Comm on hypertensi [facility] [id number] Hypomagnes Problem Co mmon emia [facility] [id number] Hyperammon Problem Comm on emia [facility] [id number] Hypercalce Problem Com mon patricia [facility] Allergies, Adverse Reactions, Alerts Allergy Allergy Status Severity Reaction(s) Onset Inactive Treating Comm ents Source Name Type Date Date Clinician NO KNOWN Drug Active Univers ALLERGIE Class ity of S [facility] [place] [facility] NO KNOWN Allergy Active [facility] Family History Family Member Diagnosis Comments Start Date Stop Date Source Natural brother Liver disease [facility] Natural father Hypertension [facility] Natural mother Cervical cancer [facility] Natural mother Cirrhosis [facility] Social History Social Habit Start Date Stop Date Quantity Comments Source History of Common [facility] - Tobacco Use [facility] Exposure to 2022-01-20 2022-01-30 Not sure University SARS-CoV-2 00:00:00 09:21:00 [facility] (event) Leigh Alcohol intake 2021-03-18 2021-03-18 Ex-drinker [facility] 00:00:00 00:00:00 (finding) Medical [place] Tobacco use and 2020-04-24 2020-04-24 Never used [facility] exposure 00:00:00 00:00:00 [facility] Sex [birth year] [facility] 00:00:00 00:00:00 [facility] Smoking Status Start Date Stop Date Source Never Smoker [facility] Medications Ordered Filled Start Stop Current Ordering Indication Dosage Frequency Signature Comments Components Source Medication Medication Date Date Medication? Clinician (SIG) Name Name Albuterol Albuterol No 2{puff_ 6xD Albuterol Sulfate HFA Sulfate HFA 1-12 as_need Sulfate 108 (90 108 (90 00:00: ed} HFA 108 Base) Base) 00 (90 Base) MCG/ACT MCG/ACT MCG/ACT Albuterol Albuterol 2022-0 No 2{puff_ 6xD Albuterol Sulfate HFA Sulfate HFA 1-12 as_need Sulfate 108 (90 108 (90 00:00: ed} HFA 108 Base) Base) 00 (90 Base) MCG/ACT MCG/ACT MCG/ACT Albuterol Albuterol 2022-0 No 2{puff_ 6xD Albuterol Sulfate HFA Sulfate HFA 1-12 as_need Sulfate 108 (90 108 (90 00:00: ed} HFA 108 Base) Base) 00 (90 Base) MCG/ACT MCG/ACT MCG/ACT Albuterol Albuterol 2022-0 No 2{puff_ 6xD Albuterol Sulfate HFA Sulfate HFA 1-12 as_need Sulfate 108 (90 108 (90 00:00: ed} HFA 108 Base) Base) 00 (90 Base) MCG/ACT MCG/ACT MCG/ACT Albuterol Albuterol 2022-0 No 2{puff_ 6xD Albuterol Sulfate HFA Sulfate HFA 1-12 as_need Sulfate 108 (90 108 (90 00:00: ed} HFA 108 Base) Base) 00 (90 Base) MCG/ACT MCG/ACT MCG/ACT Albuterol Albuterol 2022-0 No 2{puff_ 6xD Albuterol Sulfate HFA Sulfate HFA 1-12 as_need Sulfate 108 (90 108 (90 00:00: ed} HFA 108 Base) Base) 00 (90 Base) MCG/ACT MCG/ACT MCG/ACT Albuterol Albuterol 2022-0 No 2{puff_ 6xD Albuterol Sulfate HFA Sulfate HFA 1-12 as_need Sulfate 108 (90 108 (90 00:00: ed} HFA 108 Base) Base) 00 (90 Base) MCG/ACT MCG/ACT MCG/ACT Albuterol Albuterol 2022-0 No 2{puff_ 6xD Albuterol Sulfate HFA Sulfate HFA 1-12 as_need Sulfate 108 (90 108 (90 00:00: ed} HFA 108 Base) Base) 00 (90 Base) MCG/ACT MCG/ACT MCG/ACT Albuterol Albuterol No 2{puff_ 6xD Albuterol Sulfate HFA Sulfate HFA 1-12 as_need Sulfate 108 (90 108 (90 00:00: ed} HFA 108 Base) Base) 00 (90 Base) MCG/ACT MCG/ACT MCG/ACT Mariano Quintana 2021-07 No 40mg Common (Triamcinol (Triamcinol 2-14 S pirit one) one) 00:00: - [facility] Mariano Quintana 2021-07 No 40mg Common (Triamcinol (Triamcinol 2-14 S pirit one) one) 00:00: - [facility] 00 [facility] 2021-07 No 40mg Common (Triamcinol (Triamcinol 2-14 S pirit one) one) 00:00: - [facility] Mariano Quintana 2021-07 No 40mg Common (Triamcinol (Triamcinol 2-14 S pirit one) one) 00:00: - [facility] 2021-07 No 40mg Common (Triamcinol (Triamcinol 2-14 S pirit one) one) 00:00: - [facility] 2021-07 No 40mg Common (Triamcinol (Triamcinol 2-14 S pirit one) one) 00:00: - [facility] Mariano Quintana 2021-07 No 40mg Common (Triamcinol (Triamcinol 2-14 S pirit one) one) 00:00: - [facility] Mariano Quintana 2021-07 No 40mg Common (Triamcinol (Triamcinol 2-14 S pirit one) one) 00:00: - [facility] 00 [facility] Mariano Quintana 2021-07 No 40mg Common (Triamcinol (Triamcinol 2-14 S pirit one) one) 00:00: - [facility] 00 [facility] Mariano Quintana 2021-07 No 40mg Common (Triamcinol (Triamcinol 2-14 S pirit one) one) 00:00: [facility]-07 No 40mg Common (Triamcinol (Triamcinol 2-14 S pirit one) one) 00:00: - [facility] 00 [facility] Benzonatate Benzonatate 2021-072- No 1{capsu Benzonatat 200 MG 200 MG 2-14 12-28 le_as_n e 200 MG 00:00: 00:00 eeded} 00 :00 Lidocaine Lidocaine 2021-07 No 10mg Com mon 0-06 Spirit 00:00: - [facility] Kenalog Kenalog 2021-07 No 40mg Common (Triamcinol (Triamcinol 0-06 S pirit one) one) 00:00: - [facility] Lidocaine Lidocaine 2021-07 No 10mg Com mon 0-06 Spirit 00:00: - [facility] Kenalog Kenalog 2021-07 No 40mg Common (Triamcinol (Triamcinol 0-06 S pirit one) one) 00:00: - [facility] Lidocaine Lidocaine 2021-07 No 10mg Com mon 0-06 Spirit 00:00: - [facility] Kenalog Kenalog 2021-07 No 40mg Common (Triamcinol (Triamcinol 0-06 S pirit one) one) 00:00: - [facility] Lidocaine Lidocaine 2021-07 No 10mg Com mon 0-06 Spirit 00:00: - [facility] 00 [facility] Kenalog Kenalog 2021-07 No 40mg Common (Triamcinol (Triamcinol 0-06 S pirit one) one) 00:00: - [facility] Lidocaine Lidocaine 2021-07 No 10mg Com mon 0-06 Spirit 00:00: - [facility] Kenalog Kenalog 2021-07 No 40mg Common (Triamcinol (Triamcinol 0-06 S pirit one) one) 00:00: - [facility] Lidocaine Lidocaine 2021- No 10mg Com mon 0-06 Spirit 00:00: - [facility] 00 [facility] Kenalog Kenalog 2021-07 No 40mg Common (Triamcinol (Triamcinol 0-06 S pirit one) one) 00:00: - [facility] Lidocaine Lidocaine 2021- No 10mg Com mon 0-06 Spirit 00:00: - [facility] 00 [facility] Kenalog Kenalog 2021-07 No 40mg Common (Triamcinol (Triamcinol 0-06 S pirit one) one) 00:00: - [facility] Lidocaine Lidocaine 2021- No 10mg Com mon 0-06 Spirit 00:00: - [facility] Kenalog Kenalog 2021-07 No 40mg Common (Triamcinol (Triamcinol 0-06 S pirit one) one) 00:00: - [facility] Lidocaine Lidocaine 2021- No 10mg Com mon 0-06 Spirit 00:00: - [facility] Kenalog Kenalog 2021-07 No 40mg Common (Triamcinol (Triamcinol 0-06 S pirit one) one) 00:00: - [facility] Lidocaine Lidocaine 2021- No 10mg Com mon 0-06 Spirit 00:00: - [facility] Kenalog Kenalog 2021- No 40mg Common (Triamcinol (Triamcinol 0-06 S pirit one) one) 00:00: - [facility] Lidocaine Lidocaine 2021- No 10mg Com mon 0-06 Spirit 00:00: - [facility] 00 [facility] Kenalog Kenalog 2021- No 40mg Common (Triamcinol (Triamcinol 0-06 S pirit one) one) 00:00: - [facility] Lidocaine Lidocaine 2021- No 10mg Com mon 0-06 Spirit 00:00: - [facility] 00 [facility] Kenalog Kenalog 2021- No 40mg Common (Triamcinol (Triamcinol 0-06 S pirit one) one) 00:00: - [facility] 00 [facility] Lidocaine Lidocaine 2021- No 10mg Com mon 0-06 Spirit 00:00: - [facility] Kenalog Kenalog 2021- No 40mg Common (Triamcinol (Triamcinol 0-06 S it one) one) 00:00: - [facility] [address] [facility] MELOXICAM Yes 1{tbl} Take 1 Univ ers [...] 00 at Medical bedtime. Branch timolol 0.5 Yes 1[drp] Place 1 U [...] S t ORAL 9-07 mouth. [facility] 14:49: [address] CALCIUM Yes Take by [facility] ORAL 9-07 mouth. [facility] 14:49: [address] MAGNESIUM 0 Yes Take by CHI S t ORAL 9-07 mouth. [facility] 14:49: [address] CALCIUM 0 Yes Take by [facility] ORAL 9-07 mouth. [facility] 14:49: [address] MAGNESIUM 0 Yes Take by CHI S t ORAL 9-07 mouth. [facility] 14:49: [address] CALCIUM 0 Yes Take by [facility] ORAL 9-07 mouth. [facility] 14:49: [address] tramadol [address] HCl 9-07 [facility]ukes (TRAMADOL 14:48: Medical ORAL) Center tramadol 2020-[address] HCl 9-07 [facility]ukes (TRAMADOL 14:48: Medical ORAL) 25 Center tramadol 2021-[address] HCl 9-07 [facility] (TRAMADOL 14:48: Medical ORAL) 25 Center cholecalcif 2021-[address] milvia, 9-07 [facility]ukes vitamin D3, 14:15: Medica l (VITAMIN D3 23 Center ORAL) cholecalcif 2021-[address] milvia, 9-07 [facility]ukes vitamin D3, 14:15: Medica l (VITAMIN D3 23 Center ORAL) cholecalcif 2021-[address] milvia, 9-07 [facility]ukes vitamin D3, 14:15: Medica l (VITAMIN D3 23 Center ORAL) rifAXIMin 2020-0 Yes Hepatic 550mg Q.5D Take 1 CH [...] 2 Center solution (two) times daily. rifAXIMin 2020-0 Yes Hepatic 550mg Q.5D Take 1 CH [...] 2 Center solution (two) times daily. rifAXIMin 1-0 Yes Hepatic 550mg Q.5D Take [address] 550 mg Tab 7-09 encephalopa tablet Lukes 00:00: thy (550 mg Medical 00 total) by Center mouth 2 (two) times daily. lactulose 202-0 Yes Hepatic 10g Q.5D Take 15 CH [...] 3-01 by mouth ity of 00:00: daily [place] [facility] anastrozole Yes 1mg Take 1 mg U nivers 1 mg tablet 3-01 by mouth ity of 00:00: daily [place] [facility] cromolyn 4 Yes 1[drp] Place [...] 1 mg tablet 00:00: Medica l 00 [place] anastrozole 2019-07 Yes [address] a [facility] (ARIMIDEX) 0-12 day. [facility] 1 mg tablet 00:00: Medica l 00 [place] anastrozole 2019-07 Yes Once a [facility] (ARIMIDEX) 0-12 day. [facility] 1 mg tablet 00:00: Medica l 00 [place] Midodrine Midodrine Yes Bear 1 tablet Common HCl HCl 9-15 Penaloza Spirit 00:00: - [facility] Multivitami Multivitami Yes Bear not Common n Adults n Adults Penaloza defined [facility] Lactulose Lactulose No Lactulose 10 GM/15ML 10 [...] Chloride 20 Chloride MEQ MEQ 20 MEQ Midodrine Midodrine No 1{table Midodrine HCl 10 MG HCl 10 MG t} HCl 10 MG Cromolyn Cromolyn No Cromolyn Sodium 4 % Sodium 4 % Sodium 4 % Lactulose Lactulose No Lactulose 10 GM/15ML 10 GM/15ML 10 GM/15ML Anastrozole Anastrozole No Anastrozol 1 MG 1 MG e 1 MG Multivitami Multivitami No Multivitam n Adults n Adults in Adults Magnesium Magnesium No 1{table BID Magnesium Oxide 400 Oxide 400 t_with_ Oxide 400 MG MG food} MG Pseudoeph-B Pseudoeph-B No 5{ml_as QID Pseudoeph- romphen-DM romphen-DM _needed Bromphen-D 30-2-10 30-2-10 } M 30-2-10 MG/5ML MG/5ML MG/5ML Potassium Potassium No 1{packe QD Potassium Chloride 20 Chloride 20 t_with_ Chloride MEQ MEQ food} 20 MEQ Potassium Potassium No Potassium Chloride 20 Chloride 20 Chloride MEQ MEQ 20 MEQ Midodrine Midodrine No 1{table Midodrine HCl 10 MG HCl 10 MG t} HCl 10 MG Cromolyn Cromolyn No Cromolyn Sodium 4 % Sodium 4 % Sodium 4 % Lactulose Lactulose No Lactulose 10 GM/15ML 10 GM/15ML 10 GM/15ML Anastrozole Anastrozole No Anastrozol 1 MG 1 MG e 1 MG Multivitami Multivitami No Multivitam n Adults n Adults in Adults Magnesium Magnesium No 1{table BID Magnesium Oxide 400 Oxide 400 t_with_ Oxide 400 MG MG food} MG Pseudoeph-B Pseudoeph-B No 5{ml_as QID Pseudoeph- romphen-DM romphen-DM _needed Bromphen-D 30-2-10 30-2-10 } M 30-2-10 MG/5ML MG/5ML MG/5ML Potassium Potassium No 1{packe QD Potassium Chloride 20 Chloride 20 t_with_ Chloride MEQ MEQ food} 20 MEQ Potassium Potassium No Potassium Chloride 20 Chloride 20 Chloride MEQ MEQ 20 MEQ Midodrine Midodrine No 1{table Midodrine HCl 10 MG HCl 10 MG t} HCl 10 MG Cromolyn Cromolyn No Cromolyn Sodium 4 % Sodium 4 % Sodium 4 % Lactulose Lactulose No Lactulose 10 GM/15ML 10 GM/15ML 10 GM/15ML Anastrozole Anastrozole No Anastrozol 1 MG 1 MG e 1 MG Multivitami Multivitami No Multivitam n Adults n Adults in Adults Magnesium Magnesium No 1{table BID Magnesium Oxide 400 Oxide 400 t_with_ Oxide 400 MG MG food} MG Pseudoeph-B Pseudoeph-B No 5{ml_as QID Pseudoeph- romphen-DM romphen-DM _needed Bromphen-D 30-2-10 30-2-10 } M 30-2-10 MG/5ML MG/5ML MG/5ML Potassium Potassium No 1{packe QD Potassium Chloride 20 Chloride 20 t_with_ Chloride MEQ MEQ food} 20 MEQ Potassium Potassium No Potassium Chloride 20 Chloride 20 Chloride MEQ MEQ 20 MEQ Midodrine Midodrine No 1{table Midodrine HCl 10 MG HCl 10 MG t} HCl 10 MG Cromolyn Cromolyn No Cromolyn Sodium 4 % Sodium 4 % Sodium 4 % Lactulose Lactulose No Lactulose 10 GM/15ML 10 GM/15ML 10 GM/15ML Anastrozole Anastrozole No Anastrozol 1 MG 1 MG e 1 MG Multivitami Multivitami No Multivitam n Adults n Adults in Adults Magnesium Magnesium No 1{table BID Magnesium Oxide 400 Oxide 400 t_with_ Oxide 400 MG MG food} MG Pseudoeph-B Pseudoeph-B No 5{ml_as QID Pseudoeph- romphen-DM romphen-DM _needed Bromphen-D 30-2-10 30-2-10 } M 30-2-10 MG/5ML MG/5ML MG/5ML Potassium Potassium No 1{packe QD Potassium Chloride 20 Chloride 20 t_with_ Chloride MEQ MEQ food} 20 MEQ Potassium Potassium No Potassium Chloride 20 Chloride 20 Chloride MEQ MEQ 20 MEQ Midodrine Midodrine No 1{table Midodrine HCl 10 MG HCl 10 MG t} HCl 10 MG Cromolyn Cromolyn No Cromolyn Sodium 4 % Sodium 4 % Sodium 4 % Lactulose Lactulose No Lactulose 10 GM/15ML 10 GM/15ML 10 GM/15ML Anastrozole Anastrozole No Anastrozol 1 MG 1 MG e 1 MG Multivitami Multivitami No Multivitam n Adults n Adults in Adults Magnesium Magnesium No 1{table BID Magnesium Oxide 400 Oxide 400 t_with_ Oxide 400 MG MG food} MG Pseudoeph-B Pseudoeph-B No 5{ml_as QID Pseudoeph- romphen-DM romphen-DM _needed Bromphen-D 30-2-10 30-2-10 } M 30-2-10 MG/5ML MG/5ML MG/5ML Potassium Potassium No 1{packe QD Potassium Chloride 20 Chloride 20 t_with_ Chloride MEQ MEQ food} 20 MEQ Potassium Potassium No Potassium Chloride 20 Chloride 20 Chloride MEQ MEQ 20 MEQ Midodrine Midodrine No 1{table Midodrine HCl 10 MG HCl 10 MG t} HCl 10 MG Cromolyn Cromolyn No Cromolyn Sodium 4 % Sodium 4 % Sodium 4 % Lactulose Lactulose No Lactulose 10 GM/15ML 10 GM/15ML 10 GM/15ML Anastrozole Anastrozole No Anastrozol 1 MG 1 MG e 1 MG Multivitami Multivitami No Multivitam n Adults n Adults in Adults Magnesium Magnesium No 1{table BID Magnesium Oxide 400 Oxide 400 t_with_ Oxide 400 MG MG food} MG Pseudoeph-B Pseudoeph-B No 5{ml_as QID Pseudoeph- romphen-DM romphen-DM _needed Bromphen-D 30-2-10 30-2-10 } M 30-2-10 MG/5ML MG/5ML MG/5ML Potassium Potassium No 1{packe QD Potassium Chloride 20 Chloride 20 t_with_ Chloride MEQ MEQ food} 20 MEQ Potassium Potassium No Potassium Chloride 20 Chloride 20 Chloride MEQ MEQ 20 MEQ Midodrine Midodrine No 1{table Midodrine HCl 10 MG HCl 10 MG t} HCl 10 MG Cromolyn Cromolyn No Cromolyn Sodium 4 % Sodium 4 % Sodium 4 % Lactulose Lactulose No Lactulose 10 GM/15ML 10 GM/15ML 10 GM/15ML Anastrozole Anastrozole No Anastrozol 1 MG 1 MG e 1 MG Multivitami Multivitami No Multivitam n Adults n Adults in Adults Magnesium Magnesium No 1{table BID Magnesium Oxide 400 Oxide 400 t_with_ Oxide 400 MG MG food} MG Pseudoeph-B Pseudoeph-B No 5{ml_as QID Pseudoeph- romphen-DM romphen-DM _needed Bromphen-D 30-2-10 30-2-10 } M 30-2-10 MG/5ML MG/5ML MG/5ML Potassium Potassium No 1{packe QD Potassium Chloride 20 Chloride 20 t_with_ Chloride MEQ MEQ food} 20 MEQ Magnesium Magnesium 2021- No 1{table BID Magnesium [...] 1{table BID Magnesium Oxide 400 Oxide 400 13 t_with_ Oxide 400 MG MG 00:00 food} MG :00 Magnesium Magnesium 2022- No 1{table BID Magnesium Oxide 400 Oxide 400 06-23 t_with_ Oxide 400 MG MG 00:00 food} MG :00 Magnesium Magnesium 2022- No 1{table BID Magnesium Oxide 400 Oxide 400 06-23 t_with_ Oxide 400 MG MG 00:00 food} MG :00 Magnesium Magnesium 2022- No 1{table BID Magnesium Oxide 400 Oxide 400 06-23 t_with_ Oxide 400 MG MG 00:00 food} [...] Spirit - OVER 65 OVER 65 14:49:00 [facility] FLUZONE HIGH DOSE FLUZONE HIGH DOSE 2022-04-01 Completed [facility] - OVER 65 OVER 65 14:49:00 [facility] FLUZONE HIGH DOSE FLUZONE HIGH DOSE 2022-04-01 Completed [facility] - OVER 65 OVER 65 14:49:00 [facility] FLUZONE HIGH DOSE FLUZONE HIGH DOSE 2022-04-01 Completed [facility] - OVER 65 OVER 65 14:49:00 [facility] FLUZONE HIGH DOSE FLUZONE HIGH DOSE 2022-04-01 Completed [facility] - OVER 65 OVER 65 14:49:00 [facility] FLUZONE HIGH DOSE FLUZONE HIGH DOSE 2022-04-01 Completed [facility] - OVER 65 OVER 65 14:49:00 [facility] FLUZONE HIGH DOSE FLUZONE HIGH DOSE 2022-04-01 Completed [facility] - OVER 65 OVER 65 14:49:00 [facility] FLUZONE HIGH DOSE FLUZONE HIGH DOSE 2022-04-01 Completed [facility] - OVER 65 OVER 65 14:49:00 [facility] FLUZONE HIGH DOSE FLUZONE HIGH DOSE 2022-04-01 Completed [facility] - OVER 65 OVER 65 14:49:00 [facility] FLUZONE HIGH DOSE FLUZONE HIGH DOSE 2022-04-01 Completed [facility] - OVER 65 OVER 65 14:49:00 [facility] FLUZONE HIGH DOSE FLUZONE HIGH DOSE 2022-04-01 Completed [facility] - OVER 65 OVER 65 14:49:00 [facility] FLUZONE HIGH DOSE FLUZONE HIGH DOSE 2022-04-01 Completed [facility] - OVER 65 OVER 65 14:49:00 [facility] FLUZONE HIGH DOSE FLUZONE HIGH DOSE 2022-04-01 Completed [facility] - OVER 65 OVER 65 14:49:00 [facility] FLUZONE HIGH DOSE FLUZONE HIGH DOSE 2022-04-01 Completed [facility] - OVER 65 OVER 65 14:49:00 [facility] FLUZONE HIGH DOSE FLUZONE HIGH DOSE 2022-04-01 Completed [facility] - OVER 65 OVER 65 14:49:00 [facility] FLUZONE HIGH DOSE FLUZONE HIGH DOSE 2022-04-01 Completed [facility] - OVER 65 OVER 65 14:49:00 [facility] FLUZONE HIGH DOSE FLUZONE HIGH DOSE 2022-04-01 Completed [facility] - OVER 65 OVER 65 14:49:00 [facility] FLUZONE HIGH DOSE FLUZONE HIGH DOSE 2022-04-01 Completed [facility] - OVER 65 OVER 65 14:49:00 [facility] FLUZONE HIGH DOSE FLUZONE HIGH DOSE 2022-04-01 Completed [facility] - OVER 65 OVER 65 14:49:00 [facility] Prevnar 20 (PCV20) Prevnar 20 (PCV20) 2022-04-01 Completed [facility] - 14:48:00 [facility] Prevnar 20 (PCV20) Prevnar 20 (PCV20) 2022-04-01 Completed [facility] - 14:48:00 [facility] Prevnar 20 (PCV20) Prevnar 20 (PCV20) 2022-04-01 Completed [facility] - 14:48:00 [facility] Prevnar 20 (PCV20) Prevnar 20 (PCV20) 2022-04-01 Completed [facility] - 14:48:00 [facility] Prevnar 20 (PCV20) Prevnar 20 (PCV20) 2022-04-01 Completed [facility] - 14:48:00 [facility] Prevnar 20 (PCV20) Prevnar 20 (PCV20) 2022-04-01 [facility]pleted [facility] 14:48:00 [facility] Prevnar 20 (PCV20) Prevnar 20 (PCV20) 2022-04-01 Completed [facility] - 14:48:00 [facility] Prevnar 20 (PCV20) Prevnar 20 (PCV20) 2022-04-01 Completed [facility] - 14:48:00 [facility] Prevnar 20 (PCV20) Prevnar 20 (PCV20) 2022-04-01 Completed [facility] - 14:48:00 [facility] Prevnar 20 (PCV20) Prevnar 20 (PCV20) 2022-04-01 Completed [facility] - 14:48:00 [facility] Prevnar 20 (PCV20) Prevnar 20 (PCV20) 2022-04-01 Completed [facility] - 14:48:00 [facility] Prevnar 20 (PCV20) Prevnar 20 (PCV20) 2022-04-01 Completed [facility] - 14:48:00 [facility] Prevnar 20 (PCV20) Prevnar 20 (PCV20) 2022-04-01 Completed [facility] - 14:48:00 [facility] Prevnar 20 (PCV20) Prevnar 20 (PCV20) 2022-04-01 Completed [facility] - 14:48:00 [facility] Prevnar 20 (PCV20) Prevnar 20 (PCV20) 2022-04-01 Completed [facility] - 14:48:00 [facility] Prevnar 20 (PCV20) Prevnar 20 (PCV20) 2022-04-01 Completed [facility] - 14:48:00 [facility] Prevnar 20 (PCV20) Prevnar 20 (PCV20) 2022-04-01 Completed [facility] - 14:48:00 [facility] Prevnar 20 (PCV20) Prevnar 20 (PCV20) 2022-04-01 Completed [facility] - 14:48:00 [facility] Prevnar 20 (PCV20) Prevnar 20 (PCV20) 2022-04-01 Completed [facility] - 14:48:00 [facility] SARS-COV-2 COVID-19 2021-07-30 Completed [facility] PFIZER VACCINE 00:00:[address] [facility] SARS-COV-2 COVID-19 2021-07-30 Completed [facility] of PFIZER VACCINE 00:00:[address] [facility] SARS-COV-2 COVID-19 2020-11-05 Completed [facility] of PFIZER VACCINE 00:00:[address] [facility] SARS-COV-2 COVID-19 2020-11-05 Completed [facility] of PFIZER VACCINE 00:00:[address] [facility] Covid-19 Vaccine 2020-09-[address] [facility] [address] [facility] dose 2020-04-11 Completed [facility] - 15:24:00 [facility] Afluria single dose Afluria single dose 2020-04-11 Completed [facility] - 15:24:00 [facility] Afluria single dose Afluria single dose 2020-04-11 Completed [facility] - 15:24:00 [facility] Afluria single dose Afluria single dose 2020-04-11 Completed [facility] - 15:24:00 [facility] Afluria single dose Afluria single dose 2020-04-11 Completed [facility] - 15:24:00 [facility] Afluria single dose Afluria single dose 2020-04-11 Completed [facility] - 15:24:00 [facility] Afluria single dose Afluria single dose 2020-04-11 Completed [facility] - 15:24:00 [facility] Afluria single dose Afluria single dose 2020-04-11 Completed [facility] - 15:24:00 [facility] Afluria single dose Afluria single dose 2020-04-11 Completed [facility] - 15:24:00 [facility] Afluria single dose Afluria single dose 2020-04-11 Completed [facility] - 15:24:00 [facility] Afluria single dose Afluria single dose 2020-04-11 Completed [facility] - 15:24:00 [facility] Afluria single dose Afluria single dose 2020-04-11 Completed [facility] - 15:24:00 [facility] Afluria single dose Afluria single dose 2020-04-11 Completed [facility] - 15:24:00 [facility] Afluria single dose Afluria single dose 2020-04-11 Completed [facility] - 15:24:00 [facility] Afluria single dose Afluria single dose 2020-04-11 Completed [facility] - 15:24:00 [facility] Afluria single dose Afluria single dose 2020-04-11 Completed [facility] - 15:24:00 [facility] Afluria single dose Afluria single dose 2020-04-11 Completed [facility] - 15:24:00 [facility] Afluria single dose Afluria single dose 2020-04-11 Completed [facility] - 15:24:00 [facility] Afluria single dose Afluria single dose 2020-04-11 Completed [facility] - 15:24:00 [facility] Afluria single dose Afluria single dose 2020-04-11 Completed [facility] - 15:24:00 [facility] Afluria single dose Afluria single dose 2020-04-11 Completed [facility] - 15:24:00 [facility] Afluria single dose Afluria single dose 2020-04-11 Completed [facility] - 15:24:00 [facility] Afluria single dose Afluria single dose 2020-04-11 Completed [facility] - 15:24:00 [facility] Afluria single dose Afluria single dose 2020-04-11 Completed [facility] - 15:24:00 [facility] Afluria single dose Afluria single dose 2020-04-11 Completed [facility] - 15:24:00 [facility] Afluria single dose Afluria single dose 2020-04-11 Completed [facility] - 15:24:00 [facility] Afluria single dose Afluria single dose 2020-04-11 Completed [facility] - 15:24:00 [facility] Afluria single dose Afluria single dose 2020-04-11 Completed [facility] - 15:24:00 [facility] Afluria single dose Afluria single dose 2020-04-11 Completed [facility] - 15:24:00 [facility] Afluria single dose Afluria single dose 2020-04-11 Completed [facility] - 15:24:00 [facility] Afluria single dose Afluria single dose 2020-04-11 Completed [facility] - 15:24:00 [facility] Afluria single dose Afluria single dose 2020-04-11 Completed [facility] - 15:24:00 [facility] Afluria single dose Afluria single dose 2020-04-11 Completed [facility] - 15:24:00 [facility] Afluria single dose Afluria single dose 2020-04-11 Completed [facility] - 15:24:00 [facility] Afluria single dose Afluria single dose 2020-04-11 Completed [facility] - 15:24:00 [facility] Afluria single dose Afluria single dose 2020-04-11 Completed [facility] 15:24:00 [facility] Vital Signs Vital Name Observation Time Observation Value Comments Source HEIGHT 2021-03-18 14:49:00 152.4 cm WEIGHT 2021-03-18 14:49:00 68.04 kg height 2022-08-05 13:00:00 65 [in_i] [facility] weight 2022-08-05 13:00:00 150.6 [lb_av] [facility] temperature 2022-08-05 13:00:00 97.9 [degF] [facility] bmi 2022-08-05 13:00:00 25.06 kg/m2 [facility] oximetry 2022-08-05 13:00:00 98 % [facility] respiratory rate 2022-08-05 13:00:00 17 /min Comm on [facility] blood pressure 2022-08-05 13:00:00 138 mm[Hg] [facility] - systolic [facility] blood pressure 2022-08-05 13:00:00 88 mm[Hg] [facility] - diastolic [facility] height 2022-07-23 08:40:00 65 [in_i] [facility] weight 2022-07-23 08:40:00 149.0 [lb_av] [facility] temperature 2022-07-23 08:40:00 97.4 [degF] [facility] bmi 2022-07-23 08:40:00 24.79 kg/m2 [facility] oximetry 2022-07-23 08:40:00 97 % [facility] respiratory rate 2022-07-23 08:40:00 18 /min Comm on [facility] blood pressure 2022-07-23 08:40:00 137 mm[Hg] [facility] - systolic [facility] blood pressure 2022-07-23 08:40:00 79 mm[Hg] [facility] - diastolic [facility] height 2022-07-16 09:30:00 65 [in_i] [facility] weight 2022-07-16 09:30:00 150 [lb_av] [facility] temperature 2022-07-16 09:30:00 98.3 [degF] [facility] bmi 2022-07-16 09:30:00 24.96 kg/m2 [facility] blood pressure 2022-07-16 09:30:00 124 mm[Hg] [facility] - systolic [facility] blood pressure 2022-07-16 09:30:00 72 mm[Hg] [facility] - diastolic [facility] height 2022-06-24 09:20:00 65 [in_i] [facility] weight 2022-06-24 09:20:00 153.0 [lb_av] [facility] temperature 2022-06-24 09:20:00 97.7 [degF] [facility] bmi 2022-06-24 09:20:00 25.46 kg/m2 [facility] oximetry 2022-06-24 09:20:00 99 % [facility] respiratory rate 2022-06-24 09:20:00 17 /min [facility] blood pressure 2022-06-24 09:20:00 117 mm[Hg] [facility] - systolic [facility] blood pressure 2022-06-24 09:20:00 64 mm[Hg] Common [facility] - diastolic [facility] height 2022-04-16 10:00:00 65 [in_i] [facility] weight 2022-04-16 10:00:00 152.6 [lb_av] [facility] temperature 2022-04-16 10:00:00 97.1 [degF] [facility] bmi 2022-04-16 10:00:00 25.39 kg/m2 [facility] blood pressure 2022-04-16 10:00:00 139 mm[Hg] [facility] - systolic [facility] blood pressure 2022-04-16 10:00:00 72 mm[Hg] [facility] - diastolic [facility] height 2022-04-01 09:00:00 65 [in_i] [facility] weight 2022-04-01 09:00:00 152 [lb_av] [facility] temperature 2022-04-01 09:00:00 97.1 [degF] [facility] bmi 2022-04-01 09:00:00 25.29 kg/m2 [facility] oximetry 2022-04-01 09:00:00 98 % [facility] respiratory rate 2022-04-01 09:00:00 16 /min Comm on [facility] blood pressure 2022-04-01 09:00:00 139 mm[Hg] [facility] - systolic [facility] blood pressure 2022-04-01 09:00:00 70 mm[Hg] [facility] - diastolic [facility] height 2022-04-01 09:00:00 65 [in_i] [facility] weight 2022-04-01 09:00:00 152 [lb_av] [facility] temperature 2022-04-01 09:00:00 97.1 [degF] [facility] bmi 2022-04-01 09:00:00 25.29 [facility]2 [facility]01 09:00:00 98 % [facility] respiratory rate 2022-04-01 09:00:00 16 /min Comm on [facility] blood pressure 2022-04-01 09:00:00 139 mm[Hg] Common [facility] - systolic [facility] blood pressure 2022-04-01 09:00:00 70 mm[Hg] Common [facility] - diastolic [facility] height 2022-02-17 16:40:00 65 [in_i] [facility] weight 2022-02-17 16:40:00 154.6 [lb_av] [facility] temperature 2022-02-17 16:40:00 98.2 [degF] Common [facility] bmi 2022-02-17 16:40:00 25.72 kg/m2 [facility] oximetry 2022-02-17 16:40:00 95 % [facility] respiratory rate 2022-02-17 16:40:00 16 /min Comm on [facility] blood pressure 2022-02-17 16:40:00 109 mm[Hg] Common [facility] - systolic [facility] blood pressure 2022-02-17 16:40:00 53 mm[Hg] Common [facility] - diastolic [facility] Systolic blood 2022-01-30 14:24:00 131 mm[Hg] [facility] Diastolic blood 2022-01-30 14:24:00 76 mm[Hg] [facility] Heart rate 2022-01-30 14:24:00 56 /min [facility] Respiratory rate 2022-01-30 14:24:00 18 /[facility] 2022-01-30 14:24:00 152.4 cm [facility] Body weight 2022-01-30 14:24:00 68.947 kg [facility] BMI 2022-01-30 14:24:00 29.69 kg/m2 [facility] height 2021-11-13 09:40:00 65 [in_i] [facility] weight 2021-11-13 09:40:00 151.0 [lb_av] Common [facility] temperature 2021-11-13 09:40:00 97.4 [degF] [facility] bmi 2021-11-13 09:40:00 25.12 kg/m2 [facility] oximetry 2021-11-13 09:40:00 100 % [facility] respiratory rate 2021-11-13 09:40:00 17 /min Comm on [facility] blood pressure 2021-11-13 09:40:00 137 mm[Hg] [facility] - systolic [facility] blood pressure 2021-11-13 09:40:00 65 mm[Hg] Common [facility] - diastolic [facility] height 2021-09-30 08:30:00 65 [in_i] [facility] weight 2021-09-30 08:30:00 153 [lb_av] [facility] temperature 2021-09-30 08:30:00 98 [degF] [facility] bmi 2021-09-30 08:30:00 25.46 kg/m2 [facility] blood pressure 2021-09-30 08:30:00 120 mm[Hg] Common [facility] - systolic [facility] blood pressure 2021-09-30 08:30:00 80 mm[Hg] Common [facility] - diastolic [facility] WEIGHT 2021-01-17 15:32:00 66.543 kg [...] breast Medical C enter (procedure) [code = 406398277] Future Scheduled 2022-11-11 Screening for malignant [facility] Test 00:00:00 neoplasm of breast Medical C enter (procedure) [code = 147145360] Future Scheduled 2022-11-11 Screening for malignant [facility] Test 00:00:00 neoplasm of breast Medical C enter (procedure) [code = 678472158] Future Scheduled 2022-07-[address] [facility] 00:00:00 2) [code = SHINGLES [facility] VACCINES (1 of 2)] Future Scheduled 2006 SHINGLES VACCINES ([address] [facility] Test 00:00:00 2) [code = SHINGLES [facility] VACCINES (1 of 2)] Future Scheduled 2006 SHINGLES VACCINES ([address] [facility] Test 00:00:00 2) [code = SHINGLES [facility] VACCINES (1 of 2)] Future Scheduled 2001 Lipid panel (procedure) [facility] Test 00:00:00 [code = 15365550] Medical Ce nter Future Scheduled 2001 Lipid panel (procedure) [facility] Test 00:00:00 [code = 47337118] [facility] Ce [facility] Future Scheduled 2001 Lipid panel (procedure) [facility] Test 00:00:00 [code = 10953804] Medical Ce [facility]ter Future Scheduled 1977 Screening for malignant [facility] Test 00:00:00 neoplasm of cervix Medical C enter (procedure) [code = 360896041] Future Scheduled 1977 Screening for malignant [facility] Test 00:00:00 neoplasm of cervix Medical C enter (procedure) [code = 589096930] Future Scheduled 1977 Screening for malignant [facility] Test 00:00:00 neoplasm of cervix Medical C enter (procedure) [code = 334244355] Future Scheduled 1975-12-18 DTAP/TDAP/TD VACCINES [facility] [...] [facility] Test 00:00:00 [code = CT Colonography [facility] (combo)] Future Scheduled 1956 Screening for malignant [facility] Test 00:00:00 neoplasm of colon Medical Ce [facility]ter (procedure) [code = 476752184] Future Scheduled 1956 Screening for malignant [facility] Test 00:00:00 neoplasm of colon Medical Ce [facility]ter (procedure) [code = 048041797] Future Scheduled 1956 DXA SCAN [code = DXA [facility] Test 00:00:00 SCAN] Medical Center Future Scheduled 1956 Screening for malignant [facility] Test 00:00:00 neoplasm of colon Medical Ce [facility]ter (procedure) [code = 259765157] Future Scheduled 1956 Screening for malignant [facility] Test 00:00:00 neoplasm of colon Medical Ce nter (procedure) [code = 178713371] Future Scheduled 1956 Sigmoidoscopy [code = [facility]] Medical Cente r Future Scheduled 1956 CT Colonography (combo) [facility] Test 00:00:00 [code = CT Colonography [facility] (combo)] Future Scheduled 1956 Screening for malignant [facility] Test 00:00:00 neoplasm of colon Medical Ce [facility]ter (procedure) [code = 016201345] Future Scheduled 1956 Screening for malignant [facility] Test 00:00:00 neoplasm of colon Medical Ce nter (procedure) [code = 159680765] Future Scheduled 1956 DXA SCAN [code = DXA [facility] Test 00:00:00 SCAN] Medical Center Future Scheduled 1956 Screening for malignant [facility] Test 00:00:00 neoplasm of colon Medical Ce nter (procedure) [code = 811600179] Future Scheduled 1956 Screening for malignant [facility] Test 00:00:00 neoplasm of colon Medical Ce nter (procedure) [code = 602371009] Future Scheduled 1956 Sigmoidoscopy [code = [facility] S[facility]oscopy] Medical Cente r Future Scheduled 1956 CT Colonography (combo) [facility] Test 00:00:00 [code = CT Colonography [facility] (combo)] Future Scheduled 1956 Screening for malignant [facility] Test 00:00:00 neoplasm of colon Medical Ce nter (procedure) [code = 006723760] Future Scheduled 1956 Screening for malignant [facility] Test 00:00:00 neoplasm of colon Medical Ce nter (procedure) [code = 770848134] Future Scheduled 1956 DXA SCAN [code = DXA [facility] Test 00:00:00 SCAN] Medical Center Future Scheduled 1956 Screening for malignant [facility] Test 00:00:00 neoplasm of colon Medical Ce nter (procedure) [code = 846942918] Future Scheduled 1956 Screening for malignant [facility] Test 00:00:00 neoplasm of colon Medical Ce nter (procedure) [code = 821413142] Future Scheduled 1956 Sigmoidoscopy [code = [facility] S[facility]oscopy] Medical Cente r Encounters Start End Encounter Admission Attending Care Care Encounter Source Date/Time Date/Time Type Type Clinicians Facility Department ID 2022-08-11 Outpatient Penaloza, STLMLC STLMLC [id number] Common 10:18:00 Bear [id number] [facility] 2022-08-07 Outpatient Penaloza, STLMLC STLMLC [id number] Common 13:35:00 Bear [id number] [facility] 2022-08-04 Outpatient Penaloza, STLMLC STLMLC [id number] Common 09:56:00 Bear [id number] [facility] 2022-07-22 Outpatient Penaloza, STLMLC STLMLC [id number] Common 10:02:00 [facility] [address] [facility] 2022-07-21 Outpatient Penaloza, STLMLC STLMLC [id number] Common 07:19:00 Bear [address] [facility] 2022-07-16 Outpatient Penaloza, STLMLC STLMLC [id number] Common 15:35:01 Bear [id number] [facility] 2022-07-01 Outpatient Penaloza, STLMLC STLMLC [id number] Common 08:01:00 Bear [id number] [facility] 2022-06-02 Outpatient Penaloza, STLMLC STLMLC [id number] Common 13:56:00 Bear [address] [facility] 2022-05-12 Outpatient Penaloza, STLMLC STLMLC [id number] Common 13:44:01 Bear [facility] 2022-04-30 Outpatient Penaloza, STLMLC STLMLC [id number] Common 16:27:01 Bear [facility] 2022-04-16 Outpatient Penaloza, STLMLC STLMLC [id number] Common 11:34:02 Bear [facility] 2022-04-02 Outpatient Penaloza, STLMLC STLMLC [id number] Common 08:48:01 Bear [facility] 2022-02-19 Outpatient Penaloza, STLMLC STLMLC [id number] Common 09:49:00 Bear [facility] 2021-12-22 Outpatient Penaloza, STLMLC STLC [id number] Common 11:45:01 Bear [facility] 2021-11-14 Outpatient Penaloza, STLMLC STLC [id number] Common 10:50:01 Bear [facility] 2021-09-30 Outpatient Penaloza, STLMLC STLMLC [id number] Common 08:18:02 Bear [facility] 2021-09-04 Outpatient Penaloza, STLMLC STLMLC [id number] Common 13:59:01 Bear [facility] 2021-08-06 Outpatient Penaloza, STLMLC STLMLC [id number] Common 14:24:58 Bear [id number] [facility] 2021-08-06 Outpatient Penaloza, STLMLC STLMLC [id number] Common 13:55:45 Bear [facility] 2021-08-06 Outpatient Penaloza, STLMLC STLMLC [id number] Common 13:36:10 Bear [facility] 2021-08-06 Outpatient Penaloza, STLMLC STLMLC [id number] Common 13:03:21 Bear [id number] [facility] 2021-08-06 Outpatient Penaloza, STLMLC STLC [id number] Common 12:34:38 Bear [id number] [facility] 2021-08-06 Outpatient Penaloza, STLMLC STLC [id number] Common 12:24:42 Bear [address]86[address] [facility] 2021-08-06 Outpatient Penaloza, STLMLC STLC [id number] Common 12:03:57 Bear 15065 [facility] 2021-08-06 Outpatient Penaloza, STLMLC STLC [id number] Common 11:58:21 Bear 20803 [facility] 2021-08-06 Outpatient Penaloza, STLMLC STLC [id number] Common 11:50:41 Bear [id number] [facility] 2021-08-06 Outpatient Penaloza, STLC STLC [id number] Common 11:45:22 Bear 85229 [facility] 2021-08-06 [facility] [id number] Common 11:40:24 Bear 76247 [facility] 2021-08-06 Outpatient Penaloza, STLC STLC [id number] Common 11:39:41 Bear [id number] [facility] 2021-08-06 Outpatient Penaloza, STLC STLC [id number] Common 11:30:42 Bear [id number] [facility] 2021-08-06 Outpatient Penaloza, STLC STLC [id number] Common 11:28:02 Bear [id number] [facility] 2021-08-06 Outpatient Penaloza, STLC STLC [id number] Common 11:20:13 Bear 663[address] [facility] 2021-04-20 Outpatient MINDIKOGLU, [facility] Surgery [id number] [facility] 10:00:19 YOLANDE 2021-04-19 Outpatient MINDIKOGLU, [facility] [id number] [facility] 04:58:12 YOLANDE 2022-08-17 2022-08-17 (TEL) STLMLC STLMLC [id number] Co mmon 00:00:00 00:00:00 [facility] 2022-08-14 2022-08-14 (TEL) STLMLC STLMLC [id number] Co mmon 00:00:00 00:00:00 [facility] 2022-08-11 2022-08-11 (TEL) STLMLC STLMLC [id number] Co [facility]mon 00:00:00 00:00:00 [facility] 2022-08-07 2022-08-07 (TEL) STLMLC STLMLC [id number] Co mmon 00:00:00 00:00:00 [facility] 2022-08-05 2022-08-05 OFFICE STLMLC STLMLC [id number] Co mmon 00:00:00 00:00:00 VISIT [facility] ESTAB PT - CHI LEVEL 4 [facility] 2022-08-03 2022-08-03 (TEL) STLMLC STLMLC [id number] Co mmon 00:00:00 00:00:00 [facility] 2022-07-31 2022-07-31 (TEL) STLMLC STLMLC [id number] [facility]mon 00:00:00 00:00:00 [facility] 2022-07-28 2022-07-28 (TEL) STLMLC STLMLC [id number] Co mmon 00:00:00 00:00:00 [facility] 2022-07-23 2022-07-23 OFFICE STLMLC STLMLC [id number] [facility] 00:00:00 00:00:00 [facility] - [facility] 2022-07-16 2022-07-16 OFFICE STLMLC STLMLC [id number] Co mmon 00:00:00 00:00:00 [facility] - [facility]I L[facility] 2022-06-24 2022-06-24 OFFICE STLMLC STLMLC [id number] Co mmon 00:00:00 00:00:00 VISIT [facility] PT LEVEL 3 - [facility] 2022-05-12 2022-05-12 (TEL) STLMLC STLMLC [id number] Co mmon 00:00:00 00:00:00 [facility] 2022-04-16 2022-04-16 OFFICE STLMLC STLMLC [id number] Co mmon 00:00:00 00:00:00 VISIT [facility] PT LEVEL 4 [facility] 2022-04-01 2022-04-01 SUB ANNUAL STLMLC STLMLC [id number] Common 00:00:00 00:00:00 [facility] VIS[facility] 2022-04-01 2022-04-01 (TEL) STLMLC STLMLC [id number] Co mmon 00:00:00 00:00:00 [facility] 2022-04-01 2022-04-01 OFFICE STLMLC STLMLC [id number] Co mmon 00:00:00 00:00:00 VISIT [facility] PT - CHI LEVEL 4 [facility] 2022-03-25 2022-03-25 (TEL) STLMLC STLMLC [id number] Co mmon 00:00:00 00:00:00 [facility] 2022-02-17 2022-02-17 OFFICE STLMLC STLMLC [id number] Co mmon 00:00:00 00:00:00 VISIT [facility] PT - CHI LEVEL [address] [place] [address] 2022-02-13 2022-02-13 (TEL) STLMLC STLMLC [id number] Co mmon 00:00:00 00:00:00 [facility] 2022-02-12 2022-02-12 (TEL) STLMLC STLMLC [id number] Co mmon 00:00:00 00:00:00 [facility] 2022-01-30 2022-01-30 Office ULISES Diallo 1.2.840.114 [id number] Univers 09:00:00 09:59:37 Visit Adelaidedean YANES 350.1.13.10 Angela 4.2.7.2.686 Rajwinder JOHNS [phone] [address] 2022-01-30 2022-01-30 Outpatient R GOYO [facility] [id number] Univers 09:00:00 09:59:37 ADELAIDE zelaya [facility] 2022-01-30 2022-01-30 [id number] Univers 09:00:00 09:00:00 ADELAIDE zelaya [facility] 2022-01-14 2022-01-14 [facility] MARE[facility] [id number] Univers 10:40:00 16:05:00 VERONA muniz [facility] 2022-01-14 2022-01-14 [facility] 1.2.840.114 [id number] Univers 10:40:00 16:05:00 Encounter Verona YANES 350.1.13.10 [place] [phone] [facility] [address] 2022-01-14 2022-01-14 [facility] [id number] Univers 10:40:00 16:05:00 VERONA muniz [facility] 2022-01-14 2022-01-14 [facility] 1.2.332.458 [id number] Univers 11:50:00 14:26:00 Verona YANES 350.1.13.10 i [place] [id number] [facility] [address] 2022-01-14 2022-01-14 Orders Doctor YANIRA 1.2.840.114 [id number] Univers 00:00:00 00:00:00 Only Unassigned, STACIE 350.1.13.10 ity of [place] [facility] 4.2.7.2.686 [place] [phone] [place] [address] [address] 2022-01-13 2022-01-13 Laboratory Only, Adc Test [facility] 1.2.840. 114 [id number] Univers 15:00:00 15:15:00 Only Roni [place] 350.1.13.10 [place] [id number] [facility] [address] 2022-01-13 2022-01-13 Outpatient R SERENA [facility] [id number] Univers 15:00:00 15:00:00 RONI norman [facility] 2022-01-13 2022-01-13 Outpatient R SERENA [facility] [id number] Univers 15:00:00 15:00:00 RONI [facility] 2022-01-13 2022-01-13 Orders Doctor YANIRA 1.2.840.114 [id number] Univers 00:00:00 00:00:00 Only Unassigned, STACIE 350.1.13.10 ity of [place] [facility] 4.2.7.2.686 [place] as [phone] [facility] [address] 2022-01-07 2022-01-07 [facility] 1.2.840.114 [id number] Univers 00:00:00 00:00:00 Surgery Verona YANES 350.1.13.10 [place] PROF[place]IO [id number] [place] dical NAL [address] [place] [address] 2022-01-06 2022-01-06 Outpatient R MICHELLE [facility] [id number] Univers 14:00:00 15:04:26 VERONA norman [facility] 2022-01-06 2022-01-06 Office [facility] 1.2.318.035 [id number] Univers 14:00:00 15:04:26 Visit Verona YANES 350.1.13.10 i [place] PROFESS[place] [id number] T[place] dical NAL [address] [place] [address] 2022-01-06 2022-01-06 Outpatient R MICHELLE [facility] [id number] Univers 14:00:00 15:04:26 VERONA cristy [facility] 2022-01-06 2022-01-06 Outpatient R MICHELLE [facility] [id number] Univers 14:00:00 15:04:26 VERONA muniz [facility] 2022-01-06 2022-01-06 Orders Doctor YANIRA 1.2.840.114 [id number] Univers 00:00:00 00:00:00 Only Unassigned, STACIE 350.1.13.[address] [facility] 4.2.7.2.686 [place] [phone] [place] [address] [address] 2021-12-19 2021-12-19 (TEL) STLMLC STLMLC [id number] Co mmon 00:00:00 00:00:00 [facility] 2021-12-09 2021-12-09 Orders Doctor YANIRA 1.2.840.114 [id number] Univers 00:00:00 00:00:00 Only Unassigned, STACIE 350.1.13.[address] [facility] 4.2.7.2.686 [place] [id number] [place] [address] [address] 2021-12-02 2021-12-02 (TEL) STLMLC STLMLC [id number] Co mmon 00:00:00 00:00:00 [facility] 2021-12-02 2021-12-02 (TEL) STLMLC STLMLC [id number] Co mmon 00:00:00 00:00:00 [facility] 2021-11-19 2021-11-19 (TEL) STLMLC STLMLC [id number] Co mmon 00:00:00 00:00:00 [facility] 2021-11-17 2021-11-17 (TEL) STLMLC STLMLC [id number] Co mmon 00:00:00 00:00:00 [facility] 2021-11-13 2021-11-13 OFFICE STLMLC STLMLC [id number] Co mmon 00:00:00 00:00:00 VISIT [facility] [address] [facility] 2021-09-30 2021-09-30 (TEL) STLMLC STLMLC [id number] Co mmon 00:00:00 00:00:00 [facility] 2021-09-30 2021-09-30 OFFICE STLMLC STLMLC [id number] Co mmon 00:00:00 00:00:00 VISIT [facility] LEVEL [address] [facility] 2021-09-24 2021-09-24 (TEL) STLMLC STLMLC [id number] Co mmon 00:00:00 00:00:00 [facility] 2021-08-18 2021-08-18 (TEL) STLMLC STLMLC [id number] Co mmon 00:00:00 00:00:00 [facility] 2021-07-30 2021-07-30 Imm/Inj Nurse, Adc Pob Immunization [facility] 1.2.840.114 [id number] Univers 09:00:00 09:03:51 Visit Jono Little 350.1.13 .10 cristy [facility] 4.2.7.2.686 Rajwinder JOHNS [id number] [address] 2021-07-30 2021-07-30 Outpatient Koffi LITTLE [facility] [id number] Univers 09:00:00 09:00:00 JONO muniz [facility] 2021-06-16 2021-06-16 (TEL) STLMLC STLMLC [id number] Co mmon 00:00:00 00:00:00 [facility] 2021-06-04 2021-06-04 (TEL) STLMLC STLMLC [id number] Co mmon 00:00:00 00:00:00 [facility] 2021-05-12 2021-05-12 Outpatient EL CHA, SLE SLE [id number] SLE 00:00:00 00:00:00 YOLANDE 2021-05-02 2021-05-02 Outpatient EL MINDIKOGLU, SLEH SLEH [id number] SLEH 00:00:00 00:00:00 YOLANDE 2021-04-18 2021-04-18 Outpatient EL MINDIKOGLU, SLEH SLEH [id number] SLEH 00:00:00 00:00:00 YOLANDE 2021-04-18 2021-04-18 Outpatient EL SLEH SLE [id number] SLEH 00:00:00 00:00:00 2021-04-16 2021-04-16 Outpatient JOVAN EUBANKS SLEH SLEH [id number] SLEH 00:00:00 00:00:00 YOLANDE 2021-04-16 2021-04-16 Outpatient EL SLEH SLEH [id number] SLEH 00:00:00 00:00:00 2021-04-03 2021-04-03 (TEL) STLMLC STLMLC [id number] Co mmon 00:00:00 00:00:00 [facility] 2021-03-18 2021-03-18 Outpatient EL SLEH SLEH [id number] SLEH 00:00:00 00:00:00 2021-03-11 2021-03-11 [facility] [id number] Univers 00:00:00 00:00:00 JOSH muniz [facility] 2021-02-18 2021-02-18 Outpatient STLMLC STLMLC [id number] Common 00:00:00 00:00:00 [facility] 2021-02-10 2021-02-10 Outpatient STLMLC STLMLC [id number] Common 00:00:00 00:00:00 [facility] 2021-02-04 2021-02-04 Outpatient STLMLC STLMLC [id number] Common 00:00:00 00:00:00 [facility] 2021-01-20 2021-01-20 Outpatient STLMLC STLMLC [id number] Common 00:00:00 00:00:00 [facility] 2021-01-17 2021-01-17 Outpatient JOVAN EUBANKS SLE SLEH [id number] SLEH 15:27:46 15:27:46 YOLANDE 2021-01-14 2021-01-14 Outpatient STLMLC STLMLC [id number] Common 00:00:00 00:00:00 [facility] 2021-01-01 2021-01-01 Outpatient STLMLC STLMLC [id number] Common 00:00:00 00:00:00 [facility] 2020-12-24 2020-12-24 [facility] [id number] Univers 00:00:00 00:00:00 JOSH muniz [facility] 2020-11-18 2020-11-18 Outpatient STLMLC STLC [id number] Common 00:00:00 00:00:00 [facility] 2020-11-12 2020-11-12 Outpatient CHA SLEHerlinda SLE [id number] SLEH 00:00:00 00:00:00 YOLANDE 2020-11-11 2020-11-11 Outpatient Koffi SETH [facility] [id number] Univers 00:00:00 00:00:00 JOSH muniz [facility] 2020-11-05 2020-11-05 Outpatient Koffi LITTLE [facility] [id number] Univers 10:20:00 10:20:00 JONO muniz [facility] 2020-11-01 2020-11-01 Outpatient EL SLE SLE [id number] SLEH 00:00:00 00:00:00 2020-10-15 2020-10-15 Outpatient Koffi SETH [facility] [id number] Univers 00:00:00 00:00:00 JOSH muniz [facility] 2020-09-20 2020-09-20 Outpatient JOVAN EUBANKS, SLE SLE [id number] SLEH 00:00:00 00:00:00 YOLANDE 2020-09-20 2020-09-20 Outpatient EL SLEH SLE [id number] SLEH 00:00:00 00:00:00 2020-09-13 2020-09-13 Outpatient EL CHA, SLEH SLE [id number] SLEH 00:00:00 00:00:00 YOLANDE 2020-09-10 2020-09-10 Outpatient Koffi SETH [facility] [id number] Univers 14:00:00 14:00:00 JOSH [facility] 2020-09-09 2020-09-09 Outpatient STLMLC STLC [id number] Common 00:00:00 00:00:00 [facility] 2020-09-05 2020-09-05 Outpatient STLMLC STLC [id number] Common 00:00:00 00:00:00 [facility] 2020-08-13 2020-08-13 Outpatient STLMLC STLMLC [id number] Common 00:00:00 00:00:00 [facility] 2020-08-06 2020-08-06 Outpatient STLMLC STLMLC [id number] Common 00:00:00 00:00:00 [facility] 2020-08-05 2020-08-05 Outpatient STLMLC STLMLC [id number] Common 00:00:00 00:00:00 [facility] 2020-07-31 2020-07-31 Outpatient JOVAN EUBANKS, SLEH SLEH [id number] SLEH 00:00:00 00:00:00 YOLANDE 2020-07-24 2020-07-24 Outpatient JOVAN EUBANKS SLEH SLEH [id number] SLEH 00:00:00 00:00:00 YOLANDE 2020-07-19 2020-07-19 Outpatient STLMLC STLMLC [id number] Common 00:00:00 00:00:00 [facility] 2020-06-17 2020-06-17 Outpatient STLMLC STLMLC [id number] Common 00:00:00 00:00:00 [facility] 2020-06-13 2020-06-13 Outpatient STLMLC STLMLC [id number] Common 00:00:00 00:00:00 [facility] 2020-06-05 2020-06-05 Outpatient STLMLC STLMLC [id number] Common 00:00:00 00:00:00 [facility] 2020-05-22 2020-05-22 Outpatient JOVAN EUBANKS SLEH SLEH [id number] SLEH 00:00:00 00:00:00 YOLANDE 2020-05-21 2020-05-21 Outpatient STLMLC STLMLC [id number] Common 00:00:00 00:00:00 [facility] 2020-05-20 2020-05-20 Outpatient STLMLC STLMLC [id number] Common 00:00:00 00:00:00 [facility] 2020-05-09 2020-05-09 Outpatient STLMLC STLMLC [id number] Common 00:00:00 00:00:00 [facility] 2020-05-06 2020-05-06 Outpatient STLMLC STLMLC [id number] Common 00:00:00 00:00:00 [facility] 2020-05-01 2020-05-01 Outpatient JOVAN EUBANKS [facility] SLE [id number] SLE 00:00:00 00:00:00 [facility] 2020-04-25 2020-04-25 Outpatient STLMLC STLMLC [id number] Common 00:00:00 00:00:00 [facility] 2020-04-24 2020-04-24 Outpatient JOVAN EUBANKS [facility] SLE [id number] SLE 00:00:00 00:00:00 [facility] 2020-04-15 2020-04-15 Outpatient STLMLC STLMLC [id number] Common 00:00:00 00:00:00 [facility] 2020-04-11 2020-04-11 Outpatient STLMLC STLMLC [id number] Common 00:00:00 00:00:00 [facility] 2020-04-08 2020-04-08 Outpatient STLMLC STLMLC [id number] Common 00:00:00 00:00:00 [facility] 2020-04-04 2020-04-04 Outpatient STLMLC STLMLC [id number] Common 00:00:00 00:00:00 [facility] 2020-03-26 2020-03-26 [facility] [id number] Common 15:20:00 15:20:[address] [facility] 2020-03-22 2020-03-22 Out[facility] [id number] Common 13:35:00 13:35:[address] [facility] 2020-02-14 2020-02-14 Out[facility] [id number] Common 13:51:00 13:51:[address] [facility] 2020-01-10 2020-01-10 Out[facility] [id number] Common 10:00:00 10:00:[address] [facility] 2020-01-10 2020-01-10 Out[facility] [id number] Common 10:00:00 10:00:[address] [facility] 2020-01-09 2020-01-09 Out[facility] [id number] Common 13:21:00 13:21:[address] [facility] 2019-12-29 2019-12-29 Out[facility] [id number] Common 14:26:00 14:26:[address] [facility] 2019-12-20 2019-12-20 Out[facility] [id number] Common 10:45:00 10:45:[address] [facility] 2019-12-18 2019-12-18 Out[facility] [id number] Common 17:06:00 17:06:[address] [facility] 2019-11-23 2019-11-23 Out[facility] [id number] Common 08:30:00 08:30:[address] [facility] 2019-11-10 2019-11-10 Out[facility] [id number] Common 09:00:00 09:00:[address] [facility] 2019-08-15 2019-08-15 Telephone [facility] 1.2.840.114 [id number] 00:00:00 00:00:00 Josh Esteves DEPUTY ASSESSOR 350.1.13.10 REGIONAL 4.2.7.2.686 MATERNAL [id number] & CHILD [address] [place] [address] 2019-08-04 2019-08-04 [facility]phone [facility] [id number] 00:00:00 00:00:00 Epifanio Rain DEPUTY ASSESSOR 350.1.13.10 REGIONAL 4.2.7.2.686 MATERNAL [id number] & CHILD 107 [facility] 2019-07-28 2019-07-28 Orders Doctor YANIRA 1.2.840.114 [id number] 00:00:00 00:00:00 Only Unassigned, STACIE 350.1.13.10 [place] [address].7[address]2.686 [id number] 009 2019-07-28 2019-07-28 Telephone Saúl OKPETTY 1.2.840.114 [id number] 00:00:00 00:00:00 Josh Linn DEPUTY ASSESSOR 350.1.13.10 [facility] 42.7.2.686 MATERNAL [id number] & CHILD 107 [facility] Results Test Description Test Test Comments Results Result [facility] e Time Comments TISSUE EXAM 2020-07 Surgical Pathology Report -21 Case: [id number] 13:36:0 Authorizing Provider: Yolande Barnhart MD Collected: 07/31/2020 02:00 PM MPH Ordering Location: [facility] Radiology Main Received: 07/31/2020 03:41 PM Pathologist: Shabana Uriostegui MD Specimen: Liver, liver biopsy LIVER, TRANSJUGULAR NEEDLE BIOPSIES- CIRRHOSIS- see comment Signing Pathologist Direct Phone Line: [phone] y signed by Shabana Uriostegui MD on [...] seen. Jaspal's disease may be excluded clinically. 68021, 12747 X4Rule out cirrhosisLiverReceived in formalin labeled the [...] TRANSCATHETER -20 MINDIKOGLUReferring * BIOPSY 16:32:0 : Bearherlinda Penaloza [facility] - 0 DOPlease do liver [facility] and measure JOJO ROY : hepatic [...] intra-service time of sedation was 30 minutes. Hedis Registered Nurse Rn: Catalina. Soldering Machine Setter: None. Approach: Right internal jugular vein Estimated [...] needle into the right atrium. A 4 Kuwaiti micropuncture sheath was placed. A 0.035 inch J-wire was placed through the micropuncture sheath and the sheath was exchanged for a 9 Kuwaiti sheath. A 5 Kuwaiti angled tip catheter was used to select the right hepatic vein. Venogram was performed. Pressures were obtained through the catheter with measurements as follows: wedged hepatic - 17 mmHg, free hepatic - 5, and right atrium - 4. A long metal reinforced 7 Kuwaiti sheath was placed through the 9 Kuwaiti sheath into the right hepatic vein. A [...] MDReport Verified Date/Time: 07/31/2020 16:32:46 Reading Location: [place] [address] Angio Body Reading Room REHENSIVE METABOLIC PANEL [...] NOT 1092) ACCURATE CRE ATININE CLEARANCE IN [place] EDICTING GLOMERULAR FILT RATION RATE. ESTIMATED GFR IS NOT APPLICABLE FOR DIALYSIS PATIENTS. Sewer System Supervisor SARA - CALI FSpecimen slightly [id number] 10:31:00 Test Item Value Reference Range Interpretation Comments PARTIAL THROMBOPLASTIN TIME 38.2 seconds 22.5-36.0 H (BEAKER) (test code = 760) PROTHROMBIN TIME/[id number] 10:30:00 Test Item Value Reference Range Interpretation [...] mechanical heart valves.CBC W/PLT COUNT & AUTO [id number] 10:16:00 Test Item Value Reference Range Interpretation [...] (BEAKER) (test code = 2801) MR, ABDOMEN, [id number] 15:12:00Referring: [facility] Penaloza DOplease do with elastography and MRCPplease do with elastography and MRCPUnlisted Reason for Exam - Click Yes and Enter Reason Below->YesUnlisted Reason for Exam- >Breast cancer, elevated alkaline phosphatase and bilirubin, thrombocytopenia, please evaluate the liver, rule out mets, please do with elastography and MRCPplease do with elastography and MRCP [facility] : 1955 Sex: FFINALREPORT MRI of [...] abdomen. No biliary ductal dilatation. Signed: Cinda Valdezeport Verified Date/Time: 05/22/2020 15:12:38 Reading Location: [address] Consult Reading Room HEPATITIS C PCR, QUANTITATIVE 2020-04-27 03:34:00 Test Item Value Reference Range Interpretation Comments HCV RESULT COMPONENT HCV RNA not detected HCV RNA not detected (AMYAKER) (test code = 2699) This test uses a Real-Time Polymerase Chain Reaction (RT-PCR) methodology and was performed using FRANTZ Ampliprep/FRANTZ TaqMan HCV test kit version 2.0 ([employer]).Reportable range for this assay is 15 - 100,000,000 IU per mL (1.18 - 8.00 Log IU/mL).ANTI-NUCLEAR ANTIBODY (JOSÉ ANTONIO)2020-04-26 10:36:00 Test Item Value Reference Range Interpretation Comments ANTI-NUCLEAR ANTIBODY (JOSÉ ANTONIO) (AMYAKER) Positive Negative A (test code = 418) Test performed by IFA method.JOSÉ ANTONIO TITER AND [id number] 10:36:00 Test Item Value Reference Range Interpretation Comments JOSÉ ANTONIO TITER (BEAKER) (test code = :160 1541) JOSÉ ANTONIO PATTERN (BEAKER) (test code = Speckled 1781) [id number] 18:39:00 Test Item Value Reference Range Interpretation Comments FERRITIN (BEAKER) (test code = 177.89 ng/mL 5.00-275.00 361) Sewer System Supervisor ID - BSHEPATITIS B SURFACE [id number] 15:07:00 Test Item Value Reference Range Interpretation Comments HEPATITIS B SURFACE ANTIBODY < mIU/mL <8.0 (BEAKER) (test code = 647) Sewer System Supervisor ID - ROSIANGHEPATITIS A ANTIBODY, [id number] 14:58:00 Test Item Value Reference Range Interpretation Comments HEPATITIS A IGG ANTIBODY (BEAKER) Reactive Nonreactive A (test code = 2797) Sewer System Supervisor ID - ROSIANGHEPATITIS B SURFACE [id number] 14:58:00 Test Item Value Reference Range Interpretation Comments HEPATITIS B SURFACE ANTIGEN (2) Nonreactive Nonreactive (BEAKER) (test code = 2585) Specimen is considered negative for HBsAg.HEPATITIS C [id number] 14:58:00 Test Item Value Reference Range Interpretation Comments HEPATITIS C ANTIBODY (BEAKER) Nonreactive Nonreactive (test code = 367) Sewer System Supervisor ID - ROSIANGALPHA FETOPROTEIN (AFP), TUMOR [id number] 14:50:00 Test Item Value Reference Range Interpretation Comments ALPHA-FETOPROTEIN (BEAKER) (test 5.0 ng/mL <10.0 code = 1094) Sewer System Supervisor ID - ROSIANGHEPATITIS A ANTIBODY, [id number] 14:50:00 Test Item Value Reference Range Interpretation Comments HEPATITIS A IGM ANTIBODY (BEAKER) Nonreactive Nonreactive (test code = 498) Sewer System Supervisor ID - ROSIANGHEPATITIS B CORE ANTIBODY, [id number] 14:50:00 Test Item Value Reference Range Interpretation Comments HEPATITIS B CORE TOTAL ANTIBODY Nonreactive Nonreactive (BEAKER) (test code = 497) Sewer System Supervisor ID - ROSIANGIRON, TIBC, % SAT. (WITHOUT FERRITIN)2020-04-24 14:36:00 Test Item Value Reference Range Interpretation Comments IRON (BEAKER) (test code = 547) 128.0 ug/dL 40.0-160.0 TOTAL IRON BINDING CAPACITY 294 ug/dL 250-450 (BEAKER) (test code = 769) IRON % SATURATION (2) (BEAKER) 44 % 20-55 (test code = 2594) Sewer System Supervisor ID - [id number]-[id number] 14:36:00 Test Item Value Reference Range Interpretation Comments ALPHA-1 ANTITRYPSIN (BEAKER) 149.50 mg/dL 90.00-200.00 (test code = 502) Sewer System Supervisor ID - DASHAWNGCOMPREHENSIVE METABOLIC [id number] 14:35:00 Test Item Value Reference Range Interpretation [...] S NOT APPLICABLE FOR DIALYSIS PATIEN TS. Sewer System Supervisor ID - ROSIANGSpecimen slightly ictericBILIRUBIN, [id number] 14:35:00 Test Item Value Reference Range Interpretation Comments BILIRUBIN DIRECT (BEAKER) (test 0.9 mg/dL 0.1-0.5 H code = 706) Sewer System Supervisor ID - CRISTIANAMMA GLUTAMYL TRANSFERASE (GGT)2020-04-24 14:35:00 Test Item Value Reference Range Interpretation Comments GAMMA GLUTAMYL TRANSFERASE (BEAKER) 50 U/L 9-64 (test code = 364) Sewer System Supervisor ID - Lindyimen slightly ictericPROTHROMBIN TIME/[id number] 14:22:00 Test Item Value Reference Range Interpretation [...] mechanical heart valves.CBC W/PLT COUNT & AUTO [id number] 14:14:00 Test Item Value Reference Range Interpretation [...] PERCENT (BEAKER) (test code = 2801) SARS-COV2/RT-PCR ([facility])2020-01-31 00:49:00 Test Item Value Reference Range Interpretation Comments SARS-COV2/RT-PCR (test Not Detected Not Detected, Negative, code = 8644898) See external report for linked test SARS-COV-2 PERFORMING LAB [facility] (test code = 8967024) Negative results do not preclude SARS-CoV-2 infection [...] of the Act.Fact Sheet for Healthcare Pro viders:https://www.GreenIt[employer]1/Documents/Xpert%20Xpress%20SARS%20CoV-2/Fact%20Sh eets/3023802%02YHSP-VXY-1%20HEALTHCARE%20PROVIDERS%20FACT%20SHEET.pdfFact Sheet for Healthcare Patients:https://www.[employer]iorCare/Documents/Xpert%20Xpress%20SARS%20CoV-2/Fact%20Sheets/3023801%20SARS-COV -2%20PATIENT%20FACT%20SHEET.pdfPerforming Laboratory:[facility], [place] [address]TRFVUW ULTRASOUND CORE BIOPSY LEFT 2019-07-27 14:15:04- BREAST [...] - 07/27/2019 15:05:22copy to: Ms. Shwetha Rodríguez, [facility] [address], ATTN: Shwetha Marcos, ph: [phone], fax: [phone] Technologist: Aida PERALTA, [facility]- DIAG MAMM LEFT CAD [id number] 13:14:19 - DIAG MAMM LEFT CAD DIGITALUNILATERAL LEFT DIGITAL DIAGNOSTIC MAMMOGRAM WITH CAD POST-PROCEDURE ILEANA GING FOR MARKER PLACEMENT: 07/25/2019CLINICAL: Post Clip Placement. Current mammographic images were evaluated by either a [employer] M-Vu or a [employer] Image[employer]iosocketer CAD (computer aided detection system). Comparison is made to exam dated 07/18/2019 mammogram - [facility]-. The tissue of the left [...] M.D. dm/:07/25/201913:14:19 copy to: Ms. Shwetha Rodríguez, [facility] [address], ATTN: Shwetha Rodríguez, ph: [phone], fax: [phone] Technologist: Morelia PERALTA, [facility]-Imaging Technologist: Suri PERALTA, [facility]-Mammogram BI-RADS: Post-procedure mammogram for marker placementBREAST ULTRASOUND [id number] 16:44:27 - DIAG MAMM BILATERAL KENNY CAD DIGITALBILATERAL DIGITAL DIAGNOSTIC MAMMOGRAM 3D/2D WITH CAD: 07/18/2019CLINICAL: Palpable mass, left breast. Digital breast tomosynthesis was performed in addition to routine CC and MLO views. Current mammographic images were evaluated by either a CellSpinP M-Vu or a Altacor ImageChecker CAD (computer aided detection system). No [...] - 07/18/2019 16:51:42copy to: Ms. Shwetha Rodríguez, [facility] [address], ATTN: Shwetha Marcos, ph: [phone], fax: [phone] Technologist: Vanesa PERALTA, [facility]-FWletter sent: BIRADS 4/5 Biopsy Mammogram BI-RADS: 0 Incomplete: Additional Imaging Evaluation Needed Ultrasound BI-RADS: 5 Highly suggestive of malignancyDIAG MAMM BILATERAL KENNY CAD [id number] 16:44:27 - DIAG MAMM BILATERAL KENNY CAD DIGITALBILATERAL DIGITAL DIAGNOSTIC MAMMOGRAM 3D/2D WITH CAD: 07/18/2019CLINICAL: Palpable mass, left breast. Digital breast tomosynthesis was performed in addition to routine CC and MLO views. Current mammographic images were evaluated by either a Maker's RowCOMP M-Vu or a Altacor ImageChecker CAD (computer aided detection system). No [...] - 07/18/2019 16:51:42copy to: Ms. Tadeo Marcos, [facility] [address], ATTN: Shwetha Rodríguez, ph: [phone], fax: [phone] Technologist: Vanesa PERALTA, [facility]-FWletter sent: BIRADS 4/5 Biopsy Mammogram BI-RADS: 0 Incomplete: Additional Imaging Evaluation Needed Ultrasound BI-RADS: 5 Highly suggestive of malignancy
[2022-08-18 18:27] LABS: Absolute Lymphocytes (CBC) 1.2 K/uL (0.7-4.9); Lymphocytes % 46.2 % (15.3-44.8); RBC Red Blood Cell Count 3.17 M/uL (3.86-4.86)
[2022-08-18 18:44] LABS: Potassium 4.6 mmol/L (3.5-5.1)
--- NOTE | 2022-08-18 18:51 | EDPHYS ---
Physician Documentation [facility] Name: Jojo Alaniz Age: 66 yrs Sex: Female : 1955 Arrival Date: 08/18/2022 Time: 17:15 Bed 17 Private MD: Trem[facility] ED Physician Pati Penaloza HPI: 08/18 17:42 This 66 yrs old Female presents to ER via Ambulatory with complaints of fluid kb in lung. 17:43 Patient is 66-year-old female with a history of breast cancer. States she presents kb today because she has fluid in her left lung that is supposed be removed by Dr. Campo. States she was sent over by him to be admitted so that he can remove it tomorrow. Denies any symptoms at this time.. Historical: - Allergies: 17:22 No Known Allergies; ld1 - Home Meds: 17:22 chemo medication [Active]; Magnesium Oxide Oral [Active]; Potassium Chloride Oral ld1 [Active]; - PMHx: 17:22 Cancer, Breast; ld1 - PSHx: 17:22 hernia repair; mastectomy-left; ld1 - Immunization history:: Adult Immunizations up to date, Client reports receiving the 2nd dose of the Covid vaccine. - Social history:: Smoking status: Patient denies any tobacco usage or history of. Patient/guardian denies using alcohol. ROS: 17:44 Constitutional: Negative for fever, chills, and weight loss. kb 17:44 All other systems are negative. Exam: 17:44 Constitutional: This is a well developed, well nourished patient who is awake, alert, kb and in no acute distress. Head/Face: Normocephalic, atraumatic. ENT: Moist Mucous membranes Cardiovascular: Regular rate and rhythm with a normal S1 and S2. No gallops, murmurs, or rubs. No pulse deficits. Respiratory: Respirations even and unlabored. No increased work of breathing. Talking in full sentences Abdomen/GI: Soft, non-tender. No distention Skin: Warm, dry with normal turgor. Normal color. MS/ Extremity: Pulses equal, no cyanosis. Neurovascular intact. Full, normal range of motion. Neuro: Awake and alert, GCS 15, oriented to person, place, time, and situation. Moves all extremities. Normal gait. Psych: Awake, alert, with orientation to person, place and time. Behavior, mood, and affect are within normal limits. Vital Signs: 17:20 BP 103 / 64; Pulse 89; Resp 18; Temp 98.1(O); Pulse Ox 98% on R/A; Weight 69.4 kg; ld1 Height 5 ft. 2 in. (157.48 cm); Pain 5/10; 18:51 BP 129 / 71; Pulse 87; Pulse Ox 96% on R/A; ap3 21:17 BP 124 / 68; Pulse 84; Resp 19; Pulse Ox 98% on R/A; kd3 17:20 Body Mass Index 27.98 (69.40 kg, 157.48 cm) ld1 MDM: 17:23 Patient medically screened. kb 17:36 Data reviewed: vital signs, nurses notes. Management of patient was discussed with the kb following: Neonatal Intensive Care Unit Nurse: Dr Campo: Plan for pt is to put in a pleurex catheter tomorrow. Historians other than the Patient: Spouse/Significant Other: . 17:44 Differential Diagnosis Pleural effusion. kb 17:46 Consideration of Admission/Observation Patient was admitted/placed on observation. kb Counseling: I had a detailed discussion with the patient and/or guardian regarding: the historical points, exam findings, and any diagnostic results supporting the discharge/admit diagnosis, the need for further work-up and treatment in the hospital. 18:50 Management of patient was discussed with the following: Hospitalist: VENUS Vaughan. kb 08/18 17:30 Order name: CBC with Diff; Complete Time: 20:34 kb 08/18 17:30 Order name: Basic Metabolic Panel; Complete Time: 18:50 kb 08/18 17:30 Order name: Chest Single View XRAY; Complete Time: 19:05 kb 08/18 17:30 Order name: IV Start; Complete Time: 18:46 kb 08/18 18:51 Order name: SARS RAPID; Complete Time: 19:34 kb 08/18 20:19 Order name: CBC Smear Scan; Complete Time: 20:34 EDMS Administered Medications: No medications were administered Disposition Summary: 08/18/22 18:51 Hospitalization Ordered Hospitalization Status: Observation kb Provider: Keila Kendall Location: Telemetry/MedSurg (observation) kb Condition: Stable kb Problem: new kb Symptoms: are unchanged kb Bed/Room Type: Standard kb Room Assignment: 425(08/18/22 21:01) cg Diagnosis - Pleural effusion, not elsewhere classified kb Forms: - Medication Reconciliation Form kb - SBAR form kb Signatures: Dispatcher [employer]Host EDLinette Guzman, Eleanor Zavala RN RN cg Gabriela Wolfe RN RN louis1 Rox Jacobo PA-C PA-C sb4 Corrections: (The following items were deleted from the chart) 17:44 17:36 Management of patient was discussed with the following: Neonatal Intensive Care Unit Nurse: Dr Campo: kb Plan for pt is to put in a pleurex catheter tomorrow. kb 21:01 18:51 kb cg
--- NOTE | 2022-08-18 18:51 | ER ---
Nurse's Notes [facility] Name: Jojo Alaniz Age: 66 yrs Sex: Female : 1955 Arrival Date: 08/18/2022 Time: 17:15 Bed 17 Private MD: Bear Penaloza Diagnosis: Pleural effusion, not elsewhere classified Presentation: 08/18 17:20 Chief complaint: Patient states: Pt was sent to ER - "Dr. Campo plans to operate ld1 tomorrow due to fluid in left lung.". Coronavirus screen: At this time, the client does not indicate any symptoms associated with coronavirus-19. Ebola Screen: No symptoms or risks identified at this time. Initial Sepsis Screen: Does the patient meet any 2 criteria? No. Patient's initial sepsis screen is negative. Does the patient have a suspected source of infection? No. Patient's initial sepsis screen is negative. Risk Assessment: Do you want to hurt yourself or someone else? Patient reports no desire to harm self or others. Onset of symptoms was August 18, 2022 at 17:22. 17:20 Method Of Arrival: Ambulatory ld1 17:20 Acuity: JES 3 ld1 Triage Assessment: 17:22 General: Appears in no apparent distress. comfortable, Behavior is calm, cooperative, ld1 appropriate for age. Pain: Complains of pain in left mid back Pain does not radiate. Pain currently is 5 out of 10 on a pain scale. EENT: No signs and/or symptoms were reported regarding the EENT system. Neuro: Level of Consciousness is awake, alert, obeys commands, Oriented to person, place, time, situation. Cardiovascular: Capillary refill < 3 seconds Patient's skin is warm and dry. Respiratory: Airway is patent Respiratory effort is even, unlabored. GI: Abdomen is round non-distended. : No signs and/or symptoms were reported regarding the genitourinary system. Derm: No signs and/or symptoms reported regarding the dermatologic system. Musculoskeletal: No signs and/or symptoms reported regarding the musculoskeletal system. Historical: - Allergies: 17:22 No Known Allergies; ld1 - Home Meds: 17:22 chemo medication [Active]; Magnesium Oxide Oral [Active]; Potassium Chloride Oral ld1 [Active]; - PMHx: 17:22 Cancer, Breast; ld1 - PSHx: 17:22 hernia repair; mastectomy-left; ld1 - Immunization history:: Adult Immunizations up to date, Client reports receiving the 2nd dose of the Covid vaccine. - Social history:: Smoking status: Patient denies any tobacco usage or history of. Patient/guardian denies using alcohol. Screenin:54 Abuse screen: Denies threats or abuse. Nutritional screening: No deficits noted. ap3 Tuberculosis screening: No symptoms or risk factors identified. 21:17 [facility] ED Fall Risk Assessment (Adult) History of falling in the last 3 months, kd3 including since admission No falls in past 3 months (0 pts) Confusion or Disorientation No (0 pts) Intoxicated or Sedated No (0 pts) Impaired Gait No (0 pts) Mobility Assist Device Used No (0 pt) Altered Elimination No (0 pt) Score/Fall Risk Level 0 - 2 = Low Risk Oriented to surroundings. Vital Signs: 17:20 BP 103 / 64; Pulse 89; Resp 18; Temp 98.1(O); Pulse Ox 98% on R/A; Weight 69.4 kg; ld1 Height 5 ft. 2 in. (157.48 cm); Pain 5/10; 18:51 BP 129 / 71; Pulse 87; Pulse Ox 96% on R/A; ap3 21:17 BP 124 / 68; Pulse 84; Resp 19; Pulse Ox 98% on R/A; kd3 17:20 Body Mass Index 27.98 (69.40 kg, 157.48 cm) ld1 ED Course: 17:15 Patient arrived in ED. am2 17:16 Bear Penaloza DO is Private Physician. am2 17:22 Triage completed. ld1 17:22 Arm band placed on right wrist. ld1 17:23 Linette Bliss FNP-C is PHCP. kb 17:23 Pati Penaloza MD is Attending Physician. kb 18:51 Chest Single View XRAY In Process Unspecified. EDMS 18:51 Keila Kendall MD is Hospitalizing Provider. kb 18:54 Patient has correct armband on for positive identification. Bed in low position. Call ap3 light in reach. Side rails up X 1. Adult w/ patient. Pulse ox on. NIBP on. Door closed. Noise minimized. Warm blanket given. 18:59 SARS RAPID Sent. ap3 20:17 Rosa Luis, RN is Primary Nurse. kd3 20:18 Inserted saline lock: 20 gauge in right antecubital area, using aseptic technique. kd3 21:16 No provider procedures requiring assistance completed. Patient admitted, IV remains in kd3 place. Administered Medications: No medications were administered Medication: 18:54 VIS not applicable for this client. ap3 Outcome: 18:51 Decision to Hospitalize by Provider. kb 21:16 Admitted to Med/surg kd3 21:16 Condition: stable 21:16 Discharge instructions given to patient, family, Instructed on the need for admit, Demonstrated understanding of instructions, follow-up care. 22:11 Patient left the ED. as6 Signatures: Dispatcher MedHost EDMS iLnette Bliss, REMOTE SENSING SPECIALIST-C REMOTE SENSING SPECIALIST-CkDebbie Jason Amanda, RN RN ap3 Gabriela Wolfe RN RN ld1 Golden Caballero RN RN as6 Rosa Luis, RN RN kd3 Corrections: (The following items were deleted from the chart) 17:27 17:20 Chief complaint: Patient states: Pt was sent to ER - "Dr. Campo plans to ld1 operate tomorrow due to fluid in left lung." ld1
[2022-08-18 18:57] LABS: MPV 8.5 fL (7.6-11.3)
--- NOTE | 2022-08-18 19:04 | RAD REPORT ---
EXAM DESCRIPTION: RAD - Chest Single View - 08/18/2022 6:49 pm CLINICAL HISTORY: DYSPNEA Chest pain. COMPARISON: Chest Pa And Lat (2 Views) dated 07/29/2022; Chest Single View dated 03/11/2020; Chest Sin gle View dated 01/30/2020; Chest Single View dated 10/30/2019 FINDINGS: Portable technique limits examination quality. There is complete opacification of the left hemithorax. This is likely due to a large left pleural ef fusion. Cardiac size cannot be assessed. Right lung is grossly clear.
--- NOTE | 2022-08-18 19:14 | P.HP ---
Certification for Inpatient Patient admitted to: Inpatient With expected LOS: <2 Midnights Patient will require the following post-hospital care: None Practitioner: I am a practitioner with admitting privileges, knowledge of patient current condition, hospital course, and medical plan of care. Services: Services provided to patient in accordance with Admission requirements found in Title 42 Section 412.3 of the Code of Federal Regulations Patient History Date of Service: 08/18/22 Reason for admission: Pleural Effusion History of Present Illness: Patient is a 66-year-old female, primarily Ecuadorean speaking, with past medical history of left breast cancer status post mastectomy on daily oral chemotherapy. She has been seeing Dr. Gutierrez for a left-sided pleural effusion and had a chest xray today which showed "complete opacification of the left hemithorax. This is likely due to a large left pleural effusion. Cardiac size cannot be assessed. Right lung is grossly clear." Matt spoke with Dr. Campo and sent her to the emergency department for admission and placement of Pleurex catheter. Labs are significant for WBC 2.6, hemoglobin 11.9, hematocrit 34, chloride 108, creatinine 1.19, covid negative. Patient is asymptomatic, not shortness of breath, hypoxia, chest pain. She will be admitted for further management. Allergies No Known Allergies Allergy (Verified 08/14/22 11:01) Home medications list reviewed: Yes Home Medications: Anastrozole [Arimidex] 1 mg PO DAILY 04/04/20 LORazepam [Lorazepam] 0.5 mg PO Q12HR PRN 08/14/22 Magnesium Oxide [Mag 0X Tab] 400 mg PO DAILY 08/14/22 Timolol Maleate/Pf [Timolol Maleate 0.25% Eye Drop] 1 gtt EACH EYE BID 08/14/22 Tramadol HCl [Ultram] 50 mg PO LUNCH PRN 08/14/22 Travoprost (Benzalkonium) [Travatan 0.004% Eye Drop] 1 gtt EACH EYE DAILY 08/14/22 - Past Medical/Surgical History Diabetic: No -: Right shoulder pain, chronic -: Left breast cancer -: Right shoulder surgery x2 -: Left mastectomy Psychosocial/ Personal History: Patient is . She has no children. 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 - Family History Mother -: Cancer Father -: Hypertension - Social History Smoking Status: Never smoker Alcohol use: No CD- Drugs: No Caffeine use: No Place of Residence: Home Review of Systems Unremarkable Physical Examination - Vital Signs Temperature: 98.1 F Blood Pressure: 129/71 Pulse: 87 Respirations: 18 Pulse Ox (%): 96 - Physical Exam General: Alert, In no apparent distress HEENT: Atraumatic, EOMI, Sclerae nonicteric Neck: Supple, 2+ carotid pulse no bruit Respiratory: Dull (entire left lung field), Other (no respiratory distress, retractions, nasal flaring) Cardiovascular: Regular rate/rhythm, Normal S1 S2 Gastrointestinal: Normal bowel sounds, No tenderness Musculoskeletal: No tenderness Integumentary: No rashes Neurological: Normal speech, Normal strength at 5/5 x4 extr, Normal tone, Normal affect - Studies Laboratory Data (last 24 hrs) 08/18/22 18:15: Sodium 139, Potassium 4.6, BUN 16, Creatinine 1.19 H, Glucose 10 7 H 08/18/22 18:15: WBC 2.60 L, Hgb 11.9 L, Hct 34.0 L, Plt Count 84 L Assessment and Plan - Problems (Diagnosis) (1) Pleural effusion, left Current Visit: Yes Status: Acute (2) Breast cancer Current Visit: Yes Status: Chronic Qualifiers: Breast location: unspecified site of breast Estrogen receptor status: unspecified Patient sex: female Laterality: left Qualified Code(s): C50.912 - Malignant neoplasm of unspecified site of left female breast - Plan Patient is admitted for further management of large left pleural effusion. Dr. Campo consulted for pleurex catheter placement. He is aware of patient. Will keep patient NPO at midnight. Patient has no complains at this time. Monitor and replete electrolytes per protocol. Reconcile and continue home medications. Lovenox for VTE prophylaxis. Full code. Discharge Plan: Home Plan to discharge in: 48 Hours - Advance Directives Does patient have a Living Will: No Does patient have a Durable POA for Healthcare: No - Code Status/Comfort Care Code Status Assessed: Yes Code Status: Full Code Physician Review: Patient Assessed, Agree with Above Assessment and Plan Critical Care: No Time Spent Managing Pts Care (In Minutes): 50
[2022-08-18 19:22] LABS: SARS-CoV-2 Antigen Rapid Res Negative (Negative)
[2022-08-18 20:19] LABS: Blood Morphology Comment NOT SEEN (NOT SEEN); Platelet Estimate DECR; White Blood Cell Scan OK (OK)
[2022-08-18] MEDS ORDERED: IPRATROPIUM BROM 0.5MG/2.5ML NEB PRN (21:26)
[2022-08-18] MEDS ORDERED: ALBUTEROL 2.5 MG/3 ML NEB SOL NEB PRN (21:26)
[2022-08-18] MEDS ORDERED: ONDANSETRON 4 MG/2 ML VIAL IV PRN (21:26)
[2022-08-18] MEDS ORDERED: ACETAMINOPHEN 500 MG TAB PO PRN (21:26)
[2022-08-19 02:30] VITALS: BMI 28.0
[2022-08-19] MEDS ORDERED: LIDOCAINE 1% MPF 5 ML VIAL SQ ONE ×3 (08:29→12:09)
[2022-08-19] MEDS: ENOXAPARIN 40 MG/0.4 ML SQ SCH (12:00)
[2022-08-19] MEDS ORDERED: ALBUTEROL 2.5 MG/3 ML NEB SOL NEB PRN (12:00)
[2022-08-19] MEDS ORDERED: LIDOCAINE 1% MPF 5 ML VIAL ONE (12:14)
[2022-08-19] MEDS ORDERED: MORPHINE 2 MG/ML SYR IV PRN (13:38)
[2022-08-19] MEDS: HYDROCODONE/APAP 5/325 MG TAB PO PRN (13:44)
--- NOTE | 2022-08-19 14:07 | P.OP ---
Preoperative diagnosis: LARGE Recurrent LEFT Pleural Effusion Postoperative diagnosis: LARGE Recurrent LEFT Pleural Effusion Primary procedure: Placement of PleurX Tunnelled Thoracic Catheter Anesthesia: 1% Lidocaine Used Estimated blood loss: <1cc Specimen: LEFT Pleural Fluid Findings: Red Clear blood tinged / straw colored fluid Complications: None Drain(s): Other (PleurX Catheter) Transferred to: Other (Room) Condition: Good
--- NOTE | 2022-08-19 14:37 | RAD REPORT ---
EXAM DESCRIPTION: RAD - Chest Single View - 08/19/2022 2:25 pm CLINICAL HISTORY: left chest tube placement Chest pain. COMPARISON: Chest Single View dated 08/18/2022; Chest Pa And Lat (2 Views) dated 07/29/2022; Chest Sing le View dated 03/11/2020; Chest Single View dated 01/30/2020 FINDINGS: Portable technique limits examination quality. A left-sided chest tube has been placed. The tip is directed caudad lateral. Significant reduction in the size of the pleural effusion. Mild edema related to re-expansion may be present in the left lung .
[2022-08-19] MEDS ORDERED: ALBUMIN HUMAN 25% 50 ML IV ONE (15:05)
[2022-08-19 15:27] LABS: Appearance TURBID (CLEAR); Body Fluid Source PLEURAL; Body Fluid WBC 116 /mm^3; Color of fluid Red (COLORLESS)
[2022-08-20] MEDS: HYDROCODONE/APAP 5/325 MG TAB PO PRN (04:25)
--- NOTE | 2022-08-20 08:23 | RAD REPORT ---
[facility] CLINICAL HISTORY: SP pLeuRx catheter COMPARISON: Chest Single View dated 08/19/2022; Chest Single View dated 08/18/2022; Chest Pa And Lat (2 Views) dated 07/29/2022; Chest Single View dated 03/11/2020 FINDINGS: Left basilar PleurX catheter is unchanged in position. Persistent small left basilar effus ion component, unchanged. Underlying mild atelectasis or airspace opacification, unchanged. Left yung hilar interstitial prominence has partially improved. Right lung remains clear, although the degree o f decreased inspiratory effort somewhat limits evaluation. No pneumothorax. The cardiomediastinal con tours are unremarkable. IMPRESSION: No significant interval change, findings as above.
[2022-08-20] MEDS: ENOXAPARIN 40 MG/0.4 ML SQ SCH (08:41)
--- NOTE | 2022-08-20 10:38 | CON ---
Date of Consultation: 08/19/2022 Brief History Of Present Illness: The patient is a 66-year-old female, who [facility] medical history of left breast cancer, seen by Dr. Gutierrez for a left-sided recurrent pleural eff usion, which caused complete opacification of the left hemothorax. Ultimately, Dr. Gutierrez called leslie garcia, spoke to me, and I requested a PleurX catheter to be placed in the left thoracic space for symptom atic improvement and for fluid analysis as well. The patient had complaints of decreased breathing c apability, shortness of breath, fatigue and weakness at times. Past Medical History: Breast cancer, shoulder pain on the right. Past Surgical History: Includes left mastectomy and right shoulder surgery x2. She is . No children. Allergies: NO KNOWN DRUG ALLERGIES. Home Medications: Include Arimidex, lorazepam, Mag-Ox, atenolol, Ultram, Travoprost. Social History: She denies smoking, alcohol, or recreational drug use. Review of Systems: Ten-point review of systems other than HPI, denies. Physical Examination: General: She is awake, alert, oriented. Psychiatric: Appropriate, conversive. HEENT: She is normocephalic. Sclerae anicteric. Mucous membranes are moist. Oropharynx clear. Neck: Supple without JVD. Chest: Expansion and excursion. Decreased breath sounds on the left. She has a left mastectomy earnestine dent. Cardiovascular: Regular rate and rhythm. Abdomen: Soft. Extremities: No clubbing or edema. Skin: Warm and dry. Laboratory Data: Revealed a white blood cell count of 2.6, hemoglobin 11.9, hematocrit of 34.0, plat elet count was 84. Her chemistry showed a sodium 139, potassium 4.6, chloride 1 8, carbon dioxide 26 , BUN 16, creatinine 1.1. She had a chest x-ray performed as well, which was officially read as comp lete opacification of left hemithorax, likely due to a large pleural effusion. Cardiac size cannot b e assessed right. Lungs were clear. Assessment And Plan: This is a 66-year-old female, who comes in with signs and symptoms of a recurre nt large left pleural effusion. 1.IV fluid hydration. 2.Medical management. 3.I have explained risks, benefits, and alternatives of placement tunneled thoracic catheter/PleurX catheter in the left thoracic space including, but not limited to bleeding, infection, damage to surr ounding tissues, injury to lungs, need for further operation and procedures. The patient agrees to p roceed as indicated. Thank you for this interesting consult. ALEXIS Voice ID: [id number] Report ID: [id number]
--- NOTE | 2022-08-20 10:47 | OP ---
Date of Procedure: 08/19/2022 Surgeon: Vinod Campo MD, Preoperative Diagnosis: Large recurrent left pleural effusion. Postoperative Diagnosis: Large recurrent left pleural effusion. Procedure Performed: Placement of a left PleurX tunneled thoracic catheter. Anesthesia: Lidocaine 1% utilized. Estimated Blood Loss: Less than 1 cc. Specimen: Left pleural fluid. Findings: Red/clear blood-tinged/straw-colored fluid. Complications: None. Drains: A PleurX catheter placed. Disposition: The patient remained in the room in good condition throughout procedure. Procedure In Detail: After informed consent was obtained, the patient was prepped and draped in the usual sterile fashion after adequate anesthesia was achieved with 1% lidocaine. I anesthetized the a morris of the fifth intercostal space on the midaxillary line. I then made a small stab incision over t he rib, placing the introducer needle into the thoracic cavity. Immediately encountered was red, tur bid fluid at this point. I advanced the introducer sheath at this point and the needle was removed. I then advanced the wire easily without incident. I then made a counter incision after appropriatel y anesthetizing the tract inferior from the insertion site and using a tunneling device brought the P leurX catheter up into the site at that point at the bedside including the cuff in the central portio n. At this point, I performed sequential dilatation using Seldinger technique over the wire and adva ncing the introducer sheath at this point. We removed the wire. I then introduced the catheter into the thoracic cavity at this point without evidence of complication. I then removed the introducer s carmine at this point. The catheter withdrew immediately almost 1300 cc of that same said red, turbid fluid, which appeared clear generally and not andres blood, but definitely blood-tinged. The fluid wa s sent for analysis. A sterile dressing was then placed over the top after placing a stitch at the i nsertion site, which was a 2-0 nylon suture. The patient tolerated the procedure well without eviden ce of complication and remained in the room in good condition throughout the procedure. All counts w ere correct at the end of the case. TK/MODL Voice ID: [id number] Report ID: [id number]
[2022-08-20 12:04] LABS: Absolute Lymphocytes (CBC) 1.4 K/uL (0.7-4.9); Hematocrit 34.2 % (36.0-45.0); Lymphocytes % 23.1 % (15.3-44.8); MCV 106.8 fL (80-100); MPV 8.2 fL (7.6-11.3)
--- NOTE | 2022-08-20 12:46 | P.PN ---
Subjective Date of Service: 08/20/22 Chief Complaint: Pleural Effusion Subjective: Improving (Patient is doing well today s/p left-sided Pleurx catheter chest x-ray is clear feeling better) Review of Systems is unable to be obtained Physical Examination - Vital Signs Temperature: 98.4 F Blood Pressure: 151/69 Pulse: 77 Respirations: 14 Pulse Ox (%): 95 - Physical Exam General: Alert Respiratory: Clear to auscultation bilaterally Assessment And Plan - Current Problems (Diagnosis) (1) Pleural effusion, left Current Visit: Yes Status: Acute Plan: Patient is 66 years of age history of breast cancer admitted with pleural effusion on the left side s/p Pleurx catheter doing much better have a hemorrhagic pleural effusion lymphocytic predominant most likely from her breast cancer however no malignant cells were identified in the pleural fluid stable for discharge Discharge Plan: Home Physician Review: Patient Assessed, Agree with Above Assessment and Plan
[2022-08-20 13:06] LABS: Blood Morphology Comment NOTED (NOT SEEN); Macrocytosis 1+; Platelet Estimate DECR
[2022-08-20 13:37] VITALS: O2SAT 95
[2022-08-20 13:39] LABS: Potassium 3.1 mmol/L (3.5-5.1)
[2022-08-20] MEDS ORDERED: POTASSIUM CL SA 10 MEQ TAB PO ONE (14:18)
[2022-08-20 16:06] VITALS: BP 137/72; TEMP 97.5
[2022-08-22 20:15] LABS: TOTAL PROTEIN, PLEURAL FLUID 3.3 g/dL
== END 2022-08-20 16:45 | disposition home or self-care (01) | DRG 598 ==
LOC: ER 17:08 → ERHOLD 19:09 → 4TH 21:13
PROVIDERS: ADMIT Hospitalist; ATTEND Hospitalist
PROC: 0WHB33Z Insertion of Infusion Device into Left Pleural Cavity, Percutaneous Approach (ICD-10-PCS; principal; 2022-08-19)
DX: C50.912 Malignant neoplasm of unspecified site of left female breast (principal); J91.8 Pleural effusion in other conditions classified elsewhere; M25.511 Pain in right shoulder; G89.29 Other chronic pain; Z90.12 Acquired absence of left breast and nipple; Z79.899 Other long term (current) drug therapy; Z20.822 Contact with and (suspected) exposure to COVID-19; Z80.9 Family history of malignant neoplasm, unspecified; Z82.49 Family history of ischemic heart disease and other diseases of the circulatory system
CPT/HCPCS: 36415; 71045; 71046; 80048; 82945; 83615; 84157; 84311; 85025; 87015; 87102; 87116; 87205; 87206; 87811; 88108; 88305; 89050; 94760; 99285; J1650; J2001; P9047

== ENCOUNTER → 2023-07-19 | Emergency (ER) | payer OTHER ==
--- NOTE | 2023-07-19 12:07 | RAD REPORT ---
EXAM DESCRIPTION: RAD - Chest Pa And Lat (2 Views) - 07/19/2023 11:50 am CLINICAL HISTORY: CONGESTION Chest pain. COMPARISON: 05/27/2023 CT FINDINGS: There is a loculated left pleural effusion again noted, grossly unchanged relative to 05/12 CT study. Surgical clips are seen in the left axilla. The right lung is grossly clear. No harry s fractures are apparent. IMPRESSION: Loculated medially located left pleural effusion is grossly unchanged relative to CT vidal ed 05/27/2023. Elsewhere, no acute process seen.
[2023-07-19 12:57] LABS: Absolute Lymphocytes (CBC) 1.3 K/uL (0.7-4.9); Hematocrit 31.9 % (36.0-45.0); Lymphocytes % 33.1 % (15.3-44.8); MCV 102.6 fL (80-100); MPV 7.6 fL (7.6-11.3); Platelets 114 thou/uL (152-406)
[2023-07-19 13:06] LABS: Protime INR 1.28
[2023-07-19 13:21] LABS: Albumin 2.7 g/dL (3.4-5.0); Bilirubin Direct 0.5 mg/dL (0-0.2); Bilirubin Total 1.5 mg/dL (0.2-1.0); Magnesium 1.8 mg/dL (1.6-2.4); Potassium 3.9 mEq/L (3.5-5.1); Protein, Total 6.5 g/dL (6.4-8.2); Troponin High Sensitivity 13.2 pg/mL (<58.9)
[2023-07-19 13:51] LABS: SARS-COV-2 RT PCR NEGATIVE (NEGATIVE)
--- NOTE | 2023-07-19 15:07 | RAD REPORT ---
EXAM DESCRIPTION: CT - Thorax Wo Con - 07/19/2023 2:20 pm CLINICAL HISTORY: pleural effusion COMPARISON: Thorax W/ Con dated 05/27/2023; Thorax W/ Con dated 02/01/2023; Chest Abdomen W Con dated 10/26/2022; Chest For Pe Angio dated 07/29/2022 TECHNIQUE: Axial thin cut images of the chest were obtained without IV contrast. Multiplanar reforma ts were generated and reviewed. All CT scans are performed using dose optimization technique as appropriate and may include automated exposure control or mA/KV adjustment according to patient size. FINDINGS: No mass or infiltrate in the lung parenchyma. Essentially stable size and configuration of loculated pleural effusion extending along the medial aspect of the left hemithorax at the apex and mid lung, and involving most of the posterior lower left hemithorax. Nodular soft tissue components a long the periphery of the loculated effusion cavity, not well assessed in the absence of IV contrast, but essentially stable. And subpleural ovoid left lingular nodule measuring 7 mm in short axis appea rs stable. No pneumothorax. Elevation of the right hemidiaphragm again seen. Interval increase in size of the right paratracheal lymph node, now measuring 2.6 cm in short axis, p reviously 2 cm. No other evidence of bulky mediastinal or hilar adenopathy within limits of noncontra st evaluation. No significant aortic or pulmonary artery findings. Assessment is limited in the absen ce of IV contrast. No chest wall mass or abnormal axillary lymphadenopathy. Evaluation of the solid abdominal structures reveals no suspicious findings. Sequelae of left mastect partha and axillary dissection again seen. No suspicious osseous lesions IMPRESSION: Interval increase in size of right paratracheal lymph node, likely of metastatic nature. Other stable findings as above including a large malignant loculated left pleural effusion. No other acute findings.
--- NOTE | 2023-07-19 15:53 | EDPHYS ---
Physician Documentation [facility] Name: Jojo Alaniz Age: 67 yrs Sex: Female : 1955 Arrival Date: 07/19/2023 Time: 10:13 Bed DX1 Private MD: [facility] ED Physician Maurilio Porter HPI: 07/19 11:05 This 67 yrs old Female presents to ER via Ambulatory with complaints of Back sb4 Pain, flank pain. 11:06 patient reports pain in her left back/flank that began about 2 weeks ago. she states sb4 the last time this happened, she had "fluid" in her lung. denies any fever, chest pain, shortness of breath. does endorse phlegm. Historical: - PMHx: 10:59 Cancer; iw - PSHx: :59 hernia repair; mastectomy-left; iw - Immunization history:: Adult Immunizations up to date. - Social history:: Smoking status: Patient denies any tobacco usage or history of. ROS: 11:06 Constitutional: Negative for fever, chills, and weight loss, sb4 11:06 ENT: Positive for 11:06 Respiratory: 11:06 Respiratory: 11:06 Back: Positive for flank pain, on the left, 11:06 All other systems are negative, Exam: 11:06 Constitutional: This is a well developed, well nourished patient who is awake, alert, sb4 and in no acute distress. Head/Face: Normocephalic, atraumatic. Eyes: Extra-ocular motions intact. Periorbital areas with no swelling, redness, or edema. ENT: Mucous membranes moist. Cardiovascular: Regular rate and rhythm with a normal S1 and S2. Respiratory: Lungs have equal breath sounds bilaterally, clear to auscultation and percussion. No rales, rhonchi or wheezes noted. No increased work of breathing, no retractions or nasal flaring. Abdomen/GI: Soft, non-tender, no distension. Skin: Warm, dry with normal turgor. Normal color with no rashes, no lesions, and no evidence of cellulitis. MS/ Extremity: Pulses equal, no cyanosis. Neurovascular intact. Full, normal range of motion. Neuro: Awake and alert, GCS 15, oriented to person, place, time, and situation. Motor strength 5/5 in all extremities. Sensory grossly intact. Vital Signs: 11:00 BP 108 / 34; Pulse 66; Resp 16; Temp 97.9; Pulse Ox 100% ; iw MDM: 10:53 Patient medically screened. sb4 11:06 Differential Diagnosis: Other pneumonia, pleural effusion, covid, flu, URI, bronchitis. sb4 15:51 Data reviewed: vital signs, nurses notes, lab test result(s), radiologic studies, and sb4 as a result, I will discharge patient. Consideration of Admission/Observation Escalation of care including admission/observation considered. Counseling: I had a detailed discussion with the patient and/or guardian regarding the historical points, exam findings, and any diagnostic results supporting the discharge/admit diagnosis, lab results, radiology results, the need for outpatient follow up, oncology, to return to the emergency department if symptoms worsen or persist or if there are any questions or concerns that arise at home. 07/19 11:05 Order name: Basic Metabolic Panel; Complete Time: 13:22 sb4 07/19 11:05 Order name: CBC with Diff; Complete Time: 13:03 sb4 07/19 11:05 Order name: LFT's; Complete Time: 13:22 sb4 07/19 11:05 Order name: Magnesium; Complete Time: 13:22 sb4 07/19 11:05 Order name: NT PRO-BNP; Complete Time: 13:22 sb4 07/19 11:05 Order name: PT-INR; Complete Time: 13:07 sb4 07/19 11:05 Order name: Troponin HS; Complete Time: 13:22 sb4 07/19 11:05 Order name: COVID-19/FLU A+B; Complete Time: 13:56 sb4 07/19 11:04 Order name: Chest Pa And Lat (2 Views) XRAY; Complete Time: 12:08 iw 07/19 14:21 Order name: Thorax Wo Con; Complete Time: 15:10 EDMS 07/19 11:05 Order name: EKG; Complete Time: 11:05 sb4 07/19 11:05 Order name: Cardiac monitoring 4 07/19 11:05 Order name: EKG - Nurse/Tech; Complete Time: 13:06 sb4 07/19 11:05 Order name: IV Saline Lock; Complete Time: 13:06 sb4 07/19 11:05 Order name: Labs collected and sent; Complete Time: 13:06 sb4 07/19 11:05 Order name: O2 Per Protocol sb4 07/19 11:05 Order name: O2 Sat Monitoring sb4 EC:14 Rate is 66 beats/min. Rhythm is irregular, A flutter. QRS interval is normal at 92 sb4 msec. QT interval is normal at 384 msec. No Q waves. T waves are Normal. No ST changes noted. Clinical impression: Atrial Flutter. Interpreted by me. Reviewed by me. Administered Medications: No medications were administered Disposition: 18:41 I was immediately available on-site in the Emergency Department for consultation in the ms3 care of the patient. Disposition Summary: 07/19/23 15:52 Discharge Ordered Notes: Location: Home sb4 Problem: an ongoing problem sb4 Symptoms: are unchanged sb4 Condition: Stable sb4 Diagnosis - Malignant pleural effusion sb4 Followup: sb4 - With: Mildred Lebron MD - When: Tomorrow - Reason: Recheck today's complaints, Re-evaluation by your physician Discharge Instructions: - Discharge Summary Sheet sb4 - Pleural Effusion sb4 Forms: - Medication Reconciliation Form sb4 - Thank You Letter sb4 - Antibiotic Education sb4 - Prescription Opioid Use sb4 - Patient Portal Instructions sb4 - Leadership Thank You Letter sb4 Prescriptions: - Tramadol 50 mg Oral Tablet - take 1 tablet ORAL route every 8 hours as needed; 12 tablet; Refills: 0, sb4 Product Selection Permitted Signatures: Dispatcher [employer] EDAma Alexander RN RN iw Sims, Marcus, DO DO ms3 Rox Jacobo PA-C PA-C sb4 Corrections: (The following items were deleted from the chart) 14:21 13:57 Chest For PE Angio+CT.RAD.BRZ ordered. EDMS EDMS
--- NOTE | 2023-07-19 15:53 | ER ---
Nurse's Notes [facility] Name: Jojo Alaniz Age: 67 yrs Sex: Female : 1955 Arrival Date: 07/19/2023 Time: 10:13 Bed DX1 Private MD: Bear Penaloza Diagnosis: Malignant pleural effusion Presentation: 07/19 11:00 Chief complaint: Patient states: BACK PAIN x2 WK. Coronavirus screen: At this time, the iw client does not indicate any symptoms associated with coronavirus-19. Ebola Screen: No symptoms or risks identified at this time. Initial Sepsis Screen: Does the patient meet any 2 criteria? No. Patient's initial sepsis screen is negative. Does the patient have a suspected source of infection? No. Patient's initial sepsis screen is negative. Risk Assessment: Do you want to hurt yourself or someone else? Patient reports no desire to harm self or others. Onset of symptoms is unknown. 11:00 Method Of Arrival: Ambulatory iw 11:00 Acuity: JES 3 iw Triage Assessment: 11:00 General: Appears uncomfortable, Behavior is calm, cooperative, appropriate for age. iw Pain: Complains of pain in back. Musculoskeletal: Circulation, motion, and sensation intact. Range of motion: intact in all extremities. Historical: - PMHx: 10:59 Cancer; iw - PSHx: 10:59 hernia repair; mastectomy-left; iw - Immunization history:: Adult Immunizations up to date. - Social history:: Smoking status: Patient denies any tobacco usage or history of. Vital Signs: 11:00 BP 108 / 34; Pulse 66; Resp 16; Temp 97.9; Pulse Ox 100% ; iw ED Course: 10:16 Patient arrived in ED. rg4 10:17 Bear Penaloza DO is Private Physician. rg4 10:21 Rox Jacobo PA-C is PHCP. sb4 10:21 Maurilio Porter DO is Attending Physician. sb4 11:02 Triage completed. iw 11:03 Arm band placed on. iw 11:46 Chest Pa And Lat (2 Views) XRAY In Process Unspecified. EDMS 13:06 COVID-19/FLU A+B Sent. bc6 13:06 Basic Metabolic Panel Sent. bc6 13:06 LFT's Sent. bc6 13:06 Magnesium Sent. bc6 13:06 NT PRO-BNP Sent. bc6 13:06 Troponin HS Sent. bc6 13:07 Inserted saline lock: 22 gauge in right hand, using aseptic technique. Blood collected. bc6 14:21 Thorax Wo Con In Process Unspecified. EDMS 15:52 Mildred Lebron MD is Referral Physician. sb4 16:26 Ama Hays, RN is Primary Nurse. iw Administered Medications: No medications were administered Outcome: 15:52 Discharge ordered by . sb4 16:26 Patient left the ED. iw Signatures: Dispatcher [employer] EDMS Ama Hays, RN RN Claire Patterson rg4 Rox Jacobo PA-C PAAna sb4 Jeniffer Blake bc6
[2023-07-19 17:18] VITALS: BP 108/34; TEMP 97.9; O2SAT 100
--- NOTE | 2023-07-21 17:39 | EKG ---
Test Date: 2023-07-19 Test Time: 12:51:38 Sheet Metal Worker: JACLYN MEASUREMENT RESULTS: Intervals: Rate: 66 AL: QRSD: 92 QT: 384 QTc: 402 [place]: P: 18 AL: QRS: 29 T: 44 INTERPRETIVE STATEMENTS: Normal sinus rhythm normal ECG Electronically Signed On 07-21-23 17:35:11 ASSOCIATE PROFESSOR [employer] by Brandan Casey
== END ==
LOC: ER 10:13
DX: D49.9 Neoplasm of unspecified behavior of unspecified site (principal); J91.0 Malignant pleural effusion; Z11.52 Encounter for screening for COVID-19; Z90.12 Acquired absence of left breast and nipple
CPT/HCPCS: 93005; 85025; 80048; 36415; 83735; 85610; 80076; 84484; 83880; 0240U; 71250; 71046; 99283

== ENCOUNTER → 2023-10-03 | Emergency (ER) | payer OTHER ==
[~2023-10-03] MED LIST: GABAPENTIN 300 MG CAP ONE
--- NOTE | 2023-10-03 22:20 | RAD REPORT ---
EXAM DESCRIPTION: CT - Spine Lumbar Wo Con - 10/03/2023 10:12 pm CLINICAL HISTORY: Radiculopathy. radiation to left leg;Pain COMPARISON: No comparisons TECHNIQUE: Axial noncontrast CT imaging of the lumbar spine was performed with coronal and sagittal re-formatted images. All CT scans are performed using dose optimization technique as appropriate and may include automated exposure control or mA/KV adjustment according to patient size. FINDINGS: No acute lumbar spine fracture seen. No aggressive marrow pattern or malalignment. Paraspinal tissues are normal in thickness. No paraspinal abscess or hematoma seen. Mild degenerative lower lumbar spondylosis with mild levoscoliosis. Mild anterolisthesis L4 on 5. IMPRESSION: No acute lumbar spine abnormality. Mild lower lumbar degenerative spondylosis.
--- NOTE | 2023-10-03 22:29 | RAD REPORT ---
EXAM DESCRIPTION: US - Extremity Venous Uni Ltd - 10/03/2023 10:24 pm CLINICAL HISTORY: PAIN Leg swelling and edema. COMPARISON: No comparisons FINDINGS: Left lower extremity venous system was interrogated with Doppler technique. Normal flow, c ompressibility and augmentation was noted. There is no DVT present. IMPRESSION: No evidence of left lower extremity deep venous thrombosis.
--- NOTE | 2023-10-03 22:29 | RAD REPORT ---
EXAM DESCRIPTION: RAD - Femur Left - 10/03/2023 10:22 pm CLINICAL HISTORY: PAIN COMPARISON: No comparisons FINDINGS: Severe tricompartmental osteoarthritis is present, greatest medially. No joint effusion is present.
--- NOTE | 2023-10-03 22:30 | RAD REPORT ---
EXAM DESCRIPTION: US - Lower Extremity Artery Uni Ltd - 10/03/2023 10:22 pm CLINICAL HISTORY: left leg pain Leg pain, claudication COMPARISON: No comparisons FINDINGS: Left lower extremity arterial Doppler was performed. Triphasic waveforms are seen througho ut the left lower extremity arterial system. No stenosis or occlusion. IMPRESSION: No significant flow abnormality visualized.
--- NOTE | 2023-10-03 23:20 | ER ---
Nurse's Notes [facility] Name: Jojo Alaniz Age: 67 yrs Sex: Female : 1955 Arrival Date: 10/03/2023 Time: 21:05 Bed 16 Private MD: Diagnosis: Pain in left leg;Osteoarthritis, unspecified site Presentation: 10/02 21:08 Chief complaint: EMS states: REPORTS PAIN ON THE LEFT LEG FOR THE PAST TWO WEEKS. 30 MG ha1 OF ketorolac IM given during route. 21:08 Coronavirus screen: Vaccine status: Patient reports receiving the 2nd dose of the covid ha1 vaccine. Ebola Screen: No symptoms or risks identified at this time. Initial Sepsis Screen: Does the patient meet any 2 criteria? No. Patient's initial sepsis screen is negative. Does the patient have a suspected source of infection? No. Patient's initial sepsis screen is negative. Risk Assessment: Do you want to hurt yourself or someone else? Patient reports no desire to harm self or others. Onset of symptoms was September 19, 2023. 21:08 Method Of Arrival: EMS: [facility] ha1 21:08 Acuity: JES 4 ha1 Triage Assessment: 21:08 General: Appears uncomfortable, Behavior is calm, cooperative. Pain: Complains of pain ha1 in left leg Pain radiates to left low back. Neuro: Level of Consciousness is awake, alert, obeys commands, Oriented to person, place, time, situation. Cardiovascular: Capillary refill < 3 seconds Patient's skin is warm and dry. Respiratory: Airway is patent Respiratory effort is even, unlabored, Respiratory pattern is regular, symmetrical. Musculoskeletal: Circulation, motion, and sensation intact. Reports pain in left leg. Historical: - Allergies: 21:29 No Known Allergies; ha1 - PMHx: 21:29 Cancer; Arthritis; ha1 - PSHx: 21:29 hernia repair; mastectomy-left; ha1 - Immunization history:: Adult Immunizations up to date. - Social history:: Smoking status: Patient denies any tobacco usage or history of. - Family history:: not pertinent. - Hospitalizations: : No recent hospitalization is reported. Screenin:08 Abuse screen: Denies threats or abuse. Denies injuries from another. Nutritional ha1 screening: No deficits noted. Tuberculosis screening: No symptoms or risk factors identified. 22:22 [facility] ED Fall Risk Assessment (Adult) History of falling in the last 3 months, yb including since admission Yes- single mechanical fall (1 pt) Confusion or Disorientation No (0 pts) Intoxicated or Sedated No (0 pts) Impaired Gait Yes (1 pt) Mobility Assist Device Used Yes (1 pt) Altered Elimination No (0 pt) Score/Fall Risk Level 3 or more points = High Risk Oriented to surroundings, Maintained a safe environment, Assessed \T\ reinforced patient's understanding of fall precautions, Hourly rounding (assess needs \T\ fall precautionary measures) done, Used ambulatory aids as needed (educated on \T\ assisted with), Remained with patient while ambulating. Assessment: 21:08 Reassessment: see triage assessment. ha1 22:04 Reassessment: Patient and/or family updated on plan of care and expected duration. Pain ha1 level reassessed. going to CT. 22:21 Reassessment: Patient back from CT. yb 23:14 Reassessment: MD at patient's bedside, family in attendance. yb 23:53 Reassessment: Patient and/or family updated on plan of care and expected duration. Pain ha1 level reassessed. Patient is alert, oriented x 3, equal unlabored respirations, skin warm/dry/pink. pain 4/10 Patient states feeling better. Patient states symptoms have improved. Vital Signs: 21:08 BP 133 / 79; Pulse 80; Resp 17 S; Temp 98.2; Pulse Ox 100% on R/A; Weight 60.33 kg; ha1 Height 5 ft. 0 in. ; 22:06 BP 133 / 64; Pulse 81; Resp 20; Pulse Ox 99% on R/A; yb 23:00 BP 127 / 68; Pulse 80; Resp 17 S; Temp 98.2(O); Pulse Ox 99% on R/A; ha1 21:08 Body Mass Index 25.97 (60.33 kg, 152.4 cm) ha1 ED Course: 21:08 Patient arrived in ED. rn 21:08 Ramon Smiley MD is Attending Physician. rn 21:08 Arm band placed on right wrist. ha1 21:08 Patient has correct armband on for positive identification. Bed in low position. Call ha1 light in reach. Side rails up X2. Adult w/ patient. 21:18 Andreea Caba, RN is Primary Nurse. ha1 21:29 Triage completed. ha1 22:10 CT Lumbar Spine Wo Con In Process Unspecified. EDMS 22:24 XRAY Femur LEFT In Process Unspecified. EDMS 22:24 Lower Extremity Artery Uni Ltd US In Process Unspecified. EDMS 22:26 Extremity Venous Uni Ltd US In Process Unspecified. EDMS 23:54 No provider procedures requiring assistance completed. Patient did not have IV access ha1 during this emergency room visit. 23:55 Provided Education on: medication administration . ha1 Administered Medications: 22:03 Drug: Gabapentin PO 300 mg PO once Route: PO; ha1 23:00 Follow up: Response: No adverse reaction; Marked relief of symptoms; Pain is decreased ha1 Medication: 22:24 VIS not applicable for this client. yb Outcome: 23:19 Discharge ordered by . rn 23:54 Discharged to home via wheelchair, with family, ha1 23:54 Condition: stable 23:54 Discharge instructions given to patient, family, Instructed on medication usage, Demonstrated understanding of instructions, follow-up care, medications, Prescriptions given X 1, 23:55 Patient left the ED. ha1 Signatures: Dispatcher [employer] EDMS Ramon Smiley MD MD rn Ayala, Heidy RN RN 1 Lulu Jacobo RN RN robert
--- NOTE | 2023-10-03 23:20 | EDPHYS ---
Physician Documentation [facility] Name: Jojo Alaniz Age: 67 yrs Sex: Female : 1955 Arrival Date: 10/03/2023 Time: 21:05 Bed 16 Private MD: ED Physician Ramon Smiley HPI: 10/02 21:47 This 67 yrs old Female presents to ER via EMS with complaints of left leg pain.rn 21:47 The patient presents with pain. The complaints affect the lateral aspect of left thigh rn and left quadriceps. Onset: The symptoms/episode began/occurred 2 week(s) ago. Modifying factors: The symptoms are alleviated by remaining still, the symptoms are aggravated by movement. Associated signs and symptoms: Pertinent negatives fever, rash, swelling, warmth, weakness. Severity of symptoms: At their worst the symptoms were moderate, in the emergency department the symptoms have improved. The patient has experienced similar episodes in the past. Patient reports left lower extremity pain from hip to knee, intermittent for the last 2 weeks. Denies trauma. No history of DVT or PE. Has history of left breast cancer. Denies metastases to the bone or back. Patient reports pain with movement, takes meloxicam. Also reports chronic pain to left knee with injections. No weakness of leg. No rash. No fever.. Historical: - Allergies: 21:29 No Known Allergies; ha1 - PMHx: 21:29 Cancer; Arthritis; ha1 - PSHx: 21:29 hernia repair; mastectomy-left; ha1 - Immunization history:: Adult Immunizations up to date. - Social history:: Smoking status: Patient denies any tobacco usage or history of. - Family history:: not pertinent. - Hospitalizations: : No recent hospitalization is reported. ROS: 21:47 Constitutional: Negative for fever, chills, and weight loss, Cardiovascular: Negative rn for chest pain, palpitations, and edema, Respiratory: Negative for shortness of breath, cough, wheezing, and pleuritic chest pain, Abdomen/GI: Negative for abdominal pain, nausea, vomiting, diarrhea, and constipation, Back: Negative for injury and pain, : Negative for injury, bleeding, discharge, and swelling, MS/Extremity: Positive for left leg pain Skin: Negative for injury, rash, and discoloration, Neuro: Negative for headache, weakness, numbness, tingling, and seizure, Exam: 21:47 Constitutional: This is a well developed, well nourished patient who is awake, alert, rn and in no acute distress. Cardiovascular: Regular rate and rhythm. No pulse deficits. Respiratory: No increased work of breathing, no retractions or nasal flaring. Abdomen/GI: Soft, nontender Back: No spinal tenderness Skin: Warm, dry MS/ Extremity: Pulses equal, no cyanosis. Neurovascular intact. Full, normal range of motion. Equal circumference. Neuro: Awake and alert, GCS 15, oriented to person, place, time, and situation. Motor strength 5/5 in all extremities. Sensory grossly intact. Vital Signs: 21:08 BP 133 / 79; Pulse 80; Resp 17 S; Temp 98.2; Pulse Ox 100% on R/A; Weight 60.33 kg; ha1 Height 5 ft. 0 in. ; 22:06 BP 133 / 64; Pulse 81; Resp 20; Pulse Ox 99% on R/A; yb 23:00 BP 127 / 68; Pulse 80; Resp 17 S; Temp 98.2(O); Pulse Ox 99% on R/A; ha1 21:08 Body Mass Index 25.97 (60.33 kg, 152.4 cm) ha1 MDM: 21:08 Patient medically screened. rn 23:17 Differential diagnosis: arthritis, DVT, arterial insufficiency, radiculopathy. rn Differential diagnosis: metastases. Data reviewed: vital signs, nurses notes. Counseling: I had a detailed discussion with the patient and/or guardian regarding the historical points, exam findings, and any diagnostic results supporting the discharge/admit diagnosis, radiology results, the need for outpatient follow up, to return to the emergency department if symptoms worsen or persist or if there are any questions or concerns that arise at home. Special discussion: I discussed with the patient/guardian in detail that at this point there is no indication for admission to the hospital. It is understood, however, that if the symptoms persist or worsen the patient needs to return immediately for re-evaluation. ED course: No new findings and workup here. Specifically negative for DVT and arterial blockage. CT lumbar spine does not show any metastases or significant disease. Does have tricompartmental arthritis. Given normal vital signs, negative for trauma, length of time she has had the symptoms, will discharge home with gabapentin as it helped her here with PCP follow-up. 10/02 21:09 Order name: XRAY Femur LEFT; Complete Time: 23:12 rn 10/02 21:09 Order name: Extremity Venous Uni Ltd US; Complete Time: 23:12 rn 10/02 21:09 Order name: Lower Extremity Artery Uni Ltd US; Complete Time: 23:12 rn 10/02 21:09 Order name: CT Lumbar Spine Wo Con; Complete Time: 23:12 rn Administered Medications: 22:03 Drug: Gabapentin PO 300 mg PO once Route: PO; ha1 23:00 Follow up: Response: No adverse reaction; Marked relief of symptoms; Pain is decreased ha1 Disposition Summary: 10/03/23 23:19 Discharge Ordered Notes: Location: Home rn Problem: new rn Symptoms: have improved rn Condition: Stable rn Diagnosis - Pain in left leg rn - Osteoarthritis, unspecified site rn Followup: rn - With: Private Physician - When: As needed - Reason: Recheck today's complaints, Re-evaluation by your physician Discharge Instructions: - Discharge Summary Sheet rn - Musculoskeletal Pain rn - Osteoarthritis rn Forms: - Medication Reconciliation Form rn - Thank You Letter rn - Antibiotic shoe turner - Prescription Opioid Use rn - Patient Portal Instructions rn - Leadership Thank You Letter rn Prescriptions: - gabapentin 100 mg Oral capsule - take 1 capsule ORAL route 2 times per day As needed; 20 capsule; Refills: 0, rn Product Selection Permitted Signatures: Dispatcher [employer] Ramon Stern MD MD rn Ayala, Heidy, RN RN ha1
[2023-10-04 00:34] VITALS: BP 127/68; TEMP 98.2; O2SAT 99
== END ==
LOC: ER 21:05
DX: M19.90 Unspecified osteoarthritis, unspecified site (principal); Z85.3 Personal history of malignant neoplasm of breast; Z90.12 Acquired absence of left breast and nipple
CPT/HCPCS: 72131; 93926; 93971; 99284

== ENCOUNTER 2024-01-14 16:08 | Emergency (ER) | payer OTHER ==
[2024-01-14] MEDS ORDERED: FENTANYL CITR 100 MCG/2 ML ONE (16:50)
[2024-01-14] MEDS ORDERED: NA CHLORIDE 0.9% 1,000 ML ONE (16:50)
[2024-01-14 16:53] LABS: Absolute Basophils 0.1 K/uL (0-0.5); Absolute Eosinophils 0.1 K/uL (0-0.5); Absolute Lymphocytes (CBC) 1.9 K/uL (0.7-4.9); Absolute Monocytes 0.8 K/uL (0.1-1.3); Absolute Neutrophil 4.2 K/uL (1.8-8.0); Basophils % 1.2 % (0-1.3); Eosinophils % 0.8 % (0-4.4); Hematocrit 15.4 % (36.0-45.0); Lymphocytes % 26.8 % (15.3-44.8); MCH 34.7 pg (27.0-35.0); MCHC 33.8 g/dL (32.0-36.0); MCV 102.7 fL (80-100); MPV 7.5 fL (7.6-11.3); Monocytes % 11.1 % (3.3-12.3); Neutrophils % 60.1 % (41.7-73.7); Platelets 172 thou/uL (152-406); Red Cell Distribution Width 17.1 % (12.1-15.2)
[2024-01-14 16:57] LABS: Protime INR 1.76
[2024-01-14] MEDS ORDERED: ONDANSETRON 4 MG/2 ML VIAL ONE ×2 (17:03→19:35)
[2024-01-14] MEDS ORDERED: PANTOPRAZOLE 40 MG INJ ONE ×3 (17:04→21:07)
[2024-01-14 17:10] LABS: Hemoglobin 5.2 g/dL (12.0-15.0)
[2024-01-14 17:17] LABS: AST/SGOT 29 U/L (15-37); Albumin 1.8 g/dL (3.4-5.0); Albumin/Globulin Ratio 0.7 (1.1-1.8); Alkaline Phosphatase 86 U/L (45-117); Anion Gap 10.6 mEq/L (5.0-15.0); BUN Blood Urea Nitrogen 26 mg/dL (7-18); Bicarbonate 25 mEq/L (21-32); Bilirubin Direct 0.4 mg/dL (0-0.2); Bilirubin Indirect, Calculated 0.5 mg/dL (0.2-0.8); Bilirubin Total 0.9 mg/dL (0.2-1.0); Globulin 2.7 g/dL (2.3-3.5); Glomerular Filtration Rate 52 ml/min (=/>90); Glucose Level 125 mg/dL (74-106); Lipase 45 U/L (13-75); Magnesium 1.8 mg/dL (1.6-2.4); Potassium 3.6 mEq/L (3.5-5.1); Protein, Total 4.5 g/dL (6.4-8.2); Sodium Level 136 mEq/L (136-145); Troponin High Sensitivity 8.4 pg/mL (<58.9)
[2024-01-14 17:18] LABS: ALT/SGPT < 14 U/L (13-56)
[2024-01-14] MEDS ORDERED: OCTREOTIDE ACETATE 100 MCG/ML ONE (17:38)
[2024-01-14] MEDS ORDERED: CEFTRIAXONE 2000 MG/VIAL ONE (17:38)
[2024-01-14] MEDS ORDERED: NA CHLORIDE 0.9% 250 ML ONE ×5 (17:50→21:11)
[2024-01-14 18:48] LABS: White Blood Cell Scan OK (OK)
[2024-01-14 18:49] LABS: Blood Morphology Comment NOTED (NOT SEEN); Hypochromasia 1+; Platelet Estimate ADEQ
[2024-01-14] MEDS ORDERED: TRANEXAMIC ACID 1,000 MG/10 ML VIAL IV ONE (19:12)
[2024-01-14] MEDS ORDERED: KETAMINE HCL IN 0.9 % NACL 50 MG/5 ML SYRINGE IV ONE (19:40)
[2024-01-14] MEDS ORDERED: NOREPINEPHRINE BITARTRATE/D5W 4 MG/250 ML BAG IV ONE (19:41)
[2024-01-14] MEDS ORDERED: ROCURONIUM 50 MG/5 ML VIAL IV ONE (19:41)
--- NOTE | 2024-01-14 19:44 | RAD REPORT ---
EXAM DESCRIPTION: CT - Chest Abdomen Pelvis W Cont - 01/14/2024 7:23 pm CLINICAL HISTORY: Chest and abdominal pain COMPARISON: July 2023 CT chest 2020 abdomen TECHNIQUE: Computed axial tomography of the chest, abdomen and pelvis was obtained. 100 cc Isovue-30 0 was administered intravenously. Oral contrast was not requested. This limits evaluation of bowel. All CT scans are performed using dose optimization technique as appropriate and may include automated exposure control or mA/KV adjustment according to patient size. FINDINGS: 20 centimeter loculated left pleural effusion containing soft tissue without significant c hange. 3.8 centimeter low to intermediate density lymph node right peritracheal region increased in size. Dilatation of the esophagus. Small right pleural effusion. Soft tissue within the pleural effusion. This has developed since prior exam. A few areas of subsegmental atelectasis within the lungs. 3.6 centimeter mass right cardiophrenic region. Varices within the abdomen 7 millimeters sclerotic foci has developed within the left ilium since 2019 Liver, pancreas, adrenals and left kidney unremarkable. Small nonobstructing right renal calculus Multiple tiny low-density splenic lesions. These have developed since 2020 Stomach is distended. Fluid within nondilated small bowel. Normal appendix. No evidence of diverticulitis. No adnexal mass. No evidence of diverticulitis IMPRESSION: Worsening metastatic disease within chest, abdomen pelvis Gastric distention with dilatation of fluid-filled esophagus Fluid within small bowel represent enteritis
[2024-01-14] MEDS ORDERED: NA CHLORIDE 0.9% 500 ML ONE (19:59)
[2024-01-14] MEDS ORDERED: Calcium Chloride 10% INJ SYR IV ONE (20:12)
--- NOTE | 2024-01-14 20:22 | ER ---
Nurse's Notes [facility] Name: Jojo Alaniz Age: 68 yrs Sex: Female : 1955 Arrival Date: 01/14/2024 Time: 16:08 Bed 4 Private MD: Diagnosis: Hemorrhagic shock;Upper GI bleed;Acute respiratory failure Presentation: 01/13 16:15 Chief complaint: EMS states: VOMITING BLOOD AND ABDOMINAL PAIN THAT RADIATES TO BACK hb SINCE THIS MORNING. Coronavirus screen: At this time, the client does not indicate any symptoms associated with coronavirus-19. Ebola Screen: No symptoms or risks identified at this time. Initial Sepsis Screen: Does the patient meet any 2 criteria? No. Patient's initial sepsis screen is negative. Does the patient have a suspected source of infection? No. Patient's initial sepsis screen is negative. Risk Assessment: Do you want to hurt yourself or someone else? Patient reports no desire to harm self or others. Onset of symptoms was January 14, 2024. 16:15 Method Of Arrival: EMS: [facility] 16:15 Acuity: JES 2 hb Triage Assessment: 16:17 General: Appears in no apparent distress. ill, Behavior is calm, cooperative. Pain: Pain currently is 7 out of 10 on a pain scale. Neuro: Level of Consciousness is obeys commands, lethargic, Oriented to person, place, time, situation. Cardiovascular: Patient's skin is warm and dry. Respiratory: Respiratory effort is even, unlabored, Respiratory pattern is regular, symmetrical. Historical: - Allergies: 16:16 No Known Allergies; hb - PMHx: 16:16 Cancer; Arthritis; hb 16:16 Breast Cancer; Metastasis to lung; aa5 - PSHx: 16:16 hernia repair; mastectomy-left; hb - Immunization history:: Adult Immunizations up to date. - Infectious Disease History:: Denies. - Social history:: Smoking status: Patient denies any tobacco usage or history of. Screenin:40 [facility] ED Fall Risk Assessment (Adult) History of falling in the last 3 months, aa5 including since admission No falls in past 3 months (0 pts) Confusion or Disorientation No (0 pts) Intoxicated or Sedated No (0 pts) Impaired Gait Yes (1 pt) Mobility Assist Device Used Yes (1 pt) Altered Elimination Yes (1 pt) Score/Fall Risk Level 3 or more points = High Risk Oriented to surroundings, Maintained a safe environment, Educated pt \\T\\ family on fall prevention, incl call for assistance when getting out of bed, Assessed \\T\\ reinforced patient's understanding of fall precautions, Hourly rounding (assess needs \\T\\ fall precautionary measures) done. 16:45 Abuse screen: Denies threats or abuse. Denies injuries from another. Nutritional ph screening: No deficits noted. Tuberculosis screening: No symptoms or risk factors identified. Assessment: 16:25 General: Appears uncomfortable, Appears weak. . Behavior is calm, cooperative. Pain: aa5 Complains of pain in thoracic area Pain currently is 7 out of 10 on a pain scale. Pain began this morning Is continuous. Neuro: Level of Consciousness is awake, alert, obeys commands, Oriented to person, place, time, situation, Reports generalized weakness . Cardiovascular: Heart tones S1 S2 present Rhythm is regular. Respiratory: Airway is patent Respiratory effort is even, unlabored, relaxed, Respiratory pattern is regular, symmetrical. GI: Abdomen is non-distended, Bowel sounds present X 4 quads. Abd is soft X 4 quads Reports nausea, vomiting blood since this morning. Patient currently denies diarrhea. : No signs and/or symptoms were reported regarding the genitourinary system. EENT: Oral mucosa is dry. Derm: Skin is dry, Skin is yellow, Skin temperature is warm. Musculoskeletal: Range of motion: intact in all extremities. 16:44 Neuro: Level of Consciousness is awake, alert, obeys commands, Oriented to person, aa5 place, time, situation. Respiratory: Airway is patent Respiratory effort is even, unlabored, Respiratory pattern is regular, symmetrical. Derm: Skin is dry, Skin is yellow, Skin temperature is warm. 16:44 Reassessment: Appears weak. . aa5 17:20 Reassessment: Pt states "I do not want my to make any decisions (medical) about aa5 me, I only want my sister here to make all the decisions", sister at bedside is Rebecca Walters. Statements witnessed by Erma Zheng RN. aware. . 17:20 Reassessment: Pt states she had a bowel movement, pt cleaned, no stool noted, only aa5 small amount of black blood clots noted, witnessed by MD. Cleaned and clean brief applied. . 17:20 Neuro: Level of Consciousness is awake, alert, obeys commands, Oriented to person, aa5 place, time, situation. Respiratory: Airway is patent Respiratory effort is even, unlabored, relaxed, Respiratory pattern is regular, symmetrical. Derm: Skin is dry, Skin is yellow, Skin temperature is warm. 17:36 Reassessment: Blood transfusion faxed to lab, spoke with blood bank staff to release aa5 STAT, verified 1st unit will be released soon. . 17:40 Reassessment: Consent for RBC administration obtained and signed by pt's sister, Rebecca Walters, as requested by patient. . 17:40 Neuro: Level of Consciousness is awake, alert, obeys commands, Oriented to person, aa5 place, time, situation. Respiratory: Airway is patent Respiratory effort is even, unlabored, relaxed, Respiratory pattern is regular, symmetrical. Derm: Skin is dry, Skin is yellow, Skin temperature is warm. 17:40 Reassessment: Appears weak and closes eyes at times to rest. . aa5 18:18 Reassessment: Awaiting RBC unit from lab, notified of lab delay. . aa5 18:38 Reassessment: Received 2 units of RBC from blood bank. . aa5 18:40 Reassessment: Started RBC unit # 1, infusing rapidly per MD. See blood transfusion aa5 record for more information and complete vital signs. . 18:40 Neuro: Level of Consciousness is awake, alert, obeys commands, lethargic, Oriented to aa5 person, place, time, situation. Respiratory: Airway is patent Respiratory effort is even, unlabored, relaxed, Respiratory pattern is regular, symmetrical. Derm: Skin is dry, Skin is yellow, Skin temperature is warm. 19:00 Reassessment: RBC unit #1 complete . aa5 19:00 Reassessment: notified of lowered BP, pt reports she is having a bowel movement, aa5 instructed pt not to bare down or strain. Pt appears more weak and lethargic but remains oriented x person, place, and situation. . 19:00 General: Appears uncomfortable, Behavior is calm, cooperative. Pain: Complains of pain ha1 in thoracic area Pain currently is 5 out of 10 on a pain scale. Pain began suddenly, Is continuous. Neuro: Level of Consciousness is awake, alert, obeys commands, Oriented to person, place, time, situation. Cardiovascular: Heart tones S1 S2 present Capillary refill < 3 seconds Rhythm is regular. Respiratory: Airway is patent Respiratory effort is even, unlabored, Respiratory pattern is tachypnea. GI: Abdomen is round Stools are reported to be large black tarry stool. vomiting blood Bowel sounds present X 4 quads. Abd is soft X 4 quads Reports nausea, vomiting, vomiting blood. Derm: Skin is dry, Skin is pale, yellow, Skin temperature is cool. Musculoskeletal: Range of motion: intact in all extremities. 19:02 Reassessment: Started RBC unit #2, infusing rapidly per MD. See blood transfusion aa5 record for more information and complete vital signs. . 19:12 Reassessment: Large amount of black rectal bleeding noted, pt cleaned, clean brief aa5 applied. MD aware. . 19:15 Reassessment: RBC unit #2 complete. Pt now to CT accompanied by 3 RNs. . aa5 19:32 Reassessment: administered unit of Plasma. ha1 19:42 Reassessment: complete plasma infusion. No adverse reaction. ha1 20:05 Reassessment: Patient and/or family updated on plan of care and expected duration. Pain ha1 level reassessed. GI: vomiting blood . Notified Dr. Bradley. 21:10 Reassessment: reports given to CARMELITA Her. ha1 21:10 Respiratory: Airway via oral intubation Respiratory effort is even, unlabored, ha1 Respiratory pattern is regular, symmetrical, Ventilator assessment: Suction provided. Vital Signs: 16:15 BP 93 / 55; Pulse 70; Resp 15; Temp 98.3; Pulse Ox 99% on R/A; Weight 59.87 kg; Height hb 5 ft. 0 in. ; Pain 7/10; 16:45 BP 62 / 35; Pulse 68; Resp 14 S; Pulse Ox 100% on R/A; aa5 16:55 BP 73 / 36; Pulse 65; Resp 16 S; Pulse Ox 100% on R/A; aa5 17:00 BP 84 / 34; Pulse 65; Resp 14 S; Pulse Ox 100% on R/A; aa5 17:05 BP 93 / 42; Pulse 80; Resp 22 S; Pulse Ox 100% on R/A; aa5 17:20 BP 87 / 36; Pulse 87; Resp 24 S; Pulse Ox 100% on R/A; aa5 17:30 BP 84 / 37; Pulse 83; Resp 24 S; Pulse Ox 100% on R/A; aa5 17:40 BP 89 / 38; Pulse 79; Resp 25 S; Pulse Ox 90% on R/A; aa5 17:41 Pulse Ox 100% on 2 lpm NC; aa5 17:50 BP 75 / 45; Pulse 77; Resp 22 S; Pulse Ox 100% on 2 lpm NC; aa5 17:55 BP 64 / 37; Pulse 76; Resp 22 S; Pulse Ox 100% on 2 lpm NC; aa5 18:30 BP 81 / 33; Pulse 80; Resp 18; Temp 98.1(O); Pulse Ox 100% on 2 lpm NC; aa5 18:50 BP 87 / 44; Pulse 78; Resp 19 S; Temp 98.3(O); Pulse Ox 100% on 2 lpm NC; aa5 19:00 BP 55 / 32; Pulse 76; Resp 16 S; Temp 98.3(O); Pulse Ox 100% on 2 lpm NC; aa5 19:06 Resp 16 S; Pulse Ox 78% on 2 lpm NC; aa5 19:07 BP 111 / 50; Pulse 66; Resp 17; Temp 98.3(O); Pulse Ox 100% on Non-rebreather mask; aa5 19:15 BP 99 / 76; Pulse 66; Resp 16 S; Temp 98.1(O); Pulse Ox 100% on Non-rebreather mask; aa5 19:15 BP 80 / 59; Pulse 124; Resp 24; Pulse Ox 100% ; hb 19:25 BP 57 / 38; Pulse 73; Resp 19 S; Pulse Ox 100% on Non-rebreather mask; ha1 19:50 BP 89 / 49; Pulse 79; Resp 17 S; Pulse Ox 100% on 15 lpm Non-rebreather mask; ha1 20:00 BP 82 / 34; Pulse 90; Resp 19; Pulse Ox 100% ; ha1 20:15 BP 102 / 86; Pulse 130; Resp 20 S; Pulse Ox 100% on ETT vent; FiO2 40 %; ha1 20:30 BP 84 / 59; Pulse 123; Resp 20; Pulse Ox 100% on ETT vent; ha1 20:36 BP 96 / 74; Pulse 112; Resp 17 S; Pulse Ox 100% on ETT vent; ha1 20:50 BP 102 / 84; Pulse 116; Resp 17 S; Pulse Ox 100% on ETT vent; ha1 21:05 BP 103 / 54; Pulse 111; Resp 20 A; Pulse Ox 100% on ETT vent; ha1 21:20 BP 101 / 52; Pulse 112; Resp 20 A; Pulse Ox 100% on ETT vent; ha1 16:15 Body Mass Index 25.78 (59.87 kg, 152.4 cm) hb 16:15 Pain Scale: Adult hb 16:45 MD notified of hypotension aa5 19:00 MD aware of BP aa5 19:06 MD aware of decreased O2 sat. aa5 ED Course: 16:12 Patient arrived in ED. hb 16:13 Magno Medina MD is Attending Physician. rt 16:16 Triage completed. hb 16:17 Cristine Blevins, RN is Primary Nurse. aa5 16:17 Arm band placed on. hb 16:44 Initial lab(s) drawn, by me, sent to lab. Inserted saline lock: 22 gauge in right aa5 wrist, using aseptic technique. Blood collected. 16:45 Patient has correct armband on for positive identification. Bed in low position. Call ph light in reach. Side rails up X2. Client placed on continuous cardiac and pulse oximetry monitoring. NIBP monitoring applied. postal service window clerk on. Door closed. Noise minimized. Warm blanket given. Pillow given. 17:14 Inserted saline lock: 22 gauge in right forearm, using aseptic technique. aa5 17:33 initiated a transfer with Deborah Iam Monteiro from the [facility] transfer cable. eb 19:10 Radiology exam delayed due to per RN. nj 19:15 Report given to CARMELITA Doran. aa5 19:20 Warm blanket given. ha1 19:25 CT Chest, Abdomen, Pelvis - W/Contrast In Process Unspecified. EDMS 19:35 Provided Education on: provided education to patient on the need to receive blood ha1 transfusion . patient agreed to receive blood transfusions and to be intubated. States " do what you got to do to preserve life.". 20:00 Assisted provider with central line placement. Set up central line tray. Triple lumen ha1 line placed in right femoral. Line placed by Magno Medina MD Placement verified by CXR, blood return, Dressed with 4X4s, Tape, Tegaderm, Patient tolerated well. Patient \\T\\ family education about procedure, CLABSI prevention and S/S of infection? Yes. Time-out/Briefing performed prior to start of procedure? Yes. Was handwashing/sanitizing done immediately prior to procedure? Yes. Was patient positioned to in a way to prevent air embolism? Yes. Was procedure site sterilized? Yes, with chlorhexidine. Was the site allowed to dry? Yes. Was local anesthetic and/or sedation utilized? Yes. During the procedure, did the Practitioner(s) maintain a sterile field? Yes. Was blood aspirated from each lumen? Yes. 20:16 Assisted provider with intubation using 7.5 mm ETT via oral route. ET tube secured at ha1 22cm at the teeth. Set up intubation tray. Intubated by Magno Medina MD Placement verified by CO2 detector w/ + color change, auscultating bilateral breath sounds, End-tidal CO2 montioring CXR, Patient tolerated well. 20:20 NGT: inserted 16 Fr. via left nare. verified placement of air over stomach, verified ha1 return of gastric contents, Placement verified by X-ray, to intermittent suction. Returned bright red blood. Amount of gastric contents removed by suction 175ml. 20:37 Chest Single View In Process Unspecified. EDMS 21:00 Patient transferred, IV remains in place. ha1 Administered Medications: 16:52 Drug: NS 0.9% IV 1000 ml IV at 1 bolus Per protocol; 1000 mL bolus Route: IV; Rate: 1 aa5 bolus; Site: right wrist; 17:25 Follow up: IV Status: Completed infusion; IV Intake: 1000ml ; administered rapidly per mariia HERNANDEZ VO. 16:52 Drug: fentaNYL (PF) IVP 50 mcg IVP once Route: IVP; Site: right wrist; aa5 17:15 Follow up: Response: No adverse reaction; Pain is decreased aa5 17:14 Drug: Ondansetron IVP 4 mg IVP once; over 2 minutes Route: IVP; Site: right wrist; aa5 17:30 Follow up: Response: No adverse reaction aa5 17:14 Drug: Pantoprazole IVP 80 mg IVP once Route: IVP; Site: right wrist; aa5 17:30 Follow up: Response: No adverse reaction aa5 17:50 Drug: Rocephin - Rocephin (cefTRIAXone) IVPB 2 grams IVPB once over 30 mins; (mix in aa5 100 mL NS) Route: IVPB; Infused Over: 30 mins; Site: right wrist; 17:50 Drug: Octreotide IV 50 mcg IV at calculated rate once Route: IV; Rate: calculated rate; aa5 Site: right wrist; 19:38 Drug: Ondansetron IVP 8 mg IVP once; over 2 minutes Route: IVP; Site: right forearm; ha1 20:00 Follow up: Response: No adverse reaction ha1 19:50 Drug: tranexamic acid 1000 mg IV at per protocol once; administer at a rate not to ha1 exceed 100 mg per min Route: IV; Rate: per protocol; Site: right forearm; 20:00 Follow up: Response: No adverse reaction; IV Status: Completed infusion ha1 19:56 Drug: Norepinephrine IV 0.1 mcg/kg/min IV at calculated rate Per protocol; (Standard ha1 concentration 4 mg / 250 mL D5W); Recommended max rate 3 mcg/kg/min; Titrate 0.05 mcg/kg/min as often as every 5 minutes to achieve goal (see titration policy); Goal parameter MAP greater than 65 mmHg. Route: IV; Rate: calculated rate; Site: right forearm; 21:20 Follow up: Response: No adverse reaction; IV Status: Infusion continued upon transfer; ha1 IV Intake: 120ml 20:14 Drug: Ketamine IVP 100 mg IVP once Route: IVP; Site: right forearm; ha1 21:00 Follow up: Response: No adverse reaction ha1 20:14 Drug: Calcium Chloride IVP 1 grams IVP once Route: IVP; Site: right forearm; ha1 20:30 Follow up: Response: No adverse reaction ha1 20:15 Drug: Rocuronium IVP 75 mg IVP once Route: IVP; Site: right forearm; ha1 21:00 Follow up: Response: No adverse reaction ha1 21:10 Drug: Pantoprazole IV 8 mg/hr IV at 25 ml/hr continuous; (Standard dilution is 80 mg in ha1 250 mL NS) Route: IV; Rate: 25 ml/hr; Site: right forearm; 21:10 Follow up: Response: No adverse reaction; IV Status: Infusion continued upon transfer ha1 21:32 Not Given (Physician Discretion): [id number] mcg IV at per protocol once ha1 21:32 Not Given (Physician Discretion): [id number] mcg/h IV at calculated rate once ha1 Medication: 16:45 VIS not applicable for this client. ph Intake: 17:25 IV: 1000ml; Total: 1000ml. aa5 21:20 IV: 120ml; Total: 1120ml. ha1 Outcome: 20:22 ER care complete, transfer ordered by . rt 21:30 Transferred by helicopter to [facility], Transfer form completed. ha1 X-rays sent w/ patient. 21:30 Condition: stable ha1 21:30 Instructed on the need for transfer, information provided to family members Demonstrated understanding of instructions, 21:32 Patient left the ED. ha1 Signatures: Dispatcher [employer] EDMS Cristine Blevins RN RN aa5 Kalina Bowden RN RN Opal Ma RN RN Beau Farrar Elizabeth eb Ayala, Heidy, RN RN ha1 Magno Medina MD MD rt Corrections: (The following items were deleted from the chart) 16:17 16:15 BP 93 / 55; Pulse 70bpm; Resp 15bpm; Pulse Ox 99% RA; Temp 98.3F; Pain 7/10, hb Adult; hb 17:58 17:57 IV Status: Completed infusion; IV Intake: 1000ml aa5 aa5 18:30 18:18 Reassessment: Awaiting RBC unit from lab, notified of lab delay. . aa5 aa5 18:52 18:30 BP 73 / 37; Pulse 76bpm; Resp 17bpm; Pulse Ox 100% RA; hb aa5 19:54 17:20 Reassessment: Pt states "I do not want my to make any decisions (medical) aa5 about me, I only want my sister here to make all the decisions", sister at bedside is Rebecca Walters. Statements witnessed by Erma Zheng RN. . aa5 19:56 19:06 Resp 16bpm; Spontaneous; Pulse Ox 78% 2 lpm Nasal Cannula; aa5 aa5 20:04 16:25 General: Appears uncomfortable, Behavior is calm, cooperative, aa5 aa5 07/06 07:59 07/05 20:30 BP 84 / 59; Pulse 123bpm; Resp 20bpm; Pulse Ox 100%; hb ha1 01/14 20:36 BP 96 / 74; Pulse 112bpm; Resp 17bpm; Spontaneous; Pulse Ox 100% ha1 Non-rebreather mask; ha1 01/14 20:15 BP 102 / 86; Pulse 130bpm; Resp 20bpm; Spontaneous; Pulse Ox 100% Nasal ha1 Cannula; ha1 01/14 20:50 BP 102 / 84; Pulse 116bpm; Resp 17bpm; Spontaneous; Pulse Ox 100% ha1 Non-rebreather mask; ha1 01/14 08:01 01/13 19:35 Provided Education on: provided education to patient on the need to receive ha1 blood transfusion . patient agreed to receive blood transfusions and to be intubated. States " do what you got to do to preserve life.". ha1 01/14 08:20 01/13 20:00 BP 82 / 34; Pulse 77bpm; Resp 19bpm; Pulse Ox 100%; hb ha1 01/14 08:23 01/13 19:32 Reassessment: administered first unit of Plasma ha1 ha1
--- NOTE | 2024-01-14 20:22 | EDPHYS ---
Physician Documentation [facility] Name: Jojo Alaniz Age: 68 yrs Sex: Female : 1955 Arrival Date: 01/14/2024 Time: 16:08 Bed 4 Private MD: ED Physician Magno Medina HPI: 01/13 20:23 This 68 yrs old Female presents to ER via EMS with complaints of VOMITING rt BLOOD. 20:23 Patient presents to the ED with reported coffee-ground emesis, generalized weakness. rt Denies any abdominal pain. Denies melena. Denies other acute complaints, symptoms are severe in severity, no other aggravating or alleviating factors.. Historical: - Allergies: 16:16 No Known Allergies; hb - PMHx: 16:16 Cancer; Arthritis; hb 16:16 Breast Cancer; Metastasis to lung; aa5 - PSHx: 16:16 hernia repair; mastectomy-left; hb - Immunization history:: Adult Immunizations up to date. - Infectious Disease History:: Denies. - Social history:: Smoking status: Patient denies any tobacco usage or history of. ROS: 20:23 Constitutional: Negative for fever, chills, and weight loss, Cardiovascular: Negative rt for chest pain, palpitations, and edema, Respiratory: Negative for shortness of breath, cough, wheezing, and pleuritic chest pain, MS/Extremity: Negative for injury and deformity, Skin: Negative for injury, rash, and discoloration, Neuro: Negative for headache, weakness, numbness, tingling, and seizure, 20:23 Abdomen/GI: Positive for vomiting, Negative for abdominal pain, Exam: 20:23 Constitutional: This is a well developed, well nourished patient who is awake, alert, rt and in no acute distress. Head/Face: Normocephalic, atraumatic. Chest/axilla: Normal chest wall appearance and motion. Nontender with no deformity. No lesions are appreciated. Cardiovascular: Regular rate and rhythm with a normal S1 and S2. No gallops, murmurs, or rubs. Normal PMI, no JVD. No pulse deficits. Respiratory: Lungs have equal breath sounds bilaterally, clear to auscultation and percussion. No rales, rhonchi or wheezes noted. No increased work of breathing, no retractions or nasal flaring. Abdomen/GI: Soft, non-tender, with normal bowel sounds. No distension or tympany. No guarding or rebound. No evidence of tenderness throughout. Skin: Warm, dry with normal turgor. Normal color with no rashes, no lesions, and no evidence of cellulitis. MS/ Extremity: Pulses equal, no cyanosis. Neurovascular intact. Full, normal range of motion. Neuro: Awake and alert, GCS 15, oriented to person, place, time, and situation. Cranial nerves II-XII grossly intact. Motor strength 5/5 in all extremities. Sensory grossly intact. Cerebellar exam normal. Normal gait. 20:23 ECG was reviewed by the Attending Physician. Vital Signs: 16:15 BP 93 / 55; Pulse 70; Resp 15; Temp 98.3; Pulse Ox 99% on R/A; Weight 59.87 kg; Height hb 5 ft. 0 in. ; Pain 7/10; 16:45 BP 62 / 35; Pulse 68; Resp 14 S; Pulse Ox 100% on R/A; aa5 16:55 BP 73 / 36; Pulse 65; Resp 16 S; Pulse Ox 100% on R/A; aa5 17:00 BP 84 / 34; Pulse 65; Resp 14 S; Pulse Ox 100% on R/A; aa5 17:05 BP 93 / 42; Pulse 80; Resp 22 S; Pulse Ox 100% on R/A; aa5 17:20 BP 87 / 36; Pulse 87; Resp 24 S; Pulse Ox 100% on R/A; aa5 17:30 BP 84 / 37; Pulse 83; Resp 24 S; Pulse Ox 100% on R/A; aa5 17:40 BP 89 / 38; Pulse 79; Resp 25 S; Pulse Ox 90% on R/A; aa5 17:41 Pulse Ox 100% on 2 lpm NC; aa5 17:50 BP 75 / 45; Pulse 77; Resp 22 S; Pulse Ox 100% on 2 lpm NC; aa5 17:55 BP 64 / 37; Pulse 76; Resp 22 S; Pulse Ox 100% on 2 lpm NC; aa5 18:30 BP 81 / 33; Pulse 80; Resp 18; Temp 98.1(O); Pulse Ox 100% on 2 lpm NC; aa5 18:50 BP 87 / 44; Pulse 78; Resp 19 S; Temp 98.3(O); Pulse Ox 100% on 2 lpm NC; aa5 19:00 BP 55 / 32; Pulse 76; Resp 16 S; Temp 98.3(O); Pulse Ox 100% on 2 lpm NC; aa5 19:06 Resp 16 S; Pulse Ox 78% on 2 lpm NC; aa5 19:07 BP 111 / 50; Pulse 66; Resp 17; Temp 98.3(O); Pulse Ox 100% on Non-rebreather mask; aa5 19:15 BP 99 / 76; Pulse 66; Resp 16 S; Temp 98.1(O); Pulse Ox 100% on Non-rebreather mask; aa5 19:15 BP 80 / 59; Pulse 124; Resp 24; Pulse Ox 100% ; hb 19:25 BP 57 / 38; Pulse 73; Resp 19 S; Pulse Ox 100% on Non-rebreather mask; ha1 19:50 BP 89 / 49; Pulse 79; Resp 17 S; Pulse Ox 100% on 15 lpm Non-rebreather mask; ha1 20:00 BP 82 / 34; Pulse 90; Resp 19; Pulse Ox 100% ; ha1 20:15 BP 102 / 86; Pulse 130; Resp 20 S; Pulse Ox 100% on ETT vent; FiO2 40 %; ha1 20:30 BP 84 / 59; Pulse 123; Resp 20; Pulse Ox 100% on ETT vent; ha1 20:36 BP 96 / 74; Pulse 112; Resp 17 S; Pulse Ox 100% on ETT vent; ha1 20:50 BP 102 / 84; Pulse 116; Resp 17 S; Pulse Ox 100% on ETT vent; ha1 21:05 BP 103 / 54; Pulse 111; Resp 20 A; Pulse Ox 100% on ETT vent; ha1 21:20 BP 101 / 52; Pulse 112; Resp 20 A; Pulse Ox 100% on ETT vent; ha1 16:15 Body Mass Index 25.78 (59.87 kg, 152.4 cm) hb 16:15 Pain Scale: Adult hb 16:45 MD notified of hypotension aa5 19:00 MD aware of BP aa5 19:06 MD aware of decreased O2 sat. aa5 Procedures: 20:23 Intubation: Intubated orally using 4 hyper angulated with 7.5 mm ETT. was successful on rt first attempt. Ventilated with Ambu bag. ventilator. Tube secured with ETT resendiz Placement verified by CXR, CO2 detector with (+) color change, auscultating bilateral breath sounds, Patient tolerated well. Central Line: the site was prepped with in sterile fashion, Chlorhexidine, a triple lumen catheter was inserted, in the right femoral vein, in 1 attempts. placement was verified, by blood return, the site was dressed with Chlorhexidine impregnated Tegaderm, the patient tolerated the procedure, well. MDM: 16:13 Patient medically screened. rt 20:23 Differential Diagnosis Upper GI bleed, hemorrhagic shock. Data reviewed: vital signs, rt nurses notes, lab test result(s), EKG, radiologic studies. Consideration of Admission/Observation Patient requires transfer for GI coverage. I considered the following discharge prescriptions or medication management in the emergency department Medications were administered in the Emergency Department. See MAR. Independent interpretation of the following test(s) in the Emergency Department CT Scan: My interpretation is No bowel obstruction seen on interpretation of CT scan images. Care significantly affected by the following chronic conditions: Cancer. Counseling: I had a detailed discussion with the patient and/or guardian regarding the historical points, exam findings, and any diagnostic results supporting the discharge/admit diagnosis, lab results, radiology results, the need to transfer to another facility. Response to treatment: the patient's symptoms have worsened after treatment, Patient had worsening GI bleeding, melena requiring significant blood transfusion, tranexamic acid, medications.. ED course: Called for transfer, stated that patient required CT scan, further stabilization. Patient did worsen following that to have worsening melena, upper GI bleeding with worsening of mentation. Patient was resuscitated further with blood products, Levophed. CT scan only shows worsening metastatic disease, patient was intubated for airway protection, central was placed.. 01/13 16:20 Order name: Basic Metabolic Panel; Complete Time: 17:29 rt 01/13 16:20 Order name: CBC with Diff; Complete Time: 19:45 rt 01/13 16:20 Order name: LFT's; Complete Time: 17:29 rt 01/13 16:20 Order name: Magnesium; Complete Time: 17:29 rt 01/13 16:20 Order name: PT-INR; Complete Time: 17:16 rt 01/13 16:20 Order name: Troponin HS; Complete Time: 17:29 rt 01/13 16:20 Order name: Type And Screen rt 01/13 16:20 Order name: Lipase; Complete Time: 17:29 rt 01/13 17:13 Order name: CBC Smear Scan; Complete Time: 19:45 EDMS 01/13 17:42 Order name: Packed RBC Leukored EDND 01/13 18:24 Order name: Packed RBCs (Additional Unit) EDND 01/13 19:33 Order name: Fresh Frozen Plasma EDND 01/13 16:20 Order name: CT Chest, Abdomen, Pelvis - W/Contrast; Complete Time: 19:45 rt 01/13 20:32 Order name: Chest Single View EDND 01/13 16:20 Order name: Cardiac monitoring; Complete Time: 16:30 rt 01/13 16:20 Order name: EKG - Nurse/Tech; Complete Time: 16:30 rt 01/13 16:20 Order name: IV Saline Lock; Complete Time: 16:58 rt 01/13 16:20 Order name: Labs collected and sent; Complete Time: 16:58 rt 01/13 16:20 Order name: O2 Per Protocol; Complete Time: 16:30 rt 01/13 16:20 Order name: O2 Sat Monitoring; Complete Time: 16:30 rt 01/13 20:38 Order name: Intubation Setup; Complete Time: 20:39 hb 01/13 20:39 Order name: Central Line Dressing Kit; Complete Time: 20:39 hb 01/13 20:39 Order name: Central Line Kit; Complete Time: 20:39 hb 01/13 20:39 Order name: Consent for central line completed; Complete Time: 20:39 hb 01/13 20:39 Order name: Line Caps x3; Complete Time: 20:39 hb 01/13 20:39 Order name: NS Flushes x3; Complete Time: 20:39 hb 01/13 20:39 Order name: Sterile Gloves; Complete Time: 20:39 hb 01/13 20:39 Order name: NG Tube; Complete Time: 20:39 hb EC:23 Rate is 63 beats/min. Rhythm is regular, Normal Sinus Rhythm with No ectopy. QRS [place] rt is Normal. CA interval is normal. QRS interval is normal. QT interval is normal. No Q waves. T waves are Normal. No ST changes noted. Interpreted by me. Administered Medications: 16:52 Drug: NS 0.9% IV 1000 ml IV at 1 bolus Per protocol; 1000 mL bolus Route: IV; Rate: 1 aa5 bolus; Site: right wrist; 17:25 Follow up: IV Status: Completed infusion; IV Intake: 1000ml ; administered rapidly per aa5 VO. 16:52 Drug: fentaNYL (PF) IVP 50 mcg IVP once Route: IVP; Site: right wrist; aa5 17:15 Follow up: Response: No adverse reaction; Pain is decreased aa5 17:14 Drug: Ondansetron IVP 4 mg IVP once; over 2 minutes Route: IVP; Site: right wrist; aa5 17:30 Follow up: Response: No adverse reaction aa5 17:14 Drug: Pantoprazole IVP 80 mg IVP once Route: IVP; Site: right wrist; aa5 17:30 Follow up: Response: No adverse reaction aa5 17:50 Drug: Rocephin - Rocephin (cefTRIAXone) IVPB 2 grams IVPB once over 30 mins; (mix in aa5 100 mL NS) Route: IVPB; Infused Over: 30 mins; Site: right wrist; 17:50 Drug: Octreotide IV 50 mcg IV at calculated rate once Route: IV; Rate: calculated rate; aa5 Site: right wrist; 19:38 Drug: Ondansetron IVP 8 mg IVP once; over 2 minutes Route: IVP; Site: right forearm; ha1 20:00 Follow up: Response: No adverse reaction ha1 19:50 Drug: tranexamic acid 1000 mg IV at per protocol once; administer at a rate not to ha1 exceed 100 mg per min Route: IV; Rate: per protocol; Site: right forearm; 20:00 Follow up: Response: No adverse reaction; IV Status: Completed infusion ha1 19:56 Drug: Norepinephrine IV 0.1 mcg/kg/min IV at calculated rate Per protocol; (Standard ha1 concentration 4 mg / 250 mL D5W); Recommended max rate 3 mcg/kg/min; Titrate 0.05 mcg/kg/min as often as every 5 minutes to achieve goal (see titration policy); Goal parameter MAP greater than 65 mmHg. Route: IV; Rate: calculated rate; Site: right forearm; 21:20 Follow up: Response: No adverse reaction; IV Status: Infusion continued upon transfer; ha1 IV Intake: 120ml 20:14 Drug: Ketamine IVP 100 mg IVP once Route: IVP; Site: right forearm; ha1 21:00 Follow up: Response: No adverse reaction ha1 20:14 Drug: Calcium Chloride IVP 1 grams IVP once Route: IVP; Site: right forearm; ha1 20:30 Follow up: Response: No adverse reaction ha1 20:15 Drug: Rocuronium IVP 75 mg IVP once Route: IVP; Site: right forearm; ha1 21:00 Follow up: Response: No adverse reaction ha1 21:10 Drug: Pantoprazole IV 8 mg/hr IV at 25 ml/hr continuous; (Standard dilution is 80 mg in ha1 250 mL NS) Route: IV; Rate: 25 ml/hr; Site: right forearm; 21:10 Follow up: Response: No adverse reaction; IV Status: Infusion continued upon transfer ha1 :32 Not Given (Physician Discretion): [id number] mcg IV at per protocol once ha1 21:32 Not Given (Physician Discretion): [id number] mcg/h IV at calculated rate once ha1 Disposition Summary: 01/14/24 20:22 Transfer Ordered Notes: Transfer Location: [facility] rt Reason: Higher level of care rt Condition: Critical rt Problem: new rt Symptoms: have worsened rt Accepting Physician: (01/14/24 21:32) ha1 Diagnosis - Hemorrhagic shock rt - Upper GI bleed rt - Acute respiratory failure rt Forms: - Medication Reconciliation Form rt - SBAR form rt Critical care time excluding procedures: 20:30 Critical care time: Bedside Care: 70 minutes, Consultation: 10 minutes. Total time: 80 rt minutes Signatures: Dispatcher [employer] EDZach Jaimes MD MD cha Calderon, Audri RN RN aa5 Opal Ma RN RN hb Ayala, Heidy, RN RN ha1 Magno Medina MD MD rt Corrections: (The following items were deleted from the chart) 16:21 16:21 Chest Abdomen Pelvis W [id number]+[id number].BRZ ordered. EDND EDND 21:32 20:22 rt ha1
--- NOTE | 2024-01-14 21:18 | RAD REPORT ---
EXAM DESCRIPTION: [facility] Single View01/14/2024 8:36 pm CLINICAL HISTORY: Device placement endotracheal tube placement IMPRESSION: An endotracheal tube has been inserted with its tip into the right mainstem bronchus. Nasogastric tube has its tip within the lateral gastric fundus
[2024-01-14 21:39] VITALS: O2SAT 100
[2024-01-14 21:56] VITALS: TEMP 98.1
[2024-01-14 22:17] VITALS: BP 84/59
--- NOTE | 2024-01-18 09:05 | EKG ---
Test Date: 2024-01-14 Test Time: 16:22:29 Morphology Teacher: PH MEASUREMENT RESULTS: Intervals: Rate: 63 MS: 138 QRSD: 82 QT: 420 QTc: 429 [place]: P: 17 MS: 138 QRS: 19 T: 18 INTERPRETIVE STATEMENTS: Normal sinus rhythm Normal ECG Compared to ECG 07/19/2023 12:51:38 No significant changes Electronically Signed On 01-18-24 09:04:56 CDT by Juan Miguel Morales
== END 2024-01-14 21:32 | disposition short-term general hospital (02) ==
LOC: ER 16:08
PROC: 06HM33Z Insertion of Infusion Device into Right Femoral Vein, Percutaneous Approach (ICD-10-PCS; principal; 2024-01-14)
PROC: 30233K1 Transfusion of Nonautologous Frozen Plasma into Peripheral Vein, Percutaneous Approach (ICD-10-PCS; 2024-01-14)
PROC: 30233N1 Transfusion of Nonautologous Red Blood Cells into Peripheral Vein, Percutaneous Approach (ICD-10-PCS; 2024-01-14)
DX: R57.8 Other shock (principal); J96.00 Acute respiratory failure, unspecified whether with hypoxia or hypercapnia; Z85.3 Personal history of malignant neoplasm of breast; Z85.118 Personal history of other malignant neoplasm of bronchus and lung
CPT/HCPCS: 85025; 80048; 36415; 86900; 83735; 86850; 85610; 86901; 80076; 86920 ×5; 84484; 83690; 71260; 74177; 71045; 31500; 99285; 94002; 36556; 36430; Q9967; J2354; C9113 ×3; J3010; J2405 ×2; J0696; P9016 ×5; P9059 ×2; J7050 ×6; J7030; 93005